=== PATIENT | female | born 1990 | race Caucasian/White ===

== ENCOUNTER → 2017-09-17 20:28 | Outpatient (CLI) | payer OTHER, SELFPAY ==
[2017-09-17 20:38] LABS: Mucous, Urine 0 SEEN /hpf (<or=2+); Red Blood Cells-Urine 0 SEEN /hpf (0-5)
[2017-09-17 21:29] LABS: Color, Urine Yellow (Yellow); Glucose, Dipstick Normal (Normal); Ketone-Dipstick Negative (Negative); Leukocyte Esterase-Dipstick 25 /ul (Negative); Nitrite-Dipstick Negative (Negative); Occult Blood-Urine Negative /ul (Negative); Protein-Dipstick 15 mg/dl (Negative); Urine Bilirubin Dipstick Negative (Negative); Urine Clarity Sl. Cloudy (Clear); Urine Urobilinogen Normal (Normal)
[2017-09-17 22:03] LABS: Bacteria 1+ /hpf (None Seen); Squamous Epithelial Cells - UA 10-25 SEEN /hpf (5-10); White Blood Cells 0-5 SEEN /hpf (0-5)
== END ==
PROVIDERS: Visit Provider Physician Assistant Medical
DX: J02.9 Acute pharyngitis, unspecified (principal); R35.0 Frequency of micturition
CPT/HCPCS: 81001; 87081; 87086; 87088

== ENCOUNTER 2017-09-18 08:25 | Emergency (ER) | payer OTHER, SELFPAY ==
[2017-09-18 08:26] VITALS: BP 123/66; PULSE 128; RESP 18; TEMP 38.3; O2SAT 97; BMI 27.4
--- NOTE | 2017-09-18 08:45 | ED.VISSUMM ---
- ER Visit Summary Date of Service: 09/18/17 Chief Complaint: Fever, cough, congestion and left upper quadrant abdominal discomfort. History of Present Illness: The patient is a 27-year-old female with no significant past medical history. Prior tonsillectomy. States since Friday she has had mild cough, nasal congestion, some nausea but no vomiting or diarrhea fevers as high as 102. And left upper quadrant abdominal discomfort. No dysuria. No abdominal trauma. Vital signs: No right upper right lower quadrant pain. No vaginal bleeding or discharge. She was seen in the [facility] earlier this week he had a negative strep test. And negative UA. A negative influenza test. They started on amoxicillin for reportedly sinusitis. Her symptoms have only been for the last 2-3 days. Physical Examination: Signs are stable she is tachycardic at 128 and febrile at 101. Pulse ox is 97% on room air no signs of hypoxia. No distress. HEENT exam normal. TMs normal. No frontal or maxillary sinus tenderness. Posterior pharynx moist and pink. No erythema. No exudate. No peritonsillar abscess. No trouble swallowing or breathing. No stridor or drooling. Neck is completely nontender. No lymphadenopathy. No meningismus. Trachea is nontender. Lungs clear to auscultation bilaterally. No rales, rhonchi or wheezing. No significant cough. Heart tachycardic but no murmur. Abdomen is soft and nontender. She points the left upper quadrant but there is no reproducible tenderness. There is no organomegaly or masses. There is no enlargement of the spleen. Using the right upper quadrant and right lower quadrants are both completely nontender. There is no McBurney's point tenderness. She is moving all 4 extremities. They are neurovascularly intact. No rashes no edema. Full range of motion. Back exam is nontender. Lungs are clear posteriorly. Neurologic exam is normal. Test Results: None Emergency Department Course and Treatment: Discussed with the patient most likely she has a viral syndrome. She may have influenza which is a negative influenza test. Or she just may have another viral syndrome. Clinically she has no signs of pneumonia. Ears and throat are both normal on exam. Her abdomen is benign and nontender. Treatment Plan: Patient be treated as a viral syndrome. I explained her she can stop the amoxicillin. Fluids and rest. Tylenol Motrin for fever. Disposition: Discharge Impression: Acute fever secondary to viral syndrome. This note was generated with [employer] dictation software. It may contain incorrect words, spelling, and punctuation that were not noted in review of the chart prior to signing ED Disposition - Plan for ED Patient: Chief Complaint: Abd Pain Referrals: NOT,DEFINED [Primary Care Provider] -
--- NOTE | 2017-09-18 08:50 | ED.DEP ---
ED Disposition - Plan for ED Patient: Disposition: Home or Assisted Living Chief Complaint: Abd Pain Instructions: ED Viral Syndrome Referrals: Osiel Bowden MD [STAFF PHYSICIAN] - 3-5 Days if not improving Additional Instructions: Fluids and rest. Alternate Tylenol for body aches. Follow-up with the primary care physician referred you to if not improving or return if feeling worse.
[2017-09-18] MEDS: Acetaminophen 500 MG Tablet 1000 MG PO (09:14)
== END 2017-09-18 09:17 | disposition home or self-care (01) ==
PROVIDERS: Emergency Provider Emergency Medicine
DX: J06.9 Acute upper respiratory infection, unspecified (principal)
CPT/HCPCS: 99283

== ENCOUNTER → 2020-09-05 09:45 | Outpatient (CLI) | payer OTHER, SELFPAY ==
[2020-09-05 08:28] VITALS: BMI 29.4
[2020-09-05 11:25] LABS: Absolute Lymphocyte Count 1.77 X10^3/uL (0.83-4.51); Absolute Neutrophil Count 4.3 X10^3/uL (2.0-7.7); Basophil# 0.05 X10^3/uL; Basophil% 0.7 % (0-1); Eosinophil# 0.06 X10^3/uL; Eosinophils% 0.9 % (0-5); Hematocrit 40.5 % (37-47); Hemoglobin 13.3 g/dL (12.0-15.0); Lymphocyte # 1.77 X10^3/ul (4.0); Lymphocyte % 26.1 % (19-41); Mean Corp Hgb Conc 32.8 g/dL (32-36); Mean Corpuscular Hgb 29.1 pg (27.0-32.0); Mean Corpuscular Volume 88.6 fL (81-99); Mean Platelet Vol. 9.2 fl (6.2-12.0); Monocyte# 0.57 X10^3/uL; Monocyte% 8.4 % (0-10); NRBC Flagged by Analyzer 0 % (0-5); Neutrophil % 63.6 % (47-70); Platelet Count 378 K/mm3 (150-450); RBC Distribution Width CV 12.3 % (11.6-14.6); RBC Distribution Width SD 39.8 fl (35.1-43.9); Red Blood Count 4.57 M/mm3 (4.2-5.4); White Blood Count 6.8 K/mm3 (4.4-11.0)
[2020-09-05 11:39] LABS: Hemoglobin A1c 5.1 % (3.8-5.6)
[2020-09-05 11:46] LABS: ALB/GLOB Ratio 1.2 RATIO (0.9-2.4); AST(SGOT) 19 U/L (15-37); Alanine Aminotransfer ALT/SGPT 27 U/L (13-56); Albumin, Serum 4.2 g/dL (3.2-5.0); Alkaline Phosphatase 59 U/L (45-117); Anion Gap 5 (5-15); BUN 9 mg/dL (7-18); BUN/Creat Ratio 11.8 RATIO (10-20); Calcium,Total 9.2 mg/dL (8.5-10.1); Chloride 107 mmol/L (98-107); Cholesterol 248 mg/dL (200); Creatinine, Serum 0.76 mg/dL (0.55-1.02); EST Glomerular Filtration Rate 95 mL/min (>60); Est Glom Filt Rate - Afr Amer 116 mL/min (>60); Globulin 3.6 g/dL (2.2-4.2); Glucose 85 mg/dL (74-106); High Density Lipoprotein 57 mg/dL; Potassium 4.2 mmol/L (3.5-5.1); Protein, Total 7.8 g/dL (6.4-8.2); Sodium Level 138 mmol/L (136-145); Triglycerides 144 mg/dL; Very Low Density Lipoprotein 29 mg/dL (5-40)
== END ==
PROVIDERS: PCP Internal Medicine; Referring Provider Internal Medicine; Visit Provider Internal Medicine
DX: R10.13 Epigastric pain (principal); Z13.1 Encounter for screening for diabetes mellitus; Z13.220 Encounter for screening for lipoid disorders
CPT/HCPCS: 36415; 80053; 80061; 83036; 85025

== ENCOUNTER → 2020-10-16 | Outpatient (CLI) | payer OTHER, SELFPAY ==
[2020-10-16 10:06] VITALS: BMI 28.8
[2020-10-18 15:33] LABS: HPV Reflexed? NOT INDICATED
== END | disposition home or self-care (01) ==
LOC: LABSPEC 13:01
PROVIDERS: PCP Internal Medicine; Visit Provider Nurse Practitioner Women's Health
DX: Z12.4 Encounter for screening for malignant neoplasm of cervix (principal)
CPT/HCPCS: 88175; G0145

== ENCOUNTER 2020-10-27 06:22 | Day surgery (SDC) | payer OTHER, SELFPAY ==
[2020-10-05 13:34] VITALS: BMI 28.3
[2020-10-16 10:06] VITALS: BMI 28.8
--- NOTE | 2020-10-27 | COLBX_PTH ---
PATIENT: JIHAN GUERRERO LOC: EN U#:[id number] AGE/SX: 30/F ROOM: RE10/27/[address]: Dr. Augie Denney MD : 1990 BED: DIS: 10/27/2020 SPEC #: [id number] RECD: 10/27/20 11:57 STATUS: EMMANUEL ZAPATANadja #: [id number] TANGELA: 10/27/20 00:[address]: Augie Denney DEPT: SURGICAL PATHOLOGY RECD BY: Estiven Franco ENTERED: 10/27/20 11:58 SP TYPE: COLON BX OTHR DR: Dr. Maryann Ruiz MD Tissues: A - Duodenum, NOS B - Gastric mucous membrane C - Gastric mucous membrane D - Esophageal mucous membrane Procedures: Special Stain Group II Surgery Specimen Level IV Alcian Blue/PAS (control) HEADER OPERATION: EGD ([facility] [place]) PRE-OP DIAGNOSIS: Epigastric pain, retrosternal pain TISSUE SUBMITTED: A - Duodenum biopsy, B - Antrum biopsy for H. pylori and path, C - GE junction biopsy, D - Mid esophagus biopsy MICROSCOPIC DIAGNOSIS A. Duodenum, biopsy: A fragment of duodenal mucosa with mild Ousmane gland hyperplasia. B. Antrum, biopsy: Mild gastritis. See microscopic description and comment. C. GE junction, biopsy: Fragments of gastroesophageal mucosa with mild chronic inflammation. Intestinal metaplasia (goblet cell metaplasia) not identified. See comment. D. Mid esophagus, biopsy: A fragment of squamous epithelium, no pathologic diagnosis. SJ:james 10/30/2020 COMMENT B. The results of immunohistochemistry for Helicobacter pylori will be reported separately ([id number]). C. Alcian blue/PAS stain with matched control is used in the evaluation of the specimen. MICROSCOPIC DESCRIPTION Slides are reviewed. B. The specimen shows fragments of gastric mucosa with chronic inflammatory cell infiltrates in the lamina propria consisting of lymphocytes and plasma cells, consistent with mild chronic gastritis. GROSS DESCRIPTION A - Received in fixative is one container labeled with the patient's name and designated duodenum biopsy. The specimen consists of one irregular fragment of light evans soft tissue that measures 0.3 x 0.2 x 0.1 cm. The specimen is totally submitted in one cassette. B - Received in fixative is one container labeled with the patient's name and designated antrum biopsy. The specimen consists of one irregular fragment of light evans soft tissue that measures 0.3 x 0.3 x 0.1 cm. The specimen is totally submitted in one cassette. C - Received in fixative is one container labeled with the patient's name and designated GE junction biopsy. The specimen consists of multiple irregular fragments of light evans soft tissue that in aggregate measure 0.7 x 0.4 x 0.1 cm. The specimen is totally submitted in one cassette. D - Received in fixative is one container labeled with the patient's name and designated mid esophagus biopsy. The specimen consists of one irregular fragment of light evans soft tissue that measures 0.3 x 0.3 x 0.1 cm. The specimen is totally submitted in one cassette. / SJ:rg 10/27/20 TC:3 CPT: 10290 x4, 72166
[2020-10-27 06:50] LABS: Internal QC Validated? YES +Cl - CLEAR BKGD; Pregnancy, Urine Negative Negative
[2020-10-27 07:01] VITALS: BP 124/76; PULSE 79; RESP 16; TEMP 36.7; O2SAT 95; BMI 28.5
--- NOTE | 2020-10-27 07:03 | HP.PCM_ITS ---
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 Augie Denney MD) Smoking Status: Never smoker second hand exposure: No alcohol intake: current alcohol intake frequency: a few times a week Alcohol type: wine substance use type: does not use caffeine: Yes what type of physical activity do you participate in: yoga, aerobics frequency: 3-4 times per week seatbelt use: always HPI HPI HPI: JIHAN ZURITA, is a 30 F who presents to the office today for surgical consultation for epigastric and retrosternal pain. This been ongoing for at least a month. The patient is referred by Dr. Maryann Ruiz written copy my surgical consult and recommendations will be returned to him Patient's not had any children. She has no personal or family history of gallbladder disease. For this epigastric discomfort there is no particular eliciting feature. Food does not aggravate or relieve the problem. She has been tried on a proton pump inhibitor. She is currently being treated with Carafate. The Carafate seems to improve it to a small degree. She denies bright red blood per rectum or melena. No lower abdominal pain. No bright red blood per rectum or melena. The only previous surgery she has had a tonsillectomy and adenoidectomy. No fever or chills. No unexpected weight loss. She was previously exposed to COVID-19 but tested negative. Since that time she has received her COVID-19 vaccination HPI HPI HPI: JIHAN ZURITA, is a 30 F who presents to the office today for ROS General General: No weight change, appetite, fatigue, colon cancer, breast cancer or weakness HEENT HEENT: No difficulty swallowing, eye injury, eye surgery, swollen glands or hoarseness Endo Endocrine: No thyroid disease, diabetes mellitus, thyroid cancer, Hair loss, heat intolerance or cold intolerance Skin Skin: No rash or changing moles Musc Musculoskeletal: No back problems, arthritis, rheumatoid arthritis, gout or joint pain Cardio Cardiovascular: No murmur, pacemaker, heart disease, atrial fibrillation, high blood pressure, heart attack, heart stent, palpitations, shortness of breat with exertion or chest pain Psych Psychiatric: No depression, anxiety or hearing voices Resp Respiratory: No shortness of breath, No sleep apnea, No cough, No COPD, No asthma, No emphysema, No wheezing Gastro Gastrointestinal: No abdominal pain, No nausea or vomiting, No diarrhea, No constipation, No blood in stool, No acid reflux, No hemorrhoids, No ulcers, No gallbladder problem, No black,tarry stools [place] Hematologic: No blood thinners, No blood disorders, No bleeding, No anemia, No blood clots Neuro Neurologic: No system reviewed and no additional complaints, except as docu, No as per HPI, No abnormal walking, No abnormal hearing, No abnormal movements, No abnormal speech, No behavioral changes, No burning sensations, No confusion, No seizure-like activity, No unsteadiness, No dizziness, No localized weakness, No frequent falls, No headache(s), No lack of coordination, No loss of vision, No memory loss, No numbness, No other visual disturbances, No radiating pain, No restless legs, No sensory deficit, No fainting, No tingling, No tremor(s), No weakness, No other Exam Const General: cooperative, healthy appearing Nutritional Appearance: overweight Orientation: alert, awake [facility] Head: normal to inspection Eyes General: appearance normal, both eyes and all related structures Resp Effort & Inspection: normal respiratory effort Auscultation: clear to auscultation bilaterally Cardio Rate: regular rate Heart Sounds: no murmurs GI Inspection: normal to inspection Palpation: soft, no hepatosplenomegaly Auscultation: normal bowel sounds Musc Cervical Spine: normal cervical lordosis Skin General: no rashes or lesions noted Neuro Cognition: normal cognition Extrem General: no calf tenderness Psych Affect: normal affect Assessment & Plan Problems 1. Epigastric pain R10.13 2. Retrosternal pain R07.2 Plan 30-year-old female with symptoms that seem to correlate with peptic ulcer disease or gastroesophageal reflux disease or esophagitis. I do believe that a esophagogastroduodenoscopy with possible biopsy or polypectomy is indicated. Careful inspection for possible H. pylori or even eosinophilic esophagitis will be pursued. I have discussed the technique, benefit, risk, alternatives. She has had an opportunity to ask and have questions answered. We will schedule and proceed at her discretion. If the upper endoscopy is completely nonrevealing then I would consider a right upper quadrant ultrasound. We will schedule and proceed at her discretion. I appreciate the opportunity of assisting with her surgical care. 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 Maryann Denney M.D., F.A.C.S. Coding Level of Care Code 90798 Diagnoses Epigastric pain R10.13 Retrosternal pain R07.2 I have re-examined the patient. There are no clinical changes since date of exam. Procedure Criteria Procedure Type: Elective COVID Risk Discussion: The surgeon/proceduralist and patient have discussed in detail the risk of exposure to and/or potential harm posed by the COVID-19 virus with having a surgery/procedure at this time versus the risk of delaying the surgery/procedure. It is not possible to know either the risk of delaying the surgery or procedure or chance of getting an infection with perfect accuracy, but a joint decision was made between the patient and the surgeon/proceduralist to proceed at this time with the scheduled surgery/procedure as indicated on the consent form.
[2020-10-27] MEDS: Lactated Ringers 1,000 ML 100 ML IV (07:06)
--- NOTE | 2020-10-27 07:30 | IMM_PTH ---
PATIENT: JIHAN GUERRERO LOC: EN U#:[id number] AGE/SX: 30/F ROOM: RE10/27/[address]: Dr. Augie Denney MD : 1990 BED: DIS: 10/27/2020 SPEC #: [id number] RECD: 10/27/20 12:08 STATUS: EMMANUEL RENadja #: [id number] TANGELA: 10/27/20 07:[address]: Augie Denney DEPT: IMMUNOHISTOCHEMISTRY RECD BY: Fadumo Burgess ENTERED: 10/27/20 12:08 SP TYPE: IMMUNO OTHR DR: Dr. Maryann Ruiz MD Tissues: B - Stomach, NOS Procedures: H Pylori (initial) PHYSICIAN & INSTITUTION [place] [id number] SPECIMEN INFORMATION: Tissue Source: B - Antrum biopsy Clinical Info: Epigastric pain, retrosternal pain Specimen Number: [id number] CPT code: 28555 METHODOLOGY: Deparaffinized sections of prefer/formalin-fixed tissue or PAP/DQ stained slides are incubated with monoclonal/polyclonal antibodies/oligonucleotide probes. Localization is made via biotin free immunoperoxidase method. Appropriate controls are performed and reacted as expected. Results on target cell population are indicated in the following table: RESULTS: ANTIBODY / CLONE RESULT Block B H Pylori (polyclonal) negative These tests were developed and their performance characteristics determined by [facility]. They may not have been cleared or approved by the U.S. Food and Drug Administration. The FDA has determined that such clearance or approval is not necessary. INTERPRETATION: B. Antrum biopsy: Negative for Helicobacter pylori organisms. SJ:james 10/30/2020
[2020-10-27 07:55] VITALS: BP 109/97; BP 124/76; PULSE 98; RESP 14; TEMP 36.5; O2SAT 97
[2020-10-27 07:56] VITALS: BP 117/73; BP 124/76; PULSE 85; RESP 16; O2SAT 98
--- NOTE | 2020-10-27 07:57 | OP.EGD_ITS ---
Patient Name: Courtney Bryan Procedure Date: 10/27/2020 7:36 AM Date of : 1990 Age: 30 Procedure: Upper GI endoscopy Indications: Epigastric abdominal pain Providers: Augie Denney MD Referring MD: Maryann Ruiz Medicines: See the Anesthesia note for documentation of the administered medications Complications: No immediate complications. Procedure: Pre-Anesthesia Assessment: - Prior to the procedure, a History and Physical was performed, and patient medications and allergies were reviewed. The patient's tolerance of previous anesthesia was also reviewed. The risks and benefits of the procedure and the sedation options and risks were discussed with the patient. All questions were answered, and informed consent was obtained. Prior Anticoagulants: The patient has taken no previous anticoagulant or antiplatelet agents. ASA Grade Assessment: II - A patient with mild systemic disease. After reviewing the risks and benefits, the patient was deemed in satisfactory condition to undergo the procedure. After obtaining informed consent, the endoscope was passed under direct vision. Throughout the procedure, the patient's blood pressure, pulse, and oxygen saturations were monitored continuously. The gastroscope was introduced through the mouth, and advanced to the second part of duodenum. The upper GI endoscopy was accomplished without difficulty. The patient tolerated the procedure well. Scope In: 7:43:35 AM Scope Out: 7:50:19 AM Total Procedure Duration Time 0 hours 6 minutes 44 seconds Findings: Esophagitis with no bleeding was found 38 cm from the incisors. Biopsies were taken with a cold forceps for histology. The middle third of the esophagus was normal. Biopsies were taken with a cold forceps for histology. Diffuse mildly erythematous mucosa without bleeding was found in the gastric antrum. Biopsies were taken with a cold forceps for histology. The examined duodenum was normal. Biopsies were taken with a cold forceps for histology. A 1 cm hiatal hernia was present. Impression: - Reflux esophagitis. Biopsied Small hiatal hernia. - Normal middle third of esophagus. Biopsied. - Erythematous mucosa in the antrum. Biopsied. - Normal examined duodenum. Biopsied. Recommendation: - Await pathology results. - Discharge patient to home. - Resume previous diet. - Continue present medications. - Use Prilosec (omeprazole) 40 mg PO daily. - Telephone my office for pathology results in 1 week. If not improved, then will consider a GB ultrasound Procedure Code(s): --- Professional --- 27841, Esophagogastroduodenoscopy, flexible, transoral; with biopsy, single or multiple Diagnosis Code(s): --- Professional --- K21.0, Gastro-esophageal reflux disease with esophagitis K31.89, Other diseases of stomach and duodenum R10.13, Epigastric pain CPT copyright 2017 [employer]. All rights reserved. The codes documented in this report are preliminary and upon social worker palliative care review may be revised to meet current compliance requirements. Augie Denney MD 10/27/2020 7:56:39 AM This report has been signed electronically. Number of Addenda: 0 Note Initiated On: 10/27/2020 7:36 AM
--- NOTE | 2020-10-27 07:57 | OP.CCLET_ITS ---
10/27/2020 Maryann Ruiz [facility] [address] [place] [address] Re : Upper GI endoscopy procedure for Courtney Bryan Dear Dr. Ruiz This procedure was performed on Tuesday, October 27, 2020. My impressions and recommendations are as follows: Impressions : - Reflux esophagitis. Biopsied Small hiatal hernia. - Normal middle third of esophagus. Biopsied. - Erythematous mucosa in the antrum. Biopsied. - Normal examined duodenum. Biopsied. Recommendations : - Await pathology results. - Discharge patient to home. - Resume previous diet. - Continue present medications. - Use Prilosec (omeprazole) 40 mg PO daily. - Telephone my office for pathology results in 1 week. If not improved, then will consider a GB ultrasound My findings are described in the full procedure note, which is enclosed. If I can be of further assistance, please feel free to contact me at Doctor phone number(s): Work: . Sincerely, Augie Denney MD 10/27/2020 7:56:39 AM This report has been signed electronically.
[2020-10-27 08:05] VITALS: BP 124/76; BP 91/58; PULSE 84; RESP 16; O2SAT 98
[2020-10-27 08:10] VITALS: BP 116/87; BP 124/76; PULSE 81; RESP 16; TEMP 36.7; O2SAT 98
[2020-10-27 08:45] VITALS: BP 124/76
== END 2020-10-27 08:49 | disposition home or self-care (01) ==
LOC: EN 06:23 → AC 06:23
PROVIDERS: Anesthesiology; PCP Internal Medicine; Referring Provider Internal Medicine; Visit Provider Surgery
PROC: 0DJ08ZZ Inspection of Upper Intestinal Tract, Via Natural or Artificial Opening Endoscopic (ICD-10-PCS; CPT 43235; principal; 2020-10-27 07:25)
DX: K29.70 Gastritis, unspecified, without bleeding (principal); K44.9 Diaphragmatic hernia without obstruction or gangrene; K31.89 Other diseases of stomach and duodenum; K21.00 Gastro-esophageal reflux disease with esophagitis, without bleeding; Z20.822 Contact with and (suspected) exposure to COVID-19
CPT/HCPCS: 43239; 81025; 87426; 88305; 88313; 88342; C9803; J7120

== ENCOUNTER → 2020-11-20 08:00 | Outpatient (CLI) | payer OTHER, SELFPAY ==
[2020-10-27 07:01] VITALS: BMI 28.5
--- NOTE | 2020-11-20 08:08 | US_ITS ---
STUDY: ABDOMINAL ULTRASOUND - RIGHT UPPER QUADRANT REASON FOR VISIT: Female, 30 years old. Right upper quadrant/epigastric pain. TECHNIQUE: Ultrasound evaluation of the right upper quadrant was performed with real-time and static koch-scale imaging. TECHNICAL QUALITY: Adequate. COMPARISON: None. FINDINGS: Liver: The liver measures 14 cm. There is normal echogenicity of the liver. The bile ducts are within normal limits. There is hepatic color flow. The direction of portal flow is hepatopetal. There is no demonstrated mass lesion. Gallbladder: Normal distended gallbladder. The gallbladder wall measures 2 mm. There is a negative sonographic Nicholas''s sign. There is no pericholecystic fluid. There are no gallstones. Common Bile Duct (C.B.D.): The common bile duct measures 3 mm. Pancreas: Normal size of the head, body and tail of the pancreas. There is normal echogenicity of the pancreas. There is no demonstrated pancreatic mass or cyst. Right Kidney: Normal size of the right kidney. The right kidney measures 10.7 cm x 4.57 x 4.6 cm. Normal renal cortex. The right cortex measures 1.8 cm. There is no demonstrated renal mass or cyst. There is no right hydronephrosis. US/Gallbladder IMPRESSION: Normal right upper quadrant ultrasound examination. Electronically Signed: James Roberts MD at 12:05 EDT , Service support ,
== END ==
PROVIDERS: PCP Internal Medicine; Referring Provider Surgery; Visit Provider Surgery
DX: R07.2 Precordial pain (principal); R10.9 Unspecified abdominal pain
CPT/HCPCS: 76705

== ENCOUNTER → 2020-11-24 10:26 | Outpatient (CLI) | payer OTHER, SELFPAY ==
[2020-10-27 07:01] VITALS: BMI 28.5
--- NOTE | 2020-11-24 10:28 | NM_ITS ---
CLINICAL: 30-year-old female with history of right upper quadrant abdominal pain. RADIONUCLIDE HEPATOBILIARY SCINTIGRAPHY COMPARISON: Abdominal ultrasound report 11/20/2020 FINDINGS: Following the intravenous administration of 5.2 mCi of 99m Tc Mebrofenin, hepatobiliary images reveal: 1. Relatively prompt and homogeneous radiopharmaceutical concentration is noted by a normal sized liver. No parenchymal defects are identified. 2. Gallbladder activity is identified at 10 minutes post radiopharmaceutical administration. 3. Small intestinal tract is observed at 30 minutes following tracer injection. 4. Washout of the radiopharmaceutical by the hepatic parenchyma appears qualitatively normal. The patient was administered a fatty meal (8 ounces Half and Half). The post fatty meal consumption gallbladder ejection fraction calculated at 31 minutes was noted to be 75 % (normal greater than 30%). TN/Hepatobilliary Img w/Pharm Int IMPRESSION: 1. NORMAL 99m Tc Mebrofenin hepatobiliary imaging examination with fatty meal ingestion. A. A gallbladder ejection fraction calculated to be greater than 30% following the administration of a consumed fatty meal makes the probability of functional hepatobiliary disease (gallbladder and/or sphincter of Oddi dyskinesia) and/or organic hepatobiliary disease (chronic acalculous cholecystitis and/or cystic duct syndrome) to be low. (Meghan and Robert, J Nucl Med 43: 1603, 2002). Electronically Signed: Quan Gomez DO at 20:42 EDT Tel , Service support ,
== END ==
PROVIDERS: PCP Internal Medicine; Referring Provider Surgery; Visit Provider Surgery
DX: R10.13 Epigastric pain (principal); R07.2 Precordial pain
CPT/HCPCS: 78227; A9537

== ENCOUNTER → 2022-01-21 | Outpatient (CLI) | payer BC, SELFPAY ==
[2022-01-21 10:20] LABS: Absolute Lymphocyte Count 2.04 X10^3/uL (0.83-4.51); Absolute Neutrophil Count 5.5 X10^3/uL (2.0-7.7); Basophil# 0.03 X10^3/uL; Basophil% 0.4 % (0-1); Eosinophil# 0.05 X10^3/uL; Eosinophils% 0.6 % (0-5); Hemoglobin 12.6 g/dL (12.0-15.0); Lymphocyte # 2.04 X10^3/ul (0.83-4.51); Lymphocyte % 24.5 % (19-41); Mean Corpuscular Hgb 30.2 pg (27.0-32.0); Mean Corpuscular Volume 86.3 fL (81-99); Mean Platelet Vol. 8.4 fl (6.2-12.0); Monocyte# 0.72 X10^3/uL; Monocyte% 8.6 % (0-10); NRBC Flagged by Analyzer 0 % (0-5); Neutrophil # 5.45 X10^3/uL (2.7-7.7); Neutrophil % 65.4 % (47-70); Platelet Count 380 K/mm3 (150-450); RBC Distribution Width CV 11.8 % (11.6-14.6); RBC Distribution Width SD 37.2 fl (35.1-43.9); Red Blood Count 4.17 M/mm3 (4.2-5.4); White Blood Count 8.3 K/mm3 (4.4-11.0)
[2022-01-21 11:34] LABS: HIV - WCH Non-Reactive (Nonreactive); Hepatitis B Surface Antigen Non-Reactive (Nonreactive); Hepatitis C Antibody Non-Reactive (Nonreactive); Rubella IgG Reactive (Nonreactive); Syphilis Antibodies Non-reactive
[2022-01-21 11:37] LABS: Amphetamine Urine VISTA NEGATIVE (<1000 ng/mL); Barbiturate Urine VISTA NEGATIVE (< 200 ng/mL); Benzodiazepine Urine VISTA NEGATIVE (< 200 ng/mL); Cocaine Urine VISTA NEGATIVE (< 300 ng/mL); Ecstacy Urine VISTA NEGATIVE (< 500 ng/mL); Methadone Urine VISTA NEGATIVE (< 300 ng/mL); PCP Urine VISTA NEGATIVE (< 25 ng/mL); THC Urine VISTA NEGATIVE (< 50 ng/mL); Vista UDS pH Range 6
[2022-01-22 22:06] LABS: Chlamydia By Nucleic Acid AMP Negative (Negative)
[2022-01-23 12:13] LABS: Gonococcus By Nucleic Acid AMP Negative (Negative)
== END | disposition home or self-care (01) ==
LOC: PAVLAB 09:46
PROVIDERS: PCP Internal Medicine; Referring Provider Obstetrics & Gynecology; Visit Provider Obstetrics & Gynecology
DX: Z34.90 Encounter for supervision of normal pregnancy, unspecified, unspecified trimester (principal)
CPT/HCPCS: 36415; 80307; 85025; 86703; 86762; 86780; 86803; 86850; 86900; 86901; 87077; 87086; 87088; 87186; 87340; 87491; 87591

== ENCOUNTER → 2022-06-04 | Outpatient (CLI) | payer BC, SELFPAY ==
[2022-06-04 09:18] LABS: Absolute Lymphocyte Count 2.08 X10^3/uL (0.83-4.51); Absolute Neutrophil Count 8.4 X10^3/uL (2.0-7.7); Basophil# 0.04 X10^3/uL; Basophil% 0.3 % (0-1); Eosinophil# 0.07 X10^3/uL; Eosinophils% 0.6 % (0-5); Hematocrit 34.2 % (37-47); Hemoglobin 12.1 g/dL (12.0-15.0); Lymphocyte # 2.08 X10^3/ul (0.83-4.51); Mean Corp Hgb Conc 35.4 g/dL (32-36); Mean Corpuscular Hgb 30.5 pg (27.0-32.0); Mean Corpuscular Volume 86.1 fL (81-99); Mean Platelet Vol. 8.2 fl (6.2-12.0); Monocyte# 0.92 X10^3/uL; NRBC Flagged by Analyzer 0 % (0-5); Neutrophil # 8.35 X10^3/uL (2.7-7.7); Neutrophil % 72.4 % (47-70); Platelet Count 347 K/mm3 (150-450); RBC Distribution Width CV 12.4 % (11.6-14.6); RBC Distribution Width SD 38.8 fl (35.1-43.9); Red Blood Count 3.97 M/mm3 (4.2-5.4); White Blood Count 11.5 K/mm3 (4.4-11.0)
[2022-06-04 09:51] LABS: Glucose Challenge Gest 1H 50g 93 mg/dL (70-140)
== END | disposition home or self-care (01) ==
LOC: PAVLAB 08:43
PROVIDERS: PCP Internal Medicine; Referring Provider Obstetrics & Gynecology; Visit Provider Obstetrics & Gynecology
DX: Z34.90 Encounter for supervision of normal pregnancy, unspecified, unspecified trimester (principal)
CPT/HCPCS: 36415; 82950; 85025

== ENCOUNTER 2022-07-23 17:00 | Outpatient (CLI) | payer BC, SELFPAY ==
[2022-07-23 17:37] VITALS: BP 119/68; PULSE 85
[2022-07-23 17:44] VITALS: BMI 31.8
[2022-07-23 17:51] VITALS: BP 119/68; PULSE 85; TEMP 36.5; O2SAT 97
--- NOTE | 2022-07-23 20:45 | OB.TRI.HP_ITS ---
HPI - General General Date of Admission: 07/23/22 HPI Narrative JIHAN CHAUHAN, is a 32 y/o @ 34 weeks 5 days who presents to L&D with decreased movement and right upper quadrant pain. She denies headaches, visual changes, or swelling in extremities. Maternal Data Information ALFRED Calculator Estimated Delivery Date Method Current WG Current Estimate 08/29/22 LMP (Certain) 34w 5d PFSH PFSH Medical History Epigastric pain Family history of breast cancer Retrosternal pain 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 affecting Home Medications vitamin#30 30 mg iron-10 mg iron-folic acid 1 mg-omg3 capsule cap PO 01/21/22 [History Last Taken 07/22/22 07:00 1] Allergy/AdvReac Type Severity Reaction Status Date / Time No Known Allergies Allergy Verified 07/02/22 08:53 Family History Father Alcoholism Grandmother Breast cancer Hypertension Aunt Breast cancer Mother Hyperlipemia Surgical History History of tonsillectomy Hx of wisdom tooth extraction Social History household members: spouse number of children: 0 current occupational status: employed current occupation: [employer] history of recent travel: No sexually active: Yes Smoking Status: Never smoker second hand exposure: No alcohol intake: former details: pre substance use type: does not use caffeine: Yes what type of physical activity do you participate in: yoga and aerobics frequency: 3-4 times per week seatbelt use: always do you feel safe at home: Yes additional social history: - 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) Patient works at [employer] ([employer] office) History 1 Elective abortions Hx Para Spontaneous abortions Hx # Term Pregnancies Ectopic pregnancies Hx # Pregnancies Multiple births # of living children Visit Details Expected Delivery Route/Plan Labor Preferences- CB/BF classes: yes labor support person:Tashi labor intervention preferences:none pain management options preferred: epidural cut cord/dad catch: maybe : yes PP control planned: discussed discussed possible routes of delivery and associated risks: [] special requests: [] Plans Covid status: discussed Flu vaccine: given Tdap vaccine:given Rhogam: NA LARC form signed: yes movement and labor precautions reviewed. Problem list reviewed and updated with the most current plan of care details and appropriate orders placed. Relevant counseling for the gestational age provided. Continue routine care and follow up unless otherwise noted in visit notes/problem list details OB Flowsheet Initial Weight: 172 lb Date -?-?-?-?-?-?-?-?-?--?-?-?- EGA Weight BP Urine Prot -?-?-?-?-?-?-?-?-?-?-?-?- Glucose FHR FuHt Pres Dilation -?-?-?-?-?-?-?-?-?-?-?-?- Effaced St Visit Note 01/21/22 -?-?-?-?-?-?-?-?-?-?-?-?- 8w 4d 172 lb (+0 oz) 116/70 -?-?-?-?-?-?-?-?-?-?-?-?- 170 -?-?-?-?-?-?-?-?-?-?-?-?- SM- CRL cons wit h LMP 1.86cm 02/20/22 -?-?-?-?-?-?-?-?-?-?-?-?- 12w 6d 173 lb (+16 oz) 106/62 Negative -?-?-?-?-?-?-?-?-?-?-?-?- Negative 167 -?-?-?-?-?-?-?-?-?-?-?-?- JV- us machine n ot working to measure CRL, movement observed and heart tones picked up. Formal scan ordered with M. 03/19/22 -?-?-?-?-?-?-?-?-?-?-?-?- 16w 5d 173 lb 4 oz (+1 lb 4 oz) 148/88 106/60 Negative -?-?-?-?-?-?-?-?-?-?-?-?- Negative 146 -?-?-?-?-?-?-?-?-?-?-?-?- -No VB or cram ping. Nausea improved. 04/16/22 -?-?-?-?-?-?-?-?-?-?-?-?- 20w 5d 175 lb 8 oz (+3 lb 8 oz) 118/66 Negative -?-?-?-?-?-?-?-?-?-?-?-?- Negative 140 -?-?-?--?-?-?-?-?-?-?-?-?- - no vb crampi ng co back pain 05/16/22 -?-?-?-?-?-?-?-?-?-?-?-?- 25w 0d 177 lb 6 oz (+5 lb 6 oz) 121/77 Negative -?-?-?-?-?-?-?-?-?-?-?-?- Negative 145 26 Cephalic -?-?-?-?-?-?-?-?-?-?-?-?- JV- no lof, vagi nal bleeding, or dec fm. flu shot today. 06/04/22 -?-?-?-?-?-?-?-?-?-?-?-?- 27w 5d 183 lb (+11 lb) 130/74 Negative -?-?-?-?-?-?-?-?-?-?-?-?- Negative 146 27 -?-?-?-?-?-?-?-?-?-?-?--?- -No VB, LOF. G ood FM. 28 wk labs, [facility]. 06/20/22 -?-?-?-?-?-?-?-?-?-?-?-?- 30w 0d 186 lb 2 oz (+14 lb 2 oz) 119/74 Negative -?-?-?-?-?-?-?-?-?-?-?-?- Negative 144 30 -?-?-?-?-?-?-?-?-?-?-?-?- JV- no lof, vagi nal bleeding, or dec fm. no complaints. 07/15/22 -?-?-?-?-?-?-?-?-?-?-?-?- 33w 4d 189 lb (+17 lb) 111/73 Negative -?-?-?-?-?-?-?-?-?-?-?-?- Negative 140 33 -?-?-?-?-?-?-?-?-?-?-?-?- SM- no vb lof go od fm no regular ctx ROS Constitutional Constitutional: Reports systems reviewed and no addt'l complaints, except as documented Gastrointestinal Gastrointestinal: Denies bloating, constipation, cramping, diarrhea, nausea or vomiting Genitourinary Genitourinary: Reports other Details: Denies vaginal odor, vaginal bleeding, or vaginal discharge ; Denies difficulty urinating or flank pain Physical Exam HEENT normocephalic Resp normal respiratory effort and normal air movement no CVA tenderness Extremity normal to inspection General Extremity: edema bilateral (trace ) NST FHR Rate Baby A Baseline: 130 Variability:: Moderate Accelerations:: 15 x 15 Decelerations:: None NST Reactive:: Yes FHR Category:: Category I Assessment & Plan (1) 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 affecting : COMMENT: treat now and in labor (2) : QUALIFIERS: Weeks of gestation: 33 weeks Qualified Code(s): Z3A.33 - 33 weeks gestation of COMMENT: anatomy nl, repeat US @ 28 wks of kidney(06/06/22) resolved, genetic and carrier declined, afp declined. (3) Supervision of normal : COMMENT: PRR ALFRED 08/29/22 boy Joe Tashi PLAN: Plan patient reassured of reactive NST she will let us know if the RUQ pain worsens and will avoid fatty foods. Charges/Coding Multi Select Codes Visit Charges Office Visit/Consults: 84213 OV L3 Est Urinary/Genital Urinary/Genital CPT Codes: 54087-98 non-stress test Interp
== END 2022-07-23 18:25 | disposition home or self-care (01) ==
LOC: WPOUT 17:08 → WP 17:08
PROVIDERS: PCP Internal Medicine; Visit Provider Obstetrics & Gynecology
DX: O09.13 Supervision of pregnancy with history of ectopic pregnancy, third trimester (principal); Z3A.34 34 weeks gestation of pregnancy
CPT/HCPCS: 59025; 59050; 99218; G0378

== ENCOUNTER 2022-08-24 19:20 | Inpatient (IN) | payer BC, SELFPAY ==
[2022-08-24] VITALS (10 sets, daily range): BP systolic 139–150; BP diastolic 70–101; PULSE 67–93; TEMP 36.1–36.7; O2SAT 97–100; BMI 33.0
[2022-08-24 19:19] LABS: ROM Internal Control Test YES-OK TO RESULT pt. (Internal QC); ROM Patient Test POSITIVE (Negative)
[2022-08-24] MEDS: Lactated Ringers 1,000 ML 50 ML IV (19:50)
[2022-08-24 20:06] LABS: Absolute Neutrophil Count 10.3 X10^3/uL (2.0-7.7); Basophil# 0.05 X10^3/uL; Basophil% 0.4 % (0-1); Eosinophil# 0.08 X10^3/uL; Eosinophils% 0.6 % (0-5); Hematocrit 37.5 % (37-47); Hemoglobin 12.6 g/dL (12.0-15.0); Mean Corp Hgb Conc 33.6 g/dL (32-36); Mean Corpuscular Hgb 28.2 pg (27.0-32.0); Mean Corpuscular Volume 83.9 fL (81-99); Mean Platelet Vol. 9.1 fl (6.2-12.0); Monocyte# 1.21 X10^3/uL; Monocyte% 8.6 % (0-10); NRBC Flagged by Analyzer 0 % (0-5); Neutrophil # 10.25 X10^3/uL (2.7-7.7); Neutrophil % 72.8 % (47-70); Platelet Count 378 K/mm3 (150-450); RBC Distribution Width CV 12.5 % (11.6-14.6); RBC Distribution Width SD 37.8 fl (35.1-43.9); Red Blood Count 4.47 M/mm3 (4.2-5.4); White Blood Count 14.1 K/mm3 (4.4-11.0)
--- NOTE | 2022-08-24 22:05 | HP.PCM.OB_ITS ---
HPI - General General Date of Admission: 08/24/22 HPI Narrative JIHAN CHAUHAN, is a 32 F who presents at 39+2 with LOF. occ ctx. no vb. good fm. routine course only complicated by GBS colonization. 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 affecting Home Medications vitamin#30 30 mg iron-10 mg iron-folic acid 1 mg-omg3 capsule 1 cap PO DAILY 01/21/22 [History Last Taken 07/22/22 07:00 1] Allergy/AdvReac Type Severity Reaction Status Date / Time No Known Allergies Allergy Verified 08/24/22 19:04 Family History Father Alcoholism Grandmother Breast cancer Hypertension Aunt Breast cancer Mother Hyperlipemia Surgical History History of tonsillectomy Hx of wisdom tooth extraction Social History household members: spouse number of children: 0 current occupational status: employed current occupation: [employer] history of recent travel: No sexually active: Yes Smoking Status: Former smoker second hand exposure: No alcohol intake: former details: pre substance use type: does not use caffeine: Yes what type of physical activity do you participate in: yoga and aerobics frequency: 3-4 times per week seatbelt use: always do you feel safe at home: Yes additional social history: - 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) Patient 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 [employer] ([employer] office) History 1 Elective abortions Hx Para 0 Spontaneous abortions Hx # Term Pregnancies Ectopic pregnancies Hx # Pregnancies Multiple births # of living children Visit Details Expected Delivery Route/Plan Labor Preferences- CB/BF classes: yes labor support person:Tashi labor intervention preferences:none pain management options preferred: epidural cut cord/dad catch: maybe : yes PP control planned: discussed discussed possible routes of delivery and associated risks: [] special requests: [] Plans Covid status: discussed Flu vaccine: given Tdap vaccine:given Rhogam: NA LARC form signed: yes movement and labor precautions reviewed. Problem list reviewed and updated with the most current plan of care details and appropriate orders placed. Relevant counseling for the gestational age provided. Continue routine care and follow up unless otherwise noted in visit notes/problem list details OB Flowsheet Initial Weight: 172 lb Date -?-?-?-?-?-?-?-?-?-?-?-?- EGA Weight BP Urine Prot -?-?-?-?-?-?-?-?-?-?-?-?- Glucose FHR FuHt Pres Dilation -?-?-?-?-?-?-?-?-?-?-?-?- Effaced St Visit Note 01/21/22 -?-?-?-?-?-?-?-?-?-?-?-?- 8w 4d 172 lb (+0 oz) 116/70 -?-?-?-?-?-?-?-?-?-?-?-?- 170 -?-?-?-?-?-?-?-?-?-?-?-?- SM- CRL cons wit h LMP 1.86cm 02/20/22 -?-?-?-?-?-?-?-?-?-?-?-?- 12w 6d 173 lb (+16 oz) 106/62 Negative -?-?-?-?-?-?-?-?-?-?-?-?- Negative 167 -?-?-?-?-?-?-?-?-?-?-?-?- JV- us machine n ot working to measure CRL, movement observed and heart tones picked up. Formal scan ordered with M. 03/19/22 -?-?-?-?-?-?-?-?-?-?-?-?- 16w 5d 173 lb 4 oz (+1 lb 4 oz) 148/88 106/60 Negative -?-?-?-?-?-?-?-?-?-?-?-?- Negative 146 -?-?-?-?-?-?-?-?-?-?-?-?- -No VB or cram ping. Nausea improved. 04/16/22 -?-?-?-?-?-?-?-?-?-?-?-?- 20w 5d 175 lb 8 oz (+3 lb 8 oz) 118/66 Negative -?-?-?-?-?-?-?-?-?-?-?-?- Negative 140 -?-?-?-?-?-?-?-?-?-?-?-?- - no vb crampi ng co back pain 05/16/22 -?-?-?-?-?-?-?-?-?-?-?-?- 25w 0d 177 lb 6 oz (+5 lb 6 oz) 121/77 Negative -?-?-?-?-?-?-?-?-?-?-?-?- Negative 145 26 Cephalic -?-?-?-?-?-?-?-?-?-?-?-?- JV- no lof, vagi nal bleeding, or dec fm. flu shot today. 06/04/22 -?-?-?-?-?-?-?-?-?-?-?-?- 27w 5d 183 lb (+11 lb) 130/74 Negative -?-?-?-?-?-?-?-?-?-?-?-?- Negative 146 27 -?-?-?-?-?-?-?-?-?-?-?-?- -No VB, LOF. G ood FM. 28 wk labs, [facility]. 06/20/22 -?-?-?-?-?-?-?-?-?-?-?-?- 30w 0d 186 lb 2 oz (+14 lb 2 oz) 119/74 Negative -?-?-?-?-?-?-?-?-?-?-?-?- Negative 144 30 -?-?-?-?-?-?-?-?-?-?-?-?- JV- no lof, vagi nal bleeding, or dec fm. no complaints. 07/15/22 -?-?-?-?-?-?-?-?-?-?-?-?- 33w 4d 189 lb (+17 lb) 111/73 Negative -?-?-?-?-?-?-?-?-?-?-?-?- Negative 140 33 -?-?-?-?-?-?-?-?-?-?-?-?- SM- no vb lof go od fm no regular ctx 08/01/22 -?-?-?-?-?-?-?-?-?-?-?-?- 36w 0d 193 lb 2 oz (+21 lb 2 oz) 126/84 Negative -?-?-?-?-?-?-?-?-?-?-?-?- Negative 140 36 Cephalic 1 -?-?-?-?-?-?-?-?-?-?-?-?- 20 -3 SM- no vb lof good fm no regular ctx.occsl RUQ inconsistent, reviewed PEC precautions. 08/09/22 -?-?-?-?-?-?-?-?-?-?-?-?- 37w 1d 196 lb 4 oz (+24 lb 4 oz) 120/78 Negative -?-?-?-?-?-?-?-?-?-?-?-?- Negative 140 37 Cephalic 1 -?-?-?-?-?-?-?-?-?-?-?-?- SM- no vb lof go od fm n oreuglar ctx 08/15/22 -?-?-?-?-?-?-?-?-?-?-?-?- 38w 0d 198 lb 2 oz (+26 lb 2 oz) 130/84 Negative -?-?-?-?-?-?-?-?-?-?-?-?- Negative 150 37 Cephalic 1 -?-?-?-?-?-?-?-?-?-?-?-?- 50 -2 JV- no lof , vaginal bleeding, or dec fm. 08/23/22 -?-?-?-?-?-?-?-?-?-?-?-?- 39w 1d 199 lb 8 oz (+27 lb 8 oz) 128/81 Negative -?-?-?-?-?-?-?-?-?-?-?-?- Negative 130 39 Cephalic 1 -?-?-?-?-?-?-?-?-?-?-?-?- 50 -2 SM- no vb lof good fm no regular ctx NST FHR Rate Baby A Baseline: 130 Variability:: Moderate Accelerations:: 15 x 15 Decelerations:: None NST Reactive:: Yes FHR Category:: Category I Uterine Activity:: q5-7 minutes ROS Cardiovascular Cardiovascular: Denies abdominal pain, chest pain, diaphoresis, dyspnea, edema or fatigue Respiratory/Chest Respiratory/Chest: Denies change in mental status, chest congestion, chest tightness or cough Gastrointestinal Gastrointestinal: Denies diarrhea, hemorrhoids, nausea, vomiting or weight changes Genitourinary Genitourinary: Denies abdominal discomfort, burning urination, change in libido, change in urinary stream, contractions, difficulty urinating, dysuria, movement, low back pain, urinary frequency, urinary hesitancy, urinary incontinence or urinary urgency Musculoskeletal Musculoskeletal: Reports none Integumentary Integumentary: Reports none Neurologic Neurologic: Reports none Psychiatric Psychiatric: Reports none Endocrine Endocrinology: Reports none Hematologic/Lymphatic Hematologic/Lymphatic: Reports none Allergic/Immunologic Allergic/Immunologic: Reports none Vital Signs Vital Signs Vital Signs: 08/24/22 18:41 08/24/22 18:41 08/24/22 18:42 Temperature Temperature Source Pulse Rate 93 Blood Pressure 150/101 H 148/87 H BP Systolic 150 148 BP Diastolic 101 87 Pulse Ox 08/24/22 18:42 08/24/22 18:40 08/24/22 18:40 Temperature Temperature Source Temporal Pulse Rate 67 Blood Pressure BP Systolic BP Diastolic Pulse Ox 98 08/24/22 18:40 08/24/22 20:21 08/24/22 20:21 Temperature 97.5 F L Temperature Source Pulse Rate 82 Blood Pressure 139/84 H BP Systolic 139 BP Diastolic 84 Pulse Ox 08/24/22 20:21 08/24/22 20:21 08/24/22 20:21 Temperature 98.1 F Temperature Source Temporal Pulse Rate Blood Pressure BP Systolic BP Diastolic Pulse Ox 99 Weight Weight: 198 lb 3.129 oz Body Mass Index (BMI) 33.0 Physical Exam Const alert, oriented x3 and no apparent distress General Appearance: cooperative, comfortable and well kempt; Negative for in distress Orientation / Consciousness: awake and oriented to person Exam Limitations: no limitations HEENT normocephalic Mouth: oral and palatal mucosa normal Neck full ROM and thyroid normal Chest inspection of chest normal Resp normal respiratory effort Effort and Inspection: able to speak in complete sentences and symmetric chest movement Cardio regular rate Peripheral Pulses: pulses 2+ throughout GI normal to inspection, nondistended, normoactive bowel sounds Inspection: gravid no CVA tenderness and appearance of the vagina normal External Female Exam: normal appearance of the urethra; Negative for external lesion OB / External & Speculum: external exam normal Manual OB Exam: estimated gestational size appropriate and presentation cephalic Uterus Palpation: Negative for uterus tender Extremity normal to inspection Skin no rashes or lesions noted Psych Activity / Motor Behavior: appropriate eye contact Speech: normal speech Labs Labs Labs: Blood Type A POSITIVE Antibody Screen NEGATIVE Hct 37.5 % (37-47) Hgb 12.6 g/dL (12.0-15.0) Syphilis Total Ab Non-reactive Rubella IgG Antibody Reactive (Nonreactive) Hep Bs Antigen Non-Reactive (Nonreactive) Chlamydia DNA (VENU) Negative (Negative) Neisseria gonorrhoeae DNA (VENU) Negative (Negative) HIV 1&2 Antibody Non-Reactive (Nonreactive) Glucose 1 Hr 50 gm 93 mg/dL (70-140) Assessment & Plan (1) Spontaneous rupture of amniotic membranes: (2) : QUALIFIERS: Weeks of gestation: 39 weeks Qualified Code(s): Z3A.39 - 39 weeks gestation of COMMENT: anatomy nl, repeat US @ 28 wks of kidney(06/06/22) resolved, genetic and carrier declined, afp declined. (3) Supervision of normal : COMMENT: PRR ALFRED 08/29/22 boy Joe Tashi (4) 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 affecting : COMMENT: treat now and in labor PLAN: Plan Patient presents SROM Pain management: plans epidural. GBS positive plan IV PCN. Management of any complications: GBS I have reviewed the [facility] and made any clinically relevant updates. -routine L&D admission orders -PCN for GBS -will add pitocin augmentation if no cervical change x6 hours from admission Dr. Joaquin updated on admission, POC and concurs with primary midwifery management. is avaiable.
[2022-08-25] VITALS (62 sets, daily range): BP systolic 89–167; BP diastolic 48–94; PULSE 54–150; RESP 16–18; TEMP 36.1–37; O2SAT 82–100
[2022-08-25] MEDS: LACTATED RINGERS 500 ML 999 ML IV ×2 (00:14→01:08)
[2022-08-25] MEDS: Penicillin G 3,000,000 Units 50 ML 100 UNITS IV ×3 (00:16→07:39)
[2022-08-25] MEDS: fentaNYL-bupivacaine (epidural) 100 ML BAG EPIDURAL ×2 (01:11→05:19)
[2022-08-25] MEDS: Lactated Ringers 1,000 ML 200 ML IV (05:13)
[2022-08-25] MEDS: Oxytocin 15 Units/NS 250ml 15 UNITS/250 ML IV.SOLN 2 UNITS IV (05:13)
[2022-08-25] MEDS: Acetaminophen 500 MG Tablet PO (07:39)
--- NOTE | 2022-08-25 10:15 | PLAC_PTH ---
PATIENT: JIHAN GUERRERO LOC: [facility] U#:[id number] AGE/SX: 32/F ROOM: WP008 RE08/24/[address]: Azucena Dwyer CNM : 1990 BED: 1 DIS: 08/26/2022 SPEC #: [id number] RECD: 08/25/22 11:53 STATUS: EMMANUEL REQ #: [id number] TANGELA: 08/25/22 10:[address]: Azucena Dwyer DEPT: SURGICAL PATHOLOGY RECD BY: Meg Durbin ENTERED: 08/26/22 11:11 SP TYPE: PLACENTA OTHR DR: Dr. Maryann Ruiz MD Tissues: Placenta, NOS Procedures: Surgery Specimen Level V HEADER OPERATION: Vaginal delivery PRE-OP DIAGNOSIS: Short cord, avulsed, TISSUE SUBMITTED: Placenta MICROSCOPIC DIAGNOSIS Garza placenta (452 gm): Umbilical cord ? trivascular with no inflammation. Placental membranes ? mild chronic decidual inflammation. Placental disc ? Alonso-Timbo change and mild chronic decidual inflammation. AM:james 08/27/2022 MICROSCOPIC DESCRIPTION Slides are reviewed. GROSS DESCRIPTION SPECIMEN: PLACENTA / CLINICAL INFORMATION: A. Weight: 3.075 kg B. Gestational Age: 39 weeks C. Sex: Male PLACENTAL WEIGHT (POST FIXATION): 452 gm PLACENTAL DIMENSIONS: 22 x 17.5 x 2.5 cm PLACENTAL SHAPE: Usual ovoid PLACENTAL WEIGHT FOR GESTATIONAL AGE: Within 10-99th percentile. MEMBRANES - Present A. Insertion: Marginal B. Site of rupture from edge: At edge of placental disc C. Color of membrane: Fisher-koch D. Abnormalities: None UMBILICAL CORD - Present A. Color: Fisher-koch B. Insertion: Near central insertion C. Length: 13 cm D. Diameter: 1.5 cm E. Number of vessels: Three F. Abnormalities: None PLACENTAL DISC - Present A. Color of surface: Fisher-koch B. surface abnormalities: None C. Maternal cotyledons: Intact with minimal tears D. Attached retro placental clot: No clot E. Cut surface: Dark red and spongy F. Lesions: None G. Separate clot: Absent SECTIONS SUBMITTED: 1. Umbilical cord ( end notched) 2. Umbilical cord, placental end 3. Membrane roll 4. Placental disc, and maternal surfaces 5. Placental disc, and maternal surfaces 6. Placental disc, and maternal surfaces AM:james 08/26/2022 TC:3 CPT: 18953
[2022-08-25] MEDS: Methylergonovine 0.2 MG/ML Ampul IM (10:25)
[2022-08-25] MEDS: miSOPROStol 200 MCG Tablet 1000 MCG RC (10:30)
[2022-08-25] MEDS: Oxytocin 15 Units/NS 250ml 15 UNITS/250 ML IV.SOLN 334 UNITS IV (10:43)
[2022-08-25 10:46] LABS: Absolute Lymphocyte Count 2.24 X10^3/uL (0.83-4.51); Absolute Neutrophil Count 12.6 X10^3/uL (2.0-7.7); Basophil# 0.03 X10^3/uL; Basophil% 0.2 % (0-1); Eosinophil# 0.01 X10^3/uL; Eosinophils% 0.1 % (0-5); Hematocrit 32.4 % (37-47); Hemoglobin 11.3 g/dL (12.0-15.0); Lymphocyte # 2.24 X10^3/ul (0.83-4.51); Mean Corp Hgb Conc 34.9 g/dL (32-36); Mean Corpuscular Hgb 29.2 pg (27.0-32.0); Mean Corpuscular Volume 83.7 fL (81-99); Mean Platelet Vol. 8.8 fl (6.2-12.0); Monocyte# 1.05 X10^3/uL; Monocyte% 6.6 % (0-10); NRBC Flagged by Analyzer 0 % (0-5); Neutrophil # 12.59 X10^3/uL (2.7-7.7); Neutrophil % 78.5 % (47-70); Platelet Count 313 K/mm3 (150-450); RBC Distribution Width CV 12.7 % (11.6-14.6); RBC Distribution Width SD 38.1 fl (35.1-43.9); Red Blood Count 3.87 M/mm3 (4.2-5.4)
--- NOTE | 2022-08-25 10:52 | EX.PCM.OBRPT ---
Assessment & Plan (1) (spontaneous vaginal delivery): COMMENT: SROM at 39weeks. pit augment. PPH, avulsed cord/short cord. . boy: Joe. LC (2) hemorrhage: COMMENT: cbc/coag. T&C, 2U PRBC on hold. QBL 1321. pitocin, methergine, cytotec. Maternal Data Information ALFRED Calculator Estimated Delivery Date Method Current WG Current Estimate 08/29/22 LMP (Certain) 39w 3d Vaginal Delivery Maternal Presentation Maternal Presentation: Spontaneous Rupture of Membranes Type of Induction: Pitocin Medical Reason for Induction: Premature Rupture of Membranes Operative Information Date of Procedure: 08/25/22 Pre-Operative Diagnosis: Post-Operative Diagnosis: Surgery / Procedure Performed: Spontaneous Vaginal Delivery Type of Anesthesia: Epidural Drain: Craft to straight drain Estimated Blood Loss: 1321 Time of Delivery: 10:15 Findings Description of Procedure: Patient began pushing and delivered the head in the ONEAL presentation. The head was delivered atraumatically . The anterior and posterior shoulders delivered without complication followed by the rest of the infant and the was placed on the maternal abdomen.umbilical cord avulsed, immediate clamping of . infant placed on maternal abdomen. 8/9. 2 minutes of life pale, pedi consulted to bedside for exam. gentle traction was applied to the cord and the placenta delivered spontaneously immediately following it was noted to be intact with three-vessel cord. brisk vaginal bleeding was noted Pitocin was administered. Boggy uterus was noted with brisk vaginal bleeding continued. hemorrhage activated. Patient received Methergine IM and 1000 mg Cytotec rectally. Second line was placed CBC, coags, type and cross was obtained. Fundus now firm 3 below U hemostasis achieved. The perineum and vagina were inspected and noted to have no laceration. QBL was 1321 cc. Patient and tolerated delivery well. Presentation: Vertex Amniotic Membrane Rupture Type: Spontaneous Amniotic Fluid Description: Clear Placental Delivery Description: Spontaneous Placenta Disposition: Sent to Pathology Cord Vessel Description: 3 Vessels Cord Entanglement: None Infant A Gender: Male (1 minute): 8 (5 minute): 9 Delayed Cord Clamping: No Post Vaginal Delivery Medications Given After Delivery: IV Pitocin, IM Methergin and - (Cytotec 1000 mg) Episiotomy Description: None Laceration: None Complication Complications: - (Cord avulsion, hemorrhage.) Procedures Urinary/Genital [id number]: [id number] Vaginal Delivery global pkg (CNM delivery)
[2022-08-25 10:55] LABS: Partial Thromboplast Time 26.2 Seconds (24.1-36.2); Prothrombin Time (Protime)PT. 12.6 SECONDS (11.7-14.9)
--- NOTE | 2022-08-25 11:04 | DCINST_ITS ---
Discharge Instructions Diet Discharge Diet: No restrictions Activity Discharge Activity: May Not Drive and May Shower May resume sexual activity in: 6 weeks Weight Bearing Status: Full weight bearing Dressing / Incision Call your doctor if your incision/area has: Sudden Increased Bleeding, Increased Pain/ Swelling and Foul Smelling Discharge Call your doctor if you observe: Fever of 101 or Higher, Numbness or Tingling, Change in Color, Inability to urinate, Inability to have a bowel movement, Using more than 1 pad per hour, Shortness of breath, Dizziness, Fainting spells, Chest pain, Calf discomfort and Uncontrolled pain Follow Up Care Please Follow Up With: Azucena Dwyer CNM When: 6 weeks , please call office to make an appointment. Congratulations on the of your baby! Test Results: Test results from this visit will be discussed in further detail at your follow- up appointment, if applicable. Discharge Plan Admission Admit Date/Time: 08/24/22 19:20 Attending Provider: Azucena Dwyer Primary Care Provider: Maryann Ruiz Discharge Orders/Prescriptions Prescriptions: No Action PNV #[id number] 30 mg iron-10 mg iron-1 mg capsule 1 cap PO DAILY Referrals / Follow Up: Maryann Ruiz MD [Primary Care Provider] -
[2022-08-25] MEDS: Cefazolin 2 GM in 0.9% Normal Saline 100 ML IV (14:56)
[2022-08-25] MEDS: 0.9% Saline Lock 10 ML Syringe IV ×2 (15:03→15:49)
[2022-08-25] MEDS: Acetaminophen 500 MG Tablet 1000 MG PO (17:30)
[2022-08-26 04:10] VITALS: BP 127/83; PULSE 99; RESP 20; TEMP 36.6; O2SAT 97
[2022-08-26] MEDS: Ketorolac 10 MG Tablet PO ×2 (04:25→12:22)
[2022-08-26] MEDS: 0.9% Saline Lock 10 ML Syringe IV (04:25)
[2022-08-26 05:52] LABS: Hematocrit 27.2 % (37-47); Hemoglobin 9.3 g/dL (12.0-15.0); Mean Corp Hgb Conc 34.2 g/dL (32-36); Mean Corpuscular Hgb 28.7 pg (27.0-32.0); Mean Platelet Vol. 8.7 fl (6.2-12.0); Platelet Count 298 K/mm3 (150-450); RBC Distribution Width CV 12.8 % (11.6-14.6); RBC Distribution Width SD 39.1 fl (35.1-43.9); Red Blood Count 3.24 M/mm3 (4.2-5.4); White Blood Count 20.3 K/mm3 (4.4-11.0)
[2022-08-26 09:00] VITALS: BP 116/75; PULSE 83; RESP 16; TEMP 36.6
--- NOTE | 2022-08-26 10:48 | PCM.PN.OB ---
Subjective Subjective Patient doing well without complaints. Tolerating PO. Ambulating and voiding without difficulty. Feeding well. Denies chest pain, shortness of breath, calf pain/swelling, fevers, chills, lightheadedness. Objective Data Objective Data Vital Signs: Vital Signs Temp Pulse Resp BP Pulse Ox O2 Del Method 98 F 83 16 116/75 97 Room Air 08/26/22 09:00 08/26/22 09:00 08/26/22 09:00 08/26/22 09:00 08/26/22 04:10 08/26/22 04:10 Oxygen Delivery Method Room Air Weight: 198 lb 3.129 oz Body Mass Index (BMI) 33.0 Intake & Output: Intake and Output for Last 24 Hours 08/24/22 08/25/22 08/26/22 23:59 23:59 23:59 Intake Total 150.83 / 150.83 4250.00 / 4250.00 Output Total 300 / 300 4421 / 4421 Balance -149.17 / -149.17 -171.00 / -171.00 Lab / Micro Data Attestation: I reviewed the patient's lab results. Result Diagrams: 08/26/22 05:45 Labs: Laboratory Results - last 24 hr 08/24/22 19:50: Antibody Screen POSITIVE H, Antibody Identification ANTI-M 08/24/22 19:50: Antibody Screen Cancelled 08/24/22 19:50: Crossmatch See Detail 08/25/22 10:30: PT 12.6, INR 1.0, APTT 26.2 08/26/22 05:45: WBC 20.3 H, RBC 3.24 L, Hgb 9.3 L, Hct 27.2 L, MCV 84.0, MCH 28.7, MCHC 34.2, RDW Std Deviation 39.1, RDW Coeff of Warner 12.8, Plt Count 298, MPV 8.7 Assessment & Plan (1) hemorrhage: COMMENT: QBL 1321. s/p pitocin, methergine, cytotec. VSS, stable H&H (2) (spontaneous vaginal delivery): COMMENT: SROM at 39weeks. pit augment. PPH, avulsed cord/short cord. . boy: Joe. PLAN: Plan s/p PPD # 1 1. routine post delivery care 2. breast feeding- support given 3. rh positive 4. rubella immune 5. plan d/c home tomorrow
[2022-08-28 10:41] LABS: Pathology Specimen OB SEE PATHOLOGY REPORT
== END 2022-08-26 13:50 | disposition home or self-care (01) | DRG 806 ==
LOC: WP 08-25 10:20 → WPOUT 08-26 12:34
PROVIDERS: Admitting Provider Registered Nurse; PCP Internal Medicine; Visit Provider Registered Nurse
DX: O42.92 Full-term premature rupture of membranes, unspecified as to length of time between rupture and onset of labor (principal); Z37.0 Single live birth; O72.1 Other immediate postpartum hemorrhage; O99.824 Streptococcus B carrier state complicating childbirth; O69.89X0 Labor and delivery complicated by other cord complications, not applicable or unspecified; O99.892 Other specified diseases and conditions complicating childbirth; N85.8 Other specified noninflammatory disorders of uterus; Z3A.39 39 weeks gestation of pregnancy; Z87.891 Personal history of nicotine dependence
CPT/HCPCS: 59025; 59050; 84112; 85025; 85027; 85610; 85730; 86850; 86870; 86900; 86901; 86902; 86905; 86920; 86922; 88307; 99221; J7120; A4216; G0378

== ENCOUNTER 2022-12-27 04:16 | Emergency (ER) | payer BC, SELFPAY ==
[2022-12-27 04:16] VITALS: BP 142/75; PULSE 75; RESP 16; TEMP 36.2; O2SAT 98; BMI 29.9
--- NOTE | 2022-12-27 04:24 | CT_ITS ---
INDICATION: right flank pain EXAMINATION: CT ABDOMEN AND PELVIS WITHOUT CONTRAST - CT Abdomen And Pelvis W/O Contrast Injection TECHNIQUE: Helically acquired images were obtained of the abdomen and pelvis without oral or IV contrast. A radiation dose optimization technique was used for this scan. IV Contrast dosage and agent: None. Oral contrast: None. RADIATION DOSAGE (If Supplied By Facility): CTDIvol = ( 8.50 ) mGy, DLP = ( 448.22 ) mGycm COMPARISON: FINDINGS: LOWER CHEST: Lung bases are clear. No cardiomegaly or pericardial effusion. LIVER: Homogeneous. No focal mass. GALLBLADDER AND BILIARY TREE: No calcified gallstones. No gallbladder distension or wall edema. No intra- or extrahepatic biliary ductal dilation. PANCREAS: No focal cystic or solid mass. SPLEEN: Normal size without focal cystic or solid mass. ADRENAL GLANDS: No nodules. KIDNEYS AND URETERS: There is mild right hydronephrosis likely due to recently passed stone. PERITONEUM: No ascites or free air. No other fluid collection. BOWEL: No evidence of acute appendicitis. No stomach or bowel distension. No focal inflammatory change. LYMPH NODES: No enlarged mesenteric or retroperitoneal lymph nodes. VESSELS: Aorta is non-dilated. URINARY BLADDER: Unremarkable. REPRODUCTIVE ORGANS: No pelvic masses. ABDOMINAL WALL: No discrete abdominal or pelvic wall hernia. BONES: No lytic or blastic abnormality. CT/Abdomen/Pelvis without Cont IMPRESSION: There is mild right hydronephrosis likely due to recently passed stone. Electronically Signed: Myriam Moore MD at 6:26 EDT ,
[2022-12-27] MEDS: Ketorolac 30 MG/ML Syringe IV (04:37)
[2022-12-27] MEDS: Ondansetron 4 MG/2 ML Vial IV (04:37)
[2022-12-27] MEDS: 0.9% Normal Saline 1,000 ML 150 ML IV (04:37)
[2022-12-27 04:38] LABS: Absolute Lymphocyte Count 3.97 X10^3/uL (0.83-4.51); Absolute Neutrophil Count 4.8 X10^3/uL (2.0-7.7); Basophil# 0.06 X10^3/uL; Basophil% 0.6 % (0-1); Eosinophil# 0.12 X10^3/uL; Eosinophils% 1.2 % (0-5); Hematocrit 40.8 % (37-47); Hemoglobin 13.4 g/dL (12.0-15.0); Lymphocyte # 3.97 X10^3/ul (0.83-4.51); Lymphocyte % 40.2 % (19-41); Mean Corp Hgb Conc 32.8 g/dL (32-36); Mean Corpuscular Hgb 27.2 pg (27.0-32.0); Mean Corpuscular Volume 82.8 fL (81-99); Mean Platelet Vol. 8.8 fl (6.2-12.0); Monocyte% 9.1 % (0-10); NRBC Flagged by Analyzer 0 % (0-5); Neutrophil # 4.81 X10^3/uL (2.7-7.7); Neutrophil % 48.7 % (47-70); Platelet Count 395 K/mm3 (150-450); RBC Distribution Width CV 14.7 % (11.6-14.6); RBC Distribution Width SD 44.8 fl (35.1-43.9); Red Blood Count 4.93 M/mm3 (4.2-5.4); White Blood Count 9.9 K/mm3 (4.4-11.0)
--- NOTE | 2022-12-27 04:40 | EDS_ITS ---
HPI History of Present Illness Chief Complaint: Flank Pain Informant: patient Onset/Context/Timing Onset: Today Current Severity: Moderate Maximum Severity: Moderate Narrative Narrative: Couple hours ago with pain in the right mid to lower abdomen. She denies history of urinary symptoms. No history of kidney stones. No recent fever or chills. 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 affecting Home Medications vitamin#30 30 mg iron-10 mg iron-folic acid 1 mg-omg3 capsule 1 cap PO DAILY 01/21/22 [History Last Taken 07/22/22 07:00 1] Allergy/AdvReac Type Severity Reaction Status Date / Time No Known Allergies Allergy Verified 12/27/22 04:20 Family History Father Alcoholism Grandmother Breast cancer Hypertension Aunt Breast cancer Mother Hyperlipemia Surgical History History of tonsillectomy Hx of wisdom tooth extraction Social History household members: spouse number of children: 0 current occupational status: employed current occupation: [employer] history of recent travel: No sexually active: Yes Smoking Status: Former smoker second hand exposure: No alcohol intake: former details: pre substance use type: does not use caffeine: Yes what type of physical activity do you participate in: yoga and aerobics frequency: 3-4 times per week seatbelt use: always do you feel safe at home: Yes additional social history: - 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) ROS ROS ED Constitutional Constitutional ED: Denies chills or fever(s) Eyes Eyes: Denies change in vision or discharge from eye(s) ENT ENT ED: Denies discharge from eye(s), rhinorrhea or sore throat Cardiovascular Cardiovascular: Denies chest pain or palpitations Respiratory/Chest Respiratory/Chest: Denies cough or dyspnea Gastrointestinal Gastrointestinal: Reports abdominal pain; Denies diarrhea, nausea or vomiting Genitourinary Genitourinary ED: Denies difficulty urinating, dysuria or hematuria Musculoskeletal Musculoskeletal: Denies back pain or extremity pain Integumentary Denies Abrasions or rash Neurologic Neurologic: Denies headache(s) or weakness Psychiatric Psychiatric: Denies anxiety or depression Allergic/Immunologic Allergic/Immunologic ED: Denies lip swelling or urticaria EXAM Physical Exam Const Vital Signs: 12/27/22 04:16 Temperature 97.1 F L Temperature Source Temporal Pulse Rate 75 Respiratory Rate 16 Blood Pressure 142/75 H Blood Pressure Mean 97 Pulse Ox 98 Oxygen Delivery Method Room Air Positive well nourished and well developed General Appearance ED: well developed HEENT Reports normocephalic and head/scalp atraumatic Eyes PERRL and EOMs intact bilaterally Neck supple Chest Wall inspection of chest normal and palpation of chest normal Resp normal respiratory effort and clear to auscultation bilaterally Cardio regular rate and regular rhythm GI GI Narrative: Mild right lower quadrant tenderness palpation. No guarding or rebound. No palpable masses. Hypoactive but present bowel sounds. Palpation: soft Extremity normal to inspection Neuro oriented x3 and no sensory deficits noted Sensorium / Orientation: alert Motor Exam: strength 5/5 throughout Psych mental status grossly normal Skin no rashes or lesions noted MDM MDM MDM Narrative Medical decision making narrative: Patient was given Toradol and Zofran along with IV fluids. Labwork obtained to evaluate for leukocytosis, anemia, and electrolyte derangement. Urinalysis obtained to evaluate for infection/hematuria. CT flank obtained to evaluate for kidney stone as appendicitis versus ovarian cyst. Lab Data Attestation: I reviewed the patient's lab results. Labs: Laboratory Results - last 24 hr 12/27/22 12/27/22 12/27/22 04:24 04:30 04:30 WBC 9.9 RBC 4.93 Hgb 13.4 Hct 40.8 MCV 82.8 MCH 27.2 MCHC 32.8 RDW Std Deviation 44.8 H RDW Coeff of Warner 14.7 H Plt Count 395 MPV 8.8 Immature Gran % (Auto) 0.200 Neut % (Auto) 48.7 Lymph % (Auto) 40.2 [place] % (Auto) 9.1 Eos % (Auto) 1.2 Baso % (Auto) 0.6 Absolute Neuts (auto) 4.8 Absolute Lymphs (auto) 3.97 Nucleated RBC % 0 Sodium 140 Potassium 4.0 Chloride 106 Carbon Dioxide 27.0 Anion Gap 7 BUN 12 Creatinine 0.66 Estim Creat Clear Calc 112.15 Est GFR (MDRD) Af Amer 135 Est GFR (MDRD) Non-Af 112 BUN/Creatinine Ratio 18.3 Glucose 97 Calcium 9.4 Total Bilirubin 0.30 Direct Bilirubin 0.09 AST 12 L ALT 25 Alkaline Phosphatase 76 Total Protein 7.3 Albumin 3.9 Globulin 3.4 Serum , Qual NEGATIVE Urine Color Urine Clarity Urine pH Ur Specific [place] Urine Protein Urine Glucose (UA) Urine Ketones Urine Occult Blood Urine Nitrite Urine Bilirubin Urine Urobilinogen Ur Leukocyte Esterase Urine RBC Urine WBC Ur Squamous Epith Cells Ur Transition Epith Cell Urine Bacteria Urine Mucus 12/27/22 04:30 WBC RBC Hgb Hct MCV MCH MCHC RDW Std Deviation RDW Coeff of Warner Plt Count MPV Immature Gran % (Auto) Neut % (Auto) Lymph % (Auto) [place] % (Auto) Eos % (Auto) Baso % (Auto) Absolute Neuts (auto) Absolute Lymphs (auto) Nucleated RBC % Sodium Potassium Chloride Carbon Dioxide Anion Gap BUN Creatinine Estim Creat Clear Calc Est GFR (MDRD) Af Amer Est GFR (MDRD) Non-Af BUN/Creatinine Ratio Glucose Calcium Total Bilirubin Direct Bilirubin AST ALT Alkaline Phosphatase Total Protein Albumin Globulin Serum , Qual Urine Color Yellow Urine Clarity Clear Urine pH 6.0 Ur Specific [place] 1.025 Urine Protein Negative Urine Glucose (UA) Normal Urine Ketones Negative Urine Occult Blood 10 H Urine Nitrite Negative Urine Bilirubin Negative Urine Urobilinogen Normal Ur Leukocyte Esterase 25 H Urine RBC 0-5 SEEN Urine WBC 5-10 SEEN Ur Squamous Epith Cells 10-25 SEEN Ur Transition Epith Cell 0-5 SEEN Urine Bacteria 3+ Urine Mucus 0 SEEN Radiography Diagnostic Testing: Clinical Impression(s) from Imaging Studies Abdomen/Pelvis CT 12/27/22 04:24 IMPRESSION: There is mild right hydronephrosis likely due to recently passed stone. Electronically Signed: Myriam Moore MD at 6:26 EDT , Treatment and Re-Evaluation :: CBC reveals normal white count and differential. Chemistry studies reveal normal renal function. LFTs are unremarkable. test negative. Urinalysis does show 3+ bacteria, however 10-25 epithelial cells are noted with 5-10 white cells and no nitrites. Patient has no urinary symptoms. 0-5 red cells are noted. CT flank reveals mild right hydronephrosis consistent with a recently passed stone. No other acute abnormalities noted. On repeat evaluation patient is resting more comfortably. Test results are discussed with her. She will continue supportive care at home and return instructions have been provided. Patient is comfortable with the plan. Discharge Plan Triage Chief Complaint: Flank Pain ED Provider: Bhavani Escobedo Dx/Rx/DC Orders Clinical Impression: Kidney stone Instructions: ED Kidney Stone, Passed Prescriptions: No Action PNV #[id number] 30 mg iron-10 mg iron-1 mg capsule 1 cap PO DAILY Primary Care Provider: Maryann Ruiz Referrals: Maryann Ruiz MD [Primary Care Provider] - As Needed Disposition Disposition: Home, Self Care
[2022-12-27 04:42] LABS: Mucous, Urine 0 SEEN /hpf (<or=2+)
[2022-12-27 04:52] LABS: Color, Urine Yellow (Yellow); Glucose, Dipstick Normal (Normal); Ketone-Dipstick Negative (Negative); Leukocyte Esterase-Dipstick 25 /ul (Negative); Nitrite-Dipstick Negative (Negative); Occult Blood-Urine 10 /ul (Negative); Protein-Dipstick Negative (Negative); Specific Gravity, Urine 1.025 (1.002-1.030); Urine Bilirubin Dipstick Negative (Negative); Urine Clarity Clear (Clear); Urine Urobilinogen Normal (Normal)
[2022-12-27 04:55] LABS: Internal QC Validated? YES +Cl - CLEAR BKGD; Pregnancy, Serum, hCG Quali. NEGATIVE Negative
[2022-12-27 05:08] LABS: Red Blood Cells-Urine 0-5 SEEN /hpf (0-5); White Blood Cells 5-10 SEEN /hpf (0-5)
[2022-12-27 05:09] LABS: Bacteria 3+ /hpf (None Seen); Squamous Epithelial Cells - UA 10-25 SEEN /hpf (5-10); Transitional Epithelial - Ur 0-5 SEEN /hpf (0-5)
[2022-12-27 05:14] LABS: AST(SGOT) 12 U/L (15-37); Alanine Aminotransfer ALT/SGPT 25 U/L (13-56); Albumin, Serum 3.9 g/dL (3.2-5.0); Alkaline Phosphatase 76 U/L (45-117); Anion Gap 7 (5-15); BUN 12 mg/dL (7-18); BUN/Creat Ratio 18.3 RATIO (10-20); Bilirubin, Direct 0.09 mg/dL (0.00-0.30); Calcium,Total 9.4 mg/dL (8.5-10.1); Chloride 106 mmol/L (98-107); Creatinine, Serum 0.66 mg/dL (0.55-1.02); EST Glomerular Filtration Rate 112 mL/min (>60); Est Glom Filt Rate - Afr Amer 135 mL/min (>60); Estimated Creatinine Clearance 112.15 ml/min; Globulin 3.4 g/dL (2.2-4.2); Glucose 97 mg/dL (74-106); Protein, Total 7.3 g/dL (6.4-8.2); Sodium Level 140 mmol/L (136-145)
[2022-12-27 06:48] VITALS: RESP 16
== END 2022-12-27 06:48 | disposition home or self-care (01) ==
PROVIDERS: Emergency Provider Emergency Medicine; PCP Internal Medicine; Visit Provider Emergency Medicine
DX: N20.0 Calculus of kidney (principal); Z87.891 Personal history of nicotine dependence
CPT/HCPCS: 74176; 80048; 80076; 81001; 84703; 85025; 96374; 96375; 99282; J7030; A4216; J2405

== ENCOUNTER → 2024-07-05 | Outpatient (CLI) | payer BC, SELFPAY ==
[2024-07-05 14:06] LABS: Absolute Lymphocyte Count 2.82 X10^3/uL (0.83-4.51); Absolute Neutrophil Count 5.7 X10^3/uL (2.0-7.7); Basophil# 0.04 X10^3/uL; Basophil% 0.4 % (0-1); Eosinophil# 0.05 X10^3/uL; Eosinophils% 0.5 % (0-5); Hematocrit 38.8 % (37-47); Hemoglobin 13.3 g/dL (12.0-15.0); Lymphocyte # 2.82 X10^3/ul (0.83-4.51); Lymphocyte % 29.9 % (19-41); Mean Corp Hgb Conc 34.3 g/dL (32-36); Mean Corpuscular Hgb 29.4 pg (27.0-32.0); Mean Corpuscular Volume 85.8 fL (81-99); Mean Platelet Vol. 8.6 fl (6.2-12.0); Monocyte# 0.82 X10^3/uL; Monocyte% 8.7 % (0-10); NRBC Flagged by Analyzer 0 % (0-5); Neutrophil # 5.66 X10^3/uL (2.7-7.7); Neutrophil % 60.2 % (47-70); Platelet Count 410 K/mm3 (150-450); RBC Distribution Width CV 12.4 % (11.6-14.6); RBC Distribution Width SD 38.6 fl (35.1-43.9); Red Blood Count 4.52 M/mm3 (4.2-5.4); White Blood Count 9.4 K/mm3 (4.4-11.0)
[2024-07-05 15:03] LABS: HIV - WCH Non-Reactive (Nonreactive); Hepatitis B Surface Antigen Non-Reactive (Nonreactive); Hepatitis C Antibody Non-Reactive (Nonreactive); Rubella IgG Reactive (Nonreactive); Syphilis Antibodies Non-reactive
[2024-07-07 21:07] LABS: Chlamydia By Nucleic Acid AMP Negative (Negative); Gonococcus By Nucleic Acid AMP Negative (Negative)
== END | disposition home or self-care (01) ==
PROVIDERS: PCP Internal Medicine; Referring Provider Advanced Practice Midwife; Visit Provider Advanced Practice Midwife
DX: O09.90 Supervision of high risk pregnancy, unspecified, unspecified trimester (principal); Z3A.00 Weeks of gestation of pregnancy not specified
CPT/HCPCS: 36415; 85025; 86703; 86762; 86780; 86803; 86850; 86870; 86900; 86901; 87086; 87340; 87491; 87591

== ENCOUNTER → 2024-08-10 | Outpatient (CLI) | payer BC, SELFPAY | END | disposition home or self-care (01) | LOC: BWCLAB 15:10 | PROVIDERS: PCP Internal Medicine; Referring Provider Advanced Practice Midwife; Visit Provider Advanced Practice Midwife | DX: R69 Illness, unspecified (principal) ==

== ENCOUNTER → 2024-09-07 | Outpatient (CLI) | payer BC, SELFPAY | END | disposition home or self-care (01) | LOC: BWCLAB 08:51 | PROVIDERS: PCP Internal Medicine; Referring Provider Nurse Practitioner Women's Health; Visit Provider Nurse Practitioner Women's Health | DX: O09.90 Supervision of high risk pregnancy, unspecified, unspecified trimester (principal); Z3A.00 Weeks of gestation of pregnancy not specified | CPT/HCPCS: 36415 ==

== ENCOUNTER → 2024-10-05 | Outpatient (CLI) | payer BC, SELFPAY | END | disposition home or self-care (01) | LOC: BWCLAB 09:29 | PROVIDERS: PCP Internal Medicine; Referring Provider Obstetrics & Gynecology; Visit Provider Obstetrics & Gynecology | DX: R76.0 Raised antibody titer (principal) | CPT/HCPCS: 36415 ==

== ENCOUNTER → 2024-10-12 | Outpatient (CLI) | payer BC, SELFPAY | END | disposition home or self-care (01) | LOC: BWCLAB 09:29 | PROVIDERS: PCP Internal Medicine; Referring Provider Obstetrics & Gynecology; Visit Provider Obstetrics & Gynecology | DX: Z00.00 Encounter for general adult medical examination without abnormal findings (principal) ==

== ENCOUNTER → 2024-11-02 | Outpatient (CLI) | payer BC, SELFPAY ==
[2024-11-02 10:34] LABS: Absolute Lymphocyte Count 1.84 X10^3/uL (0.83-4.51); Absolute Neutrophil Count 8.1 X10^3/uL (2.0-7.7); Basophil# 0.03 X10^3/uL; Basophil% 0.3 % (0-1); Eosinophil# 0.05 X10^3/uL; Eosinophils% 0.5 % (0-5); Hematocrit 32.7 % (37-47); Hemoglobin 11.2 g/dL (12.0-15.0); Lymphocyte # 1.84 X10^3/ul (0.83-4.51); Mean Corp Hgb Conc 34.3 g/dL (32-36); Mean Corpuscular Hgb 29.6 pg (27.0-32.0); Mean Corpuscular Volume 86.5 fL (81-99); Mean Platelet Vol. 8.7 fl (6.2-12.0); Monocyte% 6.5 % (0-10); NRBC Flagged by Analyzer 0 % (0-5); Neutrophil # 8.09 X10^3/uL (2.7-7.7); Neutrophil % 74.8 % (47-70); Platelet Count 348 K/mm3 (150-450); RBC Distribution Width CV 12.8 % (11.6-14.6); RBC Distribution Width SD 40.1 fl (35.1-43.9); Red Blood Count 3.78 M/mm3 (4.2-5.4); White Blood Count 10.8 K/mm3 (4.4-11.0)
[2024-11-02 13:14] LABS: Glucose Challenge Gest 1H 50g 95 mg/dL (70-140); HIV Nonreactive (Nonreactive); Syphilis Antibodies Nonreactive (Nonreactive)
== END | disposition home or self-care (01) ==
LOC: BWCLAB 08:48
PROVIDERS: PCP Internal Medicine; Referring Provider Obstetrics & Gynecology; Visit Provider Obstetrics & Gynecology
DX: Z13.1 Encounter for screening for diabetes mellitus (principal); O09.92 Supervision of high risk pregnancy, unspecified, second trimester; Z3A.00 Weeks of gestation of pregnancy not specified
CPT/HCPCS: 36415; 82950; 85025; 86703; 86780

== ENCOUNTER → 2024-11-30 | Outpatient (CLI) | payer BC, SELFPAY ==
[2024-11-30 12:11] LABS: HIV Nonreactive (Nonreactive)
== END | disposition home or self-care (01) ==
LOC: LAB 09:14
PROVIDERS: PCP Internal Medicine; Referring Provider Advanced Practice Midwife; Visit Provider Advanced Practice Midwife
DX: O09.92 Supervision of high risk pregnancy, unspecified, second trimester (principal); R76.0 Raised antibody titer; Z3A.00 Weeks of gestation of pregnancy not specified
CPT/HCPCS: 36415; 86703

== ENCOUNTER → 2024-12-28 | Outpatient (CLI) | payer BC, SELFPAY | END | disposition home or self-care (01) | LOC: BWCLAB 09:34 | PROVIDERS: PCP Internal Medicine; Visit Provider Advanced Practice Midwife | DX: R76.0 Raised antibody titer (principal) | CPT/HCPCS: 36415 ==

== ENCOUNTER → 2025-01-11 | Outpatient (CLI) | payer BC, SELFPAY | END | disposition home or self-care (01) | LOC: LABSPEC 16:23 | PROVIDERS: PCP Internal Medicine; Referring Provider Nurse Practitioner Women's Health; Visit Provider Nurse Practitioner Women's Health | DX: O09.92 Supervision of high risk pregnancy, unspecified, second trimester (principal); Z3A.00 Weeks of gestation of pregnancy not specified | CPT/HCPCS: 87077; 87081; 87186 ==

== ENCOUNTER → 2025-01-20 | Outpatient (CLI) | payer BC, SELFPAY ==
--- NOTE | 2025-01-20 15:38 | US_ITS ---
PROCEDURE: OB LIMITED (NO BIOMETRICS) 01/20/2025 REASON FOR EXAM: LOW FUNDAL HEIGHT TECHNIQUE: OB LIMITED (NO BIOMETRICS) COMPARISON: Early OB ultrasound from July 05, 2024 FINDINGS Number: 1 Position: Cephalic Placental Position: Posterior. Not low-lying. Placental Abnormalities: No placental abnormalities. Placenta grade 2. ESTIMATED GESTATIONAL AGE: Baseline: 37 weeks, 4 days with estimated due date of February 06, 2025 BIOPHYSICAL ASSESSMENT: Amniotic Fluid Volume: Normal. Maximum vertical pocket 7.6 cm. Amniotic Fluid Index: 22.2. (8-24 cm normal range) Cardiac Motion: 143 (average) US/OB Limited (No Biometrics) IMPRESSION: Single live intrauterine fetus with cephalic presentation. No placental abnormality. Placenta location is posterior and is not low-lying. [facility]
== END | disposition home or self-care (01) ==
LOC: US 15:35
PROVIDERS: PCP Internal Medicine; Referring Provider Obstetrics & Gynecology; Visit Provider Obstetrics & Gynecology
DX: Q27.0 Congenital absence and hypoplasia of umbilical artery (principal); R76.0 Raised antibody titer
CPT/HCPCS: 76815

== ENCOUNTER 2025-01-30 19:09 | Inpatient (IN) | payer BC, SELFPAY ==
--- OUTSIDE RECORDS SUMMARY | 2025-01-30 19:06 | XMS RPT_ITS | CCD ---
Author Organization [facility] CliniSyky Care Team Providers Care Producer Arborist Manager Name Role Phone Dr. Alireza London Primary Care Provider Dr. Alireza London Referring Provider 1(330) Yousuf AFFILIATE MARKETING COORDINATOR, AFFILIATE MARKETING COORDINATOR-C Alesha Attending Provider 1(330 ) Dr. Elidia Joaquin Attending Provider 1(330 ) Dr. Alireza London Primary Care Provider Dr. Alireza London Referring Provider 1(330) Dr. Bhavani Wells Attending Provider 1(3 [phone]) Yousuf AFFILIATE MARKETING COORDINATOR, RAMIRO-C Alesha Attending Provider 1(330 ) Dr. Elidia Joaquin Attending Provider 1(330 ) Dr. Alireza London Primary Care Provider Dr. Alireza London Referring Provider 1(330) Dr. Bhavani Wells Attending Provider 1(3 [phone]) Yousuf AFFILIATE MARKETING COORDINATOR, RAMIRO-C Alesha Attending Provider 1(330 ) Dr. Alireza London Primary Care Provider Dr. Alireza London Referring Provider 1(330) Dr. Elidia Joaquin Attending Provider 1(330 ) Dr. Bhavani Wells Other Provider DENG Dwyer Admit Provider [phone] DENG Dwyer Attending Provider DENG Dwyer Other Provider [phone] Unavailable Primary Care Provider Maciej London MD, Dr. Wolf Primary Care Provider Sara RAMOS, Dr. Wolf Referring Provider Bruce VILCHIS, Carol Attending Provider 1(330) Bruce COSTELLOM, Carol Referring Provider 1(330) Kt Corey DO, Dr. Beckham Attending Provider Yousuf AFFILIATE MARKETING COORDINATOR-C, Alesha Attending Provider [phone] [place] AFFILIATE MARKETING COORDINATOR-C, Alesha Referring Provider [phone] Kt Corey DO, Dr. Beckham Referring Provider Sara RAMOS, Dr. Wolf Primary Care Provider Sara RAMOS, Dr. Wolf Referring Provider Carol Barrera CNM Attending Provider 1(330) Bruce VILCHIS, Carol Referring Provider 1(330) Sara RAMOS, Dr. Wolf Primary Care Provider Sara RAMOS, Dr. Wolf Referring Provider Dr. Bhavani Wells DO Attending Provider Bruce VILCHIS, Carol Attending Provider 1(330) Bruce VILCHIS, Carol Referring Provider 1(330) Emani RAMOS, Dr. Brenner Attending Provider BHAVANI SANCHEZ Referring Unavailab ALIREZA Aguayo Primary Care Unavailable BHAVANI SANCHEZ Attending Unavailab le BHAVANI SANCHEZ Attending Unavailab ALIREZA Aguayo Primary Care Unavailable BHAVANI SANCHEZ Referring Unavailab ALIREZA Aguayo Primary Care Unavailable ANEL GURROLA Attending Unavailable BHAVANI SANCHEZ Referring Unavailab ALIREZA Aguayo Primary Care Unavailable ANEL GURROLA Attending Unavailable BHAVANI SANCHEZ Referring Unavailab ALIREZA Aguayo Primary Care Unavailable JESUS DENNY Attending Unavailable BHAVANI SANCHEZ Referring Unavailab le SARA, ALIREZA M Primary Care Unavailable ANEL GURROLA Attending Unavailable BHAVANI SANCHEZ Referring Unavailab foreign London MD, Dr. Wolf Primary Care Provider Sara RAMOS, Dr. Wolf Referring Provider [place] AFFILIATE MARKETING COORDINATOR-C, Alesha Attending Provider [place] AFFILIATE MARKETING COORDINATOR-C, Alesha Referring Provider Sara, Alireza Primary Care Unavailable Sara, Alireza Referring Unavailable Vande Velde, Bhavani Attending Unavailabl e Sara, Alireza Primary Care Unavailable Sara, Alireza Referring Unavailable Vande Velde, Bhavani Attending Unavailabl e Sara, Alireza Primary Care Unavailable Sara, Alireza Referring Unavailable Carol Barrera Attending Unavailable Sara, Alireza Primary Care Unavailable Sara, Alireza Referring Unavailable Elidia Joaquin Attending Unavailable Sara, Alireza Primary Care Unavailable Vande Velde, Bhavani Referring Unavailabl e Vande Velde, Bhavani Attending Unavailabl e Yousuf AFFILIATE MARKETING COORDINATOR, Alesha Attending Unavailable Sara, Alireza Primary Care Unavailable [place] AFFILIATE MARKETING COORDINATOR, Alesha Referring Unavailable Vande Velde, Bhavani Attending Unavailabl e Vande Velde, Bhavani Referring Unavailabl e Sara, Alireza Primary Care Unavailable Vande Velde, Bhavani Attending Unavailabl e Vande Velde, Bhavani Referring Unavailabl e Sara, Alireza Primary Care Unavailable Sara, Alireza Primary Care Unavailable Carol Barrera Attending Unavailable Sara, Alireza Primary Care Unavailable Sara, Alireza Referring Unavailable Elidia Joaquin Attending Unavailable Sara, Alireza Primary Care Unavailable Sara, Alireza Referring Unavailable Vande Velde, Bhavani Attending Unavailabl e [place] AFFILIATE MARKETING COORDINATOR, Alesha Attending Unavailable Sara, Alireza Referring Unavailable Sara, Alireza Primary Care Unavailable Sara, Alireza Referring Unavailable Yousuf AFFILIATE MARKETING COORDINATOR, Alesha Attending Unavailable Sara, Alireza Primary Care Unavailable Vande Velde, Bhavani Attending Unavailabl e Sara, Alireza Primary Care Unavailable Sara, Alireza Referring Unavailable Vande Velde, Bhavani Attending Unavailabl e Sara, Alireza Primary Care Unavailable Sara, Alireza Referring Unavailable Sara, Alireza Primary Care Unavailable Sara, Alireza Referring Unavailable Yousuf AFFILIATE MARKETING COORDINATOR, Alesha Attending Unavailable Sara, Alireza Primary Care Unavailable Carol Barrera Attending Unavailable Sara, Alireza Referring Unavailable Sara, Alireza Primary Care Unavailable Carol Barrera Attending Unavailable Carol Barrera Referring Unavailable Sara, Alireza Primary Care Unavailable Carol Barrera Attending Unavailable Carol Barrera Referring Unavailable Sara, Alireza Primary Care Unavailable Carol Barrera Referring Unavailable Carol Barrera Attending Unavailable Bhavani Wells Attending Unavailabl e Bhavani Wells Referring Unavailabl e Sara, Alireza Primary Care Unavailable Sara, Alireza Primary Care Unavailable Yosuuf AFFILIATE MARKETING COORDINATOR, Alesha Attending Unavailable Yousuf AFFILIATE MARKETING COORDINATOR, Alesha Referring Unavailable Sara, Alireza Primary Care Unavailable Elidia Joaquin Referring Unavailable Elidia Joaquin Attending Unavailable Elidia Joaquin Admitting Unavailable Sara, Alireza Primary Care Unavailable Sara, Alireza Referring Unavailable Carol Barrera Attending Unavailable Medications Current Medications Medication Drug Class(es) Dates Sig (Normalized) Sig (Original) Acetaminophen (Tylenol Extra Strength) 500 mg powder in packet (11 sources) Start: 06-24-2024 take 1000 mg by mouth every eight hours as needed Acetaminophen (Tylenol Extra Strength) 500 mg powder in packet Active 1000 mg PO .Q8hr as needed June 24, 2024 1:00am amoxicillin 500 mg oral capsule (16 sources) Penicillin-class Antibacterial Start: 02-03-2024 End: 02-13-2024 take 1 capsule by mouth twice daily amoxicillin (AMOXIL) 500 mg capsule Take 1 capsule by mouth two times a day for 10 days. 20 capsule 0 02/03/2024 02/13/2024 Active Start: 09-17-2017 End: 09-27-2017 take 1 tablet by mouth twice daily Amoxicillin 875 mg tablet Discontinued 875 mg PO TWICE A DAY 20 September 17, 2017 1:00am September 26, 2017 1:00am September 27, 2017 1:07am doxylamine succinate 25 mg oral tablet (11 sources) Start: 06-24-2024 take 1 tablet by mouth at bedtime as needed Doxylamine Succinate (Unisom (Doxylamine)) 25 mg tablet Active 25 mg PO AT BEDTIME as needed June 24, 2024 1:00am ondansetron 4 mg disintegrating oral tablet (11 sources) Serotonin-3 Receptor Antagonist Start: 07-05-2024 take 1 tablet by mouth every six hours as needed for nausea and vomiting Ondansetron 4 mg tablet,disintegrati ng Active 4 mg PO EVERY 6 HOURS as needed for nausea and vomiting July 05, 2024 1:00am Pnv #06-Aggd-Olttt Acid-Omega3 (4 sources) Start: 01-21-2022 take 1 capsule by mouth once daily Pnv #40-Bemq-Wwlgi Acid-Omega3 Active 1 CAP PO DAILY January 20, 2022 11:00pm Start: 01-21-2022 Pnv #30-Iron-F olic Acid-Omega3 Active CAP PO January 20, 2022 11:00pm Start: 01-21-2022 Pnv #30-Iron-F olic Acid-Omega3 Active CAP PO January 21, 2022 12:00am Pnv #91-Awdf-Hjjjk Acid-Omega3 30 mg iron-10 mg iron-1 mg capsule (11 sources) Start: 01-21-2022 Pnv #30-Iron-F olic Acid-Omega3 30 mg iron-10 mg iron-1 mg capsule Active 1 NMA PO DAILY January 21, 2022 12:00am vitamin b6 10 mg oral tablet (11 sources) Start: 06-24-2024 take 1 tablet by mouth once daily as needed Pyridoxine (Vitamin B6) 10 mg tablet Active 10 mg PO daily as needed June 24, 2024 1:00am Completed/Discontinued Medications Medication Drug Class(es) Dates Sig (Normalized) Sig (Original) ampicillin 500 mg oral capsule (14 sources) Penicillin-class Antibacterial Start: 01-24-2022 End: 01-29-2022 take 1 capsule by mouth every eight hours Ampicillin 500 mg capsule Discontinued 500 mg PO Q8H 15 5 January 24, 2022 12:00am January 28, 2022 12:00am January 29, 2022 12:03am esomeprazole 40 mg delayed release oral capsule (15 sources) Proton Pump Inhibitor Start: 09-05-2020 End: 10-05-2020 take 1 capsule by mouth once daily Esomeprazole Magnesium 40 mg capsule,delayed release(DR/EC) Discontinued 40 mg PO DAILY September 05, 2020 1:00am October 05, 2020 2:36pm Levonorgestrel-Ethi nyl Estrad (20 sources) Progestin, Estrogen, Progestin-containin g Intrauterine Device Start: 10-16-2020 End: 11-27-2021 take 1 tablet by mouth once daily Levonorgestrel-Eth inyl Estrad (Aviane) 0.1-20 mg-mcg tablet Discontinued 1 {tbl} PO daily October 16, 2020 10:25am November 27, 2021 8:32am Start: 10-16-2020 End: 11-27-2021 take 1 tablet by mouth once daily Levonorgestrel-Ethinyl Estrad (Aviane) 0.1-20 mg-mcg tablet Discontinued 1 TABLET PO daily October 16, 2020 9:25am November 27, 2021 7:32am Start: 10-16-2020 End: 11-27-2021 take 1 tablet by mouth once daily Levonorgestrel-Ethinyl Estrad (Aviane) 0.1-20 mg-mcg tablet Discontinued 1 TABLET PO daily October 16, 2020 10:25am November 27, 2021 8:32am Start: 10-16-2020 End: 10-16-2020 take 1 tablet by mouth once daily Levonorgestrel-Ethinyl Estrad (Aviane) 0.1-20 mg-mcg tablet Discontinued 1 {tbl} PO daily October 16, 2020 12:00am October 16, 2020 10:25am Start: 10-16-2020 End: 10-16-2020 take 1 tablet by mouth once daily Levonorgestrel-Ethinyl Estrad (Aviane) 0.1-20 mg-mcg tablet Discontinued 1 TABLET PO daily October 15, 2020 11:00pm October 16, 2020 9:25am Start: 10-16-2020 End: 10-16-2020 take 1 tablet by mouth once daily Levonorgestrel-Ethinyl Estrad (Aviane) 0.1-20 mg-mcg tablet Discontinued 1 TABLET PO daily October 16, 2020 12:00am October 16, 2020 10:25am fexofenadine hydrochloride 180 mg oral tablet (15 sources) Histamine-1 Receptor Antagonist Start: 11-27-2021 End: 01-21-2022 take 1 tablet by mouth once daily Fexofenadine (Naima Allergy) 180 mg tablet Discontinued 180 mg PO DAILY November 27, 2021 12:00am January 21, 2022 9:19am omeprazole 40 mg delayed release oral capsule (15 sources) Proton Pump Inhibitor Start: 10-27-2020 End: 11-27-2021 take 1 capsule by mouth once daily Omeprazole 40 MG capsule,delayed release(DR/EC) Discontinued 40 mg PO DAILY October 27, 2020 12:00am November 27, 2021 8:32am sucralfate 1000 mg oral tablet (15 sources) Aluminum Complex Start: 09-25-2020 End: 10-16-2020 take 1 tablet by mouth at bedtime Sucralfate 1 gram tablet Discontinued 1 g PO before meals and at bedtime September 25, 2020 1:00am October 16, 2020 10:04am Problems Active Problems Problem Classification Problem Date Documented Date Episodic/Chronic Abdominal pain (15 sources) Epigastric pain; Translations: [Epigastric pain] 01-21-2022 Episodic Bacterial infection; unspecified site (9 sources) Bacteria present; Translations: [Streptococcus, group B, as the cause of diseases classified elsewhere] 01-14-2025 Episodic Calculus of urinary tract (11 sources) Kidney stone; Translations: [Calculus of kidney] 01-04-2023 Episodic Cardiac and circulatory congenital anomalies (20 sources) Single umbilical artery; Translations: [Congenital absence and hypoplasia of umbilical artery] Onset: 01-26-2025 10-05-2024 Chronic Comment on above: Growth US Q4 wk and wkly NST at 36 wkdeliver 39 weeks Disorders of teeth and jaw (15 sources) Loss of teeth due to extraction; Translations: [Partial loss of teeth, unspecified cause, unspecified class] 01-21-2022 Episodic Immunizations and screening for infectious disease (20 sources) Antibody titer - finding; Translations: [Raised antibody titer] Onset: 11-30-2024 08-12-2024 Episodic Comment on above: Anti M. too weak to titer in first trimester, second draw increased to 2-redraw q 4 weeks Anti M. too weak to titer in first trimester, second draw increased to 2, stable on 11/30-redraw q 4 weeks Anti M. too weak to titer in first trimester, second draw increased to 2, stable on 11/30-redraw q 4 weeks 12/28 too weak to titer. Rpt 4 wk Nonspecific chest pain (15 sources) Retrosternal pain ; Translations: [Precordial pain] 01-21-2022 Episodic Other complications of ; puerperium affecting management of mother (12 sources) hemorrhage; Translations: [Other immediate hemorrhage] 08-26-2022 Episodic Comment on above: QBL 1321.s/p pitocin , methergine, cytotec. VSS, stable H&H Other complications of ; puerperium affecting management of mother (1 source) Other immediate hemorrhage; Translations: [Other immediate hemorrhage, unspecified as to episode of care or not applicable] 08-26-2022 Episodic Other complications of (14 sources) Bacteriuria; Translations: [Streptococcus B carrier state complicating ] 01-24-2022 Episodic Comment on above: treat now and in lab or Other complications of (20 sources) Streptococcus B carrier state complicating ; Translations: [Other current conditions classifiable elsewhere of mother, unspecified as to episode of care or not applicable] Episodic Other complications of (20 sources) High risk ; Translations: [Supervision of high risk , unspecified, unspecified trimester] 09-07-2024 Episodic Comment on above: PRR,, ALFRED 02/06/25 , PC Joe, Tashi Other complications of (20 sources) History of hemorrhage; Translations: [Supervision of with other poor reproductive or obstetric history, unspecified trimester] 06-24-2024 Episodic Other complications of (1 source) Supervision of high risk , unspecified, second trimester; Translations: [Supervision of high risk , unspecified, second trimester] Onset: 01-18-2025 Episodic Other complications of (1 source) Supervision of with other poor reproductive or obstetric history, unspecified trimester; Translations: [Supervision of with other poor reproductive or obstetric history, unspecified trimester] Onset: 12-28-2024 Episodic Other conditions (20 sources) Abnormal umbilical cord; Translations: [ affected by unspecified conditions of umbilical cord] 09-28-2024 Episodic Comment on above: borderline per MFM. Recheck and growth US Q4 wk Other conditions (1 source) affected by unspecified conditions of umbilical cord; Translations: [ affected by unspecified conditions of umbilical cord] Onset: 12-28-2024 Episodic Other and delivery including normal (20 sources) Normal ; Translations: [Encounter for supervision of normal , unspecified, unspecified trimester] Episodic Comment on above: PRR ALFRED 08/29/22 boy Joe Tashi SROM at 39weeks. pit augment. PPH, avulsed cord/short cord. . boy: Joe. LC declined NIPT & Melendez ier testing anatomy nl, repeat U S @ 28 wks of kidney(06/06/22) resolved, genetic and carrier declined, afp declined. declined NIPT & Melendez ier testing, nl anatomy Other screening for suspected conditions (not mental disorders or infectious disease) (1 source) Encounter for screening for diabetes mellitus; Translations: [Encounter for screening for diabetes mellitus] Onset: 11-08-2024 Episodic Other upper respiratory infections (2 sources) Sore throat symptom; Translations: [Acute pharyngitis, unspecified] 02-03-2024 Episodic Polyhydramnios and other problems of amniotic cavity (11 sources) Spontaneous rupture of membranes 08-31-2022 Episodic Residual codes; unclassified (15 sources) Family history of breast cancer; Translations: [Family history of malignant neoplasm of breast] 01-21-2022 Episodic Comment on above: Maternal aunt, pater nal grandmother. No other family cancer history. Both postmenopausal. Offered declines Empower. Residual codes; unclassified (1 source) 34 weeks gestation of ; Translations: [34 weeks gestation of ] Onset: 12-28-2024 Episodic Residual codes; unclassified (1 source) 30 weeks gestation of ; Translations: [30 weeks gestation of ] Onset: 11-30-2024 Episodic Short gestation; low weight; and growth retardation (4 sources) Small for gestational age fetus 01-18-2025 Episodic Unclassified (2 sources) Spontaneous rupture of membranes; Translations: [Spontaneous rupture of amniotic membranes] 08-24-2022 Past or Other Problems Problem Classification Problem Date Documented Da te Episodic/Chronic Other complications of (1 source) Supervision of high risk , unspecified, unspecified trimester; Translations: [Supervision of high risk , unspecified, unspecified trimester] Onset: 09-21-2024 Episodic Other complications of (1 source) Vomiting of , unspecified; Translations: [Vomiting of , unspecified] Onset: 07-05-2024 Episodic Residual codes; unclassified (1 source) 22 weeks gestation of ; Translations: [22 weeks gestation of ] Onset: 10-05-2024 Episodic Residual codes; unclassified (1 source) Illness, unspecified; Translations: [Illness, unspecified] Onset: 08-30-2024 Episodic Residual codes; unclassified (1 source) 14 weeks gestation of ; Translations: [14 weeks gestation of ] Onset: 08-10-2024 Episodic Residual codes; unclassified (1 source) 9 weeks gestation of ; Translations: [9 weeks gestation of ] Onset: 07-05-2024 Episodic Results Test Name Value Interpretation Reference Range Facility Industrial Editor Office Visit Reporton 01-24-2025 Industrial Editor Office Visit Report [facility] [address], [address] [place] [address] OFFICE VISIT Date of Service: 01/24/25 MR#: [id number] Acct: [id number] Name: JIHAN GUERRERO Rep #: [id number] : 1990 Provider: Dr. Elidia díaz MD Age/Sex: 34/F Location: [facility] Status: Signed Intake Vital Signs 12/14/24 08:59 01/18/25 12:23 01/24/25 08:14 Height 5 ft 5 in 5 ft 5 in 5 ft 5 in Weight: 201 lb BMI 33.4 BP 125/80 H Intake Visit Reasons: 38 wk ob/nst Bark Scaler Required: No Is patient in pain?: No Allergies No Known Allergies Allergy (Verified 01/24/25 08:13) Medications ???Medication ???Instructions ???Recorded ???Confirmed ???Type vitamin#30 30 mg iron-10 1 cap PO DAILY 01/21/22 01/24/25 History mg iron-folic acid 1 mg-omg3 capsule acetaminophen 500 mg oral powder 1,000 mg PO .Q8hr PRN 06/24/24 History packet (Tylenol Extra Strength) doxylamine succinate 25 mg tablet 25 mg PO QHS PRN 06/24/24 5 History (Unisom (doxylamine)) pyridoxine (vitamin B6) 10 mg 10 mg PO QDAY PRN 06/24/24 5 History tablet ondansetron 4 mg disintegrating 4 mg PO Q6H PRN nausea and 4 01/24/25 Rx tablet vomiting #90 tabs Last Menstrual Period: 05/02/24 Zika: Zika virus screening: Negative : No PFSH PFSH Medical History hemorrhage Seasonal allergies Former cigarette smoker 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 affecting Family history of breast cancer Retrosternal pain Epigastric pain Surgical History Hx of wisdom tooth extraction History of tonsillectomy Family History Father Alcoholism Grandmother Breast cancer Hypertension Dementia, Onset Age: 90 Maternal Aunt Breast cancer Mother Hyperlipemia Social History adopted: No household members: spouse and children number of children: 1 current occupational status: employed current occupation: [employer] pets and animals: Yes pets and animals: dog(s) history of recent travel: Yes ([place]) out of state: Yes out of country: No sexually active: Yes Smoking Status: Former smoker quit date: 01/16/09 second hand exposure: No alcohol intake: current alcohol intake frequency: a few times a month details: Not while substance use type: does not use well-balanced diet: daily or most days caffeine: Yes Type: coffee Number of servings: 2 eating out: rarely or never during the past year weight has: remained stable what type of physical activity do you participate in: none frequency: 3-4 times per week galo/nondenominational: None seatbelt use: always do you feel safe at home: Yes 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 Date Name GA/Weeks Outcome Route Bth Weight Infant Gen Labor Lgth Anesthesia Del Locatn Provider FOB 08/25/22 Joe 39 live - full term 7#[id number] Male [facility] Colli ns Tashi Delivery Date: 08/25/22 Last Updated by: Brigitte Washington SROM HPI 38 wk ob/nst Details: JIHAN GUERRERO is a 34 year old who presents for routine OB visit. OB Visit ALFRED Calculator Estimated Delivery Date Method Current WG Current Estimate 02/06/25 LMP (Certain) 38w 1d Other Estimates 02/08/25 Ultrasound #1 37w 6d Expected Delivery Route/Plan Labor Preferences- CB/BF classes: no labor support person: Tashi labor intervention preferences: [] pain management options preferred: [] cut cord/dad catch: cord : yes PP control planned: [] discussed possible routes of delivery and associated risks: [] special requests: [] Specific Issue/Plans Covid status: [] Flu vaccine: [] Tdap vaccine: [] Rhogam: NA LARC form signed: yes movement and labor precautions reviewed. Problem list reviewed and updated with the most current plan of care details and appropriate orders placed. Relevant counseling for the gestational age provided. Continue routine care and follow up unless otherwise noted in visit notes/problem list details Initial Weight: Not Recorded Date -???-???-???-???-???-??? -???-???-???-???-???-??? - EGA Weight BP Urine Prot -???-???-???-???-???-??? -???-???-???-???-???-??? - Glucose FHR FuHt Pres Dilation -???-???-???-??? (more content not included)... Normal [facility] OB Limited (No Biometrics)on 01-20-2025 OB Limited (No Biometrics) [facility] [address] [place] [address] OB Limited (No Biometrics) MR#: [id number] Acct: [id number] Name: JIHAN GUERRERO Rep #: [id number] : 1990 F 34 From: Sean Conde DO PCP: Dr. Alireza London MD Status: REG CLI Study: OB Limited (No Biometrics) Date of Exam: 01/20 Exam# [id number] Ordering Dr: Bhavani Wells DO PROCEDURE: OB LIMITED (NO BIOMETRICS) 01/20/2025 REASON FOR EXAM: LOW FUNDAL HEIGHT TECHNIQUE: OB LIMITED (NO BIOMETRICS) COMPARISON: Early OB ultrasound from July 05, 2024 FINDINGS Number: 1 Position: Cephalic Placental Position: Posterior. Not low-lying. Placental Abnormalities: No placental abnormalities. Placenta grade 2. ESTIMATED GESTATIONAL AGE: Baseline: 37 weeks, 4 days with estimated due date of February 06, 2025 BIOPHYSICAL ASSESSMENT: Amniotic Fluid Volume: Normal. Maximum vertical pocket 7.6 cm. Amniotic Fluid Index: 22.2. (8-24 cm normal range) Cardiac Motion: 143 (average) US/OB Limited (No Biometrics) IMPRESSION: Single live intrauterine fetus with cephalic presentation. No placental abnormality. Placenta location is posterior and is not low-lying. Reading Location: [facility] CC: Dr. Bhavani Wells DO; Dr. Alireza London MD Subscription Clerk: Signed Normal [facility] Laboratory - Chemistry and C hemistry - challengeOrdered By: Bhavani Corey on 01-18-2025 Glucose Ql (U) Negative [facility] - UrinalysisOrder ed By: Bhavani Corey on 01-18-2025 Protein Ql (U) Negative [facility] Industrial Editor Office Visit Reporton 01-18-2025 Industrial Editor Office Visit Report [facility], [address] [place] [address] OFFICE VISIT Date of Service: 01/18/25 MR#: [id number] Acct: [id number] Name: JIHAN GUERRERO Rep #: [id number] : 1990 Provider: Dr. Bhavani Tan DO Age/Sex: 34/F Location: [facility] Status: Signed Intake Vital Signs 12/14/24 08:59 01/11/25 15:16 01/18/25 12:22 01/18/25 12:23 Height 5 ft 5 in 5 ft 5 in 5 ft 5 in 5 ft 5 in Weight: 200 lb 4 oz BMI 33.3 BP 120/78 Intake Visit Reasons: 37 wk ob Bark Scaler Required: No Is patient in pain?: No Allergies No Known Allergies Allergy (Verified 01/18/25 12:22) Medications ???Medication ???Instructions ???Recorded ???Confirmed ???Type vitamin#30 30 mg iron-10 1 cap PO DAILY 01/21/22 01/18/25 History mg iron-folic acid 1 mg-omg3 capsule acetaminophen 500 mg oral powder 1,000 mg PO .Q8hr PRN 06/24/24 History packet (Tylenol Extra Strength) doxylamine succinate 25 mg tablet 25 mg PO QHS PRN 06/24/24 5 History (Unisom (doxylamine)) pyridoxine (vitamin B6) 10 mg 10 mg PO QDAY PRN 06/24/24 5 History tablet ondansetron 4 mg disintegrating 4 mg PO Q6H PRN nausea and 4 01/18/25 Rx tablet vomiting #90 tabs Last Menstrual Period: 05/02/24 Zika: Zika virus screening: Negative : No PFSH PFSH Medical History hemorrhage Seasonal allergies Former cigarette smoker 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 affecting Family history of breast cancer Retrosternal pain Epigastric pain Surgical History Hx of wisdom tooth extraction History of tonsillectomy Family History Father Alcoholism Grandmother Breast cancer Hypertension Dementia, Onset Age: 90 Maternal Aunt Breast cancer Mother Hyperlipemia Social History adopted: No household members: spouse and children number of children: 1 current occupational status: employed current occupation: [employer] pets and animals: Yes pets and animals: dog(s) history of recent travel: Yes ([place]) out of state: Yes out of country: No sexually active: Yes Smoking Status: Former smoker quit date: 01/16/09 second hand exposure: No alcohol intake: current alcohol intake frequency: a few times a month details: Not while substance use type: does not use well-balanced diet: daily or most days caffeine: Yes Type: coffee Number of servings: 2 eating out: rarely or never during the past year weight has: remained stable what type of physical activity do you participate in: none frequency: 3-4 times per week galo/nondenominational: None seatbelt use: always do you feel safe at home: Yes additional social history: - 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 Date Name GA/Weeks Outcome Route Bth Weight Infant Gen Labor Lgth Anesthesia Del Locatn Provider FOB 08/25/22 Joe 39 live - full term 7#2OZ Male [facility] Colli ns Tashi Delivery Date: 08/25/22 Last Updated by: Brigitte Washington SROM HPI 37 wk ob Details: JIHAN GUERRERO is a 34 year old who presents for routine OB visit. OB Visit ALFRED Calculator Estimated Delivery Date Method Current WG Current Estimate 02/06/25 LMP (Certain) 37w 2d Other Estimates 02/08/25 Ultrasound #1 37w 0d Expected Delivery Route/Plan Labor Preferences- CB/BF classes: no labor support person: Tashi labor intervention preferences: [] pain management options preferred: [] cut cord/dad catch: cord : yes PP control planned: [] discussed possible routes of delivery and associated risks: [] special requests: [] Specific Issue/Plans Covid status: [] Flu vaccine: [] Tdap vaccine: [] Rhogam: NA LARC form signed: yes movement and labor precautions reviewed. Problem list reviewed and updated with the most current plan of care details and appropriate orders placed. Relevant counseling for the gestational age provided. Continue routine care and follow up unless otherwise noted in visit notes/problem list details Initial Weight: Not Recorded Date -???-???-???-???-???-??? -???-???-???-???-???-??? - EGA Weight BP Urine Prot -???-???-???-???-???-??? -???-???-???-???-???-??? - Glucose FHR FuHt (more content not included)... Normal [facility] Rule out Beta Strep (Grp. B) on 01-15-2025 NICK Streptococcus agalac tiae (B) Amount Growth 3+ Streptococcus agalactiae (B): REACTION Ampicillin Islt ABRAHAN <=0.25 cefTRIAXone Islt ABRAHAN <=0.12 S Clindamycin Islt ABRAHAN <=0.25 S Clindamycin.induced Susc Islt NEG Linezolid Islt ABRAHAN <=2 S Vancomycin Islt ABRAHAN 0.5 S Normal [facility] Comment on above: Performed By: #### M 100.7977 #### [facility] Laboratory [facility] [place], [address] Laboratory - Chemistry and C hemistry - challengeOrdered By: Alesha To on 01-11-2025 Glucose Ql (U) Negative [facility] Laboratory - UrinalysisOrder ed By: Alesha To on 01-11-2025 Protein Ql (U) Negative [facility] Industrial Editor Office Visit Reporton 01-11-2025 Industrial Editor Office Visit Report [facility] [address], [address] [place] [address] OFFICE VISIT Date of Service: 01/11/25 MR#: [id number] Acct: [id number] Name: JIHAN GUERRERO Rep #: [id number] : 1990 Provider: ROMEO zamudio Age/Sex: 34/F Location: [facility] Status: Signed Intake Vital Signs 12/28/24 09:00 01/11/25 15:16 Height 5 ft 5 in 5 ft 5 in Weight: 199 lb 2 oz 202 lb 8 oz BMI 33.1 33.7 BP 135/80 H 104/70 Intake Visit Reasons: 36wk ob Chief Complaint: 36 Week OB Bark Scaler Required: No Is patient in pain?: No Allergies No Known Allergies Allergy (Verified 01/11/25 15:16) Medications ???Medication ???Instructions ???Recorded ???Confirmed ???Type vitamin#30 30 mg iron-10 1 cap PO DAILY 01/21/22 01/11/25 History mg iron-folic acid 1 mg-omg3 capsule acetaminophen 500 mg oral powder 1,000 mg PO .Q8hr PRN 06/24/2405/28 History packet (Tylenol Extra Strength) doxylamine succinate 25 mg tablet 25 mg PO QHS PRN 06/24/24 5 History (Unisom (doxylamine)) pyridoxine (vitamin B6) 10 mg 10 mg PO QDAY PRN 06/24/24 5 History tablet ondansetron 4 mg disintegrating 4 mg PO Q6H PRN nausea and 4 01/11/25 Rx tablet vomiting #90 tabs Last Menstrual Period: 05/02/24 Zika: Zika virus screening: Negative : No PFSH PFSH Medical History hemorrhage Seasonal allergies Former cigarette smoker 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 affecting Family history of breast cancer Retrosternal pain Epigastric pain Surgical History Hx of wisdom tooth extraction History of tonsillectomy Family History Father Alcoholism Grandmother Breast cancer Hypertension Dementia, Onset Age: 90 Maternal Aunt Breast cancer Mother Hyperlipemia Social History adopted: No household members: spouse and children number of children: 1 current occupational status: employed current occupation: [employer] pets and animals: Yes pets and animals: dog(s) history of recent travel: Yes ([place]) out of state: Yes out of country: No sexually active: Yes Smoking Status: Former smoker quit date: 01/16/09 second hand exposure: No alcohol intake: current alcohol intake frequency: a few times a month details: Not while substance use type: does not use well-balanced diet: daily or most days caffeine: Yes Type: coffee Number of servings: 2 eating out: rarely or never during the past year weight has: remained stable what type of physical activity do you participate in: none frequency: 3-4 times per week galo/nondenominational: None seatbelt use: always do you feel safe at home: Yes 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 Date Name GA/Weeks Outcome Route Bth Weight Gen Labor Lgth Anesthesia Del Locatn Provider FOB 08/25/22 Joe 39 live - full term 7#2OZ Male [facility] Colli ns Tashi Delivery Date: 08/25/22 Last Updated by: Brigitte Washington SROM HPI 36wk ob Details: JIHAN GUERRERO is a 34 year old who presents for routine OB visit. OB Visit ALFRED Calculator Estimated Delivery Date Method Current WG Current Estimate 02/06/25 LMP (Certain) 36w 2d Other Estimates 02/08/25 Ultrasound #1 36w 0d Expected Delivery Route/Plan Labor Preferences- CB/BF classes: no labor support person: Tashi labor intervention preferences: [] pain management options preferred: [] cut cord/dad catch: cord : yes PP control planned: [] discussed possible routes of delivery and associated risks: [] special requests: [] Specific Issue/Plans Covid status: [] Flu vaccine: [] Tdap vaccine: [] Rhogam: NA LARC form signed: yes movement and labor precautions reviewed. Problem list reviewed and updated with the most current plan of care details and appropriate orders placed. Relevant counseling for the gestational age provided. Continue routine care and follow up unless otherwise noted in visit notes/problem list details Initial Weight: Not Recorded Date -???-???-???-???-???-??? -???-???-???-???-???-??? - EGA Weight BP Urine Prot -???-???-???-???-???-??? -???-???-???-???-???-??? - Glucose FHR FuHt Pres (more content not included)... Normal [facility] Screening beta-hemolytic Str eptococcus cultureOrdered By: Alesha To on 01-11-2025 Beta-hemolytic Streptococcus culture Streptococcus agalactiae (B) Abnormal [facility] [id number] 12-29-2024 [facility] Mis. COMMENT Normal . [facility] Comment on above: Order Comment: LAV/W B/[id number] M TITER Result Comment: Test Ordered: [id number] Antibody Identification Antibody Id. #1 Anti-M CB Reference Range: . Dat Titer #1 Comment CB Reference Range: . The antibody is too weak to titer at this time. If a numerical titer result has been reported, please note that this result is the reciprocal value of titer results formerly reported as 1:2,1:4, 1:8, etc. These results are now reported as 2, 4, 8, etc. The [place] [employer] has recommended this change in titer reporting formats to simply reflect the reciprocal value of the titer. Antibody Id. #2 AFFILIATE MARKETING COORDINATOR NOLAB Reference Range: . Dat Titer #2 AFFILIATE MARKETING COORDINATOR NOLAB Reference Range: . Performed at: - [facility] [address] [id number] Utility Operator: Joey Mortensen PhD, Phone: [phone] Performed By: #### M 135.7009 #### [facility] Laboratory [facility] [place], [address] Laboratory - Chemistry and C hemistry - challengeOrdered By: Carol Barrera on 12-28-2024 Glucose Ql (U) Negative [facility] Laboratory - UrinalysisOrder ed By: Carol Barrera on 12-28-2024 Protein Ql (U) Negative [facility] Industrial Editor Office Visit Reporton 12-28-2024 Industrial Editor Office Visit Report [facility] [address], [address] [place] [address] OFFICE VISIT Date of Service: 12/28/24 MR#: [id number] Acct: [id number] Name: JIHAN GUERRERO Rep #: [id number] : 1990 Provider: DENG White ams Age/Sex: 34/F Location: [facility] Status: Signed Intake Vital Signs 07/05/24 13:02 11/30/24 08:46 12/14/24 08:59 12/28/24 09:00 Height 5 ft 5 in 5 ft 5 in 5 ft 5 in 5 ft 5 in Weight: 195 lb 199 lb 2 oz BMI 32.4 33.1 BP 124/75 H 135/80 H Intake Visit Reasons: 34 wk ob Chief Complaint: 34wk OB Bark Scaler Required: No Is patient in pain?: No Allergies No Known Allergies Allergy (Verified 12/28/24 08:56) Medications ???Medication ???Instructions ???Recorded ???Confirmed ???Type vitamin#30 30 mg iron-10 1 cap PO DAILY 01/21/22 12/28/24 History mg iron-folic acid 1 mg-omg3 capsule acetaminophen 500 mg oral powder 1,000 mg PO .Q8hr PRN 06/24/24 History packet (Tylenol Extra Strength) doxylamine succinate 25 mg tablet 25 mg PO QHS PRN 06/24/24 5 History (Unisom (doxylamine)) pyridoxine (vitamin B6) 10 mg 10 mg PO QDAY PRN 06/24/24 5 History tablet ondansetron 4 mg disintegrating 4 mg PO Q6H PRN nausea and 4 12/28/24 Rx tablet vomiting #90 tabs Last Menstrual Period: 05/02/24 : No PFSH PFSH Medical History hemorrhage Seasonal allergies Former cigarette smoker 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 affecting Family history of breast cancer Retrosternal pain Epigastric pain Surgical History Hx of wisdom tooth extraction History of tonsillectomy Family History Father Alcoholism Grandmother Breast cancer Hypertension Dementia, Onset Age: 90 Maternal Aunt Breast cancer Mother Hyperlipemia Social History adopted: No household members: spouse and children number of children: 1 current occupational status: employed current occupation: [employer] pets and animals: Yes pets and animals: dog(s) history of recent travel: Yes ([place]) out of state: Yes out of country: No sexually active: Yes Smoking Status: Former smoker quit date: 01/16/09 second hand exposure: No alcohol intake: current alcohol intake frequency: a few times a month details: Not while substance use type: does not use well-balanced diet: daily or most days caffeine: Yes Type: coffee Number of servings: 2 eating out: rarely or never during the past year weight has: remained stable what type of physical activity do you participate in: none frequency: 3-4 times per week galo/nondenominational: None seatbelt use: always do you feel safe at home: Yes additional social history: - 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 Date Name GA/Weeks Outcome Route Bth Weight Infant Gen Labor Lgth Anesthesia Del Locatn Provider FOB 08/25/22 Joe 39 live - full term 7#2OZ Male [facility] Colli ns Tashi Delivery Date: 08/25/22 Last Updated by: Brigitte Washington SROM HPI 34 wk ob Details: JIHAN GUERRERO is a 34 year old who presents for routine OB visit. OB Visit ALFRED Calculator Estimated Delivery Date Method Current WG Current Estimate 02/06/25 LMP (Certain) 34w 2d Other Estimates 02/08/25 Ultrasound #1 34w 0d Expected Delivery Route/Plan Labor Preferences- CB/BF classes: [] labor support person: [] labor intervention preferences: [] pain management options preferred: [] cut cord/dad catch: [] : [] PP control planned: [] discussed possible routes of delivery and associated risks: [] special requests: [] Specific Issue/Plans Covid status: [] Flu vaccine: [] Tdap vaccine: [] Rhogam: NA LARC form signed: [] movement and labor precautions reviewed. Problem list reviewed and updated with the most current plan of care details and appropriate orders placed. Relevant counseling for the gestational age provided. Continue routine care and follow up unless otherwise noted in visit notes/problem list details Initial Weight: Not Recorded Date -???-???-???-???-???-??? -???-???-???-???-???-??? - EGA Weight BP Urine Prot -???-???-???-???-???-??? -???-???-???-???-???-??? - Glucose FHR FuHt Pres Dilation -???-???-? (more content not included)... Normal [facility] Laboratory - Chemistry and C hemistry - challengeOrdered By: Elidia Joaquin on 12-14-2024 Glucose Ql (U) Negative [facility] Laboratory - UrinalysisOrder ed By: Elidia Joaquin on 12-14-2024 Protein Ql (U) Negative [facility] Industrial Editor Office Visit Reporton 12-14-2024 Industrial Editor Office Visit Report [facility] [address], [address] [place] [address] OFFICE VISIT Date of Service: 12/14/24 MR#: [id number] Acct: [id number] Name: JIHAN GUERRERO Rep #: [id number] : 1990 Provider: Dr. Elidia díaz MD Age/Sex: 34/F Location: [facility] Status: Signed Intake Vital Signs 07/05/24 13:02 11/30/24 08:46 12/14/24 08:59 Height 5 ft 5 in 5 ft 5 in 5 ft 5 in Weight: 195 lb BMI 32.4 BP 124/75 H Intake Visit Reasons: 32 wk ob Bark Scaler Required: No Is patient in pain?: No Feel stressed/tense/nervous/a nxious/difficulty sleeping: not at all Allergies No Known Allergies Allergy (Verified 12/14/24 08:59) Medications ???Medication ???Instructions ???Recorded ???Confirmed ???Type vitamin#30 30 mg iron-10 1 cap PO DAILY 01/21/22 12/14/24 History mg iron-folic acid 1 mg-omg3 capsule acetaminophen 500 mg oral powder 1,000 mg PO .Q8hr PRN 06/24/24 History packet (Tylenol Extra Strength) doxylamine succinate 25 mg tablet 25 mg PO QHS PRN 06/24/24 5 History (Unisom (doxylamine)) pyridoxine (vitamin B6) 10 mg 10 mg PO QDAY PRN 06/24/24 5 History tablet ondansetron 4 mg disintegrating 4 mg PO Q6H PRN nausea and 4 12/14/24 Rx tablet vomiting #90 tabs Last Menstrual Period: 05/02/24 Zika: Zika virus screening: Negative : No PFSH PFSH Medical History hemorrhage Seasonal allergies Former cigarette smoker 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 affecting Family history of breast cancer Retrosternal pain Epigastric pain Surgical History Hx of wisdom tooth extraction History of tonsillectomy Family History Father Alcoholism Grandmother Breast cancer Hypertension Dementia, Onset Age: 90 Maternal Aunt Breast cancer Mother Hyperlipemia Social History adopted: No household members: spouse and children number of children: 1 current occupational status: employed current occupation: [employer] pets and animals: Yes pets and animals: dog(s) history of recent travel: Yes ([place]) out of state: Yes out of country: No sexually active: Yes Smoking Status: Former smoker quit date: 01/16/09 second hand exposure: No alcohol intake: current alcohol intake frequency: a few times a month details: Not while substance use type: does not use well-balanced diet: daily or most days caffeine: Yes Type: coffee Number of servings: 2 eating out: rarely or never during the past year weight has: remained stable what type of physical activity do you participate in: none frequency: 3-4 times per week galo/nondenominational: None seatbelt use: always do you feel safe at home: Yes additional social history: - 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 Date Name GA/Weeks Outcome Route Bth Weight Infant Gen Labor Lgth Anesthesia Del Locatn Provider FOB 08/25/22 Joe 39 live - full term 7#2OZ Male [facility] Colli ns Tashi Delivery Date: 08/25/22 Last Updated by: Brigitte Washington SROM HPI 32 wk ob Details: JIHAN GUERRERO is a 34 year old who presents for routine OB visit. OB Visit ALFRDE Calculator Estimated Delivery Date Method Current WG Current Estimate 02/06/25 LMP (Certain) 32w 2d Other Estimates 02/08/25 Ultrasound #1 32w 0d Expected Delivery Route/Plan Labor Preferences- CB/BF classes: [] labor support person: [] labor intervention preferences: [] pain management options preferred: [] cut cord/dad catch: [] : [] PP control planned: [] discussed possible routes of delivery and associated risks: [] special requests: [] Specific Issue/Plans Covid status: [] Flu vaccine: [] Tdap vaccine: [] Rhogam: NA LARC form signed: [] movement and labor precautions reviewed. Problem list reviewed and updated with the most current plan of care details and appropriate orders placed. Relevant counseling for the gestational age provided. Continue routine care and follow up unless otherwise noted in visit notes/problem list details Initial Weight: Not Recorded Date -???-???-???-???-???-??? -???-???-???-???-???-??? - EGA Weight BP Urine Prot -???-???-???-???-???-??? -???-???-???-???-???-? (more content not included)... Normal [facility] L3410.9992on 12-01-2024 [facility] Misc. COMMENT Normal . [facility] Comment on above: Order Comment: [id number] ANTI M TITER EDTA LAV WB Result Comment: Test Ordered: [id number] Antibody Identification Antibody Id. #1 Anti-M CB Reference Range: . Dat Titer #1 2 CB Reference Range: . If a numerical titer result has been reported, please note that this result is the reciprocal value of titer results formerly reported as 1:2,1:4, 1:8, etc. These results are now reported as 2, 4, 8, etc. The [place] [employer] has recommended this change in titer reporting formats to simply reflect the reciprocal value of the titer. Antibody Id. #2 AFFILIATE MARKETING COORDINATOR NOLAB Reference Range: . Dat Titer #2 AFFILIATE MARKETING COORDINATOR NOLAB Reference Range: . Performed at: [address] [id number] Utility Operator: Joey Mortensen PhD, Phone: [phone] Performed By: #### L 0280.9992 #### [facility] [address] [facility] [place], [address] HIVon 11-30-2024 HIV Non-Reactive Normal Nonreactive [facility] Comment on above: Result Comment: Non- Reactive Reactive Repeatedly reactive samples must be confirmed according to CDC recommended confirmatory algorithms. The subresults for either HIVAG or AHIV can be used as an aid in the selection of the confirmation algorithm for reactive samples. Send out specimens with Reactive results to [facility] for confirmation. Order the HIV antibody detection and differentiation: [id number] Performed By: #### L 3890.6006 ####[facility] [id number] [facility] [place], [address] Laboratory - Chemistry and C hemistry - challengeOrdered By: Carol Barrera on 11-30-2024 Glucose Ql (U) Negative [facility] Laboratory - UrinalysisOrder ed By: Carol Barrera on 11-30-2024 Protein Ql (U) Negative [facility] No Panel InformationOrdered By: Carol Barrera on 11-30-2024 HIV (1&2) Antibody Non-Reactive Nonreactive [facility] Comment on above: Non-ReactiveReactive Repeatedly reactive samples must be confirmed according to CDC recommended confirmatory algorithms. The subresults for either HIVAG or AHIV can be used as an aid in the selection of the confirmation algorithm for reactive samples.Send out specimens with Reactive results to [facility] for confirmation.Order the HIV antibody detection and differentiation: #[id number] Industrial Editor Office Visit Reporton 11-30-2024 Industrial Editor Office Visit Report [facility]'s [address], [address] [place] [address] OFFICE VISIT Date of Service: 11/30/24 MR#: [id number] Acct: [id number] Name: JIHAN GUERRERO Rep #: [id number] : 1990 Provider: DENG White [facility] Age/Sex: 34/F Location: [facility] Status: Signed Intake Vital Signs 07/05/24 13:02 11/02/24 08:46 11/30/24 08:45 11/30/24 08:46 Height 5 ft 5 in 5 ft 5 in 5 ft 5 in 5 ft 5 in Weight: 192 lb 6 oz BMI 32.0 BP 129/74 H Intake Visit Reasons: 30 wk ob Chief Complaint: 30wk OB Bark Scaler Required: No Is patient in pain?: No Allergies No Known Allergies Allergy (Verified 11/30/24 08:43) Medications ???Medication ???Instructions ???Recorded ???Confirmed ???Type vitamin#30 30 mg iron-10 1 cap PO DAILY 01/21/22 11/30/24 History mg iron-folic acid 1 mg-omg3 capsule acetaminophen 500 mg oral powder 1,000 mg PO .Q8hr PRN 06/24/24 History packet (Tylenol Extra Strength) doxylamine succinate 25 mg tablet 25 mg PO QHS PRN 06/24/24 5 History (Unisom (doxylamine)) pyridoxine (vitamin B6) 10 mg 10 mg PO QDAY PRN 06/24/24 5 History tablet ondansetron 4 mg disintegrating 4 mg PO Q6H PRN nausea and 4 11/30/24 Rx tablet vomiting #90 tabs Last Menstrual Period: 05/02/24 : No PFSH PFSH Medical History hemorrhage Seasonal allergies Former cigarette smoker 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 affecting Family history of breast cancer Retrosternal pain Epigastric pain Surgical History Hx of wisdom tooth extraction History of tonsillectomy Family History Father Alcoholism Grandmother Breast cancer Hypertension Dementia, Onset Age: 90 Maternal Aunt Breast cancer Mother Hyperlipemia Social History adopted: No household members: spouse and children number of children: 1 current occupational status: employed current occupation: [employer] pets and animals: Yes pets and animals: dog(s) history of recent travel: Yes ([place]) out of state: Yes out of country: No sexually active: Yes Smoking Status: Former smoker quit date: 01/16/09 second hand exposure: No alcohol intake: current alcohol intake frequency: a few times a month details: Not while substance use type: does not use well-balanced diet: daily or most days caffeine: Yes Type: coffee Number of servings: 2 eating out: rarely or never during the past year weight has: remained stable what type of physical activity do you participate in: none frequency: 3-4 times per week galo/nondenominational: None seatbelt use: always do you feel safe at home: Yes 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 Date Name GA/Weeks Outcome Route Bth Weight Gen Labor Lgth Anesthesia Del Locatn Provider FOB 08/25/22 Joe 39 live - full term 7#2OZ Male [facility] Colli sergio Akins Delivery Date: 08/25/22 Last Updated by: Brigitte Washington SROM HPI 30 wk ob Details: JIHAN GUERRERO is a 34 year old who presents for routine OB visit. OB Visit ALFRED Calculator Estimated Delivery Date Method Current WG Current Estimate 02/06/25 LMP (Certain) 30w 2d Other Estimates 02/08/25 Ultrasound #1 30w 0d Expected Delivery Route/Plan Labor Preferences- CB/BF classes: [] labor support person: [] labor intervention preferences: [] pain management options preferred: [] cut cord/dad catch: [] : [] PP control planned: [] discussed possible routes of delivery and associated risks: [] special requests: [] Specific Issue/Plans Covid status: [] Flu vaccine: [] Tdap vaccine: [] Rhogam: NA LARC form signed: [] Problem list reviewed and updated with the most current plan of care details and appropriate orders placed. Relevant counseling for the gestational age provided. Continue routine care and follow up unless otherwise noted in visit notes/problem list details Initial Weight: Not Recorded Date -???-???-???-???-???-??? -???-???-???-???-???-??? - EGA Weight BP Urine Prot -???-???-???-???-???-??? -???-???-???-???-???-??? - Glucose FHR FuHt Pres Dilation -???-???-???-???-???-??? -???-???-???-???-???-??? - Effaced St Visit Note 12 (more content not included)... Normal [facility] Absolute lymphocyte countOrd ered By: Bhavani Corey on 11-02-2024 Lymphocytes Auto (Unsp spec) [#/Vol] 1.84 10*3/uL 0.83-4.51 [facility] Absolute neutrophil countOrd ered By: Bhavani Corey on 11-02-2024 Neutrophils (Bld) [#/Vol] 8.1 10*3/uL High 2.0-7.7 [facility] Automated lymphocyte count a s percentage of total leukocytesOrdered By: Bhavani Corey on 11-02-2024 Lymphocytes/100 WBC Auto (Unsp spec) 17.0 % Low 19-41 [facility] Basophil percentageOrdered B y: Bhavani Corey on 11-02-2024 Basophils/100 WBC (Bld) 0.3 % 0-1 [facility] CBC W/Diff, Automatedon -2024 Absolute Lymph 1.84 X10 3/uL Normal 0.83-4.51 [facility] Comment on above: Performed By: #### L 501.0250, L509.8002, L3890.6006, L100.0100 #### [facility] [address] [place], [address] Absolute Neut 8.1 X10 3/uL High 2.0-7.7 [facility] Comment on above: Performed By: #### L 501.0250, L509.8002, L3890.6006, L100.0100 #### [facility] [address] [place], [address] Basophils/100 WBC (Bld) 0.3 % Normal 0-1 [facility] Comment on above: Performed By: #### L 501.0250, L509.8002, L3890.6006, L100.0100 #### [facility] [address] [place], [address] Eosinophils/100 WBC (Bld) 0.5 % Normal 0-5 [facility] Comment on above: Performed By: #### L 501.0250, L509.8002, L3890.6006, L100.0100 #### [facility] [address] [place], [address] Erythrocyte distribution width (RBC) [Ratio] 12.8 % Normal 11.6-14.6 [facility] Comment on above: Performed By: #### L 501.0250, L509.8002, L3890.6006, L100.0100 #### [facility] [address] [place], [address] Hematocrit (Bld) [Volume fraction] 32.7 % Low 37-47 [facility] Comment on above: Performed By: #### L 501.0250, L509.8002, L3890.6006, L100.0100 #### [facility] [address] [place], [address] Hemoglobin (Bld) [Mass/Vol] 11.2 g/dL Low 12.0-15.0 [facility] Comment on above: Performed By: #### L 501.0250, L509.8002, L3890.6006, L100.0100 #### [facility] [address] [place], [address] IG% 0.900 Normal 0.0-0.9 [facility] Comment on above: Result Comment: IG% - Immature Granulocytes (promyelocytes, myelocytes and metamyelocytes) > 1% indicates that a LEFT SHIFT is Present. Performed By: #### L 501.0250, L509.8002, L3890.6006, L100.0100 #### [facility] [address] [place], [address] Lymphocytes/100 WBC (Bld) 17.0 % Low 19-41 [facility] Comment on above: Performed By: #### L 501.0250, L509.8002, L3890.6006, L100.0100 #### [facility] [address] [place], [address] MCH (RBC) [Entitic mass] 29.6 pg Normal 27.0-32.0 [facility] Comment on above: Performed By: #### L 501.0250, L509.8002, L3890.6006, L100.0100 #### [facility] [address] [place], [address] MCHC (RBC) [Mass/Vol] 34.3 g/dL Normal 32-36 [facility] Comment on above: Performed By: #### L 501.0250, L509.8002, L3890.6006, L100.0100 #### [facility] [address] [place], [address] MCV (RBC) [Entitic vol] 86.5 fL Normal 81-99 [facility] Comment on above: Performed By: #### L 501.0250, L509.8002, L3890.6006, L100.0100 #### [facility] [address] [place], [address] Monocytes/100 WBC (Bld) 6.5 % Normal 0-10 [facility] Comment on above: Performed By: #### L 501.0250, L509.8002, L3890.6006, L100.0100 #### [facility] [address] [place], [address] Neutrophils/100 WBC (Bld) 74.8 % High 47-70 [facility] Comment on above: Performed By: #### L 501.0250, L509.8002, L3890.6006, L100.0100 #### [facility] [address] [place], [address] Nucleated RBC (Bld) [#/Vol] 0 10*3/uL Normal 0-5 [facility] Comment on above: Performed By: #### L 501.0250, L509.8002, L3890.6006, L100.0100 #### [facility] [address] [place], [address] Platelet mean volume (Bld) [Entitic vol] 8.7 fL Normal 6.2-12.0 [facility] Comment on above: Performed By: #### L 501.0250, L509.8002, L3890.6006, L100.0100 #### [facility] [address] [place], [address] Platelets (Bld) [#/Vol] 348 10*3/uL Normal 150-450 [facility] Comment on above: Performed By: #### L 501.0250, L509.8002, L3890.6006, L100.0100 #### [facility] [address] [place], [address] RBC (Bld) [#/Vol] 3.78 10*6/uL Low 4.2-5.4 [facility] Comment on above: Performed By: #### L 501.0250, L509.8002, L3890.6006, L100.0100 #### [facility] [address] [place], [address] RDW SD 40.1 fl Normal 35.1-43.9 [facility] Comment on above: Performed By: #### L 501.0250, L509.8002, L3890.6006, L100.0100 #### [facility] [address] [place], [address] WBC (Bld) [#/Vol] 10.8 10*3/uL Normal 4.4-11.0 [facility] Comment on above: Performed By: #### L 501.0250, L509.8002, L3890.6006, L100.0100 #### [facility] [address] [place], [address] Eosinophil percentageOrdered By: Bhavani Corey on 11-02-2024 Eosinophils/100 WBC (Bld) 0.5 % 0-5 [facility] Erythrocyte distribution wid th (RBC) [Ratio]Ordered By: Bhavani Corey on 11-02-2024 Erythrocyte distribution width (RBC) [Entitic vol] 40.1 fL 35.1-43.9 [facility] Erythrocyte distribution wid th ratioOrdered By: Bhavani Corey on 11-02-2024 Erythrocyte distribution width (RBC) [Ratio] 12.8 % 11.6-14.6 [facility] Erythrocyte distribution wid th standard deviationOrdered By: Bhavani Corey on 11-02-2024 Erythrocyte distribution width (RBC) [Ratio] 40.1 fl 35.1-43.9 [facility] Glucose Challenge Gest 1H 50 patricia 11-02-2024 GLU GEST 50g 1H 95 mg/dL Normal 70-140 [facility] Comment on above: Performed By: #### L 501.0250, L509.8002, L3890.6006, L100.0100 #### [facility] [place], [address] Glucose measurement at 2 denilson rs post-dose gestational glucose tolerance testOrdered By: Bhavani Corey on 11-02-2024 Glucose [Mass/Vol] 95 mg/dL 70-140 [facility] Hematocrit Auto (Bld) [Volum e fraction]Ordered By: Bhavani Corey on 11-02-2024 Hematocrit (Bld) [Volume fraction] 32.7 % Low 37-47 [facility] Hemoglobin measurementOrdere d By: Bhavani Corey on 11-02-2024 Hemoglobin (Bld) [Mass/Vol] 11.2 g/dL Low 12.0-15.0 [facility] Immature granulocytes/100 WB C Auto (Bld)Ordered By: Bhavani Corey on 11-02-2024 Immature granulocytes/100 WBC (Bld) 0.900 % 0.0-0.9 [facility] Comment on above: IG% - Immature Granu locytes (promyelocytes, myelocytes and metamyelocytes) > 1% indicates that a LEFT SHIFT is Present. L3890.6006on 11-02-2024 HIV Non-Reactive Normal Nonreactive [facility] Comment on above: Result Comment: Non- Reactive Reactive Repeatedly reactive samples must be confirmed according to CDC recommended confirmatory algorithms. The subresults for either HIVAG or AHIV can be used as an aid in the selection of the confirmation algorithm for reactive samples. Send out specimens with Reactive results to [facility] for confirmation. Order the HIV antibody detection and differentiation: lc#[id number] Performed By: #### L 501.0250, L509.8002, L3890.6006, L100.0100 #### [facility] [address] [place], [address] L509.8002on 11-02-2024 Syphilis Abs Non-Reactive Normal Nonreactive [facility] Comment on above: Performed By: #### L 501.0250, L509.8002, L3890.6006, L100.0100 #### [facility] [address] [place], [address] Laboratory - Chemistry and C hemistry - challengeOrdered By: Bhavani Corey on 11-02-2024 Glucose Ql (U) Negative [facility] - UrinalysisOrder ed By: Bhavani Corey on 11-02-2024 Protein Ql (U) Negative [facility] Lymphocytes Auto (Unsp spec) [#/Vol]Ordered By: Bhavani Corey on 11-02-2024 Lymphocytes (Bld) [#/Vol] 1.84 10*3/uL 0.83-4.51 [facility] Lymphocytes/100 WBC Auto (Un sp spec)Ordered By: Bhavani Corey on 11-02-2024 Lymphocytes/100 WBC (Bld) 17.0 % Low 19-41 [facility] MCV (mean corpuscular volume ) determinationOrdered By: Bhavani Corey on 11-02-2024 MCV (RBC) [Entitic vol] 86.5 fL 81-99 [facility] Mean corpuscular hemoglobin (MCH) determinationOrdered By: Bhavani Corey on 11-02-2024 MCH (RBC) [Entitic mass] 29.6 pg 27.0-32.0 [facility] Mean corpuscular hemoglobin concentration (MCHC) determinationOrdered By: Bhavani Corey on 11-02-2024 MCHC (RBC) [Mass/Vol] 34.3 g/dL 32-36 [facility] Mean platelet volume determi nationOrdered By: Bhavani Corey on 11-02-2024 Platelet mean volume (Bld) [Entitic vol] 8.7 fL 6.2-12.0 [facility] Monocyte percentageOrdered B y: Bhavani Corey on 11-02-2024 Monocytes/100 WBC (Bld) 6.5 % 0-10 [facility] Neutrophil percentageOrdered By: Bhavani Corey on 11-02-2024 Neutrophils/100 WBC (Bld) 74.8 % High 47-70 [facility] No Panel InformationOrdered By: Bhavnai Corey on 11-02-2024 HIV (1&2) Antibody Non-Reactive Nonreactive [facility] Comment on above: Non-ReactiveReactive Repeatedly reactive samples must be confirmed according to CDC recommended confirmatory algorithms. The subresults for either HIVAG or AHIV can be used as an aid in the selection of the confirmation algorithm for reactive samples.Send out specimens with Reactive results to [facility] for confirmation.Order the HIV antibody detection and differentiation: #[id number] Nucleated red blood cell per centageOrdered By: Bhavani Corey on 11-02-2024 Nucleated RBC/100 WBC (Bld) [Ratio] 0 % 0-5 [facility] Industrial Editor Office Visit Reporton 11-02-2024 Industrial Editor Office Visit Report [facility] [address], [address] [place] [address] OFFICE VISIT Date of Service: 11/02/24 MR#: [id number] Acct: [id number] Name: LUDMILALUIS ENRIQUEJIHAN CALDERON Rep #: [id number] : 1990 Provider: Dr. Bhavani Tan DO Age/Sex: 34/F Location: [facility] Status: Signed Intake Vital Signs 07/05/24 13:02 10/05/24 08:53 11/02/24 08:45 11/02/24 08:46 Height 5 ft 5 in 5 ft 5 in 5 ft 5 in 5 ft 5 in Weight: 189 lb BMI 31.4 BP 113/73 Intake Visit Reasons: 26 wk ob/glucose Bark Scaler Required: No Is patient in pain?: No Allergies No Known Allergies Allergy (Verified 11/02/24 08:44) Medications ???Medication ???Instructions ???Recorded ???Confirmed ???Type vitamin#30 30 mg iron-10 1 cap PO DAILY 01/21/22 11/02/24 History mg iron-folic acid 1 mg-omg3 capsule acetaminophen 500 mg oral powder 1,000 mg PO .Q8hr PRN 06/24/2408/28 History packet (Tylenol Extra Strength) doxylamine succinate 25 mg tablet 25 mg PO QHS PRN 06/24/24 5 History (Unisom (doxylamine)) pyridoxine (vitamin B6) 10 mg 10 mg PO QDAY PRN 06/24/24 5 History tablet ondansetron 4 mg disintegrating 4 mg PO Q6H PRN nausea and 4 11/02/24 Rx tablet vomiting #90 tabs Last Menstrual Period: 05/02/24 Zika: Zika virus screening: Negative : No PFSH PFSH Medical History hemorrhage Seasonal allergies Former cigarette smoker 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 affecting Family history of breast cancer Retrosternal pain Epigastric pain Surgical History Hx of wisdom tooth extraction History of tonsillectomy Family History Father Alcoholism Grandmother Breast cancer Hypertension Dementia, Onset Age: 90 Maternal Aunt Breast cancer Mother Hyperlipemia Social History adopted: No household members: spouse and children number of children: 1 current occupational status: employed current occupation: [employer] pets and animals: Yes pets and animals: dog(s) history of recent travel: Yes ([place]) out of state: Yes out of country: No sexually active: Yes Smoking Status: Former smoker quit date: 01/16/09 second hand exposure: No alcohol intake: current alcohol intake frequency: a few times a month details: Not while substance use type: does not use well-balanced diet: daily or most days caffeine: Yes Type: coffee Number of servings: 2 eating out: rarely or never during the past year weight has: remained stable what type of physical activity do you participate in: none frequency: 3-4 times per week galo/nondenominational: None seatbelt use: always do you feel safe at home: Yes 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 Date Name GA/Weeks Outcome Route Bth Weight Gen Labor Lgth Anesthesia Del Locatn Provider FOB 08/25/22 Joe 39 live - full term 7#2OZ Male [facility] Colli ns Tashi Delivery Date: 08/25/22 Last Updated by: Brigitte Washington SROM HPI 26 wk ob/glucose Details: JIHAN GUERRERO is a 34 year old who presents for routine OB visit. OB Visit ALFRED Calculator Estimated Delivery Date Method Current WG Current Estimate 02/06/25 LMP (Certain) 26w 2d Other Estimates 02/08/25 Ultrasound #1 26w 0d Expected Delivery Route/Plan Labor Preferences- CB/BF classes: [] labor support person: [] labor intervention preferences: [] pain management options preferred: [] cut cord/dad catch: [] : [] PP control planned: [] discussed possible routes of delivery and associated risks: [] special requests: [] Specific Issue/Plans Covid status: [] Flu vaccine: [] Tdap vaccine: [] Rhogam: NA LARC form signed: [] Problem list reviewed and updated with the most current plan of care details and appropriate orders placed. Relevant counseling for the gestational age provided. Continue routine care and follow up unless otherwise noted in visit notes/problem list details Initial Weight: Not Recorded Date -???-???-???-???-???-??? -???-???-???-???-???-??? - EGA Weight BP Urine Prot -???-???-???-???-???-??? -???-???-???-???-???-??? - Glucose FHR FuHt Pres Dilation -???-???-???-???-???-??? -???-???-?? (more content not included)... Normal [facility] Platelet countOrdered By: Charles wilburn Leora on 11-02-2024 Platelets (Bld) [#/Vol] 348 10*3/uL 150-450 [facility] RBC Auto (Bld) [#/Vol]Ordere d By: Bhavani Leora on 11-02-2024 RBC (Bld) [#/Vol] 3.78 10*6/uL Low 4.2-5.4 [facility] T. pallidum abOrdered By: Charles deandraar Leora on 11-02-2024 Syphilis Total Antibody Non-Reactive Nonreactive [facility] White blood cell (WBC) count Ordered By: Bhavani Leora on 11-02-2024 WBC (Bld) [#/Vol] 10.8 10*3/uL 4.4-11.0 [facility] L3410.9998on 10-13-2024 [facility]. COMMENT Normal . [facility] Comment on above: Order Comment: [id number] 3AB ID FRO TITERS WB RF Result Comment: Test Ordered: [id number] Antibody Identification Antibody Id. #1 Anti-M CB Reference Range: . Dat Titer #1 Comment CB Reference Range: . The antibody is too weak to titer at this time. If a numerical titer result has been reported, please note that this result is the reciprocal value of titer results formerly reported as 1:2,1:4, 1:8, etc. These results are now reported as 2, 4, 8, etc. [employer] [place] [employer] has recommended this change in titer reporting formats to simply reflect the reciprocal value of the titer. Antibody Id. #2 AFFILIATE MARKETING COORDINATOR NOLAB Reference Range: . Dat Titer #2 AFFILIATE MARKETING COORDINATOR NOLAB Reference Range: . Performed at: - [facility] [address] [id number] Utility Operator: Joey Mortensen PhD, Phone: [phone] Performed By: #### L 3410.9998 ####[facility] [id number] [place], [address] Laboratory - Chemistry and C hemistry - challengeOrdered By: Bhavani Corey on 10-05-2024 Glucose Ql (U) Negative [facility] - UrinalysisOrder ed By: Bhavani Corey on 10-05-2024 Protein Ql (U) Negative [facility] Industrial Editor Office Visit Reporton 10-05-2024 Industrial Editor Office Visit Report [facility] [address], [address] [place] [address] OFFICE VISIT Date of Service: 10/05/24 MR#: [id number] Acct: [id number] Name: JIHAN GUERRERO Rep #: [id number] : 1990 Provider: Dr. Bhavani Tan DO Age/Sex: 34/F Location: [facility] Status: Signed Intake Vital Signs 07/05/24 13:02 09/07/24 08:30 10/05/24 08:53 10/05/24 08:53 Height 5 ft 5 in 5 ft 5 in 5 ft 5 in 5 ft 5 in Weight: 180 lb 8 oz 181 lb 6 oz BMI 30.0 30.2 BP 118/72 110/77 Intake Visit Reasons: 22 wk ob Bark Scaler Required: No Is patient in pain?: No Allergies No Known Allergies Allergy (Verified 10/05/24 08:52) Medications ???Medication ???Instructions ???Recorded ???Confirmed ???Type vitamin#30 30 mg iron-10 1 cap PO DAILY 01/21/22 10/05/24 History mg iron-folic acid 1 mg-omg3 capsule acetaminophen 500 mg oral powder 1,000 mg PO .Q8hr PRN 06/24/2411/26 History packet (Tylenol Extra Strength) doxylamine succinate 25 mg tablet 25 mg PO QHS PRN 06/24/24 5 History (Unisom (doxylamine)) pyridoxine (vitamin B6) 10 mg 10 mg PO QDAY PRN 06/24/24 5 History tablet ondansetron 4 mg disintegrating 4 mg PO Q6H PRN nausea and 4 10/05/24 Rx tablet vomiting #90 tabs Last Menstrual Period: 05/02/24 Zika: Zika virus screening: Negative : No PFSH PFSH Medical History hemorrhage Seasonal allergies Former cigarette smoker 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 affecting Family history of breast cancer Retrosternal pain Epigastric pain Surgical History Hx of wisdom tooth extraction History of tonsillectomy Family History Father Alcoholism Grandmother Breast cancer Hypertension Dementia, Onset Age: 90 Maternal Aunt Breast cancer Mother Hyperlipemia Social History adopted: No household members: spouse and children number of children: 1 current occupational status: employed current occupation: [employer] pets and animals: Yes pets and animals: dog(s) history of recent travel: Yes ([place]) out of state: Yes out of country: No sexually active: Yes Smoking Status: Former smoker quit date: 01/16/09 second hand exposure: No alcohol intake: current alcohol intake frequency: a few times a month details: Not while substance use type: does not use well-balanced diet: daily or most days caffeine: Yes Type: coffee Number of servings: 2 eating out: rarely or never during the past year weight has: remained stable what type of physical activity do you participate in: none frequency: 3-4 times per week galo/nondenominational: None seatbelt use: always do you feel safe at home: Yes 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 Date Name GA/Weeks Outcome Route Bth Weight Gen Labor Lgth Anesthesia Del Locatn Provider FOB 08/25/22 Joe 39 live - full term 7#2OZ Male [facility] Colli ns Tashi Delivery Date: 08/25/22 Last Updated by: Brigitte Washington SROM HPI 22 wk ob Details: JIHAN GUERRERO is a 34 year old who presents for routine OB visit. OB Visit ALFRED Calculator Estimated Delivery Date Method Current WG Current Estimate 02/06/25 LMP (Certain) 22w 2d Other Estimates 02/08/25 Ultrasound #1 22w 0d Expected Delivery Route/Plan Labor Preferences- CB/BF classes: [] labor support person: [] labor intervention preferences: [] pain management options preferred: [] cut cord/dad catch: [] : [] PP control planned: [] discussed possible routes of delivery and associated risks: [] special requests: [] Specific Issue/Plans Covid status: [] Flu vaccine: [] Tdap vaccine: [] Rhogam: NA LARC form signed: [] Problem list reviewed and updated with the most current plan of care details and appropriate orders placed. Relevant counseling for the gestational age provided. Continue routine care and follow up unless otherwise noted in visit notes/problem list details Initial Weight: Not Recorded Date -???-???-???-???-???-??? -???-???-???-???-???-??? - EGA Weight BP Urine Prot -???-???-???-???-???-??? -???-???-???-???-???-??? - Glucose FHR FuHt Pres Dilation -???-???-???-???-???-? (more content not included)... Normal [facility] L3410.9998on 09-08-2024 [facility] Misc. COMMENT Normal . [facility] Comment on above: Order Comment: [id number] AB ID FOR TITERS LAV WB Result Comment: Test Ordered: [id number] Antibody Identification Antibody Id. #1 Anti-M CB Reference Range: . Dat Titer #1 2 CB Reference Range: . If a numerical titer result has been reported, please note that this result is the reciprocal value of titer results formerly reported as 1:2,1:4, 1:8, etc. These results are now reported as 2, 4, 8, etc. [employer] [place] [employer] [employer] has recommended this change in titer reporting formats to simply reflect the reciprocal value of the titer. Antibody Id. #2 AFFILIATE MARKETING COORDINATOR NOLAB Reference Range: . Dat Titer #2 AFFILIATE MARKETING COORDINATOR NOLAB Reference Range: . Performed at: [facility] [address] [id number] Utility Operator: Joey Mortensen PhD, Phone: [phone] Performed By: #### L 3410.9998 #### [facility] [address] [place], [address] Laboratory - Chemistry and C hemistry - challengeOrdered By: Alesha To on 09-07-2024 Glucose Ql (U) Negative [facility] - UrinalysisOrder ed By: Alesha To on 09-07-2024 Protein Ql (U) Negative [facility] Industrial Editor Office Visit Reporton 09-07-2024 Industrial Editor Office Visit Report [facility]'s [address], [address] [place] [address] OFFICE VISIT Date of Service: 09/07/24 MR#: [id number] Acct: [id number] Name: JIHAN GUERRERO Rep #: [id number] : 1990 Provider: ROMEO zamudio Age/Sex: 34/F Location: [facility] Status: Signed Intake Vital Signs 07/05/24 13:02 08/10/24 15:03 09/07/24 08:30 Height 5 ft 5 in 5 ft 5 in 5 ft 5 in Weight: 180 lb 8 oz BMI 30.0 BP 118/72 Intake Visit Reasons: 18 wk ob Chief Complaint: 18 Week OB Bark Scaler Required: No Is patient in pain?: No Allergies No Known Allergies Allergy (Verified 09/07/24 08:30) Medications ???Medication ???Instructions ???Recorded ???Confirmed ???Type vitamin#30 30 mg iron-10 1 cap PO DAILY 01/21/22 09/07/24 History mg iron-folic acid 1 mg-omg3 capsule acetaminophen 500 mg oral powder 1,000 mg PO .Q8hr PRN 06/24/2411/26 History packet (Tylenol Extra Strength) doxylamine succinate 25 mg tablet 25 mg PO QHS PRN 06/24/24 5 History (Unisom (doxylamine)) pyridoxine (vitamin B6) 10 mg 10 mg PO QDAY PRN 06/24/24 5 History tablet ondansetron 4 mg disintegrating 4 mg PO Q6H PRN nausea and 4 09/07/24 Rx tablet vomiting #90 tabs Last Menstrual Period: 05/02/24 Zika: Zika virus screening: Negative : No PFSH PFSH Medical History hemorrhage Seasonal allergies Former cigarette smoker 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 affecting Family history of breast cancer Retrosternal pain Epigastric pain Surgical History Hx of wisdom tooth extraction History of tonsillectomy Family History Father Alcoholism Grandmother Breast cancer Hypertension Dementia, Onset Age: 90 Maternal Aunt Breast cancer Mother Hyperlipemia Social History adopted: No household members: spouse and children number of children: 1 current occupational status: employed current occupation: [employer] pets and animals: Yes pets and animals: dog(s) history of recent travel: Yes ([place]) out of state: Yes out of country: No sexually active: Yes Smoking Status: Former smoker quit date: 01/16/09 second hand exposure: No alcohol intake: current alcohol intake frequency: a few times a month details: Not while substance use type: does not use well-balanced diet: daily or most days caffeine: Yes Type: coffee Number of servings: 2 eating out: rarely or never during the past year weight has: remained stable what type of physical activity do you participate in: none frequency: 3-4 times per week galo/nondenominational: None seatbelt use: always do you feel safe at home: Yes 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 Date Name GA/Weeks Outcome Route Bth Weight Gen Labor Lgth Anesthesia Del Locatn Provider FOB 08/25/22 Joe 39 live - full term 7#2OZ Male [facility] Colli sergio Akins Delivery Date: 08/25/22 Last Updated by: Brigitte Washington SROM HPI 18 wk ob Details: JIHAN GUERRERO is a 34 year old who presents for routine OB visit. OB Visit ALFRED Calculator Estimated Delivery Date Method Current WG Current Estimate 02/06/25 LMP (Certain) 18w 2d Other Estimates 02/08/25 Ultrasound #1 18w 0d Expected Delivery Route/Plan Labor Preferences- CB/BF classes: [] labor support person: [] labor intervention preferences: [] pain management options preferred: [] cut cord/dad catch: [] : [] PP control planned: [] discussed possible routes of delivery and associated risks: [] special requests: [] Specific Issue/Plans Covid status: [] Flu vaccine: [] Tdap vaccine: [] Rhogam: NA LARC form signed: [] Problem list reviewed and updated with the most current plan of care details and appropriate orders placed. Relevant counseling for the gestational age provided. Continue routine care and follow up unless otherwise noted in visit notes/problem list details Initial Weight: Not Recorded Date -???-???-???-???-???-??? -???-???-???-???-???-??? - EGA Weight BP Urine Prot -???-???-???-???-???-??? -???-???-???-???-???-??? - Glucose FHR FuHt Pres Dilation -???-???-???-???-???-??? -???-???-???-???-???-??? (more content not included)... Normal [facility] - Chemistry and C hemistry - challengeon 08-10-2024 Glucose Ql (U) Negative [facility] - Urinalysison Protein Ql (U) Negative [facility] No Panel InformationOrdered By: Carol Barrera on 08-10-2024 Miscellaneous Test COMMENT . [facility] Comment on above: Test Ordered: [id number] Antibody IdentificationAntibody Id. #1 Anti-M CB Reference Range: .Dat Titer #1 2 CB Reference Range: .If a numerical titer result has been reported, please notethat this result is the reciprocal value of titer resultsformerly reported as 1:2,1:4, 1:8, etc. These results arenow reported as 2, 4, 8, etc. [employer] [place] [employer] has recommended this change in titer reportingformats to simply reflect the reciprocal value of thetiter.Antibody Id. #2 AFFILIATE MARKETING COORDINATOR NOLAB Reference Range: .Dat Titer #2 AFFILIATE MARKETING COORDINATOR NOLAB Reference Range: .Performed at: - [facility] [id number] Director: Joey Mortensen PhD, Phone: [phone] Industrial Editor Office Visit Reporton 08-10-2024 Industrial Editor Office Visit Report [facility]'s [address], [address] [place] [address] OFFICE VISIT Date of Service: 08/10/24 MR#: [id number] Acct: [id number] Name: JIHAN GUERRERO Rep #: [id number] : 1990 Provider: Dr. Bhavani Tan DO Age/Sex: 34/F Location: [facility] Status: Signed Intake Vital Signs 12/27/22 04:16 07/05/24 13:02 08/10/24 15:03 08/10/24 15:03 Height 5 ft 5 in 5 ft 5 in 5 ft 5 in 5 ft 5 in Weight: 173 lb 6 oz BMI 28.8 BP 124/79 H Intake Visit Reasons: 14wk OB Bark Scaler Required: No Is patient in pain?: No Allergies No Known Allergies Allergy (Verified 08/10/24 15:03) Medications ???Medication ???Instructions ???Recorded ???Confirmed ???Type vitamin#30 30 mg iron-10 1 cap PO DAILY 01/21/22 08/10/24 History mg iron-folic acid 1 mg-omg3 capsule acetaminophen 500 mg oral powder 1,000 mg PO .Q8hr PRN 06/24/24 08/10/24 History packet (Tylenol Extra Strength) doxylamine succinate 25 mg tablet 25 mg PO QHS PRN 06/24/24 08/10/24 History (Unisom (doxylamine)) pyridoxine (vitamin B6) 10 mg 10 mg PO QDAY PRN 06/24/24 08/10/24 History tablet ondansetron 4 mg disintegrating 4 mg PO Q6H PRN nausea and 07/05/24 08/10/24 Rx tablet vomiting #90 tabs Last Menstrual Period: 05/02/24 Zika: Zika virus screening: Negative : No PFSH PFSH Medical History hemorrhage Seasonal allergies Former cigarette smoker 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 affecting Family history of breast cancer Retrosternal pain Epigastric pain Surgical History Hx of wisdom tooth extraction History of tonsillectomy Family History Father Alcoholism Grandmother Breast cancer Hypertension Dementia, Onset Age: 90 Maternal Aunt Breast cancer Mother Hyperlipemia Social History adopted: No household members: spouse and children number of children: 1 current occupational status: employed current occupation: [employer] pets and animals: Yes pets and animals: dog(s) history of recent travel: Yes ([place]) out of state: Yes out of country: No sexually active: Yes Smoking Status: Former smoker quit date: 01/16/09 second hand exposure: No alcohol intake: current alcohol intake frequency: a few times a month details: Not while substance use type: does not use well-balanced diet: daily or most days caffeine: Yes Type: coffee Number of servings: 2 eating out: rarely or never during the past year weight has: remained stable what type of physical activity do you participate in: none frequency: 3-4 times per week galo/nondenominational: None seatbelt use: always do you feel safe at home: Yes 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 Date Name GA/Weeks Outcome Route Bth Weight Gen Labor Lgth Anesthesia Del Locatn Provider FOB 08/25/22 Joe 39 live - full term 7#2OZ Male [facility] Colli ns Tashi Delivery Date: 08/25/22 Last Updated by: Brigitte Washington SROM HPI 14wk OB Details: JIHAN GUERRERO is a 34 year old who presents for routine OB visit. OB Visit ALFRED Calculator Estimated Delivery Date Method Current WG Current Estimate 02/06/25 LMP (Certain) 14w 2d Other Estimates 02/08/25 Ultrasound #1 14w 0d Expected Delivery Route/Plan Labor Preferences- CB/BF classes: [] labor support person: [] labor intervention preferences: [] pain management options preferred: [] cut cord/dad catch: [] : [] PP control planned: [] discussed possible routes of delivery and associated risks: [] special requests: [] Specific Issue/Plans Covid status: [] Flu vaccine: [] Tdap vaccine: [] Rhogam: [] LARC form signed: [] Problem list reviewed and updated with the most current plan of care details and appropriate orders placed. Relevant counseling for the gestational age provided. Continue routine care and follow up unless otherwise noted in visit notes/problem list details Initial Weight: Not Recorded Date -???-???-???-???-???-??? -???-???-???-???-???-??? - EGA Weight BP Urine Prot -???-???-???-???-???-??? -???-???-???-???-???-??? - Glucose FHR FuHt Pres Dilation -???-???-???-???-???-??? -???-???-???-???-???-??? - Effaced (more content not included)... Normal [facility] Miscellaneous Lab Procedureo n 07-09-2024 [facility] TEST Normal [facility] Comment on above: Order Comment: ADD O N [id number] AB Antibody ID [id number] LAV WB RF Result Comment: TEST RESULTS LIMITS Antibody Identification Antibody Id. #1 Anti-M Dat Titer #1 The antibody is too weak to titer at this time. If a numerical titer result has been reported, please note that this result is the reciprocal value of titer results formerly reported as 1:2,1:4, 1:8, etc. These results are now reported as 2, 4, 8, etc. [employer] [place] [employer] has recommended this change in titer reporting formats to simply reflect the reciprocal value of the titer. TESTING PERFORMED AT [facility]. ORIGINAL REPORT ON FILE IN LAB CONTAINS ADDITIONAL TEST SITE INFORMATION. Performed By: #### L 801.1541 #### [facility] [address] [place], [place], [id number] Chlamydia/GC VENU aptimaon CHLAMY,NUC ACID Negative Normal Negative [facility] Comment on above: Performed By: #### M 100.3400 #### [facility] [address] [place], [place], [id number] GC BY NUC ACID Negative Normal Negative [facility] Comment on above: Result Comment: Perf ormed at: =G - [facility] [place] [id number] Utility Operator: Catalina Lord MD, Phone: [phone] Performed By: #### M 100.3400 #### [facility] [address] [place], [place], [address] Urine Cultureon 07-06-2024 URC Culture exhibits no growth. Normal [facility] Comment on above: Performed By: #### M 100.3400 #### [facility] [address] [place], [address] Absolute neutrophil countOrd ered By: Carol Barrera on 07-05-2024 Neutrophils (Bld) [#/Vol] 5.7 10*3/uL 2.0-7.7 [facility] [id number] 07-05-2024 ANTIBODY ID M Normal [facility] Comment on above: Order Comment: PN Performed By: #### L 509.4005, L100.0100, L3890.6005, L509.8000, L3890.6100, [id number], L3890.6300, BTS ####[facility] [address] [facility] [place], [address] Basophil percentageOrdered B y: Carol Barrera on 07-05-2024 Basophils/100 WBC (Bld) 0.4 % 0-1 [facility] C. trachomatis rRNA VENU+prob e Ql (Unsp spec)Ordered By: Carol Barrera on 07-05-2024 Chlamydia DNA (VENU) Negative Negative [facility] CBC W/Diff, Automatedon Absolute Lymph 2.82 X10 3/uL Normal 0.83-4.51 [facility] Comment on above: Performed By: #### L 509.4005, L100.0100, L3890.6005, L509.8000, L3890.6100, [id number], L3890.6300, BTS ####[facility] [address] [place], [address] Absolute Neut 5.7 X10 3/uL Normal 2.0-7.7 [facility] Comment on above: Performed By: #### L 509.4005, L100.0100, L3890.6005, L509.8000, L3890.6100, [id number], L3890.6300, BTS ####[facility] [address] [place], [address] Basophils/100 WBC (Bld) 0.4 % Normal 0-1 [facility] Comment on above: Performed By: #### L 509.4005, L100.0100, L3890.6005, L509.8000, L3890.6100, [id number], L3890.6300, BTS ####[facility] [address] [place], [address] Eosinophils/100 WBC (Bld) 0.5 % Normal 0-5 [facility] Comment on above: Performed By: #### L 509.4005, L100.0100, L3890.6005, L509.8000, L3890.6100, [id number], L3890.6300, BTS ####[facility] [address] [place], [address] Erythrocyte distribution width (RBC) [Ratio] 12.4 % Normal 11.6-14.6 [facility] Comment on above: Performed By: #### L 509.4005, L100.0100, L3890.6005, L509.8000, L3890.6100, [id number], L3890.6300, BTS ####[facility] [address] [place], [address] Hematocrit (Bld) [Volume fraction] 38.8 % Normal 37-47 [facility] Comment on above: Performed By: #### L 509.4005, L100.0100, L3890.6005, L509.8000, L3890.6100, LSQR4073, L3890.6300, BTS ####[facility] [address] [place], [address] Hemoglobin (Bld) [Mass/Vol] 13.3 g/dL Normal 12.0-15.0 [facility] Comment on above: Performed By: #### L 509.4005, L100.0100, L3890.6005, L509.8000, L3890.6100, [id number], L3890.6300, BTS ####[facility] [address] [place], [address] IG% 0.300 Normal 0.0-0.9 [facility] Comment on above: Result Comment: IG% - Immature Granulocytes (promyelocytes, myelocytes and metamyelocytes) > 1% indicates that a LEFT SHIFT is Present. Performed By: #### L 509.4005, L100.0100, L3890.6005, L509.8000, L3890.6100, OSCW0392, L3890.6300, BTS ####[facility] [address] [place], [address] Lymphocytes/100 WBC (Bld) 29.9 % Normal 19-41 [facility] Comment on above: Performed By: #### L 509.4005, L100.0100, L3890.6005, L509.8000, L3890.6100, [id number], L3890.6300, BTS ####[facility] [address] [place], [address] MCH (RBC) [Entitic mass] 29.4 pg Normal 27.0-32.0 [facility] Comment on above: Performed By: #### L 509.4005, L100.0100, L3890.6005, L509.8000, L3890.6100, [id number], L3890.6300, BTS ####[facility] [address] [place], [address] MCHC (RBC) [Mass/Vol] 34.3 g/dL Normal 32-36 [facility] Comment on above: Performed By: #### L 509.4005, L100.0100, L3890.6005, L509.8000, L3890.6100, [id number], L3890.6300, BTS ####[facility] [address] [place], [address] MCV (RBC) [Entitic vol] 85.8 fL Normal 81-99 [facility] Comment on above: Performed By: #### L 509.4005, L100.0100, L3890.6005, L509.8000, L3890.6100, [id number], L3890.6300, BTS ####[facility] [address] [place], [address] Monocytes/100 WBC (Bld) 8.7 % Normal 0-10 [facility] Comment on above: Performed By: #### L 509.4005, L100.0100, L3890.6005, L509.8000, L3890.6100, HKCA7248, L3890.6300, BTS ####[facility] [address] [place], [address] Neutrophils/100 WBC (Bld) 60.2 % Normal 47-70 [facility] Comment on above: Performed By: #### L 509.4005, L100.0100, L3890.6005, L509.8000, L3890.6100, CTSU2421, L3890.6300, BTS ####[facility] [address] [place], [address] Nucleated RBC (Bld) [#/Vol] 0 10*3/uL Normal 0-5 [facility] Comment on above: Performed By: #### L 509.4005, L100.0100, L3890.6005, L509.8000, L3890.6100, [id number], L3890.6300, BTS ####[facility] [address] [place], [address] Platelet mean volume (Bld) [Entitic vol] 8.6 fL Normal 6.2-12.0 [facility] Comment on above: Performed By: #### L 509.4005, L100.0100, L3890.6005, L509.8000, L3890.6100, WSUP3215, L3890.6300, BTS ####[facility] [address] [place], [address] Platelets (Bld) [#/Vol] 410 10*3/uL Normal 150-450 [facility] Comment on above: Performed By: #### L 509.4005, L100.0100, L3890.6005, L509.8000, L3890.6100, DCAS9991, L3890.6300, BTS ####[facility] [address] [place], [address] RBC (Bld) [#/Vol] 4.52 10*6/uL Normal 4.2-5.4 [facility] Comment on above: Performed By: #### L 509.4005, L100.0100, L3890.6005, L509.8000, L3890.6100, FTNI5538, L3890.6300, BTS ####[facility] [address] [place], [address] RDW SD 38.6 fl Normal 35.1-43.9 [facility] Comment on above: Performed By: #### L 509.4005, L100.0100, L3890.6005, L509.8000, L3890.6100, IGNV5022, L3890.6300, BTS ####[facility] [address] [place], [address] WBC (Bld) [#/Vol] 9.4 10*3/uL Normal 4.4-11.0 [facility] Comment on above: Performed By: #### L 509.4005, L100.0100, L3890.6005, L509.8000, L3890.6100, MYAC6973, L3890.6300, BTS ####[facility] [address] [place], [address] Eosinophil percentageOrdered By: Carol Barrera on 07-05-2024 Eosinophils/100 WBC (Bld) 0.5 % 0-5 [facility] Erythrocyte distribution wid th ratioOrdered By: Carol Barrera on 07-05-2024 Erythrocyte distribution width (RBC) [Ratio] 12.4 % 11.6-14.6 [facility] Erythrocyte distribution wid th standard deviationOrdered By: Carol Barrera on 07-05-2024 Erythrocyte distribution width (RBC) [Entitic vol] 38.6 fL 35.1-43.9 [facility] HIV - WCHon 07-05-2024 HIV Non-Reactive Normal Nonreactive [facility] Comment on above: Order Comment: Reaso n for Exam: Performed By: #### L 509.4005, L100.0100, L3890.6005, L509.8000, L3890.6100, [id number], L3890.6300, BTS ####[facility] [address] [place], [place], [id number] HIV 1+2 Ab+HIV1 p24 Ag IA Ql Ordered By: Carol Barrera on 07-05-2024 HIV (1&2) Antibody Non-Reactive Nonreactive [facility] Hematocrit Auto (Bld) [Volum e fraction]Ordered By: Carol Barrera on 07-05-2024 Hematocrit (Bld) [Volume fraction] 38.8 % 37-47 [facility] Hemoglobin measurementOrdere d By: Carol Barrera on 07-05-2024 Hemoglobin (Bld) [Mass/Vol] 13.3 g/dL 12.0-15.0 [facility] Hepatitis B Surface Antigeno n 07-05-2024 HEP B Surf Ag Non-Reactive Normal Nonreactive [facility] Comment on above: Order Comment: Reaso n for Exam: Performed By: #### L 509.4005, L100.0100, L3890.6005, L509.8000, L3890.6100, [id number], L3890.6300, BTS ####[facility] [address] [place], [address] Hepatitis B surface antigen detectionOrdered By: Carol Barrera on 07-05-2024 Hepatitis B Surface Antigen Non-Reactive Nonreactive [facility] Hepatitis C Antibodyon 07-05 Hepatitis C AB Non-Reactive Normal Nonreactive [facility] Comment on above: Order Comment: Reaso n for Exam: Result Comment: Non Reactive: < 0.8 Equivocal: >/= 0.8 to < 1.0 Reactive: >/= 1.0 The [facility] requires that a reactive/equivocal HCV antibody result be sent out for confirmation. HCV Quant by PCR testing. Performed By: #### L 509.4005, L100.0100, L3890.6005, L509.8000, L3890.6100, [id number], L3890.6300, BTS ####[facility] [address] [place], [place], [address] Hepatitis C virus antibody a ssayOrdered By: Carol Barrera on 07-05-2024 Hepatitis C Antibody Non-Reactive Nonreactive [facility] Comment on above: Non Reactive: < 0.8 Equivocal: >/= 0.8 to < 1.0 Reactive: >/= 1.0The CDC requires that a reactive/equivocal HCV antibody result be sent out for confirmation. HCV Quant by PCR testing. Immature granulocytes/100 WB C Auto (Bld)Ordered By: Carol Barrera on 07-05-2024 Immature granulocytes/100 WBC (Bld) 0.300 % 0.0-0.9 [facility] Comment on above: IG% - Immature Granu locytes (promyelocytes, myelocytes and metamyelocytes) > 1% indicates that a LEFT SHIFT is Present. L509.8000on 07-05-2024 Syphilis Abs Non-Reactive Normal [facility] Comment on above: Order Comment: Reaso n for Exam: Performed By: #### L 509.4005, L100.0100, L3890.6005, L509.8000, L3890.6100, [id number], L3890.6300, BTS ####[facility] [address] [place], [address] Lymphocytes Auto (Unsp spec) [#/Vol]Ordered By: Carol Barrera on 07-05-2024 Lymphocytes (Bld) [#/Vol] 2.82 10*3/uL 0.83-4.51 [facility] Lymphocytes/100 WBC Auto (Un sp spec)Ordered By: Carol Barrera on 07-05-2024 Lymphocytes/100 WBC (Bld) 29.9 % 19-41 [facility] MCV (mean corpuscular volume ) determinationOrdered By: Carol Barrera on 07-05-2024 MCV (RBC) [Entitic vol] 85.8 fL 81-99 [facility] Mean corpuscular hemoglobin (MCH) determinationOrdered By: Carol Barrera on 07-05-2024 MCH (RBC) [Entitic mass] 29.4 pg 27.0-32.0 [facility] Mean corpuscular hemoglobin concentration (MCHC) determinationOrdered By: Carol Barrera on 07-05-2024 MCHC (RBC) [Mass/Vol] 34.3 g/dL 32-36 [facility] Mean platelet volume determi nationOrdered By: Carol Barrera on 07-05-2024 Platelet mean volume (Bld) [Entitic vol] 8.6 fL 6.2-12.0 [facility] Monocyte percentageOrdered B y: Carol Barrera on 07-05-2024 Monocytes/100 WBC (Bld) 8.7 % 0-10 [facility] Neisseria gonorrhoeae nuclei c acid detection by amplified probe techniqueOrdered By: Carol Barrera on 07-05-2024 N. gonorrhoeae DNA VENU+probe Ql (Unsp spec) Negative Negative [facility] Comment on above: Performed at: =[facility] [address] [id number] Director: Catalina Lord MD, Phone: [phone] Neutrophil percentageOrdered By: Carol Barrera on 07-05-2024 Neutrophils/100 WBC (Bld) 60.2 % 47-70 [facility] Nucleated red blood cell per centageOrdered By: Carol Barrera on 07-05-2024 Nucleated RBC/100 WBC (Bld) [Ratio] 0 % 0-5 [facility] Industrial Editor Office Visit Reporton 07-05-2024 Industrial Editor Office Visit Report [facility]'s [address], [address] [place] [address] OFFICE VISIT Date of Service: 07/05/24 MR#: [id number] Acct: [id number] Name: JIHAN GUERRERO Rep #: [id number] : 1990 Provider: DENG White ams Age/Sex: 34/F Location: [facility] Status: Signed Intake Vital Signs 12/27/22 04:16 07/05/24 13:02 07/05/24 13:02 Height 5 ft 5 in 5 ft 5 in 5 ft 5 in Weight: 175 lb BMI 29.1 BP 130/67 H Intake Visit Reasons: LMP 05/02 Bark Scaler Required: No Is patient in pain?: No Allergies No Known Allergies Allergy (Verified 07/05/24 13:02) Medications ???Medication ???Instructions ???Recorded ???Confirmed ???Type vitamin#30 30 mg iron-10 1 cap PO DAILY 01/21/22 12/27/22 History mg iron-folic acid 1 mg-omg3 capsule acetaminophen 500 mg oral powder 1,000 mg PO .Q8hr PRN 06/24/24 History packet (Tylenol Extra Strength) doxylamine succinate 25 mg tablet 25 mg PO QHS PRN 06/24/24 History (Unisom (doxylamine)) pyridoxine (vitamin B6) 10 mg 10 mg PO QDAY PRN 06/24/24 History tablet ondansetron 4 mg disintegrating 4 mg PO Q6H PRN nausea and 07/05/24 07/05/24 Rx tablet vomiting #90 tabs Last Menstrual Period: 05/02/24 Zika: Zika virus screening: Negative : Yes Have you fallen in the past year?: No PFSH PFSH Medical History hemorrhage Seasonal allergies Former cigarette smoker 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 affecting Family history of breast cancer Retrosternal pain Epigastric pain Surgical History Hx of wisdom tooth extraction History of tonsillectomy Family History Father Alcoholism Grandmother Breast cancer Hypertension Dementia, Onset Age: 90 Maternal Aunt Breast cancer Mother Hyperlipemia Social History adopted: No household members: spouse and children number of children: 1 current occupational status: employed current occupation: [employer] pets and animals: Yes pets and animals: dog(s) history of recent travel: Yes ([place]) out of state: Yes out of country: No sexually active: Yes Smoking Status: Former smoker quit date: 01/16/09 second hand exposure: No alcohol intake: current alcohol intake frequency: a few times a month details: Not while substance use type: does not use well-balanced diet: daily or most days caffeine: Yes Type: coffee Number of servings: 2 eating out: rarely or never during the past year weight has: remained stable what type of physical activity do you participate in: none frequency: 3-4 times per week galo/nondenominational: None seatbelt use: always do you feel safe at home: Yes additional social history: - 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 Date Name GA/Weeks Outcome Route Bth Weight Gen Labor Lgth Anesthesia Del Locatn Provider FOB 08/25/22 Joe 39 live - full term [id number] Male [facility] Colli ns Tashi Delivery Date: 08/25/22 Last Updated by: Brigitte Washington SROM HPI LMP 05/02 Details: JIHAN GUERRERO is a 34 year old who presents for New OB visit. OB Visit ALFRED Calculator Estimated Delivery Date Method Current WG Current Estimate 02/06/25 LMP (Certain) 9w 1d Other Estimates 02/08/25 Ultrasound #1 8w 6d Comments: HIV: Urine Culture: Sequential Screen: NIPT Screen: Estimated Due Date: 02/06/25 Expected Delivery Route/Plan Labor Preferences- CB/BF classes: [] labor support person: [] labor intervention preferences: [] pain management options preferred: [] cut cord/dad catch: [] : [] PP control planned: [] discussed possible routes of delivery and associated risks: [] special requests: [] Specific Issue/Plans Covid status: [] Flu vaccine: [] Tdap vaccine: [] Rhogam: [] LARC form signed: [] Problem list reviewed and updated with the most current plan of care details and appropriate orders placed. Relevant counseling for the gestational age provided. Continue routine care and follow up unless otherwise noted in visit notes/problem list details Initial Weight: Not Recorded Date -???-???-???-???-???-??? -???-???-???-???-???-??? - EGA Weight BP Urine Prot -???-???-???-???-???-??? -???-???-???-???-???-??? - Glucose FH (more content not included)... Normal [facility] Platelet countOrdered By: Yan Barrera on 07-05-2024 Platelets (Bld) [#/Vol] 410 10*3/uL 150-450 [facility] RBC Auto (Bld) [#/Vol]Ordere d By: Carol Barrera on 07-05-2024 RBC (Bld) [#/Vol] 4.52 10*6/uL 4.2-5.4 [facility] Rubella IgGon 07-05-2024 Rubella IgG Reactive Normal Nonreactive [facility] Comment on above: Order Comment: Reaso n for Exam: Result Comment: Anti body Results Interpretation of Immune Status Non Reactive Presumed Non-Immune Equivocal Equivocal Reactive Presumed Immune Performed By: #### L 509.4005, L100.0100, L3890.6005, L509.8000, L3890.6100, [id number], L3890.6300, BTS ####[facility] [id number] [place], [place], [id number] Rubella immune status IgGOrd ered By: Carol Barrera on 07-05-2024 Rubella IgG Antibody Reactive Nonreactive [facility] Comment on above: Antibody Results Int erpretation of Immune Status Non Reactive Presumed Non-Immune Equivocal Equivocal Reactive Presumed Immune Treponema sp Ab Ql (S)Ordere d By: Carol Barrera on 07-05-2024 Syphilis Total Antibody Non-Reactive [facility] Type AND Screenon 07-05-2024 Ab SCREEN GEL PENDING Normal [facility] Comment on above: Order Comment: PN Performed By: #### L 509.4005, L100.0100, L3890.6005, L509.8000, L3890.6100, [id number], L3890.6300, BTS ####[facility] [id number] [place], [place], [id number] ABO and Rh group Nom (Bld) Blood group A Rh(D) positive Normal [facility] Comment on above: Order Comment: PN Performed By: #### L 509.4005, L100.0100, L3890.6005, L509.8000, L3890.6100, [id number], L3890.6300, BTS ####[facility] [id number] [place], [address] Urine cultureOrdered By: Shawn Barrera on 07-05-2024 Bacteria identified Cx Nom (U) Culture exhibits no growth. [facility] White blood cell (WBC) count Ordered By: Carol Barrera on 07-05-2024 WBC (Bld) [#/Vol] 9.4 10*3/uL 4.4-11.0 [facility] CNOVon 02-03-2024 CNOV Office Visit ([facility] ) -------- JIHAN GUERRERO ([id number]) 1990 F Date Time Provider Department 02/03/24 6:30 PM ARVIN RENDON [facility] During your visit today, we recorded the following information about you: Temperature Pulse Respiration Blood pressure 99.2 degrees 86/minute 16/minute 138/82 Weight 78.4 kg Arvin Rendon POTLINE MONITORDEDE 02/03/2024 6:50 PM Signed Subjective HPI Nontoxic-appearing female presents urgent care chief complaint sore throat fever. Duration of symptoms 2 days. Associate symptoms listed above. States on Friday she did have nausea vomiting abdominal pain. This has subsided. Presents today with persistent sore throat. Concerned about possible strep throat. History of strep throat in past. Did have tonsils and adenoids removed. No difficulty swelling and secretion decreased range of motion of neck. Denies any body aches chills productive cough chest pain shortness of breath pleuritic pain hemoptysis nausea vomiting abdominal pain change in bowel or bladder habits. Past medical history prescription medication use and allergies reviewed. BP 138/82 Pulse 86 Temp 37.3 ?C (99.2 ?F) Resp 16 Wt 78.4 kg (172 lb 13.5 oz) SpO2 97% .Patient presents with: Sore Throat: fever x 2 days, Friday vomiting and diarrhea all day No past medical history on file. No past surgical history on file. ALLERGIES Patient has no known allergies. MEDICATIONS No prescriptions on file. No family history on file. Review of Systems Constitutional: Positive for fever. Negative for chills and malaise/fatigue. HENT: Positive for sore throat. Negative for congestion, ear discharge, ear pain and sinus pain. Eyes: Negative for blurred vision, pain, discharge and redness. Respiratory: Negative for cough, hemoptysis, sputum production, shortness of breath, wheezing and stridor. Cardiovascular: Negative for chest pain. Gastrointestinal: Positive for diarrhea, nausea and vomiting. Negative for abdominal pain. Musculoskeletal: Negative for myalgias. Skin: Negative for itching and rash. Neurological: Negative for dizziness and headaches. Objective Physical Exam Constitutional: General: She is not in acute distress. Appearance: She is not diaphoretic. HENT: Head: Normocephalic. Jaw: No trismus, tenderness, swelling or pain on movement. Mouth/Throat: Mouth: Mucous membranes are moist. Pharynx: Oropharynx is clear. Uvula midline. Posterior oropharyngeal erythema present. No pharyngeal swelling, oropharyngeal exudate or uvula swelling. Eyes: Conjunctiva/sclera: Conjunctivae normal. Pupils: Pupils are equal, round, and reactive to light. Cardiovascular: Rate and Rhythm: Normal rate and regular rhythm. Heart sounds: Normal heart sounds. Pulmonary: Effort: Pulmonary effort is normal. No tachypnea, accessory muscle usage or respiratory distress. Breath sounds: Normal breath sounds. No stridor. No wheezing, rhonchi or rales. Abdominal: General: There is no distension. Palpations: Abdomen is soft. Tenderness: There is no abdominal tenderness. There is no guarding or rebound. Musculoskeletal: Cervical back: Normal range of motion and neck supple. No edema, erythema, rigidity or tenderness. No pain with movement. Normal range of motion. Lymphadenopathy: Cervical: No cervical adenopathy. Skin: General: Skin is warm and dry. Neurological: Mental Status: She is alert and oriented to person, place, and time. ASSESSMENT/PLAN: 1. Sore throat - ICD9: 462, ICD10: J02.9 (primary diagnosis) - STREP A MOLECULAR (POC) 2. Strep throat - ICD9: 034.0, ICD10: J02.0 Strep test positive. Placed on amoxicillin. Patient was educated on supportive therapies. Patient will follow up with primary care provider as needed. Patient was instructed to immediately proceed to emergency room for any new, worsening, or symptoms lasting longer than anticipated. The patient's clinical presentation is otherwise unremarkable at this time. Based on exam and clinical finding, the patient is stable for discharge. Plan of care was discussed with patient. Patient verbalizes understanding and agrees to plan of care. This note was generated using VaporWire software. It may contain errors in wording, punctuation, or spelling. Arvin Rendon APRN.JACK PRIZER Allergies As of Date: 02/03/2024 (No Known Allergies) Date Reviewed: 02/03/2024 Reviewed by: Arvin Rendon APRN.JACK PRIZER - Fully Assessed Reason for Visit: Sore Throat [200] Cmt: fever x 2 days, Friday vomiting and diarrhea all day Primary Visit Diagnosis:Sore throat [J02.9] Other Visit Diagnosis:Strep throat [J02.0] Order(s):STREP A MOLECULAR (POC) [9242151] Order #: [id number]. #:[id number] amoxicillin (AMOXIL) 500 mg capsuleTake 1 capsule by mouth two times a day for 10 days.Disp: 20 capsuleRfl: 0 Prescriptions (more content not included)... Normal [facility] STREP A MOLECULAR (POC)on Interpretation and review of laboratory results Abnormal [facility] Procedural Control Valid [facility] Strep A (POCT) Positive Abnormal Negative [facility] Basophil percentageOrdered B y: Azucena Dwyer on 08-26-2022 WBC (Bld) [#/Vol] 20.3 10*3/uL 4.4-11.0 [facility] Blood erythrocytes count (nu mber/volume)Ordered By: Azucena Dwyer on 08-26-2022 RBC (Bld) [#/Vol] 3.24 10*6/uL 4.2-5.4 [facility] Blood hemoglobin measurement (mass/volume)Ordered By: Azucena Dwyer on 08-26-2022 Hemoglobin (Bld) [Mass/Vol] 9.3 g/dL 12.0-15.0 [facility] Blood platelet mean volumeOr dered By: Azucena Dwyer on 08-26-2022 Platelet mean volume (Bld) [Entitic vol] 8.7 fL 6.2-12.0 [facility] Determination of erythrocyte mean corpuscular volume (MCV)Ordered By: Azucena Dwyer on 08-26-2022 MCV (RBC) [Entitic vol] 84.0 fL 81-99 [facility] Hematocrit Auto (Bld) [Volum e fraction]Ordered By: Azucena Dwyer on 08-26-2022 Hematocrit (Bld) [Volume fraction] 27.2 % 37-47 [facility] Laboratory - Hematology and Cell countsOrdered By: Azucena Dwyer on 08-26-2022 Erythrocyte distribution width (RBC) [Entitic vol] 39.1 fL 35.1-43.9 [facility] Erythrocyte distribution width (RBC) [Ratio] 12.8 % 11.6-14.6 [facility] MCH (RBC) [Entitic mass] 28.7 pg 27.0-32.0 [facility] MCHC Auto (RBC) [Mass/Vol]Or dered By: Azucena Dwyer on 08-26-2022 MCHC (RBC) [Mass/Vol] 34.2 g/dL 32-36 [facility] Platelets bldOrdered By: Sharona Dwyer on 08-26-2022 Platelets (Bld) [#/Vol] 298 10*3/uL 150-450 [facility] Absolute lymphocyte countOrd ered By: Azucena Dwyer on 08-25-2022 Lymphocytes Auto (Unsp spec) [#/Vol] 2.24 10*3/uL 0.83-4.51 [facility] Basophil percentageOrdered B y: Azucena Dwyer on 08-25-2022 Basophils/100 WBC (Bld) 0.2 % 0-1 [facility] Eosinophils/100 WBC (Bld) 0.1 % 0-5 [facility] Neutrophils (Bld) [#/Vol] 12.6 10*3/uL 2.0-7.7 [facility] Neutrophils/100 WBC (Bld) 78.5 % 47-70 [facility] Blood lymphocytes/100 leukoc ytesOrdered By: Azucena Dwyer on 08-25-2022 Lymphocytes/100 WBC (Bld) 14.0 % 19-41 [facility] Blood monocytes/100 leukocyt esOrdered By: Azucena Dwyer on 08-25-2022 Monocytes/100 WBC (Bld) 6.6 % 0-10 [facility] INR in Blood by Coagulation assayOrdered By: Azucena Dwyer on 08-25-2022 INR Coag (Bld) [Relative time] 1.0 {INR} [facility] Laboratory - CoagulationOrde red By: Azucena Dwyer on 08-25-2022 aPTT Coag (Bld) [Time] 26.2 s 24.1-36.2 [facility] PT Coag (PPP) [Time] 12.6 s 11.7-14.9 [facility] Laboratory - Hematology and Cell countsOrdered By: Azucena Dwyer on 08-25-2022 Immature granulocytes/100 WBC (Bld) 0.600 % 0.0-0.9 [facility] Comment on above: IG% - Immature Granu locytes (promyelocytes, myelocytes and metamyelocytes) > 1% indicates that a LEFT SHIFT is Present. Nucleated RBC/100 WBC (Bld) [Ratio] 0 % 0-5 [facility] No Panel InformationOrdered By: Azucena Dwyer on 08-24-2022 Vaginal Amniotic Fluid Detection Positive Negative [facility] Comment on above: Amniotic fluid prese nt indicates rupture of Membranes. RESULTS CALLED TO PREET WANG 08/24/22 [id number] Chrystal Zhang.REPORT READ BACK BY SAME . Laboratory - Chemistry and C hemistry - challengeon 08-23-2022 Glucose Ql (U) Negative [facility] Laboratory - Urinalysison Protein Ql (U) Negative [facility] Laboratory - Chemistry and C hemistry - challengeon 08-15-2022 Glucose Ql (U) Negative [facility] Laboratory - Urinalysison Protein Ql (U) Negative [facility] Laboratory - Chemistry and C hemistry - challengeon 08-09-2022 Glucose Ql (U) Negative [facility] Laboratory - Urinalysison Protein Ql (U) Negative [facility] Laboratory - Chemistry and C hemistry - challengeon 08-01-2022 Glucose Ql (U) Negative [facility] Laboratory - Urinalysison Protein Ql (U) Negative [facility] Laboratory - Chemistry and C hemistry - challengeon 07-15-2022 Glucose Ql (U) Negative [facility] Laboratory - Urinalysison Protein Ql (U) Negative [facility] Laboratory - Chemistry and C hemistry - challengeon 07-02-2022 Glucose Ql (U) Negative [facility] Laboratory - Urinalysison Protein Ql (U) Negative [facility] Laboratory - Chemistry and C hemistry - challengeon 06-20-2022 Glucose Ql (U) Negative [facility] Laboratory - Urinalysison Protein Ql (U) Negative [facility] Absolute lymphocyte countOrd ered By: Dr. Corey on 06-04-2022 Lymphocytes Auto (Unsp spec) [#/Vol] 2.08 10*3/uL 0.83-4.51 [facility] Basophil percentageOrdered B y: Dr. Corey on 06-04-2022 Basophils/100 WBC (Bld) 0.3 % 0-1 [facility] Eosinophils/100 WBC (Bld) 0.6 % 0-5 [facility] Neutrophils (Bld) [#/Vol] 8.4 10*3/uL 2.0-7.7 [facility] Neutrophils/100 WBC (Bld) 72.4 % 47-70 [facility] WBC (Bld) [#/Vol] 11.5 10*3/uL 4.4-11.0 [facility] Blood erythrocytes count (nu mber/volume)Ordered By: Dr. Corey on 06-04-2022 RBC (Bld) [#/Vol] 3.97 10*6/uL 4.2-5.4 [facility] Blood hemoglobin measurement (mass/volume)Ordered By: Dr. Corey on 06-04-2022 Hemoglobin (Bld) [Mass/Vol] 12.1 g/dL 12.0-15.0 [facility] Blood lymphocytes/100 leukoc ytesOrdered By: Dr. Corey on 06-04-2022 Lymphocytes/100 WBC (Bld) 18.0 % 19-41 [facility] Blood monocytes/100 leukocyt esOrdered By: Dr. Corey on 06-04-2022 Monocytes/100 WBC (Bld) 8.0 % 0-10 [facility] Blood platelet mean volumeOr dered By: Dr. Corey on 06-04-2022 Platelet mean volume (Bld) [Entitic vol] 8.2 fL 6.2-12.0 [facility] Determination of erythrocyte mean corpuscular volume (MCV)Ordered By: Dr. Corey on 06-04-2022 MCV (RBC) [Entitic vol] 86.1 fL 81-99 [facility] Gestational diabetes screen 1-hour screen with 50g oral glucose loadOrdered By: Dr. Corey on 06-04-2022 Glucose 1 Hr post 50 g glucose PO [Mass/Vol] 93 mg/dL 70-140 [facility] Hematocrit Auto (Bld) [Volum e fraction]Ordered By: Dr. Corey on 11-01-2022 Hematocrit (Bld) [Volume fraction] 34.2 % 37-47 [facility] Laboratory - Chemistry and C hemistry - challengeon 06-04-2022 Glucose Ql (U) Negative [facility] Laboratory - Hematology and Cell countsOrdered By: Dr. Corey on 06-04-2022 Erythrocyte distribution width (RBC) [Entitic vol] 38.8 fL 35.1-43.9 [facility] Erythrocyte distribution width (RBC) [Ratio] 12.4 % 11.6-14.6 [facility] Immature granulocytes/100 WBC (Bld) 0.700 % 0.0-0.9 [facility] Comment on above: IG% - Immature Granu locytes (promyelocytes, myelocytes and metamyelocytes) > 1% indicates that a LEFT SHIFT is Present. MCH (RBC) [Entitic mass] 30.5 pg 27.0-32.0 [facility] Nucleated RBC/100 WBC (Bld) [Ratio] 0 % 0-5 [facility] Laboratory - Urinalysison Protein Ql (U) Negative [facility] MCHC Auto (RBC) [Mass/Vol]Or dered By: Dr. Corey on 06-04-2022 MCHC (RBC) [Mass/Vol] 35.4 g/dL 32-36 [facility] Platelets bldOrdered By: Dr. Corey on 06-04-2022 Platelets (Bld) [#/Vol] 347 10*3/uL 150-450 [facility] Laboratory - Chemistry and C hemistry - challengeon 05-16-2022 Glucose Ql (U) Negative [facility] Laboratory - Urinalysison Protein Ql (U) Negative [facility] Laboratory - Chemistry and C hemistry - challengeon 04-16-2022 Glucose Ql (U) Negative [facility] Work Phone: Laboratory - Urinalysison Protein Ql (U) Negative [facility] Work Phone: Laboratory - Chemistry and C hemistry - challengeon 03-19-2022 Glucose Ql (U) Negative [facility] Work Phone: Laboratory - Urinalysison Protein Ql (U) Negative [facility] Work Phone: Laboratory - Chemistry and C hemistry - challengeon 02-20-2022 Glucose Ql (U) Negative [facility] Work Phone: Laboratory - Urinalysison Protein Ql (U) Negative [facility] Work Phone: Absolute lymphocyte counton 01-21-2022 Lymphocytes Auto (Unsp spec) [#/Vol] 2.04 10*3/uL 0.83-4.51 [facility] Work Phone: Basophil percentageon 2021 Basophils/100 WBC (Bld) 0.4 % 0-1 [facility] Work Phone: Eosinophils/100 WBC (Bld) 0.6 % 0-5 [facility] Work Phone: Neutrophils (Bld) [#/Vol] 5.5 10*3/uL 2.0-7.7 [facility] Work Phone: Neutrophils/100 WBC (Bld) 65.4 % 47-70 [facility] Work Phone: WBC (Bld) [#/Vol] 8.3 10*3/uL 4.4-11.0 [facility] Work Phone: Blood erythrocytes count (nu mber/volume)on 01-21-2022 RBC (Bld) [#/Vol] 4.17 10*6/uL 4.2-5.4 [facility] Work Phone: Blood hemoglobin measurement (mass/volume)on 01-21-2022 Hemoglobin (Bld) [Mass/Vol] 12.6 g/dL 12.0-15.0 [facility] Work Phone: Blood lymphocytes/100 leukoc yteson 01-21-2022 Lymphocytes/100 WBC (Bld) 24.5 % 19-41 [facility] Work Phone: Blood monocytes/100 leukocyt eson 06-20-2022 Monocytes/100 WBC (Bld) 8.6 % 0-10 [facility] Work Phone: Blood platelet mean volumeon 01-21-2022 Platelet mean volume (Bld) [Entitic vol] 8.4 fL 6.2-12.0 [facility] Work Phone: Chlamydia trachomatis rRNA d etection by probe and target amplification methodon 01-21-2022 C. trachomatis rRNA VENU+probe Ql (Unsp spec) Negative Negative [facility] Work Phone: Determination of erythrocyte mean corpuscular volume (MCV)on 01-21-2022 MCV (RBC) [Entitic vol] 86.3 fL 81-99 [facility] Work Phone: HIV 1 and HIV-2 antibody ass ay with HIV-1 p24 antigen detectionon 01-21-2022 HIV 1+2 Ab+HIV1 p24 Ag IA Ql Non-Reactive Nonreactive [facility] Work Phone: Hematocrit Auto (Bld) [Volum e fraction]on 01-21-2022 Hematocrit (Bld) [Volume fraction] 36.0 % 37-47 [facility] Work Phone: Laboratory - Drug toxicology on 01-21-2022 Amphetamines Ql (U) Negative <1000 ng/mL [facility] Work Phone: Benzodiazepines Ql (U) Negative < 200 ng/mL [facility] Work Phone: Cannabinoids Screen Ql (U) Negative < 50 ng/mL [facility] Work Phone: Cocaine Ql (U) Negative < 300 ng/mL [facility] Work Phone: Opiates Ql (U) Negative < 300 ng/mL [facility] Work Phone: Laboratory - Hematology and Cell countson 01-21-2022 Erythrocyte distribution width (RBC) [Entitic vol] 37.2 fL 35.1-43.9 [facility] Work Phone: Erythrocyte distribution width (RBC) [Ratio] 11.8 % 11.6-14.6 [facility] Work Phone: Immature granulocytes/100 WBC (Bld) 0.500 % 0.0-0.9 [facility] Work Phone: Comment on above: IG% - Immature Granu locytes (promyelocytes, myelocytes and metamyelocytes) > 1% indicates that a LEFT SHIFT is Present. MCH (RBC) [Entitic mass] 30.2 pg 27.0-32.0 [facility] Work Phone: Nucleated RBC/100 WBC (Bld) [Ratio] 0 % 0-5 [facility] Work Phone: Laboratory - Microbiology an d Antimicrobial susceptibilityon 01-21-2022 N. gonorrhoeae DNA VENU+probe Ql (Unsp spec) Negative Negative [facility] Work Phone: Comment on above: Performed at: =[address] [id number] Director: Catalina Lord MD, Phone: [phone] MCHC Auto (RBC) [Mass/Vol]on 01-21-2022 MCHC (RBC) [Mass/Vol] 35.0 g/dL 32-36 [facility] Work Phone: No Panel Informationon 01-21 MDMA (Ecstasy) Screen Negative < 500 ng/mL [facility] Work Phone: Urine Barbiturates Screen Negative < 200 ng/mL [facility] Work Phone: Urine Drug Screen Comment [facility] Work Phone: Comment on above: CONFIRMATORY TESTING FOR ALL POSITIVE URINE DRUG SCREENRESULTS WILL ONLY BE SENT OUT UPON PHYSICIAN ORDER. VISTA Urine Drug Screen methods provide only preliminaryanalytical test results. A more specific alternate chemicalmethod must be used in order to obtain a confirmedanalytical result. Gas chromatography/mass spectrometery(GC/MS) is the preferred confirmatory method. Clinicalconsideration and professional judgement should be appliedto any drug of abuse test result, particularly whenpreliminary positive results are used. URINE TCA TESTING MUST BE ORDERED SEPARATELY. USE TESTMNEMONIC: [facility] Urine Methadone Screen Negative < 300 ng/mL [facility] Work Phone: Hepatitis B Surface Antigen Non-Reactive Nonreactive [facility] Work Phone: Hepatitis C Antibody Non-Reactive Nonreactive [facility] Work Phone: Comment on above: Non Reactive: < 0.8 Equivocal: >/= 0.8 to < 1.0 Reactive: >/= 1.0The [facility] recommends that a reactive/equivocal HCV antibody result be followed up by the HCV Nucleic Acid Amplificationtest ([id number]) Rubella IgG Antibody Reactive Nonreactive [facility] Work Phone: Comment on above: Antibody Results Int erpretation of Immune Status Non Reactive Presumed Non-Immune Equivocal Equivocal Reactive Presumed Immune Platelets bldon 01-21-2022 Platelets (Bld) [#/Vol] 380 10*3/uL 150-450 [facility] Work Phone: Serum Treponema species anti body detectionon 01-21-2022 Treponema sp Ab Ql (S) Non-Reactive [facility] Work Phone: Urine phencyclidine (PCP) de tectionon 01-21-2022 Phencyclidine Ql (U) Negative < 25 ng/mL [facility] Work Phone: Vital Signs Date Time Vital Sign Value Performing Clinician Facility 01-24-2025 08:14-0400 Body height 165.[address] Alireza London MD Work Phone: [facility] 01-24-2025 08:14-0400 Body mass index (BMI) [Ratio] 33.4 kg/m2 Dr. Alireza London MD Work Phone: [facility] 01-24-2025 08:14-0400 Body weight 91.[address] Alireza London MD Work Phone: [facility] 01-24-2025 08:14-0400 Diastolic blood pressure 80 mm[Hg] Dr. Alireza London MD Work Phone: [facility] 01-24-2025 08:14-0400 Systolic blood pressure 125 mm[Hg] Dr. Alireza London MD Work Phone: [facility] 01-18-2025 12:23-0400 Body height 165.[address] Alireza London MD Work Phone: [facility] 01-18-2025 12:22-0400 Body mass index (BMI) [Ratio] 33.3 kg/m2 Dr. Alireza London MD Work Phone: [facility] 01-18-2025 12:22-0400 Body weight 90.[address] Alireza London MD Work Phone: [facility] 01-18-2025 12:22-0400 Diastolic blood pressure 78 mm[Hg] Dr. Alireza London MD Work Phone: [facility] 01-18-2025 12:22-0400 Systolic blood pressure 120 mm[Hg] Dr. Alireza London MD Work Phone: [facility] 01-11-2025 15:16-0400 Body height 165.[address] Alireza London MD Work Phone: [facility] 01-11-2025 15:16-0400 Body mass index (BMI) [Ratio] 33.7 kg/m2 Dr. Alireza London MD Work Phone: [facility] 01-11-2025 15:16-0400 Body weight 91.[address] Alireza London MD Work Phone: [facility] 01-11-2025 15:16-0400 Diastolic blood pressure 70 mm[Hg] Dr. Alireza London MD Work Phone: [facility] 01-11-2025 15:16-0400 Systolic blood pressure 104 mm[Hg] Dr. Alireza London MD Work Phone: [facility] 12-28-2024 09:00-0400 Body height 165.[address] Alireza London MD Work Phone: [facility] 12-28-2024 09:00-0400 Body mass index (BMI) [Ratio] 33.1 kg/m2 Dr. Alireza London MD Work Phone: [facility] 12-28-2024 09:00-0400 Body weight 90.[address] Alireza London MD Work Phone: [facility] 12-28-2024 09:00-0400 Diastolic blood pressure 80 mm[Hg] Dr. Alireza London MD Work Phone: [facility] 12-28-2024 09:00-0400 Systolic blood pressure 135 mm[Hg] Dr. Alireza London MD Work Phone: [facility] 12-14-2024 08:59-0400 Body height 165.[address] Alireza London MD Work Phone: [facility] 12-14-2024 08:59-0400 Body mass index (BMI) [Ratio] 32.4 kg/m2 Dr. Alireza London MD Work Phone: [facility] 12-14-2024 08:59-0400 Body weight 88.[address] Alireza London MD Work Phone: [facility] 12-14-2024 08:59-0400 Diastolic blood pressure 75 mm[Hg] Dr. Alireza London MD Work Phone: [facility] 12-14-2024 08:59-0400 Systolic blood pressure 124 mm[Hg] Dr. Alireza London MD Work Phone: [facility] 11-30-2024 08:45-0400 Body mass index (BMI) [Ratio] 32 kg/m2 Dr. Alireza London MD Work Phone: [facility] 11-30-2024 08:45-0400 Body weight 87.[address] Alireza London MD Work Phone: [facility] 11-30-2024 08:45-0400 Diastolic blood pressure 74 mm[Hg] Dr. Alireza London MD Work Phone: [facility] 11-30-2024 08:45-0400 Systolic blood pressure 129 mm[Hg] Dr. Alireza London MD Work Phone: [facility] 11-02-2024 08:46-0400 Body height 165.[address] Alireza London MD Work Phone: [facility] 11-02-2024 08:45-0400 Body mass index (BMI) [Ratio] 31.4 kg/m2 Dr. Alireza London MD Work Phone: [facility] 11-02-2024 08:45-0400 Body weight 85.[address] Alireza London MD Work Phone: [facility] 11-02-2024 08:45-0400 Diastolic blood pressure 73 mm[Hg] Dr. Alireza London MD Work Phone: [facility] 11-02-2024 08:45-0400 Systolic blood pressure 113 mm[Hg] Dr. Alireza London MD Work Phone: [facility] 10-05-2024 08:53-0500 Body height 165.[address] Alireza London MD Work Phone: [facility] 10-05-2024 08:53-0500 Body mass index (BMI) [Ratio] 30.2 kg/m2 Dr. Alireza London MD Work Phone: [facility] 10-05-2024 08:53-0500 Body weight 82.[address] Alireza London MD Work Phone: [facility] 10-05-2024 08:53-0500 Diastolic blood pressure 77 mm[Hg] Dr. Alireza London MD Work Phone: [facility] 10-05-2024 08:53-0500 Systolic blood pressure 110 mm[Hg] Dr. Alireza London MD Work Phone: [facility] 09-07-2024 08:30-0500 Body mass index (BMI) [Ratio] 30 kg/m2 Dr. Alireza London MD Work Phone: [facility] 09-07-2024 08:30-0500 Body weight 81.[address] Alireza London MD Work Phone: [facility] 09-07-2024 08:30-0500 Diastolic blood pressure 72 mm[Hg] Dr. Alireza London MD Work Phone: [facility] 09-07-2024 08:30-0500 Systolic blood pressure 118 mm[Hg] Dr. Alireza London MD Work Phone: [facility] 08-10-2024 15:03-0500 Body mass index (BMI) [Ratio] 28.8 kg/m2 Dr. Alireza London MD Work Phone: [facility] 08-10-2024 15:03-0500 Body weight 78.[address] Alireza London MD Work Phone: [phone] [place] [address] 08-10-2024 15:03-0500 Diastolic blood pressure 79 mm[Hg] Dr. Alireza London MD Work Phone: [facility] 08-10-2024 15:03-0500 Systolic blood pressure 124 mm[Hg] Dr. Alireza London MD Work Phone: [facility] 07-05-2024 13:02-0500 Body mass index (BMI) [Ratio] 29.1 kg/m2 Dr. Alireza London MD Work Phone: [facility] 07-05-2024 13:02-0500 Body weight 79.[address] Alireza London MD Work Phone: [facility] 07-05-2024 13:02-0500 Diastolic blood pressure 67 mm[Hg] Dr. Alireza London MD Work Phone: [facility] 07-05-2024 13:02-0500 Systolic blood pressure 130 mm[Hg] Dr. Alireza London MD Work Phone: [facility] 02-03-2024 18:35-0400 Body temperature 99.19 [degF] [facility] P[employer]LINE MONITOR.JACK PRIZER Work Phone: [facility] 02-03-2024 18:35-0400 Body weight 78.4 kg [facility] POTLINE MONITOR.JACK PRIZER Work Phone: [facility] 02-03-2024 18:35-0400 Diastolic blood pressure 82 mm[Hg] [facility] POTLINE MONITOR.JACK PRIZER Work Phone: [facility] 02-03-2024 18:35-0400 Heart rate 86 /min [facility] POTLINE MONITOR.JACK PRIZER Work Phone: [facility] 02-03-2024 18:35-0400 Respiratory rate 16 /min [facility] POTLINE MONITOR.JACK PRIZER Work Phone: [facility] 02-03-2024 18:35-0400 SaO2% (BldA) [Mass fraction] 97 % [facility] POTLINE MONITOR.JACK PRIZER Work Phone: [facility] 02-03-2024 18:35-0400 Systolic blood pressure 138 mm[Hg] [facility] POTLINE MONITOR.JACK PRIZER Work Phone: [facility] 08-26-2022 09:00-0500 Body temperature 98 [degF] Dr. Alireza London Work Phone: [facility] 08-26-2022 09:00-0500 Diastolic blood pressure 75 mm[Hg] Dr. Alireza London Work Phone: [facility] 08-26-2022 09:00-0500 Heart rate 83 /min Dr. Alireza London Work Phone: [facility] 08-26-2022 09:00-0500 Respiratory rate 16 /min Dr. Alireza London Work Phone: [facility] 08-26-2022 09:00-0500 Systolic blood pressure 116 mm[Hg] Dr. Alireza London Work Phone: [facility] 08-26-2022 04:10-0500 SaO2% (BldA) [Mass fraction] 97 % Dr. Alireza London Work Phone: [facility] 08-24-2022 19:03-0500 Body height 165.[address] Alireza London Work Phone: [facility] 08-24-2022 19:03-0500 Body mass index (BMI) [Ratio] 33 kg/m2 Dr. Alireza London Work Phone: [facility] 08-24-2022 19:03-0500 Body weight 89.[address] Alireza London Work Phone: [facility] 08-23-2022 09:15-0500 Body mass index (BMI) [Ratio] 33.2 kg/m2 Dr. Alireza London Work Phone: [facility] 08-23-2022 09:15-0500 Body weight 90.[address] Alireza London Work Phone: [facility] 08-23-2022 09:15-0500 Diastolic blood pressure 81 mm[Hg] Dr. Alireza London Work Phone: [facility] 08-23-2022 09:15-0500 Systolic blood pressure 128 mm[Hg] Dr. Alireza London Work Phone: [facility] 08-15-2022 08:59-0500 Body mass index (BMI) [Ratio] 32.9 kg/m2 Dr. Alireza London Work Phone: [facility] 08-15-2022 08:59-0500 Body weight 89.[address] Alireza London Work Phone: [facility] 08-15-2022 08:59-0500 Diastolic blood pressure 84 mm[Hg] Dr. Alireza London Work Phone: [facility] 08-15-2022 08:59-0500 Systolic blood pressure 130 mm[Hg] Dr. Alireza London Work Phone: [facility] 08-09-2022 09:20-0500 Body mass index (BMI) [Ratio] 32.6 kg/m2 Dr. Alireza London Work Phone: [facility] 08-09-2022 09:20-0500 Body weight 89.[address] Alireza London Work Phone: [facility] 08-09-2022 09:20-0500 Diastolic blood pressure 78 mm[Hg] Dr. Alireza London Work Phone: [facility] 08-09-2022 09:20-0500 Systolic blood pressure 120 mm[Hg] Dr. Alireza London Work Phone: [facility] 08-01-2022 08:20-0500 Body mass index (BMI) [Ratio] 32.1 kg/m2 Dr. Alireza London Work Phone: [facility] 08-01-2022 08:20-0500 Body weight 87.[address] Alireza London Work Phone: [facility] 08-01-2022 08:20-0500 Diastolic blood pressure 84 mm[Hg] Dr. Alireza London Work Phone: [facility] 08-01-2022 08:20-0500 Systolic blood pressure 126 mm[Hg] Dr. Alireza London Work Phone: [facility] 07-23-2022 17:51-0500 Body temperature 97.7 [degF] Dr. Alireza London Work Phone: [facility] 07-23-2022 17:51-0500 Diastolic blood pressure 68 mm[Hg] Dr. Alireza London Work Phone: [facility] 07-23-2022 17:51-0500 Heart rate 85 /min Dr. Alireza London Work Phone: [facility] 07-23-2022 17:51-0500 SaO2% (BldA) [Mass fraction] 97 % Dr. Alireza London Work Phone: [facility] 07-23-2022 17:51-0500 Systolic blood pressure 119 mm[Hg] Dr. Alireza London Work Phone: [facility] 07-23-2022 17:44-0500 Body height 165.[address] Alireza London Work Phone: [facility] Work Phone: 07-23-2022 17:44-0500 Body mass index (BMI) [Ratio] 31.8 kg/m2 Dr. Alireza London Work Phone: [facility] 07-23-2022 17:44-0500 Body weight 86.[address] Alireza London Work Phone: [facility] 07-15-2022 08:37-0500 Body mass index (BMI) [Ratio] 31.4 kg/m2 Dr. Alireza London Work Phone: [facility] 07-15-2022 08:37-0500 Body weight 85.[address] Alireza London Work Phone: [facility] 07-15-2022 08:37-0500 Diastolic blood pressure 73 mm[Hg] Dr. Alireza London Work Phone: [facility] 07-15-2022 08:37-0500 Systolic blood pressure 111 mm[Hg] Dr. Alireza London Work Phone: [facility] 07-02-2022 08:54-0500 Body mass index (BMI) [Ratio] 31.1 kg/m2 Dr. Alireza London Work Phone: [facility] 07-02-2022 08:54-0500 Body weight 84.[address] Alireza London Work Phone: [facility] 07-02-2022 08:54-0500 Diastolic blood pressure 75 mm[Hg] Dr. Alireza London Work Phone: [facility] 07-02-2022 08:54-0500 Systolic blood pressure 124 mm[Hg] Dr. Alireza London Work Phone: [facility] 06-20-2022 13:27-0500 Body mass index (BMI) [Ratio] 30.9 kg/m2 Dr. Alireza London Work Phone: [facility] 06-20-2022 13:27-0500 Body weight 84.[address] Alireza London Work Phone: [facility] 06-20-2022 13:27-0500 Diastolic blood pressure 74 mm[Hg] Dr. Alireza London Work Phone: [facility] 06-20-2022 13:27-0500 Systolic blood pressure 119 mm[Hg] Dr. Alireza London Work Phone: [facility] 06-04-2022 09:26-0400 Body height 165.[address] Alireza London Work Phone: [facility] Work Phone: 06-04-2022 09:26-0400 Body mass index (BMI) [Ratio] 30.4 kg/m2 Dr. Alireza London Work Phone: [facility] 06-04-2022 09:26-0400 Body weight [address] Alireza London Work Phone: [facility] 06-04-2022 09:26-0400 Diastolic blood pressure 74 mm[Hg] Dr. Alireza London Work Phone: [facility] 06-04-2022 09:26-0400 Systolic blood pressure 130 mm[Hg] Dr. Alireza London Work Phone: [facility] 05-16-2022 08:53-0400 Body mass index (BMI) [Ratio] 29.5 kg/m2 Dr. Alireza London Work Phone: [facility] 05-16-2022 08:53-0400 Body weight 80.[address] Alireza London Work Phone: [facility] 05-16-2022 08:53-0400 Diastolic blood pressure 77 mm[Hg] Dr. Alireza London Work Phone: [facility] 05-16-2022 08:53-0400 Systolic blood pressure 121 mm[Hg] Dr. Alireza London Work Phone: [facility] 04-16-2022 08:33-0400 Body mass index (BMI) [Ratio] 29.2 kg/m2 Dr. Alireza London Work Phone: [facility] Work Phone: 04-16-2022 08:33-0400 Body weight 79.[address] Alireza London Work Phone: [facility] Work Phone: 04-16-2022 08:33-0400 Diastolic blood pressure 66 mm[Hg] Dr. Alireza London Work Phone: [facility] Work Phone: 04-16-2022 08:33-0400 Systolic blood pressure 118 mm[Hg] Dr. Alireza London Work Phone: [facility] Work Phone: 03-19-2022 08:56-0400 Diastolic blood pressure 60 mm[Hg] Dr. Alireza London Work Phone: [facility] Work Phone: 03-19-2022 08:56-0400 Systolic blood pressure 106 mm[Hg] Dr. Alireza London Work Phone: [facility] Work Phone: 03-19-2022 08:45-0400 Body mass index (BMI) [Ratio] 28.8 kg/m2 Dr. Alireza London Work Phone: [facility] Work Phone: 03-19-2022 08:45-0400 Body weight 78.[address] Alireza London Work Phone: [facility] Work Phone: 02-20-2022 08:30-0400 Body mass index (BMI) [Ratio] 28.8 kg/m2 Dr. Alireza London Work Phone: [facility] Work Phone: 02-20-2022 08:30-0400 Body weight 78.[address] Alireza London Work Phone: [facility] Work Phone: 02-20-2022 08:30-0400 Diastolic blood pressure 62 mm[Hg] Dr. Alireza London Work Phone: [facility] Work Phone: 02-20-2022 08:30-0400 Systolic blood pressure 106 mm[Hg] Dr. Alireza London Work Phone: [facility] Work Phone: 01-21-2022 09:12-0400 Body height 165.[address] Alireza London Work Phone: [facility] Work Phone: 01-21-2022 09:12-0400 Body mass index (BMI) [Ratio] 28.6 kg/m2 Dr. Alireza London Work Phone: [facility] Work Phone: 01-21-2022 09:12-0400 Body weight 78.[address] Alireza London Work Phone: [facility] Work Phone: 01-21-2022 09:12-0400 Diastolic blood pressure 70 mm[Hg] Dr. Alireza London Work Phone: [facility] Work Phone: 01-21-2022 09:12-0400 Systolic blood pressure 116 mm[Hg] Dr. Alireza London Work Phone: [facility] Work Phone: 11-27-2021 08:33-0400 Body mass index (BMI) [Ratio] 29.6 kg/m2 Dr. Alireza London Work Phone: [facility] Work Phone: 11-27-2021 08:33-0400 Body weight 80.[address] Alireza London Work Phone: [facility] Work Phone: 11-27-2021 08:33-0400 Diastolic blood pressure 84 mm[Hg] Dr. Alireza London Work Phone: [facility] Work Phone: 11-27-2021 08:33-0400 Systolic blood pressure 126 mm[Hg] Dr. Alireza London Work Phone: [facility] Work Phone: Encounters Encounter Date Encounter Type Care Provider Facility Start: 01-31-2025 ambulatory [facility] Facility :[facility] Start: 01-30-2025 ambulatory [facility] Facility :[facility] Start: 01-24-2025 End: 01-24-[address] Elidia Joaquin MD -[facility] Work Phone: Start: 01-24-2025 End: 01-24-[address] Alireza London MD Work Phone: [facility] Work Phone: Start: 01-20-2025 End: 01-20-[address] Alireza London MD Work Phone: [facility] Work Phone: Start: 01-20-2025 End: 01-20-[address] Bhavani Wells DO -[facility] Work Phone: Start: 01-20-2025 End: 01-20-2025 ambulatory Alireza London Facility:[facility] Start: 01-18-2025 End: 01-18-[address] Bhavani Wells DO -[facility] Work Phone: Start: 01-18-2025 End: 01-18-[address] Alireza London MD Work Phone: [facility] Work Phone: Start: 01-11-2025 End: 01-11-[address] Alireza London MD Work Phone: [facility] Work Phone: Start: 01-11-2025 End: 01-11-2025 Patient encounter procedure Alesha To AFFILIATE MARKETING COORDINATOR-C -[facility]imen Work Phone: Start: 01-11-2025 End: 01-11-2025 Patient encounter procedure Alesha [place] AFFILIATE MARKETING COORDINATOR-C -[facility] Work Phone: Start: 01-11-2025 End: 01-11-[address] Alireza London MD Work Phone: [facility] Work Phone: Start: 01-11-2025 End: 01-11-2025 ambulatory Alireza London Facility:[facility] Start: 01-04-2025 End: 01-04-2025 ambulatory ALIREZA LONDON [facility] Start: 12-28-2024 End: 12-28-2024 Patient encounter procedure Carol Barrera CNM -[facility] Work Phone: Start: 12-28-2024 End: 12-28-[address] Alireza London MD Work Phone: [facility] Work Phone: Start: 12-28-2024 End: 12-28-2024 ambulatory Alireza London Facility:[facility] Start: 12-14-2024 End: 12-14-[address] Elidia Joaquin MD -[facility] Work Phone: Start: 12-14-2024 End: 12-14-[address] Alireza London MD Work Phone: [facility] Work Phone: Start: 12-07-2024 End: 12-07-2024 ambulatory [facility] Start: 11-30-2024 End: 11-30-2024 Patient encounter procedure Carol COSTELLO -[facility] Work Phone: Start: 11-30-2024 End: 11-30-2024 ambulatory Alireza London Facility:[facility] Start: 11-30-2024 End: 11-30-2024 ambulatory Alireza London Facility:[facility] Start: 11-08-2024 End: 11-08-2024 ambulatory [facility] Start: 11-02-2024 End: 11-02-[address] Bhavani Wells DO [facility] Work Phone: Start: 11-02-2024 End: 11-02-[address] Alireza London MD Work Phone: [facility] Work Phone: Start: 11-02-2024 End: 11-02-2024 ambulatory Bhavani Wells Facility:[facility] Start: 10-21-2024 Encounter for genera l adult medical examination without abnormal findings Bhavani Wells [facility] Start: 10-12-2024 End: 10-12-[address] Bhavani Wells DO -[facility] Start: 10-12-2024 End: 10-12-[address] Alireza London MD Work Phone: [facility] Work Phone: Start: 10-12-2024 End: 10-12-2024 ambulatory Bhavani Wells Facility:[facility] Start: 10-05-2024 End: 10-05-[address] Bhavani Wells DO [facility] Work Phone: Start: 10-05-2024 End: 10-05-[address] Alireza London MD Work Phone: [facility] Work Phone: Start: 10-05-2024 End: 10-05-2024 ambulatory Bhavani Wells Facility:[facility] Start: 09-28-2024 End: 09-28-2024 ambulatory [facility] Start: 09-14-2024 End: 09-14-2024 ambulatory [facility] Gavin [facility] Start: 09-07-2024 End: 09-07-2024 Patient encounter procedure Alesha WALTERS -[facility] Work Phone: Start: 09-07-2024 End: 09-07-2024 ambulatory Alireza London Facility:[facility] Start: 09-07-2024 End: 09-07-2024 ambulatory Alesha To NP Facility:[facility] Start: 08-10-2024 End: 08-10-[address] Bhavani Wells DO [facility] Work Phone: Start: 08-10-2024 End: 08-10-2024 ambulatory Alireza London Facility:[facility] Start: 08-10-2024 End: 08-10-2024 ambulatory Alireza London Facility:[facility] Start: 07-05-2024 End: 07-05-2024 Patient encounter procedure Carol Barrera CNM -[facility] Work Phone: Start: 07-05-2024 End: 07-05-2024 ambulatory Alireza London Facility:[facility] Start: 07-05-2024 End: 07-05-2024 ambulatory [place] London Facility:[facility] Start: 02-03-2024 End: 02-03-2024 ambulatory Facility:[facility] Start: 02-03-2024 End: 02-03-2024 Office outpatient new 30 minutes Arvin Rendon APRN.CNP Work Phone: [facility] Comment on above: Sore throat (Primary Dx); Strep throat Start: 08-26-2022 Non-patient / Non-visit Dr. Cheryl London Work Phone: [facility] Start: 08-25-2022 Non-patient / Non-visit Dr. Cheryl London Work Phone: [facility] Start: 08-24-2022 Non-patient / Non-visit Dr. Cheryl London Work Phone: [facility] Start: 08-24-2022 End: 08-26-2022 Evaluation and management of inpatient Dr. Alireza London Work Phone: [facility] Start: 08-23-2022 End: 08-23-[address] Alireza London Work Phone: [facility] Start: 08-15-2022 End: 08-15-[address] Alireza London Work Phone: [facility] Start: 08-09-2022 End: 08-09-[address] Alireza London Work Phone: [facility] Start: 08-01-2022 End: 08-01-[address] Alireza London Work Phone: [facility] Start: 07-23-2022 Non-patient / Non-visit Dr. Cheryl London Work Phone: [facility] Start: 07-23-2022 End: 07-23-[address] Alireza London Work Phone: [facility] Work Phone: Start: 07-23-2022 End: 07-23-[address] Alireza London Work Phone: [facility] Start: 07-15-2022 End: 07-15-[address] Alireza London Work Phone: [facility] Start: 07-02-2022 End: 07-02-[address] Alireza London Work Phone: [facility] Start: 06-20-2022 End: 06-20-[address] Alireza London Work Phone: [facility] Start: 06-04-2022 End: 06-04-[address] Alireza London Work Phone: [facility] Work Phone: Start: 06-04-2022 End: 06-04-[address] Alireza London Work Phone: [facility] Start: 05-16-2022 End: 05-16-[address] Alireza London Work Phone: [facility] Start: 04-16-2022 End: 04-16-[address] Alireza London Work Phone: [facility] Start: 03-19-2022 End: 03-19-[address] Alireza London Work Phone: [facility] Start: 02-20-2022 End: 02-20-[address] Alireza London Work Phone: [facility] Start: 01-21-2022 End: 01-21-[address] Alireza London Work Phone: [facility] Start: 11-27-2021 End: 11-27-[address] Alireza London Work Phone: [facility] Procedures Date Procedure Procedure Detail Performing Clinician Start: 01-20-2025 Ultrasonography for antepartum monitoring of fetus Dr. Alireza London MD Work Phone: Start: 01-11-2025 Beta-hemolytic Streptococcus culture Dr. Alireza London MD Work Phone: Start: 12-28-[address] Alireza London MD Work Phone: Comment on above: Test Ordered: [id number] Antibody Identifica tionAntibody Id. #1 Anti-M CB Reference Range: .Dat Titer #1 Comment CB Reference Range: .The antibody is too weak to titer at this time.If a numerical titer result has been reported, please notethat this result is the reciprocal value of titer resultsformerly reported as 1:2,1:4, 1:8, etc. These results arenow reported as 2, 4, 8, etc. The [place] [employer] has recommended this change in titer reportingformats to simply reflect the reciprocal value of thetiter.Antibody Id. #2 AFFILIATE MARKETING COORDINATOR NOLAB Reference Range: .Dat Titer #2 AFFILIATE MARKETING COORDINATOR NOLAB Reference Range: .Performed at: [address] [id number] Director: Joey Mortensen PhD, Phone: [phone] Start: 11-30-[address] Alireza London MD Work Phone: Comment on above: Test Ordered: [id number] Antibody Identifica tionAntibody Id. #1 Anti-M CB Reference Range: .Dat Titer #1 2 CB Reference Range: .If a numerical titer result has been reported, please notethat this result is the reciprocal value of titer resultsformerly reported as 1:2,1:4, 1:8, etc. These results arenow reported as 2, 4, 8, etc. The [place] [employer] has recommended this change in titer reportingformats to simply reflect the reciprocal value of thetiter.Antibody Id. #2 AFFILIATE MARKETING COORDINATOR NOLAB Reference Range: .Dat Titer #2 AFFILIATE MARKETING COORDINATOR NOLAB Reference Range: .Performed at: [place] [id number] Director: Joey Mortensen PhD, Phone: [phone] Start: 11-02-2024 Serologic test for syphilis Dr. Alireza taylor MD Work Phone: Start: 07-05-[address] Alireza London MD Work Phone: Start: 02-03-2024 STREP A MOLECULAR (POC) Arvin arreola POTLINE MONITOR.JACK PRIZER Work Phone: History of tonsillectomy History of tonsillectomy Dr. Alireza London Work Phone: Plan of Treatment Date Care Activity Detail Author Start: 06-20-2032 Urine microalbumin profile DTaP,Tdap,Td Vaccine (2 - Td or Tdap) [facility] Start: 12-28-2024 Procedure [facility] Start: 04-04-2024 Influenza vaccination [facility] Start: 08-04-2023 Behavioral Health Screening Behavioral Health Screening [facility] Start: 04-04-2023 Covid-19 Vaccine ( season) Covid-19 Vaccine ( season) [facility] Start: 08-26-2022 Patient discharge [facility] Start: 08-25-2022 Administration of medication [facility] Start: 08-25-2022 Application of ice collar, cap or bag [facility] Start: 08-25-2022 Catheterization of vein [facility] Start: 08-25-2022 Introduction of urinary catheter [facility] Start: 08-25-2022 Measuring intake and output [facility] Start: 08-25-2022 Notification of physician [facility] Start: 08-25-2022 Procedure discontinued [facility] Start: 08-25-2022 Provision of activity privileges [facility] Start: 08-25-2022 Vital signs measurements [facility] Start: 08-25-2022 [facility] Start: 08-25-2022 Leukocyte reduced red blood cells [facility] Start: 08-24-2022 Admission procedure [facility] Start: 07-23-2022 Nonstress test [facility] Start: 07-23-2022 Obstetric monitoring [facility] Start: 07-23-2022 Vital signs measurements [facility] Start: 07-23-2022 [facility] Start: 07-23-2022 Patient discharge [facility] Start: 01-21-2022 [facility] Work Phone: Start: 2013 Screening for malignant neoplasm of cervix Cervical Cancer Screening [facility] Start: 2011 Hepatitis B Vaccine (1 of 3 - 19+ 3-dose series) Hepatitis B Vaccine (1 of 3 - 19+ 3-dose series) [facility] Start: 2010 Hepatitis C screening Hepatitis C Screening [facility] Start: 2010 HIV screening HIV Screening [facility] Bacteria identified in Urine by Culture [facility] Work Phone: CBC W Auto Different ial panel - Blood [facility] Measurement of gluco se 2 hours after glucose challenge for glucose tolerance test [facility] Patient Education Kick Counts ED False Labor OB Triage: Return to Hospital or Notify Physician if you Experience: [facility] Work Phone: Patient referral [facility] Work Phone: Serologic test for syphilis [facility] Streptococcus agalac tiae [Presence] in Unspecified specimen by Organism specific culture [facility] Immunizations Immunization Date Immunization Notes Care Provider Haley seals 11-30-2024 tetanus toxoid, reduced diphtheria toxoid, and acellular pertussis vaccine, adsorbed Dr. Alireza London MD Work Phone: [facility] 06-20-2022 tetanus toxoid, reduced diphtheria toxoid, and acellular pertussis vaccine, adsorbed Dr. Alireza London Work Phone: [facility] 05-16-2022 influenza, injectabl e, quadrivalent, preservative free Dr. Alireza London MD Work Phone: [facility] 05-16-2022 influenza, seasonal, injectable Dr. Alireza London Work Phone: [facility] 05-16-2022 influenza virus vaccine, unspecified formulation Arvin Rendon APRN.CNP Work Phone: [facility] Payers Date Payer Category Payer Self-pay [id number] 2022 Unknown [employer] PPO [id number] 2022-Present [phone] [address] [place] [address] PPO [id number] 2022 Unknown [id number] 1990 Unknown [id number] 2.840.1.110852.3.579.2 1990 Unknown [id number] 2.840.1.657419.3.579.2 1990 Unknown [id number] 2..840.1.565589.3.579.2 1990 Unknown [id number] 2..840.1.831666.3.579.2 1990 Unknown [id number] 2.16.840.1.602841.3.579.2. 479 1990 Unknown [id number] 2.16.840.1.155777.3.579.2. 479 Private Health Insurance [id number] Private Health Insurance [id number] Unknown [id number] 2.16840.1.542876.3.579.2. 462 Unknown [id number] 2.840.1.401806.3.579.2. 462 Unknown [id number] 2.840.1.090530.3.579.2. 462 Unknown [id number] 2.840.1.880440.3.579.2. 462 Unknown [id number] 2.840.1.452824.3.579.2. 462 Unknown [id number] 2.840.1.745297.3.579.2. 462 Unknown [id number] 2.840.1.623949.3.579.2. 462 Unknown [id number] 2.840.1.177098.3.579.2. 462 Unknown [id number] 2.840.1.568812.3.579.2. 462 Unknown [id number] 2.840.1.566323.3.579.2. 462 Unknown [id number] 2.16840.1.221262.3.579.2. 462 Unknown [id number] 2.16840.1.225174.3.579.2. 462 Unknown [id number] 2.840.1.478745.3.579.2. 462 Unknown [id number] 2.840.1.213864.3.579.2. 462 Unknown [id number] 2..840.1.568099.3.579.2. 462 Unknown [id number] 2.16.840.1.971108.3.579.2. 462 Unknown [id number] 2.16.840.1.451621.3.579.2. 462 Unknown [id number] 2.16.840.1.453341.3.579.2. 462 Unknown [id number] 2.16.840.1.253677.3.579.2. 462 Unknown [id number] 2.16.840.1.751602.3.579.2. 462 Unknown [id number] 2.16.840.1.819978.3.579.2. 462 Unknown [id number] 2.16.840.1.869172.3.579.2. 462 Unknown [id number] 2.16.840.1.708875.3.579.2. 462 Unknown [id number] 2.16.840.1.355761.3.579.2. 462 Social History Date Type Detail Facility Start: 01-21-2022 End: 08-24-2022 Tobacco smoking status DCIS Unknown if ever smoked [facility] Start: 10-23-2020 Non-smoker [facility] Start: 1990 Sex Assigned At Female [facility] Start: 02-03-2024 Gender identity Identifies as female gender (finding) [facility] Sexual orientation Not on file [facility] Start: 06-24-2024 Tobacco smoking stat us DCIS Ex-smoker (finding) [facility] Start: 10-15-2024 End: 11-08-2024 Sex Female (finding) [facility] Goals Date Patient Goal Desired Activity /State Clinical Notes 08-25-2022 to 01-20-2025 Note Date & Type Note Facility 01-20-2025 Radiology Diagnostic study note [facility] Imaging Services [address], [place] [address] OB Limited (No Biometrics) MR#: [id number] Acct: [id number] Name: JIHAN GUERRERO Rep #: [id number] : 1990 F 34 From: [facility] PCP: Dr. Alireza London MD Status: REG CLI Study:OB Limited (No Biometrics) Date of Exam : 01/20/25 Exam# [id number] Ordering Dr: Bhavani Gibson DO PROCEDURE: OB LIMITED (NO BIOMETRICS) 01/20/2025 REASON FOR EXAM: LOW FUNDAL HEIGHT TECHNIQUE: OB LIMITED (NO BIOMETRICS) COMPARISON: Early OB ultrasound from July 05, 2024 FINDINGS Number: 1 Position: Cephalic Placental Position: Posterior. Not low-lying. Placental Abnormalities: No placental abnormalities. Placenta grade 2. ESTIMATED GESTATIONAL AGE: Baseline: 37 weeks, 4 days with estimated due date of February 06, 2025 BIOPHYSICAL ASSESSMENT: Amniotic Fluid Volume: Normal. Maximum vertical pocket 7.6 cm. Amniotic Fluid Index: 22.2. (8-24 cm normal range) Cardiac Motion: 143 (average) US/OB Limited (No Biometrics) IMPRESSION: Single live intrauterine fetus with cephalic presentation. No placental abnormality. Placenta location is posterior and is not low-lying. Reading Location: [facility] CC: Dr. Bhavani Wells DO; Dr. Alireza London MD ~ Subscription Clerk: Signed [facility] 12-28-2024 Progress note [facility] 12-14-2024 Progress note [facility] 10-05-2024 Evaluation note Diagnosis Onset Date Resolution Abnormal antibody titer acute M arch 2024 8:48am Hx of hemorrhage, currently acute October 05, 2024 8:48am acute October 05 8:48am Supervision of high-risk acute October 05, 025 8:48am Two vessel cord acute October 8:48am Abnormal umbilical cord deleted M arch 2024 8:48am Abnormal antibody titer acute A pril 2024 8:42am Hx of hemorrhage, currently acute November 02, 2024 8:42am acute November 02 8:42am Supervision of high-risk acute November 02 025 8:42am Two vessel cord acute November 8:42am Abnormal umbilical cord deleted A pri2024 8:42am Abnormal antibody titer acute A pril 2024 8:41am Hx of hemorrhage, currently acute November 30, 2024 8:41am acute November 30 8:41am Supervision of high-risk acute November 30, 2024 8:41am Two vessel cord acute November 8:41am Abnormal umbilical cord deleted A pril 2024 8:41am Abnormal antibody titer acute M ay 2024 8:56am Hx of hemorrhage, currently acute December 14, 2024 8 :56am acute December 14, 2024 8:56am Supervision of high-risk acute December 14 8:56am Two vessel cord acute December 14, 2024 8:56am Abnormal umbilical cord deleted M ay 2024 8:56am Abnormal antibody titer acute M ay 2024 8:54am Hx of hemorrhage, currently acute December 28, 2024 8 :54am acute December 28, 2024 8:54am Supervision of high-risk acute December 28 8:54am Two vessel cord acute December 28, 2024 8:54am Abnormal umbilical cord deleted M ay 2024 8:54am Abnormal antibody titer acute J 2024 3:12pm Hx of hemorrhage, currently acute January 11, 2025 3:12pm acute January 11 3:12pm Supervision of high-risk acute January 11 025 3:12pm Two vessel cord acute January 3:12pm [facility] Work Phone: 1(904) 503-105903-04-2025 Evaluation note* Diagnosis Onset Date Resolution Status Admit Date Abnormal antibody titer acute M arch 2024 8:48am Hx of hemorrhage, currently acute October 05 8:48am acute October 05 8:48am Supervision of high-risk acute October 05, 2024 8:48am Two vessel cord acute October 8:48am Abnormal umbilical cord deleted M arch 2024 8:48am Abnormal antibody titer acute A pril 2024 8:42am Hx of hemorrhage, currently acute November 02 8:42am acute November 02 8:42am Supervision of high-risk acute November 02, 2024 8:42am Two vessel cord acute November 8:42am Abnormal umbilical cord deleted A pri2024 8:42am Abnormal antibody titer acute A pril 2024 8:41am Hx of hemorrhage, currently acute November 30, 025 8:41am acute November 30 8:41am Supervision of high-risk acute November 30, 2024 8:41am Two vessel cord acute November 8:41am Abnormal umbilical cord deleted A pril 2024 8:41am Abnormal antibody titer acute M ay 2024 8:56am Hx of hemorrhage, currently acute December 14 8:56am acute December 14, 2024 8:56am Supervision of high-risk acute December 14, 2024 8 :56am Two vessel cord acute December 14, 2024 8:56am Abnormal umbilical cord deleted M ay 2024 8:56am Abnormal antibody titer acute M ay 2024 8:54am Hx of hemorrhage, currently acute December 28 8:54am acute December 28, 2024 8:54am Supervision of high-risk acute December 28, 2024 8 :54am Two vessel cord acute December 28, 2024 8:54am Abnormal umbilical cord deleted M ay 2024 8:54am Abnormal antibody titer acute J une 2024 3:12pm Hx of hemorrhage, currently acute January 11 3:12pm acute January 11 3:12pm Supervision of high-risk acute January 11, 2025 3:12pm Two vessel cord acute January 3:12pm Abnormal antibody titer acute J une 2024 12:21pm Hx of hemorrhage, currently acute January 18 12:21pm Positive GBS test acute January 182024 12:21pm acute January 18 12:21pm Supervision of high-risk acute January 18, 2025 12:21pm Two vessel cord acute January 12:21pm [facility] Work Phone: 1([phone]) 335-806903-04-2025 Evaluation note* Diagnosis Onset Date Resolution Status Admit Date Abnormal antibody titer acute M arch 2024 8:48am Hx of hemorrhage, currently acute October 05 8:48am acute October 05 8:48am Supervision of high-risk acute October 05, 2024 8:48am Two vessel cord acute October 8:48am Abnormal umbilical cord deleted M arch 2024 8:48am Abnormal antibody titer acute A pri2024 8:42am Hx of hemorrhage, currently acute November 02 8:42am acute November 02 8:42am Supervision of high-risk acute November 02, 2024 8:42am Two vessel cord acute November 8:42am Abnormal umbilical cord deleted A pri2024 8:42am Abnormal antibody titer acute A pril 2024 8:41am Hx of hemorrhage, currently acute November 30, 025 8:41am acute November 30 8:41am Supervision of high-risk acute November 30, 2024 8:41am Two vessel cord acute November 8:41am Abnormal umbilical cord deleted A pril 2024 8:41am Abnormal antibody titer acute M ay 2024 8:56am Hx of hemorrhage, currently acute December 14 8:56am acute December 14, 2024 8:56am Supervision of high-risk acute December 14, 2024 8 :56am Two vessel cord acute December 14, 2024 8:56am Abnormal umbilical cord deleted M ay 2024 8:56am Abnormal antibody titer acute M ay 2024 8:54am Hx of hemorrhage, currently acute December 28 8:54am acute December 28, 2024 8:54am Supervision of high-risk acute December 28, 2024 8 :54am Two vessel cord acute December 28, 2024 8:54am Abnormal umbilical cord deleted M ay 2024 8:54am Abnormal antibody titer acute J une 2024 3:12pm Hx of hemorrhage, currently acute January 11 3:12pm acute January 11 3:12pm Supervision of high-risk acute January 11, 2025 3:12pm Two vessel cord acute January 3:12pm Abnormal antibody titer acute J une 2024 12:21pm Hx of hemorrhage, currently acute January 18 12:21pm Positive GBS test acute January 182024 12:21pm acute January 18 12:21pm Supervision of high-risk acute January 18, 2025 12:21pm Two vessel cord acute January 12:21pm Abnormal antibody titer acute J une 2024 8:06am Hx of hemorrhage, currently acute January 24 8:06am Positive GBS test acute January 242024 8:06am acute January 24 8:06am Small for gestational age fetus acut e January 24, 2025 8:06am Supervision of high-risk acute January 24, 2025 8:06am Two vessel cord acute January 8:06am [facility] Work Phone: 1(487) 453-610802-04-2025 Evaluation note* Diagnosis Onset Date Resolution Status Admit Date Abnormal antibody titer acute F ebruary 2024 8:26am Hx of hemorrhage, currently acute September 07, 2024 8:26am acute September 07, 2024 8:26am Supervision of high-risk acute September 07 8:26am Abnormal antibody titer acute M arch 2024 8:48am Abnormal umbilical cord acute M arch 2024 8:48am Hx of hemorrhage, currently acute October 05 8:48am acute October 05 8:48am Supervision of high-risk acute October 05, 2024 8:48am Two vessel cord acute October 8:48am Abnormal antibody titer acute A pril 2024 8:42am Abnormal umbilical cord acute A pril 2024 8:42am Hx of hemorrhage, currently acute November 02 8:42am acute November 02 8:42am Supervision of high-risk acute November 02, 2024 8:42am Two vessel cord acute November 8:42am Abnormal antibody titer acute A pril 2024 8:41am Abnormal umbilical cord acute A pril 2024 8:41am Hx of hemorrhage, currently acute November 30, 2 025 8:41am acute November 30 8:41am Supervision of high-risk acute November 30, 2024 8:41am Two vessel cord acute November 8:41am Abnormal antibody titer acute M ay 2024 8:56am Abnormal umbilical cord acute M ay 2024 8:56am Hx of hemorrhage, currently acute December 14 8:56am acute December 14, 2024 8:56am Supervision of high-risk acute December 14, 2024 8 :56am Two vessel cord acute December 14, 2024 8:56am [facility] Work Phone: 1(751) 328-742402-04-2025 Evaluation note* Diagnosis Onset Date Resolution Status Admit Date Abnormal antibody titer acute F ebruary 2024 8:26am Hx of hemorrhage, currently acute September 07, 2024 8:26am acute September 07, 2024 8:26am Supervision of high-risk acute September 07 8:26am Abnormal antibody titer acute M arch 2024 8:48am Abnormal umbilical cord acute M arch 2024 8:48am Hx of hemorrhage, currently acute October 05 8:48am acute October 05 8:48am Supervision of high-risk acute October 05, 2024 8:48am Two vessel cord acute October 8:48am Abnormal antibody titer acute A pril 2024 8:42am Abnormal umbilical cord acute A pril 2024 8:42am Hx of hemorrhage, currently acute November 02 8:42am acute November 02 8:42am Supervision of high-risk acute November 02, 2024 8:42am Two vessel cord acute November 8:42am Abnormal antibody titer acute A pril 2024 8:41am Abnormal umbilical cord acute A pril 2024 8:41am Hx of hemorrhage, currently acute November 30, 025 8:41am acute November 30 8:41am Supervision of high-risk acute November 30, 2024 8:41am Two vessel cord acute November 8:41am Abnormal antibody titer acute M ay 2024 8:56am Abnormal umbilical cord acute M ay 2024 8:56am Hx of hemorrhage, currently acute December 14 8:56am acute December 14, 2024 8:56am Supervision of high-risk acute December 14, 2024 8 :56am Two vessel cord acute December 14, 2024 8:56am Abnormal antibody titer acute M ay 2024 8:54am Abnormal umbilical cord acute M ay 2024 8:54am Hx of hemorrhage, currently acute December 28 8:54am acute December 28, 2024 8:54am Supervision of high-risk acute December 28, 2024 8 :54am Two vessel cord acute December 28, 2024 8:54am [facility] Work Phone: 1(494) 138-232401-07-2025 Evaluation note* Diagnosis Onset Date Resolution Status Admit Date Abnormal antibody titer acute J anuary 2024 2:56pm Hx of hemorrhage, currently acute August 10, 2024 2:56pm acute August 10, 025 2:56pm Supervision of high-risk acute August 10 2:56pm Abnormal antibody titer acute F ebruary 2024 8:26am Hx of hemorrhage, currently acute September 07, 2024 8:26am acute September 07, 2024 8:26am Supervision of high-risk acute September 07 8:26am Abnormal antibody titer acute M arch 2024 8:48am Abnormal umbilical cord acute M arch 2024 8:48am Hx of hemorrhage, currently acute October 05 8:48am acute October 05 8:48am Supervision of high-risk acute October 05, 2024 8:48am Two vessel cord acute October 8:48am Abnormal antibody titer acute A pril 2024 8:42am Abnormal umbilical cord acute A pril 2024 8:42am Hx of hemorrhage, currently acute November 02 8:42am acute November 02 8:42am Supervision of high-risk acute November 02, 2024 8:42am Two vessel cord acute November 8:42am [facility] Work Phone: 1(167) 746-126512-02-2024 Evaluation note* Diagnosis Onset Date Resolution Status Admit Date Hx of hemorrhage, currently acute July 05, 2024 12:58pm acute July 05, 2024 12:58pm Supervision of high-risk acute July 05 12:58pm Abnormal antibody titer acute J anuary 2024 2:56pm Hx of hemorrhage, currently acute August 10, 2024 2:56pm acute August 10, 2:56pm Supervision of high-risk acute August 10 2:56pm Abnormal antibody titer acute F ebruary 2024 8:26am Hx of hemorrhage, currently acute September 07, 2024 8:26am acute September 07, 2024 8:26am Supervision of high-risk acute September 07 8:26am Abnormal antibody titer acute M arch 2024 8:48am Abnormal umbilical cord acute M arch 2024 8:48am Hx of hemorrhage, currently acute October 05 8:48am acute October 05 8:48am Supervision of high-risk acute October 05, 2024 8:48am Two vessel cord acute October 8:48am [facility] Work Phone: 1(586) 128-985407-02-2024 NoteHNO ID: [id number] Author: ARVIN RENDON APRN.JACK PRIZER Service: ? Author Type: Nurse Practitioner Type: Progress Notes Filed: 02/03/2024 18:50 Note Text: Subjective HPI Nontoxic-appearing female presents urgent care chief complaint sore throat fever. Duration of symptoms 2 days. Associate symptoms listed above. States on Friday she did have nausea vomiting abdominal pain. This has subsided. Presents today with persistent sore throat. Concerned about possible strep throat. History of strep throat in past. Did have tonsils and adenoids removed. No difficulty swelling and secretion decreased range of motion of neck. Denies any body aches chills productive cough chest pain shortness of breath pleuritic pain hemoptysis nausea vomiting abdominal pain change in bowel or bladder habits. Past medical history prescription medication use and allergies reviewed. BP 138/82 Pulse 86 Temp 37.3 ?C (99.2 ?F) Resp 16 Wt 78.4 kg (172 lb 13.5 oz) SpO2 97% .Patient presents with: Sore Throat: fever x 2 days, Friday vomiting and diarrhea all day No past medical history on file. No past surgical history on file. ALLERGIES Patient has no known allergies. MEDICATIONS No prescriptions on file. No family history on file. Review of Systems Constitutional: Positive for fever. Negative for chills and malaise/fatigue. HENT: Positive for sore throat. Negative for congestion, ear discharge, ear pain and sinus pain. Eyes: Negative for blurred vision, pain, discharge and redness. Respiratory: Negative for cough, hemoptysis, sputum production, shortness of breath, wheezing and stridor. Cardiovascular: Negative for chest pain. Gastrointestinal: Positive for diarrhea, nausea and vomiting. Negative for abdominal pain. Musculoskeletal: Negative for myalgias. Skin: Negative for itching and rash. Neurological: Negative for dizziness and headaches. Objective Physical Exam Constitutional: General: She is not in acute distress. Appearance: She is not diaphoretic. HENT: Head: Normocephalic. Jaw: No trismus, tenderness, swelling or pain on movement. Mouth/Throat: Mouth: Mucous membranes are moist. Pharynx: Oropharynx is clear. Uvula midline. Posterior oropharyngeal erythema present. No pharyngeal swelling, oropharyngeal exudate or uvula swelling. Eyes: Conjunctiva/sclera: Conjunctivae normal. Pupils: Pupils are equal, round, and reactive to light. Cardiovascular: Rate and Rhythm: Normal rate and regular rhythm. Heart sounds: Normal heart sounds. Pulmonary: Effort: Pulmonary effort is normal. No tachypnea, accessory muscle usage or respiratory distress. Breath sounds: Normal breath sounds. No stridor. No wheezing, rhonchi or rales. Abdominal: General: There is no distension. Palpations: Abdomen is soft. Tenderness: There is no abdominal tenderness. There is no guarding or rebound. Musculoskeletal: Cervical back: Normal range of motion and neck supple. No edema, erythema, rigidity or tenderness. No pain with movement. Normal range of motion. Lymphadenopathy: Cervical: No cervical adenopathy. Skin: General: Skin is warm and dry. Neurological: Mental Status: She is alert and oriented to person, place, and time. ASSESSMENT/PLAN: 1. Sore throat - ICD9: 462, ICD10: J02.9 (primary diagnosis) - STREP A MOLECULAR (POC) 2. Strep throat - ICD9: 034.0, ICD10: J02.0 Strep test positive. Placed on amoxicillin. Patient was educated on supportive therapies. Patient will follow up with primary care provider as needed. Patient was instructed to immediately proceed to emergency room for any new, worsening, or symptoms lasting longer than anticipated. The patient's clinical presentation is otherwise unremarkable at this time. Based on exam and clinical finding, the patient is stable for discharge. Plan of care was discussed with patient. Patient verbalizes understanding and agrees to plan of care. This note was generated using VaporWire software. It may contain errors in wording, punctuation, or spelling. Arvin Rendon APRN.[facility]07-02-2024 History of Present illness Narrative* Arvin Rendon APRN.[facility] - 02/03/2024 6:36 PM EDT Subjective HPI Nontoxic-appearing female presents urgent care chief complaint sore throat fever. Duration of symptoms 2 days. Associate symptoms listed above. States on Friday she did have nausea vomiting abdominalpain. This has subsided. Presents today with persistent sore throat. Concerned about possible strepthroat. History of strep throat in past. Did have tonsils and adenoids removed. No difficulty swelling and secretion decreased range of motion of neck. Denies any body aches chills productive cough chest pain shortness of breath pleuritic pain hemoptysis nausea vomiting abdominal pain change in bowel or bladder habits. Past medical history prescription medication use and allergies reviewed. BP 138/82 Pulse 86 Temp 37.3 C (99.2 F) Resp 16 Wt 78.4 kg (172 lb 13.5 oz) SpO2 97% .Patient presents with: Sore Throat: fever x 2 days, Friday vomiting and diarrhea all day No past medical history on file. No past surgical history on file. ALLERGIES Patient has no known allergies. MEDICATIONS No prescriptions on file. No family history on file. Review of Systems Constitutional: Positive for fever. Negative for chills and malaise/fatigue. HENT: Positive for sore throat. Negative for congestion, ear discharge, ear pain and sinus pain. Eyes: Negative for blurred vision, pain, discharge and redness. Respiratory: Negative for cough, hemoptysis, sputum production, shortness of breath, wheezing and stridor. Cardiovascular: Negative for chest pain. Gastrointestinal: Positive for diarrhea, nausea and vomiting. Negative for abdominal pain. Musculoskeletal: Negative for myalgias. Skin: Negative for itching and rash. Neurological: Negative for dizziness and headaches. Objective Physical Exam Constitutional: General: She is not in acute distress. Appearance: She is not diaphoretic. HENT: Head: Normocephalic. Jaw: No trismus, tenderness, swelling or pain on movement. Mouth/Throat: Mouth: Mucous membranes are moist. Pharynx: Oropharynx is clear. Uvula midline. Posterior oropharyngeal erythema present. No pharyngeal swelling, oropharyngeal exudate or uvula swelling. Eyes: Conjunctiva/sclera: Conjunctivae normal. Pupils: Pupils are equal, round, and reactive to light. Cardiovascular: Rate and Rhythm: Normal rate and regular rhythm. Heart sounds: Normal heart sounds. Pulmonary: Effort: Pulmonary effort is normal. No tachypnea, accessory muscle usage or respiratory distress. Breath sounds: Normal breath sounds. No stridor. No wheezing, rhonchi or rales. Abdominal: General: There is no distension. Palpations: Abdomen is soft. Tenderness: There is no abdominal tenderness. There is no guarding or rebound. Musculoskeletal: Cervical back: Normal range of motion and neck supple. No edema, erythema, rigidity or tenderness. No pain with movement. Normal range of motion. Lymphadenopathy: Cervical: No cervical adenopathy. Skin: General: Skin is warm and dry. Neurological: Mental Status: She is alert and oriented to person, place, and time. ASSESSMENT/PLAN: 1. Sore throat - ICD9: 462, ICD10: J02.9 (primary diagnosis) - STREP A MOLECULAR (POC) 2. Strep throat - ICD9: 034.0, ICD10: J02.0 Strep test positive. Placed on amoxicillin. Patient was educated on supportive therapies. Patient will follow up with primary care provider as needed. Patient was instructed to immediately proceed to emergency room for any new, worsening, or symptoms lasting longer than anticipated. The patient's clinical presentation is otherwise unremarkable at this time. Based on exam and clinical finding, the patient is stable for discharge. Plan of care was discussed with patient. Patient verbalizes understanding and agrees to plan of care. This note was generated using VaporWire software. It may contain errors in wording, punctuation, or spelling. Arvin Rendon APRN.[facility]23 Progress note Author Azucena Dwyer [facility] August 26, 2022 10:49am Note Date/Time August 26, 2022 1 0:49am [facility] Medical Records Department [address] [place] [address] Progress Note - OBGYN 08/26/22 1048 MR#: [id number] Acct: [id number] Name: JIHAN GUERRERO Rep #:[id number] : 1990 32 From: Azucena Dwyer CNM PCP: Dr. Alireza London MD Status:ADM IN Location: [id number] Subjective Subjective Patient doing well without complaints. Tolerating PO. Ambulating and voiding without difficulty. Feeding well. Denies chest pain, shortness of breath, calf pain/swelling, fevers, chills, lightheadedness. Objective Data Objective Data Vital Signs: Vital Signs Temp Pulse Resp BP Pulse Ox O2 Del Method 98 F 83 16 116/75 97 Room Air 08/26/22 09:00 08/26/22 09:00 08/26/22 09:00 08/26/22 09:00 08/26/22 04:10 08/26/22 04:10 Oxygen Delivery Method Room Air Weight: 198 lb 3.129 oz Body Mass Index (BMI) 33.0 Intake & Output: Intake and Output for Last 24 Hours 08/24/22 08/25/22 08/26/22 23:59 23:59 23:59 Intake Total 150.83 / 150.83 4250.00 / 4250.00 Output Total 300 / 300 4421 / 4421 Balance -149.17 / -149.17 -171.00 / -171.00 Lab / Micro Data Attestation: I reviewed the patient's lab results. Result Diagrams: 08/26/22 05:45 Labs: Laboratory Results - last 24 hr 08/24/22 19:50: Antibody Screen POSITIVE H, Antibody Identification ANTI-M 08/24/22 19:50: Antibody Screen Cancelled 08/24/22 19:50: Crossmatch See Detail 08/25/22 10:30: PT 12.6, INR 1.0, APTT 26.2 08/26/22 05:45: WBC 20.3 H, RBC 3.24 L, Hgb 9.3 L, Hct 27.2 L, MCV 84.0, MCH 28.7, MCHC 34.2, RDW Std Deviation 39.1, RDW Coeff of Warner 12.8, Plt Count 298, MPV 8.7 Assessment & Plan (1) hemorrhage: COMMENT: QBL 1321. s/p pitocin, methergine, cytotec. VSS, stable H&H (2) (spontaneous vaginal delivery): COMMENT: SROM at 39weeks. pit augment. PPH, avulsed cord/short cord. . boy: Joe. LC PLAN: Plan s/p PPD # 1 1. routine post delivery care 2. breast feeding- support given 3. rh positive 4. rubella immune 5. plan d/c home tomorrow 08/26/22 1049 <Electronically signed by Azucena Dwyer CNM> Cosigner Signature (if applicable): CC: ~ Signed [facility] Work Phone: 1(829) 958-663501-22-2023 Discharge summary Author Azucena Dwyer [facility] August 25, 2022 11:05am Note Date/Time August 25, 2022 1 1:05am [facility] Medical Records Department [address] [place] [address] Instructions for Home/Discharge Instructions 08/25/22 1104 MR#: [id number] Acct: [id number] Name: JIHAN GUERRERO Rep #:[id number] : 1990 32 From: Azucena Dwyer CNM PCP: Dr. Alireza London MD Status:ADM IN Discharge Instructions Diet Discharge Diet: No restrictions Activity Discharge Activity: May Not Drive and May Shower May resume sexual activity in: 6 weeks Weight Bearing Status: Full weight bearing Dressing / Incision Call your doctor if your incision/area has: Sudden Increased Bleeding, IncreasedPain/ Swelling and Foul Smelling Discharge Call your doctor if you observe: Fever of 101 or Higher, Numbness or Tingling, Change in Color, Inability to urinate, Inability to have a bowel movement, Usingmore than 1 pad per hour, Shortness of breath, Dizziness, Fainting spells, Chestpain, Calf discomfort and Uncontrolled pain Follow Up Care Please Follow Up With: Azucena Dwyer CNM When: 6 weeks , please call office to make an appointment. Congratulations on the of your baby! Test Results: Test results from this visit will be discussed in further detail at your follow- up appointment, if applicable. Discharge Plan Admission Admit Date/Time: 08/24/22 19:20 Attending Provider: Azucena Dwyer Primary Care Provider: Alireza London Discharge Orders/Prescriptions Prescriptions: No Action PNV #[id number] 30 mg iron-10 mg iron-1 mg capsule 1 cap PO DAILY Referrals / Follow Up: Alireza London MD [Primary Care Provider] - 08/25/22 1105<Electronically signed by Azucena Dwyer CNM>Azucena Dwyer CNM CC: Dr. Alireza London MD ~ Signed [facility] Work Phone: 1(693) 616-548101-22-2023 Procedure [facility] 08-25-2022 History and physical note Author Azucena Dwyer [facility] August 24, 2022 10:11pm Note Date/Time August 24, 2022 1 0:11pm [facility] Medical Records Department [address] [place] [address] H&P Exam - PATIENT SAFETY SITTER 08/24/22 2205 MR#: [id number] Acct: [id number] Name: JIHAN GUERRERO Rep #:[id number] : 1990 32 From: Azucena Dwyer CNM PCP: Dr. Alireza London MD Status:ADM IN Location: [id number] HPI - General General Date of Admission: 08/24/22 HPI Narrative JIHAN GUERRERO, is a 32 F who presents at 39+2 with LOF. occ ctx. no vb. goodfm. routine course only complicated by GBS colonization. 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 affecting Home Medications vitamin#30 30 mg iron-10 mg iron-folic acid 1 mg-omg3 capsule 1 cap PO DAILY 01/21/22 [History Last Taken 07/22/22 07:00 1] Allergy/AdvReac Type Severity Reaction Status Date / Time No Known Allergies Allergy Verified 08/24/22 19:04 Family History Father Alcoholism Grandmother Breast cancer Hypertension Aunt Breast cancer Mother Hyperlipemia Surgical History History of tonsillectomy Hx of wisdom tooth extraction Social History household members: spouse number of children: 0 current occupational status: employed current occupation: [employer] history of recent travel: No sexually active: Yes Smoking Status: Former smoker second hand exposure: No alcohol intake: former details: pre substance use type: does not use caffeine: Yes what type of physical activity do you participate in: yoga and aerobics frequency: 3-4 times per week seatbelt use: always do you feel safe at home: Yes additional social history: - 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) History 2 1 Elective abortions Hx Para 0 Spontaneous abortions Hx # Term Pregnancies Ectopic pregnancies Hx # Pregnancies Multiple births # of living children Visit Details Expected Delivery Route/Plan Labor Preferences- CB/BF classes: yes labor support person:Tashi labor intervention preferences:none pain management options preferred: epidural cut cord/dad catch: maybe : yes PP control planned: discussed discussed possible routes of delivery and associated risks: [] special requests: [] Plans Covid status: discussed Flu vaccine: given Tdap vaccine:given Rhogam: NA LARC form signed: yes movement and labor precautions reviewed. Problem list reviewed and updated with the most current plan of care details and appropriate orders placed. Relevant counseling for the gestational age provided. Continue routine care and follow up unless otherwise noted in visit notes/problem list details OB Flowsheet Initial Weight: 172 lb Date -?-?-?-?-?-?-?-?-?-?-?-?- EGA Weight BP Urine Prot -?-?-?-?-?-?-?-?-?-?-?-?- Glucose FHR FuHt Pres Dilation -?-?-?-?-?-?-?-?-?-?-?-?- Effaced St Visit Note 01/21/22 -?-?-?-?-?-?-?-?-?-?-?-?- 8w 4d 172 lb (+0 oz) 116/70 -?-?-?-?-?-?-?-?-?-?-?-?- 170 -?-?-?-?-?-?-?-?-?-?-?-?- SM- CRL cons wit h LMP 1.86cm 02/20/22 -?-?-?-?-?-?-?-?-?-?-?-?- 12w 6d 173 lb (+16 oz) 106/62 Negative -?-?-?-?-?-?-?-?-?-?-?-?- Negative 167 -?-?-?-?-?-?-?-?-?-?-?-?- JV- us machine n ot working to measure CRL, movement observed and heart tones picked up. Formal scan ordered with [facility]. 03/19/22 -?-?-?-?-?-?-?-?-?-?-?-?- 16w 5d 173 lb 4 oz (+1 lb 4 oz) 148/88 106/60 Negative -?-?-?-?-?-?-?-?-?-?-?-?- Negative 146 -?-?-?-?-?-?-?-?-?-?-?-?- MH-No VB or cram ping. Nausea improved. 04/16/22 -?-?-?-?-?-?-?-?-?-?-?-?- 20w 5d 175 lb 8 oz (+3 lb 8 oz) 118/66 Negative -?-?-?-?-?-?-?-?-?-?-?-?- Negative 140 -?-?-?-?-?-?-?-?-?-?-?-?- SM- no vb crampi ng co back pain 05/16/22 -?-?-?-?-?-?-?-?-?-?-?-?- 25w 0d 177 lb 6 oz (+5 lb 6 oz) 121/77 Negative -?-?-?-?-?-?-?-?-?-?-?-?- Negative 145 26 Cephalic -?-?-?-?-?-?-?-?-?-?-?-?- JV- no lof, vagi nal bleeding, or dec fm. flu shot today. 06/04/22 -?-?-?-?-?-?-?-?-?-?-?-?- 27w 5d 183 lb (+11 lb) 130/74 Negative -?-?-?-?-?-?-?-?-?-?-?-?- Negative 146 27 -?-?-?-?-?-?-?-?-?-?-?-?- MH-No VB, LOF. G ood FM. 28 wk labs, lar. 06/20/22 -?-?-?-?-?-?-?-?-?-?-?-?- 30w 0d 186 lb 2 oz (+14 lb 2 oz) 119/74 Negative -?-?-?-?-?-?-?-?-?-?-?-?- Negative 144 30 -?-?-?-?-?-?-?-?-?-?-?-?- JV- no lof, vagi nal bleeding, or dec fm. no complaints. 07/15/22 -?-?-?-?-?-?-?-?-?-?-?-?- 33w 4d 189 lb (+17 lb) 111/73 Negative -?-?-?-?-?-?-?-?-?-?-?-?- Negative 140 33 -?-?-?-?-?-?-?-?-?-?-?-?- SM- no vb lof go od fm no regular ctx 08/01/22 -?-?-?-?-?-?-?-?-?-?-?-?- 36w 0d 193 lb 2 oz (+21 lb 2 oz) 126/84 Negative -?-?-?-?-?-?-?-?-?-?-?-?- Negative 140 36 Cephalic 1 -?-?-?-?-?-?-?-?-?-?-?-?- 20 -3 SM- no vb lof good fm no regular ctx.occsl RUQ inconsistent, reviewed PEC precautions. 08/09/22 -?-?-?-?-?-?-?-?-?-?-?-?- 37w 1d 196 lb 4 oz (+24 lb 4 oz) 120/78 Negative -?-?-?-?-?-?-?-?-?-?-?-?- Negative 140 37 Cephalic 1 -?-?-?-?-?-?-?-?-?-?-?-?- SM- no vb lof go od fm n oreuglar ctx 08/15/22 -?-?-?-?-?-?-?-?-?-?-?-?- 38w 0d 198 lb 2 oz (+26 lb 2 oz) 130/84 Negative -?-?-?-?-?-?-?-?-?-?-?-?- Negative 150 37 Cephalic 1 -?-?-?-?-?-?-?-?-?-?-?-?- 50 -2 JV- no lof , vaginal bleeding, or dec fm. 08/23/22 -?-?-?-?-?-?-?-?-?-?-?-?- 39w 1d 199 lb 8 oz (+27 lb 8 oz) 128/81 Negative -?-?-?-?-?-?-?-?-?-?-?-?- Negative 130 39 Cephalic 1 -?-?-?-?-?-?-?-?-?-?-?-?- 50 -2 SM- no vb lof good fm no regular ctx NST FHR Rate Baby A Baseline: 130 Variability:: Moderate Accelerations:: 15 x 15 Decelerations:: None NST Reactive:: Yes FHR Category:: Category I Uterine Activity:: q5-7 minutes ROS Cardiovascular Cardiovascular: Denies abdominal pain, chest pain, diaphoresis, dyspnea, edema or fatigue Respiratory/Chest Respiratory/Chest: Denies change in mental status, chest congestion, chest tightness or cough Gastrointestinal Gastrointestinal: Denies diarrhea, hemorrhoids, nausea, vomiting or weight changes Genitourinary Genitourinary: Denies abdominal discomfort, burning urination, change in libido, change in urinary stream, contractions, difficulty urinating, dysuria, movement, low back pain, urinary frequency, urinary hesitancy, urinary incontinence or urinary urgency Musculoskeletal Musculoskeletal: Reports none Integumentary Integumentary: Reports none Neurologic Neurologic: Reports none Psychiatric Psychiatric: Reports none Endocrine Endocrinology: Reports none Hematologic/Lymphatic Hematologic/Lymphatic: Reports none Allergic/Immunologic Allergic/Immunologic: Reports none Vital Signs Vital Signs Vital Signs: 08/24/22 18:41 08/24/22 18:41 08/24/22 18:42 Temperature Temperature Source Pulse Rate 93 Blood Pressure 150/101 H 148/87 H BP Systolic 150 148 BP Diastolic 101 87 Pulse Ox 08/24/22 18:42 08/24/22 18:40 08/24/22 18:40 Temperature Temperature Source Temporal Pulse Rate 67 Blood Pressure BP Systolic BP Diastolic Pulse Ox 98 08/24/22 18:40 08/24/22 20:21 08/24/22 20:21 Temperature 97.5 F L Temperature Source Pulse Rate 82 Blood Pressure 139/84 H BP Systolic 139 BP Diastolic 84 Pulse Ox 08/24/22 20:21 08/24/22 20:21 08/24/22 20:21 Temperature 98.1 F Temperature Source Temporal Pulse Rate Blood Pressure BP Systolic BP Diastolic Pulse Ox 99 Weight Weight: 198 lb 3.129 oz Body Mass Index (BMI) 33.0 Physical Exam Const alert, oriented x3 and no apparent distress General Appearance: cooperative, comfortable and well kempt; Negative for in distress Orientation / Consciousness: awake and oriented to person Exam Limitations: no limitations HEENT normocephalic Mouth: oral and palatal mucosa normal Neck full ROM and thyroid normal Chest inspection of chest normal Resp normal respiratory effort Effort and Inspection: able to speak in complete sentences and symmetric chest movement Cardio regular rate Peripheral Pulses: pulses 2+ throughout GI normal to inspection, nondistended, normoactive bowel sounds Inspection: gravid no CVA tenderness and appearance of the vagina normal External Female Exam: normal appearance of the urethra; Negative for external lesion OB / External & Speculum: external exam normal Manual OB Exam: estimated gestational size appropriate and presentation cephalic Uterus Palpation: Negative for uterus tender Extremity normal to inspection Skin no rashes or lesions noted Psych Activity / Motor Behavior: appropriate eye contact Speech: normal speech Labs Labs Labs: Blood Type A POSITIVE Antibody Screen NEGATIVE Hct 37.5 % (37-47) Hgb 12.6 g/dL (12.0-15.0) Syphilis Total Ab Non-reactive Rubella IgG Antibody Reactive (Nonreactive) Hep Bs Antigen Non-Reactive (Nonreactive) Chlamydia DNA (VENU) Negative (Negative) Neisseria gonorrhoeae DNA (VENU) Negative (Negative) HIV 1&2 Antibody Non-Reactive (Nonreactive) Glucose 1 Hr 50 gm 93 mg/dL (70-140) Assessment & Plan (1) Spontaneous rupture of amniotic membranes: (2) : QUALIFIERS: Weeks of gestation: 39 weeks Qualified Code(s): Z3A.39 - 39 weeks gestation of COMMENT: anatomy nl, repeat US @ 28 wks of kidney(06/06/22) resolved, genetic and carrier declined, afp declined. (3) Supervision of normal : COMMENT: PRR ALFRED 08/29/22 boy Joe Tashi (4) 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 affecting : COMMENT: treat now and in labor PLAN: Plan Patient presents SROM Pain management: plans epidural. GBS positive plan IV PCN. Management of any complications: GBS I have reviewed the [facility] and made any clinically relevant updates. -routine L&D admission orders -PCN for GBS -will add pitocin augmentation if no cervical change x6 hours from admission Dr. Joaquin updated on admission, POC and concurs with primary midwifery management. is avaiable. 08/24/222210 <Electronically signed by Azucena Dwyer CNM> Cosigner Signature (if applicable): CC: DENG Dwyer; Dr. Alireza London MD~ Signed [facility] Work Phone: Evaluation note* Diagnosis Onset Date Resolution Status Encounter for routine gynecological examination noneactive acute Supervision of normal acute [facility] Work Phone: evaluation note* Diagnosis Onset Date Resolution Status acute Supervision of normal acute Urinary tract colonization b y group B Streptococcus affecting acute acute Supervision of normal acute Urinary tract colonization b y group B Streptococcus affecting acute acute Supervision of normal acute Urinary tract colonization b y group B Streptococcus affecting acute acute Supervision of normal acute Urinary tract colonization b y group B Streptococcus affecting acute acute Supervision of normal acute Urinary tract colonization b y group B Streptococcus affecting acute [facility] Work Phone: evaluation note* Diagnosis Onset Date Resolution Status acute Supervision of normal acute Urinary tract colonization b y group B Streptococcus affecting acute acute Supervision of normal acute Urinary tract colonization b y group B Streptococcus affecting acute acute Supervision of normal acute Urinary tract colonization b y group B Streptococcus affecting acute acute Supervision of normal acute Urinary tract colonization b y group B Streptococcus affecting acute acute Supervision of normal acute Urinary tract colonization b y group B Streptococcus affecting acute acute Supervision of normal acute Urinary tract colonization b y group B Streptococcus affecting acute [facility] Work Phone: evaluation note* Diagnosis Onset Date Resolution Status Urinary tract colonization b y group B Streptococcus affecting acute resolved Supervision of normal resolved Urinary tract colonization b y group B Streptococcus affecting acute resolved Supervision of normal resolved Urinary tract colonization b y group B Streptococcus affecting acute resolved Supervision of normal resolved Urinary tract colonization b y group B Streptococcus affecting acute resolved Supervision of normal resolved Urinary tract colonization b y group B Streptococcus affecting acute resolved Supervision of normal resolved Urinary tract colonization b y group B Streptococcus affecting acute resolved Supervision of normal resolved Urinary tract colonization b y group B Streptococcus affecting acute resolved Supervision of normal resolved Urinary tract colonization b y group B Streptococcus affecting acute resolved Supervision of normal resolved hemorrhage acute Spontaneous rupture of amniotic membranes acute Urinary tract colonization b y group B Streptococcus affecting acute resolved Supervision of normal resolved (spontaneous vaginal delivery) resolved [facility] Work Phone: Evaluation note* Diagnosis Sore throat- Primary Acute pharyngitis Strep throat Streptococcal sore [facility] Additional Instructions avoid fatty foods keep appointment wi Dr Joaquin next week if epigastric pain increases, [facility] Work Phone: Progress note Author Elidia Joaquin [facility] Note Date/Time December 14, 2024 9:10a m [facility] [address], [address] [place] [address] OFFICE VISIT Date of Service: 12/14/24 MR#: [id number] Acct: [id number] Name: JIHAN GUERRERO Rep #: [id number] : 1990 Provider: Dr. Felipe Joaquin MD Age/Sex: 34/F Location: [facility] Status: Signed Intake Vital Signs 07/05/24 13:02 11/30/24 08:46 12/14/24 08:59 Height 5 ft 5 in 5 ft 5 in 5 ft 5 in Weight: 195 lb BMI 32.4 BP 124/75 H Intake Visit Reasons: 32 wk ob Bark Scaler Required: No Is patient in pain?: No Feel stressed/tense/nervous/anxious/difficulty sleeping: not at all Allergies No Known Allergies Allergy (Verified 12/14/24 08:59) Medications ?Medication ?Instructions ?Recorded ?Confirmed ?Type vitamin#30 30 mg iron-10 1 cap PO DAILY 01/2112/14/24 History mg iron-folic acid 1 mg-omg3 capsule acetaminophen 500 mg oral powder 1,000 mg PO .Q8hr PRN 06/24/24 12/14/24 History packet (Tylenol Extra Strength) doxylamine succinate 25 mg tablet 25 mg PO QHS PRN 12/14/24 History (Unisom (doxylamine)) pyridoxine (vitamin B6) 10 mg 10 mg PO QDAY PRN 12/14/24 History tablet ondansetron 4 mg disintegrating 4 mg PO Q6H PRN nausea and 07/05/24 12/14/24 Rx tablet vomiting #90 tabs Last Menstrual Period: 05/02/24 Zika: Zika virus screening: Negative : No PFSH PFSH Medical History hemorrhage Seasonal allergies Former cigarette smoker 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 affecting Family history of breast cancer Retrosternal pain Epigastric pain Surgical History Hx of wisdom tooth extraction History of tonsillectomy Family History Father Alcoholism Grandmother Breast cancer Hypertension Dementia, Onset Age: 90 Maternal Aunt Breast cancer Mother Hyperlipemia Social History adopted: No household members: spouse and children number of children: 1 current occupational status: employed current occupation: [employer] pets and animals: Yes pets and animals: dog(s) history of recent travel: Yes ([place]) out of state: Yes out of country: No sexually active: Yes Smoking Status: Former smoker quit date: 01/16/09 second hand exposure: No alcohol intake: current alcohol intake frequency: a few times a month details: Not while substance use type: does not use well-balanced diet: daily or most days caffeine: Yes Type: coffee Number of servings: 2 eating out: rarely or never during the past year weight has: remained stable what type of physical activity do you participate in: none frequency: 3-4 times per week galo/nondenominational: None seatbelt use: always do you feel safe at home: Yes additional social history: - 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 Date Name GA/Weeks Outcome Route Bth Weight Infant Gen Labor Lgth Anesthesia Del Locatn Provider FOB 08/25/22 Joe 39 live - full term 7#2OZ Male [facility] Reymundo Akins Delivery Date: 08/25/22 Last Updated by: Brigitte Washington SROM HPI 32 wk ob Details: JIHAN GUERRERO is a 34 year old who presents for routine OB visit. OB Visit ALFRED Calculator Estimated Delivery Date Method Current WG Current Estimate 02/06/25 LMP (Certain) 32w 2d Other Estimates 02/08/25 Ultrasound #1 32w 0d Expected Delivery Route/Plan Labor Preferences- CB/BF classes: [] labor support person: [] labor intervention preferences: [] pain management options preferred: [] cut cord/dad catch: [] : [] PP control planned: [] discussed possible routes of delivery and associated risks: [] special requests: [] Specific Issue/Plans Covid status: [] Flu vaccine: [] Tdap vaccine: [] Rhogam: NA LARC form signed: [] movement and labor precautions reviewed. Problem list reviewed and updated with the most current plan of care details andappropriate orders placed. Relevant counseling for the gestational age provided. Continue routine care and follow up unless otherwise noted in visit notes/problem list details Initial Weight: Not Recorded Date -?-?-?-?-?-?-?-?-?-?-?-?- EGA Weight BP Urine Prot -?-?-?-?-?-?-?-?-?-?-?-?- Glucose FHR FuHt Pres Dilation -?-?-?-?-?-?-?-?-?-?-?-?- Effaced St Visit Note 07/05/24 -?-?-?-?-?-?-?-?-?-?-?-?- 9w 1d 175 lb 130/67 -?-?-?-?-?-?-?-?-?-?-?-?- 171 -?-?-?-?-?-?-?-?-?-?-?-?- KW- CRL cons wit h dates. declines NIPT 08/10/24 -?-?-?-?-?-?-?-?-?-?-?-?- 14w 2d 173 lb 6 oz 124/79 Nega tive -?-?-?-?-?-?-?-?-?-?-?-?- Negative 166 -?-?-?-?-?-?-?-?-?-?-?-?- JV- no complaint s today. needs 2nd antibody titer today. declined nipt 09/07/24 -?-?-?-?-?-?-?-?-?-?-?-?- 18w 2d 180 lb 8 oz 118/72 Nega tive -?-?-?-?-?-?-?-?-?-?-?-?- Negative 148 -?-?-?-?-?-?-?-?-?-?-?-?- MH-no VB. Baljeetin g movement. Antibody titer today. Denies concerns 10/05/24 -?-?-?-?-?-?-?-?-?-?-?-?- 22w 2d 181 lb 6 oz 110/77 Nega tive -?-?-?-?-?-?-?-?-?-?-?-?- Negative 140 -?-?-?-?-?-?-?-?-?-?-?-?- JV- anatomy scan reviewed. hypercoiled, 2 vessel cord and marginal insertion. needs rpt anti -m antibody. was 1:2 last month. plan 39 week delivery. 11/02/24 -?-?-?-?-?-?-?-?-?-?-?-?- 26w 2d 189 lb 113/73 Negative -?-?-?-?-?-?-?-?-?-?-?-?- Negative 143 -?-?-?-?-?-?-?-?-?-?-?-?- JV- glucola done today. no lof, vaginal bleeding, kicks are less than they were last week. kick counts reviewed. 11/30/24 -?-?-?-?-?-?-?-?-?-?-?-?- 30w 2d 192 lb 6 oz 129/74 Nega tive -?-?-?-?-?-?-?-?-?-?-?-?- Negative 155 30 -?-?-?-?-?-?-?-?-?-?-?-?- kw- no vb/lof/ct x. good fm. Tdap and LARC today. kw- no vb/lof/ctx. good fm. Tdap and LARC today. titers drawn today. 12/14/24 -?-?-?-?-?-?-?-?-?-?-?-?- 32w 2d 195 lb 124/75 Negative -?-?-?-?-?-?-?-?-?-?-?-?- Negative 150 32 -?-?-?-?-?-?-?-?-?-?-?-?- SM- no vb lof go od fm no regular ctx ACOG First Trimester First Trimester: Discussed Second Trimester Second Trimester: Signs and Symptoms of Labor, Selecting a care provider, Reproductive Life Planning & Contreception, Care Planning, Depression/Anxiety and Intimate Partner Violence; Discussed Tobacco Cessation Third Trimester Third Trimester: Pain Management Plans, Labor support person(s), Immediate Larc, Circumcision preference, Signs and Symptoms of Preeclampsia, Feeding No , Education and Family Medical Leave or Disability Forms Results POC Urinalysis 2 Dip (Clinic) Office Urine Glucose Negative Last Edit by Alesha Mccloud on 12/14/24 09:04 Office Urine Protein Negative Last Edit by Alesha Mccloud on 12/14/24 09:04 Coding Level of Care Code OB Routine Diagnoses Abnormal umbilical cord P02.60 Two vessel cord Q27.0 Abnormal antibody titer R76.0 Hx of hemorrhage, currently O09.299 Supervision of high risk in second trimester O09.92 Trimester: second trimester 32 weeks gestation of Z3A.32 Weeks of gestation: 32 weeks Assessment and Plan Assessment and Plan (1) Abnormal umbilical cord: Status: Acute Comment: borderline per MFM. Recheck and growth US Q4 wk (2) Two vessel cord: Status: Acute Comment: Growth US Q4 wk and wkly NST at 36 wk deliver 39 weeks (3) Abnormal antibody titer: Status: Acute Comment: Anti M. too weak to titer in first trimester, second draw increased to 2, stableon 11/30-redraw q 4 weeks (4) Hx of hemorrhage, currently : Status: Acute (5) Supervision of high-risk : Status: Acute Qualifiers: Trimester: second trimester Qualified Code(s): O09.92 - Supervision of high risk , unspecified, second trimester Comment: PRR,, ALFRED 02/06/25, PC Joe, Tashi (6) : Status: Acute Qualifiers: Weeks of gestation: 32 weeks Qualified Code(s): Z3A.32 - 32 weeks gestation of Comment: declined NIPT & Carrier testing, nl anatomy Orders: Orders POC Urinalysis 2 Dip (Clinic) Today 12/14/24910 <Electronically signed by Elidia costa MD> Date _ Elidia Joaquin MD Cosigner Signature: Date (if applicable) CC: ~ [facility] Work Phone: Progress note Author Carol Barrera [facility] Note Date/Time December 28, 2024 9:13a [facility] [address] [place] [address], [address] [place] [address] OFFICE VISIT Date of Service: 12/28/24 MR#: [id number] Acct: [id number] Name: JIHAN GUERRERO Rep #: [id number] : 1990 Provider: DENG Barrera Age/Sex: 34/F Location: [facility] Status: Signed Intake Vital Signs 07/05/24 13:02 11/30/24 08:46 12/14/24 08:59 12/28/24 09:00 Height 5 ft 5 in 5 ft 5 in 5 ft 5 in 5 ft 5 in Weight: 195 lb 199 lb 2 oz BMI 32.4 33.1 BP 124/75 H 135/80 H Intake Visit Reasons: 34 wk ob Chief Complaint: 34wk OB Bark Scaler Required: No Is patient in pain?: No Allergies No Known Allergies Allergy (Verified 12/28/24 08:56) Medications ?Medication ?Instructions ?Recorded ?Confirmed ?Type vitamin#30 30 mg iron-10 1 cap PO DAILY 01/2112/28/24 History mg iron-folic acid 1 mg-omg3 capsule acetaminophen 500 mg oral powder 1,000 mg PO .Q8hr PRN 06/24/24 12/28/24 History packet (Tylenol Extra Strength) doxylamine succinate 25 mg tablet 25 mg PO QHS PRN 12/28/24 History (Unisom (doxylamine)) pyridoxine (vitamin B6) 10 mg 10 mg PO QDAY PRN 12/28/24 History tablet ondansetron 4 mg disintegrating 4 mg PO Q6H PRN nausea and 07/05/24 12/28/24 Rx tablet vomiting #90 tabs Last Menstrual Period: 05/02/24 : No PFSH PFSH Medical History hemorrhage Seasonal allergies Former cigarette smoker 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 affecting Family history of breast cancer Retrosternal pain Epigastric pain Surgical History Hx of wisdom tooth extraction History of tonsillectomy Family History Father Alcoholism Grandmother Breast cancer Hypertension Dementia, Onset Age: 90 Maternal Aunt Breast cancer Mother Hyperlipemia Social History adopted: No household members: spouse and children number of children: 1 current occupational status: employed current occupation: [employer] pets and animals: Yes pets and animals: dog(s) history of recent travel: Yes ([place]) out of state: Yes out of country: No sexually active: Yes Smoking Status: Former smoker quit date: 01/16/09 second hand exposure: No alcohol intake: current alcohol intake frequency: a few times a month details: Not while substance use type: does not use well-balanced diet: daily or most days caffeine: Yes Type: coffee Number of servings: 2 eating out: rarely or never during the past year weight has: remained stable what type of physical activity do you participate in: none frequency: 3-4 times per week galo/nondenominational: None seatbelt use: always do you feel safe at home: Yes additional social history: - 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 Date Name GA/Weeks Outcome Route Bth Weight Infant Gen Labor Lgth Anesthesia Del Locatn Provider FOB 08/25/22 Joe 39 live - full term 7#2OZ Male [facility] Delivery Date: 08/25/22 Last Updated by: Brigitte Washington SROM HPI 34 wk ob Details: JIHAN GUERRERO is a 34 year old who presents for routine OB visit. OB Visit ALFRED Calculator Estimated Delivery Date Method Current WG Current Estimate 02/06/25 LMP (Certain) 34w 2d Other Estimates 02/08/25 Ultrasound #1 34w 0d Expected Delivery Route/Plan Labor Preferences- CB/BF classes: [] labor support person: [] labor intervention preferences: [] pain management options preferred: [] cut cord/dad catch: [] : [] PP control planned: [] discussed possible routes of delivery and associated risks: [] special requests: [] Specific Issue/Plans Covid status: [] Flu vaccine: [] Tdap vaccine: [] Rhogam: NA LARC form signed: [] movement and labor precautions reviewed. Problem list reviewed and updated with the most current plan of care details and appropriate orders placed. Relevant counseling for the gestational age provided. Continue routine care and follow up unless otherwise noted in visit notes/problem list details Initial Weight: Not Recorded Date -?-?-?-?-?-?-?-?-?-?--?-?- EGA Weight BP Urine Prot -?-?-?-?-?-?-?-?-?-?-?-?- Glucose FHR FuHt Pres Dilation -?-?-?-?-?-?-?-?-?-?-?-?- Effaced St Visit Note 07/05/24 -?-?-?-?-?-?-?-?-?-?-?-?- 9w 1d 175 lb 130/67 -?-?-?-?-?-?-?-?-?-?-?-?- 171 -?-?-?-?-?-?-?-?-?-?-?-?- KW- CRL cons wit h dates. declines NIPT 08/10/24 -?-?-?-?-?-?-?-?-?-?-?-?- 14w 2d 173 lb 6 oz 124/79 Nega tive -?-?-?-?-?-?-?-?-?-?-?-?- Negative 166 -?-?-?-?-?-?-?-?-?-?-?-?- JV- no complaint s today. needs 2nd antibody titer today. declined nipt 09/07/24 -?-?-?-?-?-?-?-?-?-?-?-?- 18w 2d 180 lb 8 oz 118/72 Nega tive -?-?-?-?-?-?-?-?-?-?-?-?- Negative 148 -?-?-?-?-?-?-?-?-?-?-?-?- MH-no VB. Feelin g movement. Antibody titer today. Denies concerns 10/05/24 -?-?-?-?-?-?-?-?-?-?-?-?- 22w 2d 181 lb 6 oz 110/77 Nega tive -?-?-?-?-?-?-?-?-?-?-?-?- Negative 140 -?-?-?-?-?-?-?-?-?-?-?-?- JV- anatomy scan reviewed. hypercoiled, 2 vessel cord and marginal insertion. needs rpt anti -m antibody. was 1:2 last month. plan 39 week delivery. 11/02/24 -?-?-?-?-?-?-?-?-?-?-?-?- 26w 2d 189 lb 113/73 Negative -?-?-?-?-?-?-?-?-?-?-?-?- Negative 143 -?-?-?-?-?-?-?-?-?-?-?-?- JV- glucola done today. no lof, vaginal bleeding, kicks are less than they were last week. kick counts reviewed. 11/30/24 -?-?-?-?-?-?-?-?-?-?-?-?- 30w 2d 192 lb 6 oz 129/74 Nega tive -?-?-?-?-?-?-?-?-?-?-?-?- Negative 155 30 -?-?-?-?-?-?-?-?-?-?-?-?- kw- no vb/lof/ct x. good fm. Tdap and LARC today. kw- no vb/lof/ctx. good fm. Tdap and LARC today. titers drawn today. 12/14/24 -?-?-?-?-?-?-?-?-?-?-?-?- 32w 2d 195 lb 124/75 Negative -?-?-?-?-?-?-?-?-?-?-?-?- Negative 150 32 -?-?-?-?-?-?-?-?-?-?-?-?- SM- no vb lof go od fm no regular ctx 12/28/24 -?-?-?-?-?-?-?-?-?-?-?-?- 34w 2d 199 lb 2 oz 135/80 Nega tive -?-?-?-?-?-?-?-?-?-?-?-?- Negative 158 34 -?-?-?-?-?-?-?-?-?-?-?-?- KW- no vb/lof. n oticed some BH contractions over the weekend-now resolved. Anti M titers today and US scheduled for next week. ACOG First Trimester First Trimester: Discussed Second Trimester Second Trimester: Signs and Symptoms of Labor, Selecting a care provider, Reproductive Life Planning & Contreception, Care Planning, Depression/Anxiety and Intimate Partner Violence; Discussed Tobacco Cessation Third Trimester Third Trimester: Pain Management Plans, Labor support person(s), Immediate Larc, Circumcision preference, Signs and Symptoms of Preeclampsia, Infant Feeding No , Education and Family Medical Leave or Disability Forms ROS Const Reports system reviewed and no additional complaints, except as documented Eyes Reports system reviewed and no additional complaints, except as documented ENT Reports system reviewed and no additional complaints, except as documented Card Reports system reviewed and no additional complaints, except as documented Resp Reports system reviewed and no additional complaints, except as documented GI Reports system reviewed and no additional complaints, except as documented, Denies nausea and Denies vomiting Reports system reviewed and no additional complaints, except as documented Musc Reports system reviewed and no additional complaints, except as documented Skin/Breast Reports system reviewed and no additional complaints, except as documented Neuro Yes system reviewed and no additional complaints, except as documented Psych Reports system reviewed and no additional complaints, except as documented Endo Reports system reviewed and no additional complaints, except as documented Aguila/Lymph Reports system reviewed and no additional complaints, except as documented Aller/Immun Reports system reviewed and no additional complaints, except as documented Exam Const General: cooperative, healthy appearing and no acute distress Orientation: alert, awake and oriented x3 Neck Neck: normal visual inspection and full ROM Resp Effort & Inspection: normal respiratory effort, able to speak in complete sentences and symmetric chest movement GI Inspection: normal to inspection Palpation: soft and other Other: gravid Skin General: no rashes or lesions noted Neuro General: patient alert, patient awake and patient oriented x3 Cognition: normal cognition Speech: speech normal Gait: normal gait Motor: muscle tone normal throughout Extrem General: normal to inspection and full ROM Psych Appearance: grossly normal Mental Status: mental status grossly normal Mood: congruent mood Affect: normal affect Speech and Movement: speech and movement normal Attitude: cooperative Thought Process: normal Thought Content: normal Judgment: judgment good Results POC Urinalysis 2 Dip (Clinic) Office Urine Glucose Negative Last Edit by America Jones on 12/28/24 09:04 Office Urine Protein Negative Last Edit by America Jones on 12/28/24 09:04 Coding Level of Care Code OB Routine Diagnoses Abnormal umbilical cord P02.60 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 Recheck and growth US Q4 wk (2) Two vessel cord: Status: Acute Comment: Growth US Q4 wk and wkly NST at 36 wk deliver 39 weeks (3) Abnormal antibody titer: Status: Acute Comment: Anti M. too weak to titer in first trimester, second draw increased to 2, stable on 11/30-redraw q 4 weeks (4) Hx of hemorrhage, currently : Status: Acute (5) : Status: Acute Qualifiers: Weeks of gestation: 34 weeks Qualified Code(s): Z3A.34 - 34 weeks gestation of Comment: declined NIPT & Carrier testing, nl anatomy (6) Supervision of high-risk : Status: Acute Qualifiers: Trimester: second trimester Qualified Code(s): O09.92 - Supervision of high risk , unspecified, second trimester Comment: PRR,, ALFRED 02/06/25, PC Joe, Tashi Orders: Orders POC Urinalysis 2 Dip (Clinic) Today Misc Procedure Today R76.0 - Raised antibody titer Plan Details Additional Comments: ACOG trimester education reviewed and updated. see problem list details for updated plan management information and see below for orders placed at this visit. GA appropriate handout given. 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 Reason for Visit Encounter for routin e gynecological examination Supervision of normal Chief Complaint 12 WK OB 16 WK OB 21 WK OB 25 WK OB 28 WK OB/GLUCOSE Reason for Visit Supervision of normal 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 affecting Supervision of normal 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 affecting Supervision of normal 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 affecting Supervision of normal 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 affecting Supervision of normal 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 affecting Chief Complaint 21 WK OB 25 WK OB 28 WK OB/GLUCOSE 30 WK OB 32 WK OB 34 WK OB DECREASED MOVEMEMNT Reason for Visit Supervision of normal 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 affecting Supervision of normal 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 affecting Supervision of normal 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 affecting Supervision of normal 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 affecting Supervision of normal 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 affecting Supervision of normal 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 affecting Chief Complaint 25 WK OB 28 WK OB/GLUCOSE 30 WK OB 32 WK OB 34 WK OB DECREASED MOVEMEMNT DECREASED MOVEMEMNT 36 WK OB 37 WK OB 38 WK OB 39 WK OB VAGINAL DELIVERY LABOR VAGINAL DELIVERY VAGINAL DELIVERY Reason for Visit Urinary tract coloni zation by group B Streptococcus affecting Supervision of normal 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 affecting Supervision of normal 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 affecting Supervision of normal 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 affecting Supervision of normal 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 affecting Supervision of normal 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 affecting Supervision of normal 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 affecting Supervision of normal 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 affecting Supervision of normal hemorrhage Spontaneous rupture of amniotic membranes 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 affecting Supervision of normal (spontaneous vaginal delivery) Chief Complaint Admit Date LMP 05/02July 05, 2024 1 2:58pm 14wk OB August 10, 2024 2: 56pm 18 wk ob September 07, 2024 8 :26am 22 wk ob October 05, 2024 8:48 am Reason for Visit Admit Date Hx of hemorrhage, currently p regnant July 05, 2024 12:58pm July 05, 2024 1 2:58pm Supervision of high-risk Decem 2023 12:58pm Abnormal antibody titer August 10 2:56pm Hx of hemorrhage, currently p regnant August 10, 2024 2:56pm August 10, 2024 2: 56pm Supervision of high-risk Janua 2024 2:56pm Abnormal antibody titer September 07 8:26am Hx of hemorrhage, currently p regnant September 07, 2024 8:26am September 07, 2024 8 :26am Supervision of high-risk Febru [email or web address] 8:26am Abnormal antibody titer October 05, 2024 8:48am Abnormal umbilical cord October 05, 2024 8:48am Hx of hemorrhage, currently p regnant October 05, 2024 8:48am October 05, 2024 8:48 am Supervision of high-risk October 05, 2024 8:48am Two vessel cord October 05, 2024 8:48 am Chief Complaint Admit Date 14wk OB August 10, 2024 2: 56pm 18 wk ob September 07, 2024 8 :26am 22 wk ob October 05, 2024 8:48 am 26 wk ob/glucose November 02, 2024 8:42 am Reason for Visit Admit Date Abnormal antibody titer August 10 2:56pm Hx of hemorrhage, currently p regnant August 10, 2024 2:56pm August 10, 2024 2: 56pm Supervision of high-risk Janua ry 2024 2:56pm Abnormal antibody titer September 07 8:26am Hx of hemorrhage, currently p regnant September 07, 2024 8:26am September 07, 2024 8 :26am Supervision of high-risk Febru [email or web address] 8:26am Abnormal antibody titer October 05, 2024 8:48am Abnormal umbilical cord October 05, 2024 8:48am Hx of hemorrhage, currently p regnant October 05, 2024 8:48am October 05, 2024 8:48 am Supervision of high-risk October 05, 2024 8:48am Two vessel cord October 05, 2024 8:48 am Abnormal antibody titer November 02, 2024 8:42am Abnormal umbilical cord November 02, 2024 8:42am Hx of hemorrhage, currently p regnant November 02, 2024 8:42am November 02, 2024 8:42 am Supervision of high-risk November 02, 2024 8:42am Two vessel cord November 02, 2024 8:42 am Chief Complaint Admit Date 18 wk ob September 07, 2024 8 :26am 22 wk ob October 05, 2024 8:48 am 26 wk ob/glucose November 02, 2024 8:42 am 30 wk ob November 30, 2024 8:4 1am EORDER TODAY PER PATIENT November 30 9:11am 32 wk ob December 14, 2024 8:56a m Reason for Visit Admit Date Abnormal antibody titer September 07 8:26am Hx of hemorrhage, currently p regnant September 07, 2024 8:26am September 07, 2024 8 :26am Supervision of high-risk Febru [email or web address] 8:26am Abnormal antibody titer October 05, 2024 8:48am Abnormal umbilical cord October 05, 2024 8:48am Hx of hemorrhage, currently p regnant October 05, 2024 8:48am October 05, 2024 8:48 am Supervision of high-risk October 05, 2024 8:48am Two vessel cord October 05, 2024 8:48 am Abnormal antibody titer November 02, 2024 8:42am Abnormal umbilical cord November 02, 2024 8:42am Hx of hemorrhage, currently p regnant November 02, 2024 8:42am November 02, 2024 8:42 am Supervision of high-risk November 02, 2024 8:42am Two vessel cord November 02, 2024 8:42 am Abnormal antibody titer November 30, 2024 8:41am Abnormal umbilical cord November 30, 2024 8:41am Hx of hemorrhage, currently p regnant November 30, 2024 8:41am November 30, 2024 8:4 1am Supervision of high-risk November 30, 2024 8:41am Two vessel cord November 30, 2024 8:4 1am Abnormal antibody titer December 14, 2024 8 :56am Abnormal umbilical cord December 14, 2024 8 :56am Hx of hemorrhage, currently p regnant December 14, 2024 8:56am December 14, 2024 8:56a m Supervision of high-risk December 022024 8:56am Two vessel cord December 14, 2024 8:56a m Chief Complaint Admit Date 18 wk ob September 07, 2024 8 :26am 22 wk ob October 05, 2024 8:48 am 26 wk ob/glucose November 02, 2024 8:42 am 30 wk ob November 30, 2024 8:4 1am EORDER TODAY PER PATIENT November 30 9:11am 32 wk ob December 14, 2024 8:56a m 34 wk ob December 28, 2024 8:54a m Reason for Visit Admit Date Abnormal antibody titer September 07 8:26am Hx of hemorrhage, currently p regnant September 07, 2024 8:26am September 07, 2024 8 :26am Supervision of high-risk Febru [email or web address] 8:26am Abnormal antibody titer October 05, 2024 8:48am Abnormal umbilical cord October 05, 2024 8:48am Hx of hemorrhage, currently p regnant October 05, 2024 8:48am October 05, 2024 8:48 am Supervision of high-risk October 05, 2024 8:48am Two vessel cord October 05, 2024 8:48 am Abnormal antibody titer November 02, 2024 8:42am Abnormal umbilical cord November 02, 2024 8:42am Hx of hemorrhage, currently p regnant November 02, 2024 8:42am November 02, 2024 8:42 am Supervision of high-risk November 02, 2024 8:42am Two vessel cord November 02, 2024 8:42 am Abnormal antibody titer November 30, 2024 8:41am Abnormal umbilical cord November 30, 2024 8:41am Hx of hemorrhage, currently p regnant November 30, 2024 8:41am November 30, 2024 8:4 1am Supervision of high-risk November 30, 2024 8:41am Two vessel cord November 30, 2024 8:4 1am Abnormal antibody titer December 14, 2024 8 :56am Abnormal umbilical cord December 14, 2024 8 :56am Hx of hemorrhage, currently p regnant December 14, 2024 8:56am December 14, 2024 8:56a m Supervision of high-risk December 022024 8:56am Two vessel cord December 14, 2024 8:56a m Abnormal antibody titer December 28, 2024 8 :54am Abnormal umbilical cord December 28, 2024 8 :54am Hx of hemorrhage, currently p regnant December 28, 2024 8:54am December 28, 2024 8:54a m Supervision of high-risk December 032024 8:54am Two vessel cord December 28, 2024 8:54a m Chief Complaint Admit Date 22 wk ob October 05, 2024 8:48 am 26 wk ob/glucose November 02, 2024 8:42 am 30 wk ob November 30, 2024 8:4 1am EORDER TODAY PER PATIENT November 30 9:11am 32 wk ob December 14, 2024 8:56a m 34 wk ob December 28, 2024 8:54a m 36wk ob January 11, 2025 3:12 pm Reason for Visit Admit Date Abnormal antibody titer October 05, 2024 8:48am Hx of hemorrhage, currently p regnant October 05, 2024 8:48am October 05, 2024 8:48 am Supervision of high-risk October 05, 2024 8:48am Two vessel cord October 05, 2024 8:48 am Abnormal umbilical cord October 05, 2024 8:48am Abnormal antibody titer November 02, 2024 8:42am Hx of hemorrhage, currently p regnant November 02, 2024 8:42am November 02, 2024 8:42 am Supervision of high-risk November 02, 2024 8:42am Two vessel cord November 02, 2024 8:42 am Abnormal umbilical cord November 02, 2024 8:42am Abnormal antibody titer November 30, 2024 8:41am Hx of hemorrhage, currently p regnant November 30, 2024 8:41am November 30, 2024 8:4 1am Supervision of high-risk November 30, 2024 8:41am Two vessel cord November 30, 2024 8:4 1am Abnormal umbilical cord November 30, 2024 8:41am Abnormal antibody titer December 14, 2024 8 :56am Hx of hemorrhage, currently p regnant December 14, 2024 8:56am December 14, 2024 8:56a m Supervision of high-risk December 022024 8:56am Two vessel cord December 14, 2024 8:56a m Abnormal umbilical cord December 14, 2024 8 :56am Abnormal antibody titer December 28, 2024 8 :54am Hx of hemorrhage, currently p regnant December 28, 2024 8:54am December 28, 2024 8:54a m Supervision of high-risk December 032024 8:54am Two vessel cord December 28, 2024 8:54a m Abnormal umbilical cord December 28, 2024 8 :54am Abnormal antibody titer January 11, 2025 3:12pm Hx of hemorrhage, currently p regnant January 11, 2025 3:12pm January 11, 2025 3:12 pm Supervision of high-risk January 11, 2025 3:12pm Two vessel cord January 11, 2025 3:12 pm Chief Complaint Admit Date 22 wk ob October 05, 2024 8:48 am 26 wk ob/glucose November 02, 2024 8:42 am 30 wk ob November 30, 2024 8:4 1am EORDER TODAY PER PATIENT November 30 9:11am 32 wk ob December 14, 2024 8:56a m 34 wk ob December 28, 2024 8:54a m 36wk ob January 11, 2025 3:12 pm 37 wk ob January 18, 2025 12:2 1pm Reason for Visit Admit Date Abnormal antibody titer October 05, 2024 8:48am Hx of hemorrhage, currently p regnant October 05, 2024 8:48am October 05, 2024 8:48 am Supervision of high-risk October 05, 2024 8:48am Two vessel cord October 05, 2024 8:48 am Abnormal umbilical cord October 05, 2024 8:48am Abnormal antibody titer November 02, 2024 8:42am Hx of hemorrhage, currently p regnant November 02, 2024 8:42am November 02, 2024 8:42 am Supervision of high-risk November 02, 2024 8:42am Two vessel cord November 02, 2024 8:42 am Abnormal umbilical cord November 02, 2024 8:42am Abnormal antibody titer November 30, 2024 8:41am Hx of hemorrhage, currently p regnant November 30, 2024 8:41am November 30, 2024 8:4 1am Supervision of high-risk November 30, 2024 8:41am Two vessel cord November 30, 2024 8:4 1am Abnormal umbilical cord November 30, 2024 8:41am Abnormal antibody titer December 14, 2024 8 :56am Hx of hemorrhage, currently p regnant December 14, 2024 8:56am December 14, 2024 8:56a m Supervision of high-risk December 022024 8:56am Two vessel cord December 14, 2024 8:56a m Abnormal umbilical cord December 14, 2024 8 :56am Abnormal antibody titer December 28, 2024 8 :54am Hx of hemorrhage, currently p regnant December 28, 2024 8:54am December 28, 2024 8:54a m Supervision of high-risk December 032024 8:54am Two vessel cord December 28, 2024 8:54a m Abnormal umbilical cord December 28, 2024 8 :54am Abnormal antibody titer January 11, 2025 3:12pm Hx of hemorrhage, currently p regnant January 11, 2025 3:12pm January 11, 2025 3:12 pm Supervision of high-risk January 11, 2025 3:12pm Two vessel cord January 11, 2025 3:12 pm Abnormal antibody titer January 18, 2025 12:21pm Hx of hemorrhage, currently p regnant January 18, 2025 12:21pm Positive GBS test January 18, 2025 12:2 1pm January 18, 2025 12:2 1pm Supervision of high-risk January 18, 2025 12:21pm Two vessel cord January 18, 2025 12:2 1pm Chief Complaint Admit Date 22 wk ob October 05, 2024 8:48 am 26 wk ob/glucose November 02, 2024 8:42 am 30 wk ob November 30, 2024 8:4 1am EORDER TODAY PER PATIENT November 30 9:11am 32 wk ob December 14, 2024 8:56a m 34 wk ob December 28, 2024 8:54a m 36wk ob January 11, 2025 3:12 pm 37 wk ob January 18, 2025 12:2 1pm CHECK FLUID AND POSITION January 20, 2025 3:34pm 38 wk ob/nst January 24, 2025 8:06 am Reason for Visit Admit Date Abnormal antibody titer October 05, 2024 8:48am Hx of hemorrhage, currently p regnant October 05, 2024 8:48am October 05, 2024 8:48 am Supervision of high-risk October 05, 2024 8:48am Two vessel cord October 05, 2024 8:48 am Abnormal umbilical cord October 05, 2024 8:48am Abnormal antibody titer November 02, 2024 8:42am Hx of hemorrhage, currently p regnant November 02, 2024 8:42am November 02, 2024 8:42 am Supervision of high-risk November 02, 2024 8:42am Two vessel cord November 02, 2024 8:42 am Abnormal umbilical cord November 02, 2024 8:42am Abnormal antibody titer November 30, 2024 8:41am Hx of hemorrhage, currently p regnant November 30, 2024 8:41am November 30, 2024 8:4 1am Supervision of high-risk November 30, 2024 8:41am Two vessel cord November 30, 2024 8:4 1am Abnormal umbilical cord November 30, 2024 8:41am Abnormal antibody titer December 14, 2024 8 :56am Hx of hemorrhage, currently p regnant December 14, 2024 8:56am December 14, 2024 8:56a m Supervision of high-risk December 022024 8:56am Two vessel cord December 14, 2024 8:56a m Abnormal umbilical cord December 14, 2024 8 :56am Abnormal antibody titer December 28, 2024 8 :54am Hx of hemorrhage, currently p regnant December 28, 2024 8:54am December 28, 2024 8:54a m Supervision of high-risk December 032024 8:54am Two vessel cord December 28, 2024 8:54a m Abnormal umbilical cord December 28, 2024 8 :54am Abnormal antibody titer January 11, 2025 3:12pm Hx of hemorrhage, currently p regnant January 11, 2025 3:12pm January 11, 2025 3:12 pm Supervision of high-risk January 11, 2025 3:12pm Two vessel cord January 11, 2025 3:12 pm Abnormal antibody titer January 18, 2025 12:21pm Hx of hemorrhage, currently p regnant January 18, 2025 12:21pm Positive GBS test January 18, 2025 12:2 1pm January 18, 2025 12:2 1pm Supervision of high-risk January 18, 2025 12:21pm Two vessel cord January 18, 2025 12:2 1pm Abnormal antibody titer January 24, 2025 8:06am Hx of hemorrhage, currently p regnant January 24, 2025 8:06am Positive GBS test January 24, 2025 8:06 am January 24, 2025 8:06 am Small for gestational age fetus January 8:06am Supervision of high-risk January 24, 2025 8:06am Two vessel cord January 24, 2025 8:06 am Family History No Family History Records Found Relationship Condition Age at Onset Recorded Date/T kennedy father Alcoholism Unknown grandmother Malignant neoplasm of breast Unknown Hypertension Unknown aunt Malignant neoplasm of breast Unknown mother Hyperlipidemia Unknown Relationship Condition Age at Onset Recorded Date/T kennedy father Alcoholism Unknown grandmother Malignant neoplasm of breast Unknown Hypertension Unknown Dementia 90 aunt Malignant neoplasm of breast Unknown mother Hyperlipidemia Unknown Advance Directives No Advanced Directives Records Found Advance Directive Response Recorded Date/ Time Living Will No October 23, 2020 2:24pm Power of Silviculturist No October 23 2:24pm Advance Directive Response Recorded Date/ Time Living Will No October 23, 2020 1:24pm Power of Silviculturist No October 23 1:24pm Advance Directive Response Recorded Date/ Time Living Will No August 24 8:09pm Power of Silviculturist No August 24, 2022 8:09pm Advance Directive Response Recorded Date/ Time Living Will No December 27, 2022 4 :18am Power of Silviculturist No December 27, 2022 4:18am Advance Directive Response Recorded Date/ Time Living Will No December 27, 2022 4 :18am Do you have a Healthcare Power of Silviculturist? No December 27, 2022 4:18am Summary Purpose Additional Source Comments Goals (unrecognized section and content) Goals may be documented in a n alternate sectionGoals may be documented in an alternate sectionGoals may be documented in an alternate sectionGoals may be documented in an alternate sectionGoals may be documented in an alternate sectionGoals may be documented in an alternate sectionGoals may be documented in an alternate sectionGoals may be documented in an alternate sectionGoals may be documented in an alternate sectionGoals may be documented in an alternate sectionGoals may be documented in an alternate sectionGoals may be documented in an alternate sectionGoals may be documented in an alternate sectionGoals may be documented in an alternate section Care Teams (unrecognized sec tion and content) Team Status: Active Member Role Status Dates Dr. Alireza London MD Primary Care Provider Active Team Status: Inactive Member Role Status Dates Dr. Alireza London MD Primary Care Provider Active Start: October 05, 2024 End: October 05, 2024 Dr. Alireza London MD Referring Provider Active Start: October 05, 2024 End: October 05, 2024 Dr. Bhavani Wells DO Attending Provider Activ e Start: October 05, 2024 End: October 05, 2024 Team Status: Inactive Member Role Status Dates Dr. Alireza London MD Primary Care Provider Active Start: October 05, 2024 End: October 05, 2024 Dr. Bhavani Wells DO Attending Provider Activ e Start: October 05, 2024 End: October 05, 2024 Dr. Bhavani Wells DO Referring Provider Activ e Start: October 05, 2024 End: October 05, 2024 Team Status: Inactive Member Role Status Dates Dr. Alireza London MD Primary Care Provider Active Start: October 12, 2024 End: October 12, 2024 Dr. Bhavani Wells DO Attending Provider Activ e Start: October 12, 2024 End: October 12, 2024 Dr. Bhavani Wells DO Referring Provider Activ e Start: October 12, 2024 End: October 12, 2024 Team Status: Inactive Member Role Status Dates Dr. Alireza London MD Primary Care Provider Active Start: November 02, 2024 End: November 02, 2024 Dr. Alireza London MD Referring Provider Active Start: November 02, 2024 End: November 02, 2024 Dr. Bhavani Wells DO Attending Provider Activ e Start: November 02, 2024 End: November 02, 2024 Team Status: Inactive Member Role Status Dates Dr. Alireza London MD Primary Care Provider Active Start: November 02, 2024 End: November 02, 2024 Dr. Bhavani Wells DO Attending Provider Activ e Start: November 02, 2024 End: November 02, 2024 Dr. Bhavani Wells DO Referring Provider Activ e Start: November 02, 2024 End: November 02, 2024 Team Status: Inactive Member Role Status Dates Dr. Alireza Londno MD Primary Care Provider Active Start: November 30, 2024 End: November 30, 2024 Dr. Alireza London MD Referring Provider Active Start: November 30, 2024 End: November 30, 2024 Carol Barrera CNM Attending Provider Active S tart: November 30, 2024 End: November 30, 2024 Team Status: Inactive Member Role Status Dates Dr. Alireza London MD Primary Care Provider Active Start: November 30, 2024 End: November 30, 2024 Carol Barrera CNM Attending Provider Active S tart: November 30, 2024 End: November 30, 2024 Carol Barrera CNM Referring Provider Active S tart: November 30, 2024 End: November 30, 2024 Team Status: Inactive Member Role Status Dates Dr. Alireza London MD Primary Care Provider Active Start: December 14, 2024 End: December 14, 2024 Dr. Alireza London MD Referring Provider Active Start: December 14, 2024 End: December 14, 2024 Dr. Elidia Joaquin MD Attending Provider Active Start: December 14, 2024 End: December 14, 2024 Team Status: Inactive Member Role Status Dates Dr. Alireza London MD Primary Care Provider Active Start: December 28, 2024 End: December 28, 2024 Dr. Alireza London MD Referring Provider Active Start: December 28, 2024 End: December 28, 2024 Carol Barrera CNM Attending Provider Active S tart: December 28, 2024 End: December 28, 2024 Team Status: Inactive Member Role Status Dates Dr. Alireza London MD Primary Care Provider Active Start: December 28, 2024 End: December 28, 2024 Carol Barrera CNM Attending Provider Active S tart: December 28, 2024 End: December 28, 2024 Team Status: Inactive Member Role Status Dates Dr. Alireza London MD Primary Care Provider Active Start: January 11, 2025 End: January 11, 2025 Dr. Alireza London MD Referring Provider Active Start: January 11, 2025 End: January 11, 2025 Alesha To AFFILIATE MARKETING COORDINATOR, AFFILIATE MARKETING COORDINATOR-C Attending Provider Active Start: January 11, 2025 End: January 11, 2025 Team Status: Inactive Member Role Status Dates Dr. Alireza London MD Primary Care Provider Active Start: January 11, 2025 End: January 11, 2025 Alesha To AFFILIATE MARKETING COORDINATOR, AFFILIATE MARKETING COORDINATOR-C Attending Provider Active Start: January 11, 2025 End: January 11, 2025 Alesha To AFFILIATE MARKETING COORDINATOR, AFFILIATE MARKETING COORDINATOR-C Referring Provider Active Start: January 11, 2025 End: January 11, 2025 Team Status: Inactive Member Role Status Dates Dr. Alireza London MD Primary Care Provider Active Start: January 18, 2025 End: January 18, 2025 Dr. Alireza London MD Referring Provider Active Start: January 18, 2025 End: January 18, 2025 Dr. Bhavani Wells DO Attending Provider Activ e Start: January 18, 2025 End: January 18, 2025 Team Status: Active Member Role Status Dates Dr. Alireza London MD Primary Care Provider Active Start: January 20, 2025 Dr. Bhavani Wells DO Attending Provider Activ e Start: January 20, 2025 Dr. Bhavani Wells DO Referring Provider Activ e Start: January 20, 2025 Team Status: Inactive Member Role Status Dates Dr. Alireza London MD Primary Care Provider Active Start: January 24, 2025 End: January 24, 2025 Dr. Alireza London MD Referring Provider Active Start: January 24, 2025 End: January 24, 2025 Dr. Elidia Joaquin MD Attending Provider Active Start: January 24, 2025 End: January 24, 2025 Team Status: Active Member Role Status Dates No Primary Care Physician Family Provider Active Dr. Alireza London MD Primary Care Provider Active Team Status: Inactive Member Role Status Dates Dr. Alireza London MD Primary Care Provider, Referri ng Provider Active Dr. Bhavani Wells DO Attending Provider Activ e Team Status: Inactive Member Role Status Dates Dr. Alireza London MD Primary Care Provider, Referri ng Provider Active Alesha To AFFILIATE MARKETING COORDINATOR, AFFILIATE MARKETING COORDINATOR-C Attending Provider Active Team Status: Inactive Member Role Status Dates Dr. Alireza London MD Primary Care Provider, Referri ng Provider Active Dr. Elidia Joaquin MD Attending Provider Active Team Status: Active Member Role Status Dates Dr. Alireza London MD Primary Care Provider Active Dr. Bhavani Wells DO Attending Provider, Othe r Provider Active Team Status: Active Member Role Status Dates Dr. Alireza London MD Primary Care Provider Active Azucena Dwyer CNM Admit Provider, At tending Provider, Other Provider Active Team Status: Inactive Member Role Status Dates Dr. Alireza London MD Primary Care Provider Active Dr. Bhavani Wells DO Attending Provider, Refe rring Provider Active Team Status: Inactive Member Role Status Dates Dr. Alireza London MD Primary Care Provider Active Dr. Bhavani Wells DO Attending Provider Activ e Team Status: Inactive Member Role Status Dates Dr. Alireza London MD Primary Care Provider Active Azucena Dwyer CNM Admit Provider, Attending Provid er Active Team Status: Inactive Member Role Status Dates Dr. Alireza London MD Primary Care Provider Active Start: July 05, 2024 End: July 05, 2024 Dr. Alireza London MD Referring Provider Active Start: July 05, 2024 End: July 05, 2024 Carol Barrera CNM Attending Provider Active S tart: July 05, 2024 End: July 05, 2024 Team Status: Inactive Member Role Status Dates Dr. Alireza London MD Primary Care Provider Active Start: July 05, 2024 End: July 05, 2024 Carol Barrera CNM Attending Provider Active S tart: July 05, 2024 End: July 05, 2024 Carol Barrera CNM Referring Provider Active S tart: July 05, 2024 End: July 05, 2024 Team Status: Inactive Member Role Status Dates Dr. Alireza London MD Primary Care Provider Active Start: August 10, 2024 End: August 10, 2024 Dr. Alireza London MD Referring Provider Active Start: August 10, 2024 End: August 10, 2024 Dr. Bhavani Wells DO Attending Provider Activ e Start: August 10, 2024 End: August 10, 2024 Team Status: Inactive Member Role Status Dates Dr. Alireza London MD Primary Care Provider Active Start: August 10, 2024 End: August 10, 2024 Carol Barrera CNM Attending Provider Active S tart: August 10, 2024 End: August 10, 2024 Carol Barrera CNM Referring Provider Active S tart: August 10, 2024 End: August 10, 2024 Team Status: Inactive Member Role Status Dates Dr. Alireza London MD Primary Care Provider Active Start: September 07, 2024 End: September 07, 2024 Dr. Alireza London MD Referring Provider Active Start: September 07, 2024 End: September 07, 2024 Alesha To AFFILIATE MARKETING COORDINATOR, AFFILIATE MARKETING COORDINATOR-C Attending Provider Active Start: September 07, 2024 End: September 07, 2024 Team Status: Inactive Member Role Status Dates Dr. Alireza London MD Primary Care Provider Active Start: September 07, 2024 End: September 07, 2024 Alesha To AFFILIATE MARKETING COORDINATOR, AFFILIATE MARKETING COORDINATOR-C Attending Provider Active Start: September 07, 2024 End: September 07, 2024 Alesha To AFFILIATE MARKETING COORDINATOR, AFFILIATE MARKETING COORDINATOR-C Referring Provider Active Start: September 07, 2024 End: September 07, 2024 Team Status: Active Member Role Status Dates Dr. Alireza London MD Primary Care Provider Active Start: October 12, 2024 Dr. Bhavani Wells DO Attending Provider Activ e Start: October 12, 2024 Dr. Bhavani Wells DO Referring Provider Activ e Start: October 12, 2024 Team Status: Active Member Role Status Dates Dr. Alireza London MD Primary Care Provider Active Start: December 28, 2024 Carol Barrera CNM Attending Provider Active S tart: December 28, 2024 Team Status: Inactive Member Role Status Dates Dr. Alireza London MD Primary Care Provider Active Start: January 20, 2025 End: January 20, 2025 Dr. Bhavani Wells DO Attending Provider Activ e Start: January 20, 2025 End: January 20, 2025 Dr. Bhavani Wells DO Referring Provider Activ e Start: January 20, 2025 End: January 20, 2025 Source Comments (unrecognize d section and content) In the event this informatio n is protected by the Federal Confidentiality of Alcohol and Drug Abuse Patient Records regulations: The Federal rules restrict any use of the information to criminally investigate or prosecute any alcohol or drug abuse patient.[facility] Reason for Visit (unrecogniz ed section and content) Reason Comments Sore Throat fever x 2 days, Sund ay vomiting and diarrhea all day INFORMATION SOURCE (unrecogn ized section and content) DATE CREATED AUTHOR 02/05/2024 [facility] DATE CREATED AUTHOR AUTHOR'S ORGANIZ ATION 01/05/2025 [facility] DATE CREATED AUTHOR AUTHOR'S ORGANIZ ATION 01/27/2025 [facility] FOR RECORDS PERTAINING TO PATIENTS WHO ARE OR HAVE BEEN ENROLLED IN A CHEMICAL DEPENDENCY/SUBSTANCEABUSE PROGRAM, SOME INFORMATION MAY BE OMITTED. This clinical summary was aggregated from multiple sources. Caution should be exercised in using it in the provision of clinical care. This summary normalizes information from multiple sources, and as a consequence, information in this document may materially change the coding, format and clinical context of patient data. In addition, data may be omitted in some cases. CLINICAL DECISIONS SHOULD BE BASED ON THE PRIMARY CLINICAL RECORDS. [facility]. provides no warranty or guarantee of the accuracy or completeness of information in this document.
--- OUTSIDE RECORDS SUMMARY | 2025-01-30 19:06 | XMS RPT_ITS | CCD ---
Author Organization [facility] CliniSywy Care Team Providers Care Process Description Writer Name Role Phone Dr. Alireza London Primary Care Provider Dr. Alireza London Referring Provider 1(330) Yousuf ORNAMENTAL PLASTERER HELPER, ORNAMENTAL PLASTERER HELPER-C Alesha Attending Provider 1(330 ) Dr. Elidia Joaquin Attending Provider 1(330 ) Dr. Alireza London Primary Care Provider Dr. Alireza London Referring Provider 1(330) Dr. Bhavani Wells Attending Provider 1(3 30) Yousuf ORNAMENTAL PLASTERER HELPER, RAMIRO-C Alesha Attending Provider 1(330 ) Dr. Elidia Joaquin Attending Provider 1(330 ) Dr. Alireza London Primary Care Provider Dr. Alireza London Referring Provider 1(330) Dr. Bhavani Wells Attending Provider 1(3 30) Yousfu ORNAMENTAL PLASTERER HELPER, RAMIRO-C Alesha Attending Provider 1(330 ) Dr. [...] Corey DO, Dr. Beckham Attending Provider Yousuf ORNAMENTAL PLASTERER HELPER-C, Alesha Attending Provider [phone] [place] ORNAMENTAL PLASTERER HELPER-C, Alesha Referring Provider [phone] Kt Corey [...] Attending Provider BHAVANI SANCHEZ Referring Unavailab ALIREZA gAuayo Primary Care Unavailable BHAVANI SANCHEZ Attending Unavailab [...] Provider Sara RAMOS, Dr. Wolf Referring Provider [place] ORNAMENTAL PLASTERER HELPER-C, Alesha Attending Provider [place] ORNAMENTAL PLASTERER HELPER-C, Alesha Referring Provider Sara, Alireza Primary Care Unavailable Sara, Alireza Referring Unavailable Vande Velde, Bhavani Attending Unavailabl e Sara, Alireza Primary Care Unavailable Sara, Alireza Referring Unavailable Vande Velde, Bhavnai Attending Unavailabl e Sara, Alireza Primary Care Unavailable Sara, Alireza Referring Unavailable Carol Barrera Attending Unavailable Sara, Alireza Primary Care Unavailable Sara, Alireza Referring Unavailable Elidia Joaquin Attending Unavailable Sara, Alireza Primary Care Unavailable Vande Velde, Bhavani Referring Unavailabl e Vande Velde, Bhavani Attending Unavailabl e Yousuf ORNAMENTAL PLASTERER HELPER, Alesha Attending Unavailable Sara, Alireza Primary Care Unavailable [place] ORNAMENTAL PLASTERER HELPER, Alesha Referring Unavailable Vande Velde, Bhavani Attending [...] Unavailable Vande Velde, Bhavani Attending Unavailabl e [place] ORNAMENTAL PLASTERER HELPER, Alesha Attending Unavailable Sara, Alireza Referring Unavailable Sara, Alireza Primary Care Unavailable Sara, Alireza Referring Unavailable Yousuf ORNAMENTAL PLASTERER HELPER, Alesha Attending Unavailable Sara, Alireza Primary Care Unavailable Vande Velde, Bhavani Attending Unavailabl e Sara, Alireza Primary Care Unavailable Sara, Alireza Referring Unavailable Vande Velde, Bhavani Attending Unavailabl e Sara, Alireza Primary Care Unavailable Sara, Alireza Referring Unavailable Sara, Alireza Primary Care Unavailable Sara, Alireza Referring Unavailable Yousuf ORNAMENTAL PLASTERER HELPER, Alesha Attending Unavailable Sara, Alireza Primary Care [...] Care Unavailable Sara, Alireza Primary Care Unavailable Yousuf ORNAMENTAL PLASTERER HELPER, Alesha Attending Unavailable Yousuf ORNAMENTAL PLASTERER HELPER, Alesha Referring Unavailable Sara, Alireza Primary Care [...] and vomiting July 05, 2024 1:00am Pnv #92-Eyuv-Zvhxv Acid-Omega3 (4 sources) Start: 01-21-2022 take 1 capsule by mouth once daily Pnv #44-Lyct-Nzvsb Acid-Omega3 Active 1 CAP PO DAILY January 20, 2022 11:00pm Start: 01-21-2022 Pnv #30-Iron-F olic Acid-Omega3 Active CAP PO January 20, 2022 11:00pm Start: 01-21-2022 Pnv #30-Iron-F olic Acid-Omega3 Active CAP PO January 21, 2022 12:00am Pnv #40-Zkjl-Qeenr Acid-Omega3 30 mg iron-10 mg iron-1 mg [...] Test Name Value Interpretation Reference Range Facility Bail Agent Office Visit Reporton 01-24-2025 Bail Agent Office Visit Report [facility] [address], [address] [place] [address] OFFICE VISIT Date of Service: 01/24/25 MR#: [id number] Acct: [id number] Name: JIHAN GUERRERO Rep #: [id number] : 1990 Provider: Dr. 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 Date Name GA/Weeks Outcome Route Bth Weight Infant Gen Labor Lgth Anesthesia Del Locatn Provider FOB 08/25/22 Joe 39 live - full term 7#2OZ Male [facility] Colli ns Tashi Delivery Date: 08/25/22 Last [...] Dilation -???-???-???-??? (more content not included)... Normal [facility] OB Limited (No Biometrics)on 01-20-2025 OB Limited (No Biometrics) [facility] [address] [place] [address] OB Limited (No Biometrics) MR#: [id number] Acct: [id number] Name: JIHAN GUERRERO Rep #: [id number] : 1990 F 34 From: Sean Conde DO PCP: Dr. Alireza London MD Status: REG CLI Study: OB Limited (No Biometrics) Date of Exam: 01/20 Exam# [id number] Ordering Dr: Bhavani Wells DO PROCEDURE: OB [...] is not low-lying. Reading Location: [facility] CC: Dr. Bhavani Wells DO; Dr. 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 [place]erryboat Required: No Is patient in pain?: No [...] current occupational status: employed current occupation: [employer] pets and animals: Yes pets and animals: dog(s) history of recent travel: Yes ([place]) out of state: Yes out of country: [...] in: none frequency: 3-4 times per week galo/sabianist: None seatbelt use: always do you feel safe at home: Yes additional social history: - 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 Date Name GA/Weeks Outcome Route Bth Weight Infant Gen Labor Lgth Anesthesia Del Locatn Provider FOB 08/25/22 Joe 39 live - full term 7#2OZ Male [facility] Colli ns Tashi Delivery Date: 08/25/22 Last [...] FHR FuHt (more content not included)... Normal [facility] Rule out Beta Strep (Grp. B) on 01-15-2025 NICK Streptococcus agalac tiae (B) Amount Growth 3+ Streptococcus agalactiae (B): REACTION Ampicillin Islt ABRAHAN <=0.25 cefTRIAXone Islt ABRAHAN <=0.12 S Clindamycin Islt ABRAHAN <=0.25 S Clindamycin.induced Susc Islt NEG Linezolid Islt ABRAHAN <=2 S Vancomycin Islt ABRAHAN 0.5 S Normal [facility] Comment on above: Performed By: #### M 100.7256 #### [facility] Laboratory [facility] [place], [address] Laboratory - Chemistry and C hemistry - challengeOrdered By: Alesha To on 01-11-2025 Glucose Ql (U) Negative [facility] Laboratory - UrinalysisOrder ed By: Alesha To on 01-11-2025 Protein Ql (U) Negative [facility] Bail Agent Office Visit Reporton 01-11-2025 Bail Agent Office Visit Report [facility] [address], [address] [place] [address] OFFICE VISIT Date of Service: 01/11/25 MR#: [id number] Acct: [id number] Name: JIHAN GUERRERO Rep #: [id number] : 1990 Provider: ROMEO zamudio Age/Sex: 34/F Location: [facility] [place] Status: Signed Intake Vital Signs 12/28/24 09:00 01/11/25 15:16 Height 5 ft 5 in 5 ft 5 in Weight: 199 lb 2 oz 202 lb 8 oz BMI 33.1 33.7 BP 135/80 H 104/70 Intake Visit Reasons: 36wk ob Chief Complaint: 36 Week OB 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 Date Name GA/Weeks Outcome Route Bth Weight Gen Labor Lgth Anesthesia Del Locatn Provider FOB 08/25/22 Joe 39 live - full term 7#2OZ Male [facility] Colli ns Tashi Delivery Date: 08/25/22 Last [...] FuHt Pres (more content not included)... Normal [facility] Screening beta-hemolytic Str eptococcus cultureOrdered By: Alesha To on 01-11-2025 Beta-hemolytic Streptococcus culture Streptococcus agalactiae (B) Abnormal [facility] L3410.9992on 12-29-2024 [facility] Mis. COMMENT Normal . [facility] Comment on above: Order Comment: LAV/W [id number] M TITER Result Comment: Test Ordered: [id number] Antibody Identification Antibody Id. #1 Anti-M CB [...] reported as 2, 4, 8, etc. The [employer] has recommended this change in titer reporting formats to simply reflect the reciprocal value of the titer. Antibody Id. #2 ORNAMENTAL PLASTERER HELPER NOLAB Reference Range: . Dat Titer #2 ORNAMENTAL PLASTERER HELPER NOLAB Reference Range: . Performed at: - [facility] [address] [id number] Asthma Educator: Joey Mortensen PhD, Phone: [phone] Performed By: #### M 598.1357 #### [facility] [place], [address] Laboratory - Chemistry and C hemistry - challengeOrdered By: Carol Barrera on 12-28-2024 Glucose Ql (U) Negative [facility] Laboratory - UrinalysisOrder ed By: Carol Barrera on 12-28-2024 Protein Ql (U) Negative [facility] Bail Agent Office Visit Reporton 12-28-2024 Bail Agent Office Visit Report [facility] [address], [address] [place] [address] OFFICE VISIT Date of Service: 12/28/24 MR#: [id number] Acct: [id number] Name: JIHAN GUERRERO Rep #: [id number] : 1990 Provider: DENG White ams Age/Sex: 34/F [place] [facility] [place]: Signed Intake Vital Signs 07/05/24 13:02 11/30/24 08:46 12/14/24 08:59 12/28/24 09:00 Height 5 ft 5 in 5 ft 5 in 5 ft 5 in 5 ft 5 in Weight: 195 lb 199 lb 2 oz BMI 32.4 33.1 BP 124/75 H 135/80 H Intake Visit Reasons: 34 wk ob Chief Complaint: 34wk OB Ticket Taker [place]erry[place] Required: No Is patient in pain?: No [...] 1 current occupational status: employed current occupation: [employer] pets and animals: Yes pets and animals: dog(s) history of recent travel: Yes ([place]) out of state: Yes out of country: [...] in: none frequency: 3-4 times per week galo/sabianist: None seatbelt use: always do you feel safe at home: Yes additional social history: - 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 Date Name GA/Weeks Outcome Route Bth Weight Infant Gen Labor Lgth Anesthesia Del Locatn Provider FOB 08/25/22 Joe 39 live - full term 7#2OZ Male [facility] Colli ns Tashi Delivery Date: 08/25/22 Last [...] Dilation -???-???-? (more content not included)... Normal [facility] Laboratory - Chemistry and C hemistry - challengeOrdered By: Elidia Joaquin on 12-14-2024 Glucose Ql (U) Negative [facility] Laboratory - UrinalysisOrder ed By: Elidia Joaquin on 12-14-2024 Protein Ql (U) Negative [facility] Bail Agent Office Visit Reporton 12-14-2024 Bail Agent Office Visit Report [facility] [address], [address] [place] [address] OFFICE VISIT Date of Service: 12/14/24 MR#: [id number] Acct: [id number] Name: JIHAN GUERRERO Rep #: [id number] : 1990 Provider: Dr. 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 Date Name GA/Weeks Outcome Route Bth Weight Infant Gen Labor Lgth Anesthesia Del Locatn Provider FOB 08/25/22 Joe 39 live - full term 7#2OZ Male [facility] Colli ns Tashi Delivery Date: 08/25/22 Last [...] -???-???-???-???-???-??? -???-???-???-???-???-? (more content not included)... Normal [facility] . [facility] Comment on above: Order Comment: [id number] ANTI M TITER EDTA LAV WB Result Comment: Test Ordered: [id number] Antibody Identification Antibody Id. #1 Anti-M CB Reference Range: . Dat Titer #1 2 CB Reference Range: . If a numerical titer result has been reported, please note that this result is the reciprocal value of titer results formerly reported as 1:2,1:4, 1:8, etc. These results are now reported as 2, 4, 8, etc. The [employer] has recommended this change in titer reporting formats to simply reflect the reciprocal value of the titer. Antibody Id. #2 ORNAMENTAL PLASTERER HELPER NOLAB Reference Range: . Dat Titer #2 ORNAMENTAL PLASTERER HELPER NOLAB Reference Range: . Performed at: [address] [id number] Asthma Educator: Joey Mortensen PhD, Phone: [phone] Performed By: #### L 3150.9992 #### [facility] [address] [facility] [place], [address] HIVon 11-30-2024 HIV Non-Reactive Normal Nonreactive [facility] Comment on above: Result Comment: Non- Reactive Reactive Repeatedly reactive samples must be confirmed according to CDC recommended confirmatory algorithms. The subresults for either HIVAG or AHIV can be used as an aid in the selection of the confirmation algorithm for reactive samples. Send out specimens with Reactive results to [facility] for confirmation. Order the HIV antibody detection and differentiation: lc#[id number] Performed By: #### L 3890.6006 ####[facility] [id number] [facility] [place], [address] Laboratory - Chemistry and C hemistry - challengeOrdered By: Carol Barrera on 11-30-2024 Glucose Ql (U) Negative [facility] Laboratory - UrinalysisOrder ed By: Carol Barrera on 11-30-2024 Protein Ql (U) Negative [facility] No Panel InformationOrdered By: Carol Barrera on 11-30-2024 HIV (1&2) Antibody Non-Reactive Nonreactive [facility] Comment on above: Non-ReactiveReactive Repeatedly reactive samples must be confirmed according to CDC recommended confirmatory algorithms. The subresults for either HIVAG or AHIV can be used as an aid in the selection of the confirmation algorithm for reactive samples.Send out specimens with Reactive results to [facility] for confirmation.Order the HIV antibody detection and differentiation: #[id number] Bail Agent Office Visit Reporton 11-30-2024 Bail Agent Office Visit Report [facility] [address], [address] [place] [address] OFFICE VISIT Date of Service: 11/30/24 MR#: [id number] Acct: [id number] Name: JIHAN GUERRERO Rep #: [id number] : 1990 Provider: DENG White [facility] Age/Sex: 34/F [place] [facility] [place]: Signed Intake Vital Signs 07/05/24 13:02 11/02/24 08:46 11/30/24 08:45 11/30/24 08:46 Height 5 ft 5 in 5 ft 5 in 5 ft 5 in 5 ft 5 in Weight: 192 lb 6 oz BMI 32.0 BP 129/74 H Intake Visit Reasons: 30 wk ob Chief Complaint: 30wk OB 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 Taker [place] Required: No Is patient in pain?: No [...] 1 current occupational status: employed current occupation: [employer] pets and animals: Yes pets and animals: dog(s) history of recent travel: Yes ([place]) out of state: Yes out of country: [...] in: none frequency: 3-4 times per week galo/sabianist: None seatbelt use: always do you feel safe at home: Yes additional social history: - 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 Date Name GA/Weeks Outcome Route Bth Weight Gen Labor Lgth Anesthesia Del Locatn Provider FOB 08/25/22 Joe 39 live - full term 7#2OZ Male [facility] Colli sergio Akins Delivery Date: 08/25/22 Last [...] Note 12 (more content not included)... Normal [facility] Absolute lymphocyte countOrd ered By: Bhavani Corey on 11-02-2024 Lymphocytes Auto (Unsp spec) [#/Vol] 1.84 10*3/uL 0.83-4.51 [facility] Absolute neutrophil countOrd ered By: Bhavani Corey on 11-02-2024 Neutrophils (Bld) [#/Vol] 8.1 10*3/uL High 2.0-7.7 [facility] Automated lymphocyte count a s percentage of total leukocytesOrdered By: Bhavani Corey on 11-02-2024 Lymphocytes/100 WBC Auto (Unsp spec) 17.0 % Low 19-41 [facility] Basophil percentageOrdered B y: Bhavani Corey on 11-02-2024 Basophils/100 WBC (Bld) 0.3 % 0-1 [facility] CBC W/Diff, Automatedon -2024 Absolute Lymph 1.84 X10 3/uL Normal 0.83-4.51 [facility] Comment on above: Performed By: #### L 501.0250, L509.8002, L3890.6006, L100.0100 #### [facility] [address] [place], [address] Absolute Neut 8.1 X10 3/uL High 2.0-7.7 [facility] Comment on above: Performed By: #### L 501.0250, L509.8002, L3890.6006, L100.0100 #### [facility] [address] [place], [address] Basophils/100 WBC (Bld) 0.3 % Normal 0-1 [facility] Comment on above: Performed By: #### L 501.0250, L509.8002, L3890.6006, L100.0100 #### [facility] [address] [place], [address] Eosinophils/100 WBC (Bld) 0.5 % Normal 0-5 [facility] Comment on above: Performed By: #### L 501.0250, L509.8002, L3890.6006, L100.0100 #### [facility] [address] [place], [address] Erythrocyte distribution width (RBC) [Ratio] 12.8 % Normal 11.6-14.6 [facility] Comment on above: Performed By: #### L 501.0250, L509.8002, L3890.6006, L100.0100 #### [facility] [address] [place], [address] Hematocrit (Bld) [Volume fraction] 32.7 % Low 37-47 [facility] Comment on above: Performed By: #### L 501.0250, L509.8002, L3890.6006, L100.0100 #### [facility] [address] [place], [address] Hemoglobin (Bld) [Mass/Vol] 11.2 g/dL Low 12.0-15.0 [facility] Comment on above: Performed By: #### L 501.0250, L509.8002, L3890.6006, L100.0100 #### [facility] [address] [place], [address] IG% 0.900 Normal 0.0-0.9 [facility] Comment on above: Result Comment: IG% - Immature Granulocytes (promyelocytes, myelocytes and metamyelocytes) > 1% indicates that a LEFT SHIFT is Present. Performed By: #### L 501.0250, L509.8002, L3890.6006, L100.0100 #### [facility] [address] [place], [address] Lymphocytes/100 WBC (Bld) 17.0 % Low 19-41 [facility] Comment on above: Performed By: #### L 501.0250, L509.8002, L3890.6006, L100.0100 #### [facility] [address] [place], [address] MCH (RBC) [Entitic mass] 29.6 pg Normal 27.0-32.0 [facility] Comment on above: Performed By: #### L 501.0250, L509.8002, L3890.6006, L100.0100 #### [facility] [address] [place], [address] MCHC (RBC) [Mass/Vol] 34.3 g/dL Normal 32-36 [facility] Comment on above: Performed By: #### L 501.0250, L509.8002, L3890.6006, L100.0100 #### [facility] [address] [place], [address] MCV (RBC) [Entitic vol] 86.5 fL Normal 81-99 [facility] Comment on above: Performed By: #### L 501.0250, L509.8002, L3890.6006, L100.0100 #### [facility] [address] [place], [address] Monocytes/100 WBC (Bld) 6.5 % Normal 0-10 [facility] Comment on above: Performed By: #### L 501.0250, L509.8002, L3890.6006, L100.0100 #### [facility] [address] [place], [address] Neutrophils/100 WBC (Bld) 74.8 % High 47-70 [facility] Comment on above: Performed By: #### L 501.0250, L509.8002, L3890.6006, L100.0100 #### [facility] [address] [place], [address] Nucleated RBC (Bld) [#/Vol] 0 10*3/uL Normal 0-5 [facility] Comment on above: Performed By: #### L 501.0250, L509.8002, L3890.6006, L100.0100 #### [facility] [address] [place], [address] Platelet mean volume (Bld) [Entitic vol] 8.7 fL Normal 6.2-12.0 [facility] Comment on above: Performed By: #### L 501.0250, L509.8002, L3890.6006, L100.0100 #### [facility] [address] [place], [address] Platelets (Bld) [#/Vol] 348 10*3/uL Normal 150-450 [facility] Comment on above: Performed By: #### L 501.0250, L509.8002, L3890.6006, L100.0100 #### [facility] [address] [place], [address] RBC (Bld) [#/Vol] 3.78 10*6/uL Low 4.2-5.4 [facility] Comment on above: Performed By: #### L 501.0250, L509.8002, L3890.6006, L100.0100 #### [facility] [address] [place], [address] RDW SD 40.1 fl Normal 35.1-43.9 [facility] Comment on above: Performed By: #### L 501.0250, L509.8002, L3890.6006, L100.0100 #### [facility] [address] [place], [address] WBC (Bld) [#/Vol] 10.8 10*3/uL Normal 4.4-11.0 [facility] Comment on above: Performed By: #### L 501.0250, L509.8002, L3890.6006, L100.0100 #### [facility] [address] [place], [address] Eosinophil percentageOrdered By: Bhavani Corey on 11-02-2024 Eosinophils/100 WBC (Bld) 0.5 % 0-5 [facility] Erythrocyte distribution wid th (RBC) [Ratio]Ordered By: Bhavani Corey on 11-02-2024 Erythrocyte distribution width (RBC) [Entitic vol] 40.1 fL 35.1-43.9 [facility] Erythrocyte distribution wid th ratioOrdered By: Bhavani Corey on 11-02-2024 Erythrocyte distribution width (RBC) [Ratio] 12.8 % 11.6-14.6 [facility] Erythrocyte distribution wid th standard deviationOrdered By: Bhavani Corey on 11-02-2024 Erythrocyte distribution width (RBC) [Ratio] 40.1 fl 35.1-43.9 [facility] Glucose Challenge Gest 1H 50 patricia 11-02-2024 GLU GEST 50g 1H 95 mg/dL Normal 70-140 [facility] Comment on above: Performed By: #### L 501.0250, L509.8002, L3890.6006, L100.0100 #### [facility] [place], [address] Glucose measurement at 2 denilson rs post-dose gestational glucose tolerance testOrdered By: Bhavani Corey on 11-02-2024 Glucose [Mass/Vol] 95 mg/dL 70-140 [facility] Hematocrit Auto (Bld) [Volum e fraction]Ordered By: Bhavani Corey on 11-02-2024 Hematocrit (Bld) [Volume fraction] 32.7 % Low 37-47 [facility] Hemoglobin measurementOrdere d By: Bhavani Corey on 11-02-2024 Hemoglobin (Bld) [Mass/Vol] 11.2 g/dL Low 12.0-15.0 [facility] Immature granulocytes/100 WB C Auto (Bld)Ordered By: Bhavani Corey on 11-02-2024 Immature granulocytes/100 WBC (Bld) 0.900 % 0.0-0.9 [facility] Comment on above: IG% - Immature Granu locytes (promyelocytes, myelocytes and metamyelocytes) > 1% indicates that a LEFT SHIFT is Present. L3890.6006on 11-02-2024 HIV Non-Reactive Normal Nonreactive [facility] Comment on above: Result Comment: Non- Reactive Reactive Repeatedly reactive samples must be confirmed according to CDC recommended confirmatory algorithms. The subresults for either HIVAG or AHIV can be used as an aid in the selection of the confirmation algorithm for reactive samples. Send out specimens with Reactive results to [facility] for confirmation. Order the HIV antibody detection and differentiation: lc#[id number] Performed By: #### L 501.0250, L509.8002, L3890.6006, L100.0100 #### [facility] [address] [place], [address] L509.8002on 11-02-2024 Syphilis Abs Non-Reactive Normal Nonreactive [facility] Comment on above: Performed By: #### L 501.0250, L509.8002, L3890.6006, L100.0100 #### [facility] [address] [place], [address] Laboratory - Chemistry and C hemistry - challengeOrdered By: Bhavani Corey on 11-02-2024 Glucose Ql (U) Negative [facility] Laboratory - UrinalysisOrder ed By: Bhavani Corey on 11-02-2024 Protein Ql (U) Negative [facility] Lymphocytes Auto (Unsp spec) [#/Vol]Ordered By: Bhavani Corey on 11-02-2024 Lymphocytes (Bld) [#/Vol] 1.84 10*3/uL 0.83-4.51 [facility] Lymphocytes/100 WBC Auto (Un sp spec)Ordered By: Bhavani Corey on 11-02-2024 Lymphocytes/100 WBC (Bld) 17.0 % Low 19-41 [facility] MCV (mean corpuscular volume ) determinationOrdered By: Bhavani Corey on 11-02-2024 MCV (RBC) [Entitic vol] 86.5 fL 81-99 [facility] Mean corpuscular hemoglobin (MCH) determinationOrdered By: Bhavani Corey on 11-02-2024 MCH (RBC) [Entitic mass] 29.6 pg 27.0-32.0 [facility] Mean corpuscular hemoglobin concentration (MCHC) determinationOrdered By: Bhavani Corey on 11-02-2024 MCHC (RBC) [Mass/Vol] 34.3 g/dL 32-36 [facility] Mean platelet volume determi nationOrdered By: Bhavani Corey on 11-02-2024 Platelet mean volume (Bld) [Entitic vol] 8.7 fL 6.2-12.0 [facility] Monocyte percentageOrdered B y: Bhavani Corey on 11-02-2024 Monocytes/100 WBC (Bld) 6.5 % 0-10 [facility] Neutrophil percentageOrdered By: Bhavani Corey on 11-02-2024 Neutrophils/100 WBC (Bld) 74.8 % High 47-70 [facility] No Panel InformationOrdered By: Bhavani Corey on 11-02-2024 HIV (1&2) Antibody Non-Reactive Nonreactive [facility] Comment on above: Non-ReactiveReactive Repeatedly reactive samples must be confirmed according to CDC recommended confirmatory algorithms. The subresults for either HIVAG or AHIV can be used as an aid in the selection of the confirmation algorithm for reactive samples.Send out specimens with Reactive results to [facility] for confirmation.Order the HIV antibody detection and differentiation: #[id number] Nucleated red blood cell per centageOrdered By: Bhavani Corey on 11-02-2024 Nucleated RBC/100 WBC (Bld) [Ratio] 0 % 0-5 [facility] Bail Agent Office Visit Reporton 11-02-2024 Bail Agent Office Visit Report [facility]'s [address], [address] [place] [address] OFFICE VISIT Date of Service: 11/02/24 MR#: [id number] Acct: [id number] Name: LUDMILALUIS ENRIQUEJIHAN CALDERON Rep #: [id number] : 1990 Provider: Dr. 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 Date Name GA/Weeks Outcome Route Bth Weight Gen Labor Lgth Anesthesia Del Locatn Provider FOB 08/25/22 Joe 39 live - full term 7#2OZ Male [facility] Colli ns Tashi Delivery Date: 08/25/22 Last [...] -???-???-???-???-???-??? -???-???-?? (more content not included)... Normal [facility] Platelet countOrdered By: Charles wilburn Leora on 11-02-2024 Platelets (Bld) [#/Vol] 348 10*3/uL 150-450 [facility] RBC Auto (Bld) [#/Vol]Ordere d By: Bhavani Leora on 11-02-2024 RBC (Bld) [#/Vol] 3.78 10*6/uL Low 4.2-5.4 [facility] T. pallidum abOrdered By: Charles deandraar Leora on 11-02-2024 Syphilis Total Antibody Non-Reactive Nonreactive [facility] White blood cell (WBC) count Ordered By: Bhavani Leora on 11-02-2024 WBC (Bld) [#/Vol] 10.8 10*3/uL 4.4-11.0 [facility] L3410.9998on 10-13-2024 [facility]. COMMENT Normal . [facility] Comment on above: Order Comment: [id number] 3AB ID FRO TITERS WB RF Result Comment: Test Ordered: [id number] Antibody Identification Antibody Id. #1 Anti-M CB [...] reported as 2, 4, 8, etc. [employer] has recommended this change in titer reporting formats to simply reflect the reciprocal value of the titer. Antibody Id. #2 ORNAMENTAL PLASTERER HELPER NOLAB Reference Range: . Dat Titer #2 ORNAMENTAL PLASTERER HELPER NOLAB Reference Range: . Performed at: - [facility] [address] [id number] Asthma Educator: Joey Mortensen PhD, Phone: [phone] Performed By: #### L 3410.9998 ####[facility] [address] [place], [address] Laboratory - Chemistry and C hemistry - challengeOrdered By: Bhavani Corey on 10-05-2024 Glucose Ql (U) Negative [facility] Laboratory - UrinalysisOrder ed By: Bhavani Corey on 10-05-2024 Protein Ql (U) Negative [facility] Bail Agent Office Visit Reporton 10-05-2024 Bail Agent Office Visit Report [facility]'s [address], [address] [place] [address] OFFICE VISIT Date of Service: 10/05/24 MR#: [id number] Acct: [id number] Name: JIHAN GUERRERO Rep #: [id number] : 1990 Provider: Dr. Bhavani Tan DO Age/Sex: 34/F [place] [facility] [place]: Signed Intake Vital Signs 07/05/24 13:02 09/07/24 08:30 10/05/24 08:53 10/05/24 08:53 Height 5 ft 5 in 5 ft 5 in 5 ft 5 in 5 ft 5 in Weight: 180 lb 8 oz 181 lb 6 oz BMI 30.0 30.2 BP 118/72 110/77 Intake Visit Reasons: 22 wk ob Ticket Taker [place] Required: No Is patient in pain?: No [...] 1 current occupational status: employed current occupation: [employer] pets and animals: Yes pets and animals: dog(s) history of recent travel: Yes ([place]) out of state: Yes out of country: [...] in: none frequency: 3-4 times per week galo/sabianist: None seatbelt use: always do you feel safe at home: Yes 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 Date Name GA/Weeks Outcome Route Bth Weight Gen Labor Lgth Anesthesia Del Locatn Provider FOB 08/25/22 Joe 39 live - full term 7#2OZ Male [facility] Colli ns Tashi Delivery Date: 08/25/22 Last [...] Dilation -???-???-???-???-???-? (more content not included)... Normal [facility] L3410.9998on 09-08-2024 [facility] Misc. COMMENT Normal . [facility] Comment on above: Order Comment: [id number] 3 AB ID FOR TITERS LAV WB Result Comment: Test Ordered: [id number] Antibody Identification Antibody Id. #1 Anti-M CB Reference Range: . Dat Titer #1 2 CB Reference Range: . If a numerical titer result has been reported, please note that this result is the reciprocal value of titer results formerly reported as 1:2,1:4, 1:8, etc. These results are now reported as 2, 4, 8, etc. [employer] has recommended this change in titer reporting formats to simply reflect the reciprocal value of the titer. Antibody Id. #2 ORNAMENTAL PLASTERER HELPER NOLAB Reference Range: . Dat Titer #2 ORNAMENTAL PLASTERER HELPER NOLAB Reference Range: . Performed at: [facility] [address] [id number] Asthma Educator: Joey Mortensen PhD, Phone: [phone] Performed By: #### L 3410.9998 #### [facility] [address] [place], [address] Laboratory - Chemistry and C hemistry - challengeOrdered By: Alesha To on 09-07-2024 Glucose Ql (U) Negative [facility] Laboratory - UrinalysisOrder ed By: Alesha To on 09-07-2024 Protein Ql (U) Negative [facility] Bail Agent Office Visit Reporton 09-07-2024 Bail Agent Office Visit Report [facility]'s [address], [address] [place] [address] OFFICE VISIT Date of Service: 09/07/24 MR#: [id number] Acct: [id number] Name: JIHAN GUERRERO Rep #: [id number] : 1990 Provider: ROMEO zamudio Age/Sex: 34/F Location[place] [facility] Status: Signed Intake Vital Signs 07/05/24 13:02 08/10/24 15:03 09/07/24 08:30 Height 5 ft 5 in 5 ft 5 in 5 ft 5 in Weight: 180 lb 8 oz BMI 30.0 BP 118/72 Intake Visit Reasons: 18 wk ob Chief Complaint: 18 Week OB Ticket Taker [place] Required: No Is patient in pain?: No [...] current occupational status: employed current occupation: [employer] pets and animals: Yes pets and animals: dog(s) history of recent travel: Yes ([place]) out of state: Yes out of country: [...] in: none frequency: 3-4 times per week galo/sabianist: None seatbelt use: always do you feel safe at home: Yes 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 Date Name GA/Weeks Outcome Route Bth Weight Gen Labor Lgth Anesthesia Del Locatn Provider FOB 08/25/22 Joe 39 live - full term 7#2OZ Male [facility] Colli sergio Akins Delivery Date: 08/25/22 Last [...] -???-???-???-???-???-??? -???-???-???-???-???-??? (more content not included)... Normal [facility] Laboratory - Chemistry and C hemistry - challengeon 08-10-2024 Glucose Ql (U) Negative [facility] Laboratory - Urinalysison Protein Ql (U) Negative [facility] No Panel InformationOrdered By: Carol Barrera on 08-10-2024 Miscellaneous Test COMMENT . [facility] Comment on above: Test Ordered: [id number] Antibody IdentificationAntibody Id. #1 Anti-M CB Reference Range: .Dat Titer #1 2 CB Reference Range: .If a numerical titer result has been reported, please notethat this result is the reciprocal value of titer resultsformerly reported as 1:2,1:4, 1:8, etc. These results arenow reported as 2, 4, 8, etc. [employer] has recommended this change in titer reportingformats to simply reflect the reciprocal value of thetiter.Antibody Id. #2 ORNAMENTAL PLASTERER HELPER NOLAB Reference Range: .Dat Titer #2 ORNAMENTAL PLASTERER HELPER NOLAB Reference Range: .Performed at: - [facility] [id number] Director: Joey Mortensen PhD, Phone: [phone] Bail Agent Office Visit Reporton 08-10-2024 Bail Agent Office Visit Report [facility]'s [address], [address] [place] [address] OFFICE VISIT Date of Service: 08/10/24 MR#: [id number] Acct: [id number] Name: JIHAN GUERRERO Rep #: [id number] : 1990 Provider: Dr. 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 Normal [facility] Miscellaneous Lab Procedureo n 07-09-2024 [facility] LAB TEST Normal [facility] Comment on above: Order Comment: ADD O N [id number] AB Antibody ID [id number] LAV WB RF Result Comment: TEST RESULTS [...] reported as 2, 4, 8, etc. [employer] has recommended this change in titer reporting formats to simply reflect the reciprocal value of the titer. TESTING PERFORMED AT [facility]. ORIGINAL REPORT ON FILE IN LAB CONTAINS ADDITIONAL TEST SITE INFORMATION. Performed By: #### L 801.1541 #### [facility] [address] [place], [place], [address] Chlamydia/GC VENU aptimaon CHLAMY,NUC ACID Negative Normal Negative [facility] Comment on above: Performed By: #### M 100.3400 #### [facility] [address] [place], [place], [address] GC BY NUC ACID Negative Normal Negative [facility] Comment on above: Result Comment: Perf ormed at: =G - [facility] [place] [id number] Asthma Educator: Catalina Lord MD, Phone: [phone] Performed By: #### M 100.3400 #### [facility] [address] [place], [place], [address] Urine Cultureon 07-06-2024 [facility] Culture exhibits no growth. Normal [facility] Comment on above: Performed By: #### M 100.3400 #### [facility] [address] [place], [address] Absolute neutrophil countOrd ered By: Carol Barrera on 07-05-2024 Neutrophils (Bld) [#/Vol] 5.7 10*3/uL 2.0-7.7 [facility] [id number] 07-05-2024 ANTIBODY ID M Normal [facility] Comment on above: Order Comment: PN Performed By: #### L 509.4005, L100.0100, L3890.6005, L509.8000, L3890.6100, KBGQ1178, L3890.6300, BTS ####[facility] [address] [facility] [place], [address] Basophil percentageOrdered B y: Carol Barrera on 07-05-2024 Basophils/100 WBC (Bld) 0.4 % 0-1 [facility] C. trachomatis rRNA VENU+prob e Ql (Unsp spec)Ordered By: Carol Barrera on 07-05-2024 Chlamydia DNA (VENU) Negative Negative [facility] CBC W/Diff, Automatedon Absolute Lymph 2.82 X10 3/uL Normal 0.83-4.51 [facility] Comment on above: Performed By: #### L 509.4005, L100.0100, L3890.6005, L509.8000, L3890.6100, ZGEO7721, L3890.6300, BTS ####[facility] [address] [place], [address] Absolute Neut 5.7 X10 3/uL Normal 2.0-7.7 [facility] Comment on above: Performed By: #### L 509.4005, L100.0100, L3890.6005, L509.8000, L3890.6100, RSYP8744, L3890.6300, BTS ####[facility] [address] [place], [address] Basophils/100 WBC (Bld) 0.4 % Normal 0-1 [facility] Comment on above: Performed By: #### L 509.4005, L100.0100, L3890.6005, L509.8000, L3890.6100, UVVV4454, L3890.6300, BTS ####[facility] [address] [place], [address] Eosinophils/100 WBC (Bld) 0.5 % Normal 0-5 [facility] Comment on above: Performed By: #### L 509.4005, L100.0100, L3890.6005, L509.8000, L3890.6100, ISVG4735, L3890.6300, BTS ####[facility] [address] [place], [address] Erythrocyte distribution width (RBC) [Ratio] 12.4 % Normal 11.6-14.6 [facility] Comment on above: Performed By: #### L 509.4005, L100.0100, L3890.6005, L509.8000, L3890.6100, GIMP1960, L3890.6300, BTS ####[facility] [address] [place], [address] Hematocrit (Bld) [Volume fraction] 38.8 % Normal 37-47 [facility] Comment on above: Performed By: #### L 509.4005, L100.0100, L3890.6005, L509.8000, L3890.6100, BABE6364, L3890.6300, BTS ####[facility] [address] [place], [address] Hemoglobin (Bld) [Mass/Vol] 13.3 g/dL Normal 12.0-15.0 [facility] Comment on above: Performed By: #### L 509.4005, L100.0100, L3890.6005, L509.8000, L3890.6100, FYXZ3952, L3890.6300, BTS ####[facility] [address] [place], [address] IG% 0.300 Normal 0.0-0.9 [facility] Comment on above: Result Comment: IG% - Immature Granulocytes (promyelocytes, myelocytes and metamyelocytes) > 1% indicates that a LEFT SHIFT is Present. Performed By: #### L 509.4005, L100.0100, L3890.6005, L509.8000, L3890.6100, AVMC3374, L3890.6300, BTS ####[facility] [address] [place], [address] Lymphocytes/100 WBC (Bld) 29.9 % Normal 19-41 [facility] Comment on above: Performed By: #### L 509.4005, L100.0100, L3890.6005, L509.8000, L3890.6100, LUAM1109, L3890.6300, BTS ####[facility] [address] [place], [address] MCH (RBC) [Entitic mass] 29.4 pg Normal 27.0-32.0 [facility] Comment on above: Performed By: #### L 509.4005, L100.0100, L3890.6005, L509.8000, L3890.6100, XSUK3962, L3890.6300, BTS ####[facility] [address] [place], [address] MCHC (RBC) [Mass/Vol] 34.3 g/dL Normal 32-36 [facility] Comment on above: Performed By: #### L 509.4005, L100.0100, L3890.6005, L509.8000, L3890.6100, GVXM2156, L3890.6300, BTS ####[facility] [address] [place], [address] MCV (RBC) [Entitic vol] 85.8 fL Normal 81-99 [facility] Comment on above: Performed By: #### L 509.4005, L100.0100, L3890.6005, L509.8000, L3890.6100, OVPE0978, L3890.6300, BTS ####[facility] [address] [place], [address] Monocytes/100 WBC (Bld) 8.7 % Normal 0-10 [facility] Comment on above: Performed By: #### L 509.4005, L100.0100, L3890.6005, L509.8000, L3890.6100, NANF5400, L3890.6300, BTS ####[facility] [address] [place], [address] Neutrophils/100 WBC (Bld) 60.2 % Normal 47-70 [facility] Comment on above: Performed By: #### L 509.4005, L100.0100, L3890.6005, L509.8000, L3890.6100, AFUT1400, L3890.6300, BTS ####[facility] [address] [place], [address] Nucleated RBC (Bld) [#/Vol] 0 10*3/uL Normal 0-5 [facility] Comment on above: Performed By: #### L 509.4005, L100.0100, L3890.6005, L509.8000, L3890.6100, PUYO0788, L3890.6300, BTS ####[facility] [address] [place], [address] Platelet mean volume (Bld) [Entitic vol] 8.6 fL Normal 6.2-12.0 [facility] Comment on above: Performed By: #### L 509.4005, L100.0100, L3890.6005, L509.8000, L3890.6100, AFPO8355, L3890.6300, BTS ####[facility] [address] [place], [address] Platelets (Bld) [#/Vol] 410 10*3/uL Normal 150-450 [facility] Comment on above: Performed By: #### L 509.4005, L100.0100, L3890.6005, L509.8000, L3890.6100, LLWR1880, L3890.6300, BTS ####[facility] [address] [place], [address] RBC (Bld) [#/Vol] 4.52 10*6/uL Normal 4.2-5.4 [facility] Comment on above: Performed By: #### L 509.4005, L100.0100, L3890.6005, L509.8000, L3890.6100, YSWS9462, L3890.6300, BTS ####[facility] [address] [place], [address] RDW SD 38.6 fl Normal 35.1-43.9 [facility] Comment on above: Performed By: #### L 509.4005, L100.0100, L3890.6005, L509.8000, L3890.6100, AJAX3723, L3890.6300, BTS ####[facility] [address] [place], [address] WBC (Bld) [#/Vol] 9.4 10*3/uL Normal 4.4-11.0 [facility] Comment on above: Performed By: #### L 509.4005, L100.0100, L3890.6005, L509.8000, L3890.6100, QKJO2559, L3890.6300, BTS ####[facility] [address] [place], [address] Eosinophil percentageOrdered By: Carol Barrera on 07-05-2024 Eosinophils/100 WBC (Bld) 0.5 % 0-5 [facility] Erythrocyte distribution wid th ratioOrdered By: Carol Barrera on 07-05-2024 Erythrocyte distribution width (RBC) [Ratio] 12.4 % 11.6-14.6 [facility] Erythrocyte distribution wid th standard deviationOrdered By: Carol Barrera on 07-05-2024 Erythrocyte distribution width (RBC) [Entitic vol] 38.6 fL 35.1-43.9 [facility] HIV - WCHon 07-05-2024 HIV Non-Reactive Normal Nonreactive [facility] Comment on above: Order Comment: Reaso n for Exam: Performed By: #### L 509.4005, L100.0100, L3890.6005, L509.8000, L3890.6100, QFHQ0099, L3890.6300, BTS ####[facility] [address] [place], [place], [address] HIV 1+2 Ab+HIV1 p24 Ag IA Ql Ordered By: Carol Barrera on 07-05-2024 HIV (1&2) Antibody Non-Reactive Nonreactive [facility] Hematocrit Auto (Bld) [Volum e fraction]Ordered By: Carol Barrera on 07-05-2024 Hematocrit (Bld) [Volume fraction] 38.8 % 37-47 [facility] Hemoglobin measurementOrdere d By: Carol Barrera on 07-05-2024 Hemoglobin (Bld) [Mass/Vol] 13.3 g/dL 12.0-15.0 [facility] Hepatitis B Surface Antigeno n 07-05-2024 HEP B Surf Ag Non-Reactive Normal Nonreactive [facility] Comment on above: Order Comment: Reaso n for Exam: Performed By: #### L 509.4005, L100.0100, L3890.6005, L509.8000, L3890.6100, ZUVG3757, L3890.6300, BTS ####[facility] [address] [place], [address] Hepatitis B surface antigen detectionOrdered By: Carol Barrera on 07-05-2024 Hepatitis B Surface Antigen Non-Reactive Nonreactive [facility] Hepatitis C Antibodyon 07-05 Hepatitis C AB Non-Reactive Normal Nonreactive [facility] Comment on above: Order Comment: Reaso n for Exam: Result Comment: Non Reactive: < 0.8 Equivocal: >/= 0.8 to < 1.0 Reactive: >/= 1.0 The [facility] requires that a reactive/equivocal HCV antibody result be sent out for confirmation. HCV Quant by PCR testing. Performed By: #### L 509.4005, L100.0100, L3890.6005, L509.8000, L3890.6100, UGPQ1723, L3890.6300, BTS ####[facility] [address] [place], [place], [address] Hepatitis C virus antibody a ssayOrdered By: Carol Barrera on 07-05-2024 Hepatitis C Antibody Non-Reactive Nonreactive [facility] Comment on above: Non Reactive: < 0.8 Equivocal: >/= 0.8 to < 1.0 Reactive: >/= 1.0The CDC requires that a reactive/equivocal HCV antibody result be sent out for confirmation. HCV Quant by PCR testing. Immature granulocytes/100 WB C Auto (Bld)Ordered By: Carol Barrera on 07-05-2024 Immature granulocytes/100 WBC (Bld) 0.300 % 0.0-0.9 [facility] Comment on above: IG% - Immature Granu locytes (promyelocytes, myelocytes and metamyelocytes) > 1% indicates that a LEFT SHIFT is Present. L509.8000on 07-05-2024 Syphilis Abs Non-Reactive Normal [facility] Comment on above: Order Comment: Reaso n for Exam: Performed By: #### L 509.4005, L100.0100, L3890.6005, L509.8000, L3890.6100, [id number], L3890.6300, BTS ####[facility] [id number] [place], [address] Lymphocytes Auto (Unsp spec) [#/Vol]Ordered By: Carol Barrera on 07-05-2024 Lymphocytes (Bld) [#/Vol] 2.82 10*3/uL 0.83-4.51 [facility] Lymphocytes/100 WBC Auto (Un sp spec)Ordered By: Carol Barrera on 07-05-2024 Lymphocytes/100 WBC (Bld) 29.9 % 19-41 [facility] MCV (mean corpuscular volume ) determinationOrdered By: Carol Barrera on 07-05-2024 MCV (RBC) [Entitic vol] 85.8 fL 81-99 [facility] Mean corpuscular hemoglobin (MCH) determinationOrdered By: Carol Barrera on 07-05-2024 MCH (RBC) [Entitic mass] 29.4 pg 27.0-32.0 [facility] Mean corpuscular hemoglobin concentration (MCHC) determinationOrdered By: Carol Barrera on 07-05-2024 MCHC (RBC) [Mass/Vol] 34.3 g/dL 32-36 [facility] Mean platelet volume determi nationOrdered By: Carol Barrera on 07-05-2024 Platelet mean volume (Bld) [Entitic vol] 8.6 fL 6.2-12.0 [facility] Monocyte percentageOrdered B y: Carol Barrera on 07-05-2024 Monocytes/100 WBC (Bld) 8.7 % 0-10 [facility] Neisseria gonorrhoeae nuclei c acid detection by amplified probe techniqueOrdered By: Carol Barrera on 07-05-2024 N. gonorrhoeae DNA VENU+probe Ql (Unsp spec) Negative Negative [facility] Comment on above: Performed at: =[facility] [address] [id number] Director: Catalina Lord MD, Phone: [phone] Neutrophil percentageOrdered By: Carol Barrera on 07-05-2024 Neutrophils/100 WBC (Bld) 60.2 % 47-70 [facility] Nucleated red blood cell per centageOrdered By: Carol Barrera on 07-05-2024 Nucleated RBC/100 WBC (Bld) [Ratio] 0 % 0-5 [facility] Bail Agent Office Visit Reporton 07-05-2024 Bail Agent Office Visit Report [facility] [address], [address] [place] [address] OFFICE VISIT Date of Service: 07/05/24 MR#: [id number] Acct: [id number] Name: JIHAN GUERRERO Rep #: [id number] : 1990 Provider: DENG White ams Age/Sex: 34/F Location: [facility] Status: Signed Intake Vital Signs 12/27/22 04:16 07/05/24 13:02 07/05/24 13:02 Height 5 ft 5 in 5 ft 5 in 5 ft 5 in Weight: 175 lb BMI 29.1 BP 130/67 H Intake Visit Reasons: LMP 05/02 [employer] Required: No Is patient in pain?: No [...] 1 current occupational status: employed current occupation: [employer] pets and animals: Yes pets and animals: dog(s) history of recent travel: Yes ([place]) out of state: Yes out of country: [...] in: none frequency: 3-4 times per week galo/sabianist: None seatbelt use: always do you feel safe at home: Yes additional social history: - 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 Date Name GA/Weeks Outcome Route Bth Weight Gen Labor Lgth Anesthesia Del Locatn Provider FOB 08/25/22 Joe 39 live - full term [id number] Male [facility] Colli ns Tashi Delivery Date: 08/25/22 Last [...] Glucose FH (more content not included)... Normal [facility] Platelet countOrdered By: Yan Barrera on 07-05-2024 Platelets (Bld) [#/Vol] 410 10*3/uL 150-450 [facility] RBC Auto (Bld) [#/Vol]Ordere d By: Carol Barrera on 07-05-2024 RBC (Bld) [#/Vol] 4.52 10*6/uL 4.2-5.4 [facility] Rubella IgGon 07-05-2024 Rubella IgG Reactive Normal Nonreactive [facility] Comment on above: Order Comment: Reaso n for Exam: Result Comment: Anti body Results Interpretation of Immune Status Non Reactive Presumed Non-Immune Equivocal Equivocal Reactive Presumed Immune Performed By: #### L 509.4005, L100.0100, L3890.6005, L509.8000, L3890.6100, [id number], L3890.6300, BTS ####[facility] [id number] [place], [place], [id number] Rubella immune status IgGOrd ered By: Carol Barrera on 07-05-2024 Rubella IgG Antibody Reactive Nonreactive [facility] Comment on above: Antibody Results Int erpretation of Immune Status Non Reactive Presumed Non-Immune Equivocal Equivocal Reactive Presumed Immune Treponema sp Ab Ql (S)Ordere d By: Carol Barrera on 07-05-2024 Syphilis Total Antibody Non-Reactive [facility] Type AND Screenon 07-05-2024 Ab SCREEN GEL PENDING Normal [facility] Comment on above: Order Comment: PN Performed By: #### L 509.4005, L100.0100, L3890.6005, L509.8000, L3890.6100, [id number], L3890.6300, BTS ####[facility] [id number] [place], [place], [id number] ABO and Rh group Nom (Bld) Blood group A Rh(D) positive Normal [facility] Comment on above: Order Comment: PN Performed By: #### L 509.4005, L100.0100, L3890.6005, L509.8000, L3890.6100, [id number], L3890.6300, BTS ####[facility] [address] [place], [address] Urine cultureOrdered By: Shawn Barrera on 07-05-2024 Bacteria identified Cx Nom (U) Culture exhibits no growth. [facility] White blood cell (WBC) count Ordered By: Carol Barrera on 07-05-2024 WBC (Bld) [#/Vol] 9.4 10*3/uL 4.4-11.0 [facility] CNOVon 02-03-2024 CNOV Office Visit ([facility] ) -------- JIHAN GUERRERO ([id number]) 1990 F Date Time Provider Department 02/03/24 6:30 PM ARVIN RENDON [facility] During your visit today, we recorded the following information about you: Temperature Pulse Respiration Blood pressure 99.2 degrees 86/minute 16/minute 138/82 Weight 78.4 kg Arvin Rendon CHEMICAL SPRAYERDEDE 02/03/2024 6:50 PM Signed Subjective HPI Nontoxic-appearing [...] of care. This note was generated using [employer] software. It may contain errors in wording, punctuation, or spelling. Arvin Rendon APRN.CONVERSION MAN Allergies As of Date: 02/03/2024 (No Known Allergies) Date Reviewed: 02/03/2024 Reviewed by: Arvin Rendon APRN.CONVERSION MAN - Fully Assessed Reason for Visit: Sore Throat [200] Cmt: fever x 2 days, Friday vomiting and diarrhea all day Primary Visit Diagnosis:Sore throat [J02.9] Other Visit Diagnosis:Strep throat [J02.0] Order(s):STREP A MOLECULAR (POC) [3882515] Order #: [id number]. #:[id number] amoxicillin (AMOXIL) 500 mg capsuleTake 1 capsule by mouth two times a day for 10 days.Disp: 20 capsuleRfl: 0 Prescriptions (more content not included)... Normal [facility] STREP A MOLECULAR (POC)on Interpretation and review of laboratory results Abnormal [facility] Procedural Control Valid [facility] Strep A (POCT) Positive Abnormal Negative [facility] Basophil percentageOrdered B y: Azucena Dwyer on 08-26-2022 WBC (Bld) [#/Vol] 20.3 10*3/uL 4.4-11.0 [facility] Blood erythrocytes count (nu mber/volume)Ordered By: Azucena Dwyer on 08-26-2022 RBC (Bld) [#/Vol] 3.24 10*6/uL 4.2-5.4 [facility] Blood hemoglobin measurement (mass/volume)Ordered By: Azucena Dwyer on 08-26-2022 Hemoglobin (Bld) [Mass/Vol] 9.3 g/dL 12.0-15.0 [facility] Blood platelet mean volumeOr dered By: Azucena Dwyer on 08-26-2022 Platelet mean volume (Bld) [Entitic vol] 8.7 fL 6.2-12.0 [facility] Determination of erythrocyte mean corpuscular volume (MCV)Ordered By: Azucena Dwyer on 08-26-2022 MCV (RBC) [Entitic vol] 84.0 fL 81-99 [facility] Hematocrit Auto (Bld) [Volum e fraction]Ordered By: Azucena Dwyer on 08-26-2022 Hematocrit (Bld) [Volume fraction] 27.2 % 37-47 [facility] Laboratory - Hematology and Cell countsOrdered By: Azucena Dwyer on 08-26-2022 Erythrocyte distribution width (RBC) [Entitic vol] 39.1 fL 35.1-43.9 [facility] Erythrocyte distribution width (RBC) [Ratio] 12.8 % 11.6-14.6 [facility] MCH (RBC) [Entitic mass] 28.7 pg 27.0-32.0 [facility] MCHC Auto (RBC) [Mass/Vol]Or dered By: Azucena Dwyer on 08-26-2022 MCHC (RBC) [Mass/Vol] 34.2 g/dL 32-36 [facility] Platelets bldOrdered By: Sharona Dwyer on 08-26-2022 Platelets (Bld) [#/Vol] 298 10*3/uL 150-450 [facility] Absolute lymphocyte countOrd ered By: Azucena Dwyer on 08-25-2022 Lymphocytes Auto (Unsp spec) [#/Vol] 2.24 10*3/uL 0.83-4.51 [facility] Basophil percentageOrdered B y: Azucena Dwyer on 08-25-2022 Basophils/100 WBC (Bld) 0.2 % 0-1 [facility] Eosinophils/100 WBC (Bld) 0.1 % 0-5 [facility] Neutrophils (Bld) [#/Vol] 12.6 10*3/uL 2.0-7.7 [facility] Neutrophils/100 WBC (Bld) 78.5 % 47-70 [facility] Blood lymphocytes/100 leukoc ytesOrdered By: Azucena Dwyer on 08-25-2022 Lymphocytes/100 WBC (Bld) 14.0 % 19-41 [facility] Blood monocytes/100 leukocyt esOrdered By: Azucena Dwyer on 08-25-2022 Monocytes/100 WBC (Bld) 6.6 % 0-10 [facility] INR in Blood by Coagulation assayOrdered By: Azucena Dwyer on 08-25-2022 INR Coag (Bld) [Relative time] 1.0 {INR} [facility] Laboratory - CoagulationOrde red By: Azucena Dwyer on 08-25-2022 aPTT Coag (Bld) [Time] 26.2 s 24.1-36.2 [facility] PT Coag (PPP) [Time] 12.6 s 11.7-14.9 [facility] Laboratory - Hematology and Cell countsOrdered By: Azucena Dwyer on 08-25-2022 Immature granulocytes/100 WBC (Bld) 0.600 % 0.0-0.9 [facility] Comment on above: IG% - Immature Granu locytes (promyelocytes, myelocytes and metamyelocytes) > 1% indicates that a LEFT SHIFT is Present. Nucleated RBC/100 WBC (Bld) [Ratio] 0 % 0-5 [facility] No Panel InformationOrdered By: Azucena Dwyer on 08-24-2022 Vaginal Amniotic Fluid Detection Positive Negative [facility] Comment on above: Amniotic fluid prese nt indicates rupture of Membranes. RESULTS CALLED TO PREET WANG 08/24/22 Nirav9 Chrystal Zhang.REPORT READ BACK BY SAME . Laboratory - Chemistry and C hemistry - challengeon 08-23-2022 Glucose Ql (U) Negative [facility] Laboratory - Urinalysison Protein Ql (U) Negative [facility] Laboratory - Chemistry and C hemistry - challengeon 08-15-2022 Glucose Ql (U) Negative [facility] Laboratory - Urinalysison Protein Ql (U) Negative [facility] Laboratory - Chemistry and C hemistry - challengeon 08-09-2022 Glucose Ql (U) Negative [facility] Laboratory - Urinalysison Protein Ql (U) Negative [facility] Laboratory - Chemistry and C hemistry - challengeon 08-01-2022 Glucose Ql (U) Negative [facility] Laboratory - Urinalysison Protein Ql (U) Negative [facility] Laboratory - Chemistry and C hemistry - challengeon 07-15-2022 Glucose Ql (U) Negative [facility] Laboratory - Urinalysison Protein Ql (U) Negative [facility] Laboratory - Chemistry and C hemistry - challengeon 07-02-2022 Glucose Ql (U) Negative [facility] Laboratory - Urinalysison Protein Ql (U) Negative [facility] Laboratory - Chemistry and C hemistry - challengeon 06-20-2022 Glucose Ql (U) Negative [facility] Laboratory - Urinalysison Protein Ql (U) Negative [facility] Absolute lymphocyte countOrd ered By: Dr. Corey on 06-04-2022 Lymphocytes Auto (Unsp spec) [#/Vol] 2.08 10*3/uL 0.83-4.51 [facility] Basophil percentageOrdered B y: Dr. Corey on 06-04-2022 Basophils/100 WBC (Bld) 0.3 % 0-1 [facility] Eosinophils/100 WBC (Bld) 0.6 % 0-5 [facility] Neutrophils (Bld) [#/Vol] 8.4 10*3/uL 2.0-7.7 [facility] Neutrophils/100 WBC (Bld) 72.4 % 47-70 [facility] WBC (Bld) [#/Vol] 11.5 10*3/uL 4.4-11.0 [facility] Blood erythrocytes count (nu mber/volume)Ordered By: Dr. Corey on 06-04-2022 RBC (Bld) [#/Vol] 3.97 10*6/uL 4.2-5.4 [facility] Blood hemoglobin measurement (mass/volume)Ordered By: Dr. Corey on 06-04-2022 Hemoglobin (Bld) [Mass/Vol] 12.1 g/dL 12.0-15.0 [facility] Blood lymphocytes/100 leukoc ytesOrdered By: Dr. Corey on 06-04-2022 Lymphocytes/100 WBC (Bld) 18.0 % 19-41 [facility] Blood monocytes/100 leukocyt esOrdered By: Dr. Corey on 06-04-2022 Monocytes/100 WBC (Bld) 8.0 % 0-10 [facility] Blood platelet mean volumeOr dered By: Dr. Corey on 06-04-2022 Platelet mean volume (Bld) [Entitic vol] 8.2 fL 6.2-12.0 [facility] Determination of erythrocyte mean corpuscular volume (MCV)Ordered By: Dr. Corey on 06-04-2022 MCV (RBC) [Entitic vol] 86.1 fL 81-99 [facility] Gestational diabetes screen 1-hour screen with 50g oral glucose loadOrdered By: Dr. Corey on 06-04-2022 Glucose 1 Hr post 50 g glucose PO [Mass/Vol] 93 mg/dL 70-140 [facility] Hematocrit Auto (Bld) [Volum e fraction]Ordered By: Dr. Corey on 11-01-2022 Hematocrit (Bld) [Volume fraction] 34.2 % 37-47 [facility] Laboratory - Chemistry and C hemistry - challengeon 06-04-2022 Glucose Ql (U) Negative [facility] Laboratory - Hematology and Cell countsOrdered By: Dr. Corey on 06-04-2022 Erythrocyte distribution width (RBC) [Entitic vol] 38.8 fL 35.1-43.9 [facility] Erythrocyte distribution width (RBC) [Ratio] 12.4 % 11.6-14.6 [facility] Immature granulocytes/100 WBC (Bld) 0.700 % 0.0-0.9 [facility] Comment on above: IG% - Immature Granu locytes (promyelocytes, myelocytes and metamyelocytes) > 1% indicates that a LEFT SHIFT is Present. MCH (RBC) [Entitic mass] 30.5 pg 27.0-32.0 [facility] Nucleated RBC/100 WBC (Bld) [Ratio] 0 % 0-5 [facility] Laboratory - Urinalysison Protein Ql (U) Negative [facility] MCHC Auto (RBC) [Mass/Vol]Or dered By: Dr. Corey on 06-04-2022 MCHC (RBC) [Mass/Vol] 35.4 g/dL 32-36 [facility] Platelets bldOrdered By: Dr. Corey on 06-04-2022 Platelets (Bld) [#/Vol] 347 10*3/uL 150-450 [facility] Laboratory - Chemistry and C hemistry - challengeon 05-16-2022 Glucose Ql (U) Negative [facility] Laboratory - Urinalysison Protein Ql (U) Negative [facility] Laboratory - Chemistry and C hemistry - challengeon 04-16-2022 Glucose Ql (U) Negative [facility] Work Phone: Laboratory - Urinalysison Protein Ql (U) Negative [facility] Work Phone: Laboratory - Chemistry and C hemistry - challengeon 03-19-2022 Glucose Ql (U) Negative [facility] Work Phone: Laboratory - Urinalysison Protein Ql (U) Negative [facility] Work Phone: Laboratory - Chemistry and C hemistry - challengeon 02-20-2022 Glucose Ql (U) Negative [facility] Work Phone: Laboratory - Urinalysison Protein Ql (U) Negative [facility] Work Phone: Absolute lymphocyte counton 01-21-2022 Lymphocytes Auto (Unsp spec) [#/Vol] 2.04 10*3/uL 0.83-4.51 [facility] Work Phone: Basophil percentageon 2021 Basophils/100 WBC (Bld) 0.4 % 0-1 [facility] Work Phone: Eosinophils/100 WBC (Bld) 0.6 % 0-5 [facility] Work Phone: Neutrophils (Bld) [#/Vol] 5.5 10*3/uL 2.0-7.7 [facility] Work Phone: Neutrophils/100 WBC (Bld) 65.4 % 47-70 [facility] Work Phone: WBC (Bld) [#/Vol] 8.3 10*3/uL 4.4-11.0 [facility] Work Phone: Blood erythrocytes count (nu mber/volume)on 01-21-2022 RBC (Bld) [#/Vol] 4.17 10*6/uL 4.2-5.4 [facility] Work Phone: Blood hemoglobin measurement (mass/volume)on 01-21-2022 Hemoglobin (Bld) [Mass/Vol] 12.6 g/dL 12.0-15.0 [facility] Work Phone: Blood lymphocytes/100 leukoc yteson 01-21-2022 Lymphocytes/100 WBC (Bld) 24.5 % 19-41 [facility] Work Phone: Blood monocytes/100 leukocyt eson 06-20-2022 Monocytes/100 WBC (Bld) 8.6 % 0-10 [facility] Work Phone: Blood platelet mean volumeon 01-21-2022 Platelet mean volume (Bld) [Entitic vol] 8.4 fL 6.2-12.0 [facility] Work Phone: Chlamydia trachomatis rRNA d etection by probe and target amplification methodon 01-21-2022 C. trachomatis rRNA VENU+probe Ql (Unsp spec) Negative Negative [facility] Work Phone: Determination of erythrocyte mean corpuscular volume (MCV)on 01-21-2022 MCV (RBC) [Entitic vol] 86.3 fL 81-99 [facility] Work Phone: HIV 1 and HIV-2 antibody ass ay with HIV-1 p24 antigen detectionon 01-21-2022 HIV 1+2 Ab+HIV1 p24 Ag IA Ql Non-Reactive Nonreactive [facility] Work Phone: Hematocrit Auto (Bld) [Volum e fraction]on 01-21-2022 Hematocrit (Bld) [Volume fraction] 36.0 % 37-47 [facility] Work Phone: Laboratory - Drug toxicology on 01-21-2022 Amphetamines Ql (U) Negative <1000 ng/mL [facility] Work Phone: Benzodiazepines Ql (U) Negative < 200 ng/mL [facility] Work Phone: Cannabinoids Screen Ql (U) Negative < 50 ng/mL [facility] Work Phone: Cocaine Ql (U) Negative < 300 ng/mL [facility] Work Phone: Opiates Ql (U) Negative < 300 ng/mL [facility] Work Phone: Laboratory - Hematology and Cell countson 01-21-2022 Erythrocyte distribution width (RBC) [Entitic vol] 37.2 fL 35.1-43.9 [facility] Work Phone: Erythrocyte distribution width (RBC) [Ratio] 11.8 % 11.6-14.6 [facility] Work Phone: Immature granulocytes/100 WBC (Bld) 0.500 % 0.0-0.9 [facility] Work Phone: Comment on above: IG% - Immature Granu locytes (promyelocytes, myelocytes and metamyelocytes) > 1% indicates that a LEFT SHIFT is Present. MCH (RBC) [Entitic mass] 30.2 pg 27.0-32.0 [facility] Work Phone: Nucleated RBC/100 WBC (Bld) [Ratio] 0 % 0-5 [facility] Work Phone: Laboratory - Microbiology an d Antimicrobial susceptibilityon 01-21-2022 N. gonorrhoeae DNA VENU+probe Ql (Unsp spec) Negative Negative [facility] Work Phone: Comment on above: Performed at: =[address] [id number] Director: Catalina Lord MD, Phone: [phone] MCHC Auto (RBC) [Mass/Vol]on 01-21-2022 MCHC (RBC) [Mass/Vol] 35.0 g/dL 32-36 [facility] Work Phone: No Panel Informationon 01-21 MDMA (Ecstasy) Screen Negative < 500 ng/mL [facility] Work Phone: Urine Barbiturates Screen Negative < 200 ng/mL [facility] Work Phone: Urine Drug Screen Comment [facility] Work Phone: Comment on above: CONFIRMATORY [...] Urine Methadone Screen Negative < 300 ng/mL [facility] Work Phone: Hepatitis B Surface Antigen Non-Reactive Nonreactive [facility] Work Phone: Hepatitis C Antibody Non-Reactive Nonreactive [facility] Work Phone: Comment on above: Non Reactive: < 0.8 Equivocal: >/= 0.8 to < 1.0 Reactive: >/= 1.0The [facility] recommends that a reactive/equivocal HCV antibody result be followed up by the HCV Nucleic Acid Amplificationtest ([id number]) Rubella IgG Antibody Reactive Nonreactive [facility] Work Phone: Comment on above: Antibody Results Int erpretation of Immune Status Non Reactive Presumed Non-Immune Equivocal Equivocal Reactive Presumed Immune Platelets bldon 01-21-2022 Platelets (Bld) [#/Vol] 380 10*3/uL 150-450 [facility] Work Phone: Serum Treponema species anti body detectionon 01-21-2022 Treponema sp Ab Ql (S) Non-Reactive [facility] Work Phone: Urine phencyclidine (PCP) de tectionon 01-21-2022 Phencyclidine Ql (U) Negative < 25 ng/mL [facility] Work Phone: Vital Signs Date Time Vital Sign Value Performing Clinician Facility 01-24-2025 08:14-0400 Body height 165.[address] Alireza London MD Work Phone: [facility] 01-24-2025 08:14-0400 Body mass index (BMI) [Ratio] 33.4 kg/m2 Dr. Alireza London MD Work Phone: [facility] 01-24-2025 08:14-0400 Body weight 91.[address] Alireza London MD Work Phone: [facility] 01-24-2025 08:14-0400 Diastolic blood pressure 80 mm[Hg] Dr. Alireza London MD Work Phone: [facility] 01-24-2025 08:14-0400 Systolic blood pressure 125 mm[Hg] Dr. Alireza London MD Work Phone: [facility] 01-18-2025 12:23-0400 Body height 165.[address] Alireza London MD Work Phone: [facility] 01-18-2025 12:22-0400 Body mass index (BMI) [Ratio] 33.3 kg/m2 Dr. Alireza London MD Work Phone: [facility] 01-18-2025 12:22-0400 Body weight 90.[address] Alireza London MD Work Phone: [facility] 01-18-2025 12:22-0400 Diastolic blood pressure 78 mm[Hg] Dr. Alireza London MD Work Phone: [facility] 01-18-2025 12:22-0400 Systolic blood pressure 120 mm[Hg] Dr. Alireza London MD Work Phone: [facility] 01-11-2025 15:16-0400 Body height 165.[address] Alireza London MD Work Phone: [facility] 01-11-2025 15:16-0400 Body mass index (BMI) [Ratio] 33.7 kg/m2 Dr. Alireza London MD Work Phone: [facility] 01-11-2025 15:16-0400 Body weight 91.[address] Alireza London MD Work Phone: [facility] 01-11-2025 15:16-0400 Diastolic blood pressure 70 mm[Hg] Dr. Alireza London MD Work Phone: [facility] 01-11-2025 15:16-0400 Systolic blood pressure 104 mm[Hg] Dr. Alireza London MD Work Phone: [facility] 12-28-2024 09:00-0400 Body height 165.[address] Alireza London MD Work Phone: [facility] 12-28-2024 09:00-0400 Body mass index (BMI) [Ratio] 33.1 kg/m2 Dr. Alireza London MD Work Phone: [facility] 12-28-2024 09:00-0400 Body weight 90.[address] Alireza London MD Work Phone: [facility] 12-28-2024 09:00-0400 Diastolic blood pressure 80 mm[Hg] Dr. Alireza London MD Work Phone: [facility] 12-28-2024 09:00-0400 Systolic blood pressure 135 mm[Hg] Dr. Alireza London MD Work Phone: [facility] 12-14-2024 08:59-0400 Body height 165.[address] Alireza London MD Work Phone: [facility] 12-14-2024 08:59-0400 Body mass index (BMI) [Ratio] 32.4 kg/m2 Dr. Alireza London MD Work Phone: [facility] 12-14-2024 08:59-0400 Body weight 88.[address] Alireza London MD Work Phone: [facility] 12-14-2024 08:59-0400 Diastolic blood pressure 75 mm[Hg] Dr. Alireza London MD Work Phone: [facility] 12-14-2024 08:59-0400 Systolic blood pressure 124 mm[Hg] Dr. Alireza London MD Work Phone: [facility] 11-30-2024 08:45-0400 Body mass index (BMI) [Ratio] 32 kg/m2 Dr. Alireza London MD Work Phone: [facility] 11-30-2024 08:45-0400 Body weight 87.[address] Alireza London MD Work Phone: [facility] 11-30-2024 08:45-0400 Diastolic blood pressure 74 mm[Hg] Dr. Alireza London MD Work Phone: [facility] 11-30-2024 08:45-0400 Systolic blood pressure 129 mm[Hg] Dr. Alireza London MD Work Phone: [facility] 11-02-2024 08:46-0400 Body height 165.[address] Alireza London MD Work Phone: [facility] 11-02-2024 08:45-0400 Body mass index (BMI) [Ratio] 31.4 kg/m2 Dr. Alireza London MD Work Phone: [facility] 11-02-2024 08:45-0400 Body weight 85.[address] Alireza London MD Work Phone: [facility] 11-02-2024 08:45-0400 Diastolic blood pressure 73 mm[Hg] Dr. Alireza London MD Work Phone: [facility] 11-02-2024 08:45-0400 Systolic blood pressure 113 mm[Hg] Dr. Alireza London MD Work Phone: [facility] 10-05-2024 08:53-0500 Body height 165.[address] Alireza London MD Work Phone: [facility] 10-05-2024 08:53-0500 Body mass index (BMI) [Ratio] 30.2 kg/m2 Dr. Alireza London MD Work Phone: [facility] 10-05-2024 08:53-0500 Body weight 82.[address] Alireza London MD Work Phone: [facility] 10-05-2024 08:53-0500 Diastolic blood pressure 77 mm[Hg] Dr. Alireza London MD Work Phone: [facility] 10-05-2024 08:53-0500 Systolic blood pressure 110 mm[Hg] Dr. Alireza London MD Work Phone: [facility] 09-07-2024 08:30-0500 Body mass index (BMI) [Ratio] 30 kg/m2 Dr. Alireza London MD Work Phone: [facility] 09-07-2024 08:30-0500 Body weight 81.[address] Alireza London MD Work Phone: [facility] 09-07-2024 08:30-0500 Diastolic blood pressure 72 mm[Hg] Dr. Alireza London MD Work Phone: [facility] 09-07-2024 08:30-0500 Systolic blood pressure 118 mm[Hg] Dr. Alireza London MD Work Phone: [facility] 08-10-2024 15:03-0500 Body mass index (BMI) [Ratio] 28.8 kg/m2 Dr. Alireza London MD Work Phone: [facility] 08-10-2024 15:03-0500 Body weight 78.[address] Alireza London MD Work Phone: [phone] [place] [address] 08-10-2024 15:03-0500 Diastolic blood pressure 79 mm[Hg] Dr. Alireza London MD Work Phone: [facility] 08-10-2024 15:03-0500 Systolic blood pressure 124 mm[Hg] Dr. Alireza London MD Work Phone: [facility] 07-05-2024 13:02-0500 Body mass index (BMI) [Ratio] 29.1 kg/m2 Dr. Alireza London MD Work Phone: [facility] 07-05-2024 13:02-0500 Body weight 79.[address] Alireza London MD Work Phone: [facility] 07-05-2024 13:02-0500 Diastolic blood pressure 67 mm[Hg] Dr. Alireza London MD Work Phone: [facility] 07-05-2024 13:02-0500 Systolic blood pressure 130 mm[Hg] Dr. Alireza London MD Work Phone: [facility] 02-03-2024 18:35-0400 Body temperature 99.19 [degF] [facility] CHEMICAL SPRAYER.CONVERSION MAN Work Phone: [facility] 02-03-2024 18:35-0400 Body weight 78.4 kg [facility] CHEMICAL SPRAYER.CONVERSION MAN Work Phone: [facility] 02-03-2024 18:35-0400 Diastolic blood pressure 82 mm[Hg] [facility] CHEMICAL SPRAYER.CONVERSION MAN Work Phone: [facility] 02-03-2024 18:35-0400 Heart rate 86 /min [facility] CHEMICAL SPRAYER.CONVERSION MAN Work Phone: [facility] 02-03-2024 18:35-0400 Respiratory rate 16 /min [facility] CHEMICAL SPRAYER.CONVERSION MAN Work Phone: [facility] 02-03-2024 18:35-0400 SaO2% (BldA) [Mass fraction] 97 % [facility] CHEMICAL SPRAYER.CONVERSION MAN Work Phone: [facility] 02-03-2024 18:35-0400 Systolic blood pressure 138 mm[Hg] [facility] CHEMICAL SPRAYER.CONVERSION MAN Work Phone: [facility] 08-26-2022 09:00-0500 Body temperature 98 [degF] Dr. Alireza London Work Phone: [facility] 08-26-2022 09:00-0500 Diastolic blood pressure 75 mm[Hg] Dr. Alireza London Work Phone: [facility] 08-26-2022 09:00-0500 Heart rate 83 /min Dr. Alireza London Work Phone: [facility] 08-26-2022 09:00-0500 Respiratory rate 16 /min Dr. Alireza London Work Phone: [facility] 08-26-2022 09:00-0500 Systolic blood pressure 116 mm[Hg] Dr. Alireza London Work Phone: [facility] 08-26-2022 04:10-0500 SaO2% (BldA) [Mass fraction] 97 % Dr. Alireza London Work Phone: [facility] 08-24-2022 19:03-0500 Body height 165.[address] Alireza London Work Phone: [facility] 08-24-2022 19:03-0500 Body mass index (BMI) [Ratio] 33 kg/m2 Dr. Alireza London Work Phone: [facility] 08-24-2022 19:03-0500 Body weight 89.[address] Alireza London Work Phone: [facility] 08-23-2022 09:15-0500 Body mass index (BMI) [Ratio] 33.2 kg/m2 Dr. Alireza London Work Phone: [facility] 08-23-2022 09:15-0500 Body weight 90.[address] Alireza London Work Phone: [facility] 08-23-2022 09:15-0500 Diastolic blood pressure 81 mm[Hg] Dr. Alireza London Work Phone: [facility] 08-23-2022 09:15-0500 Systolic blood pressure 128 mm[Hg] Dr. Alireza London Work Phone: [facility] 08-15-2022 08:59-0500 Body mass index (BMI) [Ratio] 32.9 kg/m2 Dr. Alireza London Work Phone: [facility] 08-15-2022 08:59-0500 Body weight 89.[address] Alireza London Work Phone: [facility] 08-15-2022 08:59-0500 Diastolic blood pressure 84 mm[Hg] Dr. Alireza London Work Phone: [facility] 08-15-2022 08:59-0500 Systolic blood pressure 130 mm[Hg] Dr. Alireza London Work Phone: [facility] 08-09-2022 09:20-0500 Body mass index (BMI) [Ratio] 32.6 kg/m2 Dr. Alireza London Work Phone: [facility] 08-09-2022 09:20-0500 Body weight 89.[address] Alireza London Work Phone: [facility] 08-09-2022 09:20-0500 Diastolic blood pressure 78 mm[Hg] Dr. Alireza London Work Phone: [facility] 08-09-2022 09:20-0500 Systolic blood pressure 120 mm[Hg] Dr. Alireza London Work Phone: [facility] 08-01-2022 08:20-0500 Body mass index (BMI) [Ratio] 32.1 kg/m2 Dr. Alireza London Work Phone: [facility] 08-01-2022 08:20-0500 Body weight 87.[address] Alireza London Work Phone: [facility] 08-01-2022 08:20-0500 Diastolic blood pressure 84 mm[Hg] Dr. Alireza London Work Phone: [facility] 08-01-2022 08:20-0500 Systolic blood pressure 126 mm[Hg] Dr. Alireza London Work Phone: [facility] 07-23-2022 17:51-0500 Body temperature 97.7 [degF] Dr. Alireza London Work Phone: [facility] 07-23-2022 17:51-0500 Diastolic blood pressure 68 mm[Hg] Dr. Alireza London Work Phone: [facility] 07-23-2022 17:51-0500 Heart rate 85 /min Dr. Alireza London Work Phone: [facility] 07-23-2022 17:51-0500 SaO2% (BldA) [Mass fraction] 97 % Dr. Alireza London Work Phone: [facility] 07-23-2022 17:51-0500 Systolic blood pressure 119 mm[Hg] Dr. Alireza London Work Phone: [facility] 07-23-2022 17:44-0500 Body height 165.[address] Alireza London Work Phone: [facility] Work Phone: 07-23-2022 17:44-0500 Body mass index (BMI) [Ratio] 31.8 kg/m2 Dr. Alireza London Work Phone: [facility] 07-23-2022 17:44-0500 Body weight 86.[address] Alireza London Work Phone: [facility] 07-15-2022 08:37-0500 Body mass index (BMI) [Ratio] 31.4 kg/m2 Dr. Alireza London Work Phone: [facility] 07-15-2022 08:37-0500 Body weight 85.[address] Alireza London Work Phone: [facility] 07-15-2022 08:37-0500 Diastolic blood pressure 73 mm[Hg] Dr. Alireza London Work Phone: [facility] 07-15-2022 08:37-0500 Systolic blood pressure 111 mm[Hg] Dr. Alireza London Work Phone: [facility] 07-02-2022 08:54-0500 Body mass index (BMI) [Ratio] 31.1 kg/m2 Dr. Alireza London Work Phone: [facility] 07-02-2022 08:54-0500 Body weight 84.[address] Alireza London Work Phone: [facility] 07-02-2022 08:54-0500 Diastolic blood pressure 75 mm[Hg] Dr. Alireza London Work Phone: [facility] 07-02-2022 08:54-0500 Systolic blood pressure 124 mm[Hg] Dr. Alireza London Work Phone: [facility] 06-20-2022 13:27-0500 Body mass index (BMI) [Ratio] 30.9 kg/m2 Dr. Alireza London Work Phone: [facility] 06-20-2022 13:27-0500 Body weight 84.[address] Alireza London Work Phone: [facility] 06-20-2022 13:27-0500 Diastolic blood pressure 74 mm[Hg] Dr. Alireza London Work Phone: [facility] 06-20-2022 13:27-0500 Systolic blood pressure 119 mm[Hg] Dr. Alireza London Work Phone: [facility] 06-04-2022 09:26-0400 Body height 165.[address] Alireza London Work Phone: [facility] Work Phone: 06-04-2022 09:26-0400 Body mass index (BMI) [Ratio] 30.4 kg/m2 Dr. Alireza London Work Phone: [facility] 06-04-2022 09:26-0400 Body weight [address] Alireza London Work Phone: [facility] 06-04-2022 09:26-0400 Diastolic blood pressure 74 mm[Hg] Dr. Alireza London Work Phone: [facility] 06-04-2022 09:26-0400 Systolic blood pressure 130 mm[Hg] Dr. Alireza London Work Phone: [facility] 05-16-2022 08:53-0400 Body mass index (BMI) [Ratio] 29.5 kg/m2 Dr. Alireza London Work Phone: [facility] 05-16-2022 08:53-0400 Body weight 80.[address] Alireza London Work Phone: [facility] 05-16-2022 08:53-0400 Diastolic blood pressure 77 mm[Hg] Dr. Alireza London Work Phone: [facility] 05-16-2022 08:53-0400 Systolic blood pressure 121 mm[Hg] Dr. Alireza London Work Phone: [facility] 04-16-2022 08:33-0400 Body mass index (BMI) [Ratio] 29.2 kg/m2 Dr. Alireza London Work Phone: [facility] Work Phone: 04-16-2022 08:33-0400 Body weight 79.[address] Alireza London Work Phone: [facility] Work Phone: 04-16-2022 08:33-0400 Diastolic blood pressure 66 mm[Hg] Dr. Alireza London Work Phone: [facility] Work Phone: 04-16-2022 08:33-0400 Systolic blood pressure 118 mm[Hg] Dr. Alireza London Work Phone: [facility] Work Phone: 03-19-2022 08:56-0400 Diastolic blood pressure 60 mm[Hg] Dr. Alireza London Work Phone: [facility] Work Phone: 03-19-2022 08:56-0400 Systolic blood pressure 106 mm[Hg] Dr. Alireza London Work Phone: [facility] Work Phone: 03-19-2022 08:45-0400 Body mass index (BMI) [Ratio] 28.8 kg/m2 Dr. Alireza London Work Phone: [facility] Work Phone: 03-19-2022 08:45-0400 Body weight 78.[address] Alireza London Work Phone: [facility] Work Phone: 02-20-2022 08:30-0400 Body mass index (BMI) [Ratio] 28.8 kg/m2 Dr. Alireza London Work Phone: [facility] Work Phone: 02-20-2022 08:30-0400 Body weight 78.[address] Alireza London Work Phone: [facility] Work Phone: 02-20-2022 08:30-0400 Diastolic blood pressure 62 mm[Hg] Dr. Alireza London Work Phone: [facility] Work Phone: 02-20-2022 08:30-0400 Systolic blood pressure 106 mm[Hg] Dr. Alireza London Work Phone: [facility] Work Phone: 01-21-2022 09:12-0400 Body height 165.[address] Alireza London Work Phone: [facility] Work Phone: 01-21-2022 09:12-0400 Body mass index (BMI) [Ratio] 28.6 kg/m2 Dr. Alireza London Work Phone: [facility] Work Phone: 01-21-2022 09:12-0400 Body weight 78.[address] Alireza London Work Phone: [facility] Work Phone: 01-21-2022 09:12-0400 Diastolic blood pressure 70 mm[Hg] Dr. Alireza London Work Phone: [facility] Work Phone: 01-21-2022 09:12-0400 Systolic blood pressure 116 mm[Hg] Dr. Alireza London Work Phone: [facility] Work Phone: 11-27-2021 08:33-0400 Body mass index (BMI) [Ratio] 29.6 kg/m2 Dr. Alireza London Work Phone: [facility] Work Phone: 11-27-2021 08:33-0400 Body weight 80.[address] Alireza London Work Phone: [facility] Work Phone: 11-27-2021 08:33-0400 Diastolic blood pressure 84 mm[Hg] Dr. Alireza London Work Phone: [facility] Work Phone: 11-27-2021 08:33-0400 Systolic blood pressure 126 mm[Hg] Dr. Alireza London Work Phone: [facility] Work Phone: Encounters Encounter Date Encounter Type Care Provider Facility Start: 01-31-2025 ambulatory [facility] Facility :[facility] Start: 01-30-2025 ambulatory [facility] Facility :[facility] Start: 01-24-2025 End: 01-24-[address] Elidia Joaquin MD -[facility] Work Phone: Start: 01-24-2025 End: 01-24-[address] Alireza London MD Work Phone: [facility] Work Phone: Start: 01-20-2025 End: 01-20-[address] Alireza London MD Work Phone: [facility] Work Phone: Start: 01-20-2025 End: 01-20-[address] Bhavani Wells DO -[facility] Work Phone: Start: 01-20-2025 End: 01-20-2025 ambulatory Alireza London Facility:[facility] Start: 01-18-2025 End: 01-18-[address] Bhavani Wells DO -[facility] Work Phone: Start: 01-18-2025 End: 01-18-[address] Alireza London MD Work Phone: [facility] Work Phone: Start: 01-11-2025 End: 01-11-[address] Alireza London MD Work Phone: [facility] Work Phone: Start: 01-11-2025 End: 01-11-2025 Patient encounter procedure Alesha To ORNAMENTAL PLASTERER HELPER-C -[facility]imen Work Phone: Start: 01-11-2025 End: 01-11-2025 Patient encounter procedure Alesha Salem ORNAMENTAL PLASTERER HELPER-C -[facility] Work Phone: Start: 01-11-2025 End: 01-11-[address] Alireza London MD Work Phone: [facility] Work Phone: Start: 01-11-2025 End: 01-11-2025 ambulatory Alireza London Facility:[facility] Start: 01-04-2025 End: 01-04-2025 ambulatory ALIREZA LONDON [facility] Start: 12-28-2024 End: 12-28-2024 Patient encounter procedure Carol Barrera CNM -[facility] Work Phone: Start: 12-28-2024 End: 12-28-[address] Alireza London MD Work Phone: [facility] Work Phone: Start: 12-28-2024 End: 12-28-2024 ambulatory Alireza London Facility:[facility] Start: 12-14-2024 End: 12-14-[address] Elidia Joaquin MD -[facility] Work Phone: Start: 12-14-2024 End: 12-14-[address] Alireza London MD Work Phone: [facility] Work Phone: Start: 12-07-2024 End: 12-07-2024 ambulatory [facility] Start: 11-30-2024 End: 11-30-2024 Patient encounter procedure Carol COSTELLO -[facility] Work Phone: Start: 11-30-2024 End: 11-30-2024 ambulatory Alireza London Facility:[facility] Start: 11-30-2024 End: 11-30-2024 ambulatory Alireza London Facility:[facility] Start: 11-08-2024 End: 11-08-2024 ambulatory [facility] Start: 11-02-2024 End: 11-02-[address] Bhavani Wells DO [facility] Work Phone: Start: 11-02-2024 End: 11-02-[address] Alireza London MD Work Phone: [facility] Work Phone: Start: 11-02-2024 End: 11-02-2024 ambulatory Bhavani Wells Facility:[facility] Start: 10-21-2024 Encounter for genera l adult medical examination without abnormal findings Bhavani Wells [facility] Start: 10-12-2024 End: 10-12-[address] Bhavani Wells DO -[facility] Start: 10-12-2024 End: 10-12-[address] Alireza London MD Work Phone: [facility] Work Phone: Start: 10-12-2024 End: 10-12-2024 ambulatory Bhavani Wells Facility:[facility] Start: 10-05-2024 End: 10-05-[address] Bhavani Wells DO [facility] Work Phone: Start: 10-05-2024 End: 10-05-[address] Alireza London MD Work Phone: [facility] Work Phone: Start: 10-05-2024 End: 10-05-2024 ambulatory Bhavani Wells Facility:[facility] Start: 09-28-2024 End: 09-28-2024 ambulatory [facility] Start: 09-14-2024 End: 09-14-2024 ambulatory [facility] Start: 09-07-2024 End: 09-07-2024 Patient encounter procedure Alesha WALTERS -[facility] Work Phone: Start: 09-07-2024 End: 09-07-2024 ambulatory Alireza London Facility:[facility] Start: 09-07-2024 End: 09-07-2024 ambulatory Alesha To NP Facility:[facility] Start: 08-10-2024 End: 08-10-[address] Bhavani Wells DO [facility] Work Phone: Start: 08-10-2024 End: 08-10-2024 ambulatory Alireza London Facility:[facility] Start: 08-10-2024 End: 08-10-2024 ambulatory Alireza London Facility:[facility] Start: 07-05-2024 End: 07-05-2024 Patient encounter procedure Carol Barrera CNM -[facility] Work Phone: Start: 07-05-2024 End: 07-05-2024 ambulatory Alireza London Facility:[facility] Start: 07-05-2024 End: 07-05-2024 ambulatory Alirezawashington London Facility:[facility] Start: 02-03-2024 End: 02-03-2024 ambulatory Facility:[facility] Start: 02-03-2024 End: 02-03-2024 Office outpatient new 30 minutes Arvin Rendon APRN.CNP Work Phone: [facility] Comment on above: Sore throat (Primary Dx); Strep throat Start: 08-26-2022 Non-patient / Non-visit Dr. Cheryl London Work Phone: [facility] Start: 08-25-2022 Non-patient / Non-visit Dr. Cheryl London Work Phone: [facility] Start: 08-24-2022 Non-patient / Non-visit Dr. Cheryl London Work Phone: [facility] Start: 08-24-2022 End: 08-26-2022 Evaluation and management of inpatient Dr. Alireza London Work Phone: [facility] Start: 08-23-2022 End: 08-23-[address] Alireza London Work Phone: [facility] Start: 08-15-2022 End: 08-15-[address] Alireza London Work Phone: [facility] Start: 08-09-2022 End: 08-09-[address] Alireza London Work Phone: [facility] Start: 08-01-2022 End: 08-01-[address] Alireza London Work Phone: [facility] Start: 07-23-2022 Non-patient / Non-visit Dr. Cheryl London Work Phone: [facility] Start: 07-23-2022 End: 07-23-[address] Alireza London Work Phone: [facility] Work Phone: Start: 07-23-2022 End: 07-23-[address] [facility]ireza London [facility] Start: 07-15-2022 End: 07-15-[address] Alireza London Work Phone: [facility] Start: 07-02-2022 End: 07-02-[address] Alireza London Work Phone: [facility] Start: 06-20-2022 End: 06-20-[address] Alireza London Work Phone: [facility] Start: 06-04-2022 End: 06-04-[address] Alireza London Work Phone: [facility] Work Phone: Start: 06-04-2022 End: 06-04-[address] Alireza London Work Phone: [facility] Start: 05-16-2022 End: 05-16-[address] Alireza London Work Phone: [facility] Start: 04-16-2022 End: 04-16-[address] Ailreza London Work Phone: [facility] Start: 03-19-2022 End: 03-19-[address] Alireza London Work Phone: [facility] Start: 02-20-2022 End: 02-20-[address] Alireza London Work Phone: [facility] Start: 01-21-2022 End: 01-21-[address] Alireza London Work Phone: [facility] Start: 11-27-2021 End: 11-27-[address] Alireza London Work Phone: [facility] Procedures Date Procedure Procedure Detail Performing Clinician Start: 01-20-2025 Ultrasonography for antepartum monitoring of fetus Dr. Alireza London MD Work Phone: Start: 01-11-2025 Beta-hemolytic Streptococcus culture Dr. Alireza London MD Work Phone: Start: 12-28-[address] Alireza London MD Work Phone: Comment on above: Test Ordered: [id number] Antibody Identifica tionAntibody Id. #1 Anti-M CB Reference Range: .Dat Titer #1 Comment CB Reference Range: .The antibody is too weak to titer at this time.If a numerical titer result has been reported, please notethat this result is the reciprocal value of titer resultsformerly reported as 1:2,1:4, 1:8, etc. These results arenow reported as 2, 4, 8, etc. The [employer] has recommended this change in titer reportingformats to simply reflect the reciprocal value of thetiter.Antibody Id. #2 ORNAMENTAL PLASTERER HELPER [employer] Reference Range: .Dat Titer #2 ORNAMENTAL PLASTERER HELPER [employer] Reference Range: .Performed at: [address] [id number] Director: Joey Mortensen PhD, Phone: [phone] Start: 11-30-[address] Alireza London MD Work Phone: Comment on above: Test Ordered: [id number] Antibody Identifica tionAntibody Id. #1 Anti-M CB Reference Range: .Dat Titer #1 2 CB Reference Range: .If a numerical titer result has been reported, please notethat this result is the reciprocal value of titer resultsformerly reported as 1:2,1:4, 1:8, etc. These results arenow reported as 2, 4, 8, etc. [employer] has recommended this change in titer reportingformats to simply reflect the reciprocal value of thetiter.Antibody Id. #2 ORNAMENTAL PLASTERER HELPER [employer] Reference Range: .Dat Titer #2 ORNAMENTAL PLASTERER HELPER [employer] Reference Range: .Performed at: [place] [id number] Director: Joey Mortensen PhD, Phone: [phone] Start: 11-02-2024 Serologic test for syphilis Dr. Alireza taylor MD Work Phone: Start: 07-05-[address] Alireza London MD Work Phone: Start: 02-03-2024 STREP A MOLECULAR (POC) Arvin arreola CHEMICAL SPRAYER.CONVERSION MAN Work Phone: History of tonsillectomy History of tonsillectomy Dr. Alireza London Work Phone: Plan of Treatment Date Care Activity Detail Author Start: 06-20-2032 Urine microalbumin profile DTaP,Tdap,Td Vaccine (2 - Td or Tdap) [facility] Start: 12-28-2024 Procedure [facility] Start: 04-04-2024 Influenza [facility] Start: 08-04-2023 Behavioral Health Screening Behavioral Health Screening [facility] Start: 04-04-2023 Covid-19 Vaccine ( season) Covid-19 Vaccine ( season) [facility] Start: 08-26-2022 Patient discharge [facility] Start: 08-25-2022 Administration of medication [facility] Start: 08-25-2022 Application of ice collar, cap or bag [facility] Start: 08-25-2022 Catheterization of vein [facility] Start: 08-25-2022 Introduction of urinary catheter [facility] Start: 08-25-2022 Measuring intake and output [facility] Start: 08-25-2022 Notification of physician [facility] Start: 08-25-2022 Procedure discontinued [facility] Start: 08-25-2022 Provision of activity privileges [facility] Start: 08-25-2022 Vital signs measurements [facility] Start: 08-25-2022 [facility] Start: 08-25-2022 Leukocyte reduced red blood cells [facility] Start: 08-24-2022 Admission procedure [facility] Start: 07-23-2022 Nonstress test [facility] Start: 07-23-2022 Obstetric monitoring [facility] Start: 07-23-2022 Vital signs measurements [facility] Start: 07-23-2022 [facility] Start: 07-23-2022 Patient discharge [facility] Start: 01-21-2022 [facility] Work Phone: Start: 2013 Screening for malignant neoplasm of cervix Cervical Cancer Screening [facility] Start: 2011 Hepatitis B Vaccine (1 of 3 - 19+ 3-dose series) Hepatitis B Vaccine (1 of 3 - 19+ 3-dose series) [facility] Start: 2010 Hepatitis C screening Hepatitis C Screening [facility] Start: 2010 HIV screening HIV Screening [facility] Bacteria identified in Urine by Culture [facility] Work Phone: CBC W Auto Different ial panel - Blood [facility] Measurement of gluco se 2 hours after glucose challenge for glucose tolerance test [facility] Patient Education Kick Counts ED False Labor OB Triage: Return to Hospital or Notify Physician if you Experience: [facility] Work Phone: Patient referral [facility] Work Phone: Serologic test for syphilis [facility] Streptococcus agalac tiae [Presence] in Unspecified specimen by Organism specific culture [facility] Immunizations Immunization Date Immunization Notes Care Provider Haley seals 11-30-2024 tetanus toxoid, reduced diphtheria toxoid, and acellular pertussis vaccine, adsorbed Dr. Alireza London MD Work Phone: [facility] 06-20-2022 tetanus toxoid, reduced diphtheria toxoid, and acellular pertussis vaccine, adsorbed Dr. Alireza London Work Phone: [facility] 05-16-2022 influenza, injectabl e, quadrivalent, preservative free Dr. Alireza London MD Work Phone: [facility] 05-16-2022 influenza, seasonal, injectable Dr. Alireza London Work Phone: [facility] 05-16-2022 influenza virus vaccine, unspecified formulation Arvin Rendon APRN.CNP Work Phone: [facility] Payers Date Payer Category Payer Self-pay [id number] 2022 Unknown THERESA THOMAS ACCE SS PPO [id number] 2022-Present [phone] [address] [place] [address] PPO [id number] 2022 Unknown [id number] 1990 Unknown [id number] 2.840.1.566517.3.579.2 1992 Unknown [id number] 2.840.1.665933.3.579.2 1992 Unknown [id number] 2..840.1.891621.3.579.2 1992 Unknown [id number] 2..840.1.162557.3.579.2 1992 Unknown [id number] 2.16.840.1.342683.3.579.2. 479 1992 Unknown [id number] 2.16.840.1.553947.3.579.2. 479 Private Health Insurance [id number] Private Health Insurance [id number] Unknown [id number] 2.16840.1.749668.3.579.2. 462 Unknown [id number] 2.840.1.969962.3.579.2. 462 Unknown [id number] 2.840.1.799314.3.579.2. 462 Unknown [id number] 2.840.1.454922.3.579.2. 462 Unknown [id number] 2.840.1.048078.3.579.2. 462 Unknown [id number] 2.840.1.526667.3.579.2. 462 Unknown [id number] 2.840.1.759450.3.579.2. 462 Unknown [id number] 2.840.1.449529.3.579.2. 462 Unknown [id number] 2.840.1.095720.3.579.2. 462 Unknown [id number] 2.840.1.525947.3.579.2. 462 Unknown [id number] 2.16840.1.525065.3.579.2. 462 Unknown [id number] 2.16840.1.969715.3.579.2. 462 Unknown [id number] 2.840.1.234480.3.579.2. 462 Unknown [id number] 2.840.1.684542.3.579.2. 462 Unknown [id number] 2..840.1.049481.3.579.2. 462 Unknown [id number] 2.16.840.1.239014.3.579.2. 462 Unknown [id number] 2.16.840.1.934069.3.579.2. 462 Unknown [id number] 2.16.840.1.564781.3.579.2. 462 Unknown [id number] 2.16.840.1.198170.3.579.2. 462 Unknown [id number] 2.16.840.1.107644.3.579.2. 462 Unknown [id number] 2.16.840.1.745512.3.579.2. 462 Unknown [id number] 2.16.840.1.717038.3.579.2. 462 Unknown [id number] 2.16.840.1.139367.3.579.2. 462 Unknown [id number] 2.16.840.1.783531.3.579.2. 462 Social History Date Type Detail Facility Start: 01-21-2022 End: 08-24-2022 Tobacco smoking status NMIS Unknown if ever smoked [facility] Start: 10-23-2020 Non-smoker [facility] Start: 1990 Sex Assigned At Female [facility] Start: 02-03-2024 Gender identity Identifies as female gender (finding) [facility] Sexual orientation Not on file [facility] Start: 06-24-2024 Tobacco smoking stat us NMIS Ex-smoker (finding) [facility] Start: 10-15-2024 End: 11-08-2024 Sex Female (finding) [facility] Goals Date Patient Goal Desired Activity /State Clinical Notes 08-25-2022 to 01-20-2025 Note Date & Type Note Facility 01-20-2025 Radiology Diagnostic study note [facility] Imaging Services [address] [place], [place] [address] OB Limited (No Biometrics) MR#: [id number] Acct: [id number] Name: JIHAN GUERRERO Rep #: [id number] : 1990 F 34 From: Pet er Peer PCP: Dr. Alireza London MD Status: REG CLI Study:OB Limited (No Biometrics) Date of Exam : 01/20/25 Exam# [id number] Ordering Dr: Bhavani Gibson DO PROCEDURE: OB [...] is not low-lying. Reading Location: [facility] CC: Dr. Bhavani Wells DO; Dr. Alireza London MD ~ Fixture Repairer Fabricator: Signed [facility] 12-28-2024 Progress note [facility] 12-14-2024 Progress note [facility] 10-05-2024 Evaluation note Diagnosis Onset Date Resolution [...] 3:12pm Two vessel cord acute January 3:12pm [facility] Work Phone: 1(484) 738-686603-04-2025 Evaluation note* Diagnosis Onset Date Resolution Status [...] 12:21pm Two vessel cord acute January 12:21pm [facility] Work Phone: 1(660) 735-624403-04-2025 Evaluation note* Diagnosis Onset Date Resolution Status [...] 8:06am Two vessel cord acute January 8:06am [facility] Work Phone: 1(234) 897-501002-04-2025 Evaluation note* Diagnosis Onset Date Resolution Status [...] vessel cord acute December 14, 2024 8:56am [facility] Work Phone: 1(292) 274-408802-04-2025 Evaluation note* Diagnosis Onset Date Resolution Status [...] vessel cord acute December 28, 2024 8:54am [facility] Work Phone: 1(907) 616-567801-07-2025 Evaluation note* Diagnosis Onset Date Resolution Status [...] 8:42am Two vessel cord acute November 8:42am [facility] Work Phone: 1(995) 991-596412-02-2024 Evaluation note* Diagnosis Onset Date Resolution Status [...] 8:48am Two vessel cord acute October 8:48am [facility] Work Phone: 1(651) 310-720407-02-2024 NoteHNO ID: [id number] Author: ARVIN RENDON APRN.CONVERSION MAN Service: ? Author Type: Nurse Practitioner Type: [...] of care. This note was generated using [employer] software. It may contain errors in wording, punctuation, or spelling. Arvin Rendon APRN.[facility]07-02-2024 History of Present illness Narrative* Arvin Rendon APRN.[facility] - 02/03/2024 6:36 PM EDT Subjective HPI [...] of care. This note was generated using [employer] software. It may contain errors in wording, punctuation, or spelling. Arvin Rendon APRN.CONVERSION MAN [facility] Progress note Author Azucena Dwyer [facility] August 26, 2022 10:49am Note Date/Time August 26, 2022 1 0:49am [facility] Medical Records Department [address] [place] [address] Progress Note - OBGYN 08/26/22 1048 MR#: [id number] Acct: [id number] Name: JIHAN GUERRERO Rep #:[id number] : 1990 32 From: Azucena Dwyer CNM PCP: Dr. Alireza London MD Status:ADM IN Location: [id number] Subjective Subjective Patient doing well without complaints. [...] Cosigner Signature (if applicable): CC: ~ Signed [facility] Work Phone: 1(155) 960-911401-22-2023 Discharge summary Author Azucena Dwyer [facility] August 25, 2022 11:05am Note Date/Time August 25, 2022 1 1:05am [facility] Medical Records Department [address] [place] [address] Instructions for Home/Discharge Instructions 08/25/22 1104 MR#: [id number] Acct: [id number] Name: JIHAN GUERRERO Rep #:[id number] : 1990 32 From: Azucena Dwyer [...] London Discharge Orders/Prescriptions Prescriptions: No Action PNV #60-rrse-sfpoe acid-omega3 30 mg iron-10 mg iron-1 mg capsule 1 cap PO DAILY Referrals / Follow Up: Alireza London MD [Primary Care Provider] - 08/25/22 1105<Electronically signed by Azucena Dwyer CNM>Azucena Dwyer CNM CC: Dr. 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 Formal scan ordered with [facility]. 03/19/22 -?-?-?-?-?-?-?-?-?-?-?-?- 16w 5d 173 lb [...] any complications: GBS I have reviewed the [facility] and made any clinically relevant updates. -routine L&D admission orders -PCN for GBS -will add pitocin augmentation if no cervical change x6 hours from admission Dr. Joaquin updated on admission, POC and concurs with primary midwifery management. is avaiable. 08/24/222210 <Electronically signed by Azucena Dwyer CNM> Cosigner Signature (if applicable): CC: DENG Dwyer; Dr. Alireza London MD~ Signed [facility] Work Phone: Evaluation note* Diagnosis Onset Date Resolution Status Encounter for routine gynecological examination noneactive acute Supervision of normal acute [facility] Work Phone: evaluation note* Diagnosis Onset [...] b y group B Streptococcus affecting acute [facility] Work Phone: evaluation note* Diagnosis Onset [...] b y group B Streptococcus affecting acute [facility] Work Phone: evaluation note* Diagnosis Onset [...] of normal resolved (spontaneous vaginal delivery) resolved [facility] Work Phone: Evaluation note* Diagnosis Sore throat- Primary Acute pharyngitis Strep throat Streptococcal sore throat [facility] Additional Instructions avoid fatty foods keep appointment wi Dr Joaquin next week if epigastric pain increases, [facility] Progress note Author Elidia Joaquin [facility] Note Date/Time December 14, 2024 9:10a m [facility] [address], [address] [place] [address] OFFICE VISIT Date of Service: 12/14/24 MR#: [id number] Acct: [id number] Name: JIHAN GUERRERO Rep #: [id number] : 1990 Provider: Dr. Felipe Joaquin MD Age/Sex: 34/F [place] [facility] Status: Signed Intake Vital Signs 07/05/24 13:02 11/30/24 08:46 12/14/24 08:59 Height 5 ft 5 in 5 ft 5 in 5 ft 5 in Weight: 195 lb BMI 32.4 BP 124/75 H Intake Visit Reasons: 32 wk ob Ticket Taker Ferryboat Required: No Is patient in pain?: No [...] current occupational status: employed current occupation: [employer] pets and animals: Yes pets and animals: dog(s) history of recent travel: Yes ([place]) out of state: Yes out of country: [...] in: none frequency: 3-4 times per week galo/sabianist: None seatbelt use: always do you feel safe at home: Yes additional social history: - 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 Date Name GA/Weeks Outcome Route Bth Weight Infant Gen Labor Lgth Anesthesia Del Locatn Provider FOB 08/25/22 Joe 39 live - full term 7#2OZ Male [facility] Reymundo Akins Delivery Date: 08/25/22 Last Updated [...] Cosigner Signature: Date (if applicable) CC: ~ [facility] Work Phone: Progress note Author Carol Barrera [facility] Note Date/Time December 28, 2024 9:13a [facility] [address] [place] [address], [address] [place] [address] OFFICE VISIT Date of Service: 12/28/24 MR#: [id number] Acct: [id number] Name: JIHAN GUERRERO Rep #: [id number] : 1990 Provider: DENG Barrera Age/Sex: 34/F [place] [facility] Status: Signed Intake Vital Signs 07/05/24 13:02 11/30/24 08:46 12/14/24 08:59 12/28/24 09:00 Height 5 ft 5 in 5 ft 5 in 5 ft 5 in 5 ft 5 in Weight: 195 lb 199 lb 2 oz BMI 32.4 33.1 BP 124/75 H 135/80 H Intake Visit Reasons: 34 wk ob Chief Complaint: 34wk OB Ticket Taker Ferryboat Required: No Is patient in pain?: No [...] animals: dog(s) history of recent travel: Yes ([place]) out of state: Yes out of country: [...] in: none frequency: 3-4 times per week galo/sabianist: None seatbelt use: always do you feel safe at home: Yes additional social history: - 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 Date Name GA/Weeks Outcome Route Bth Weight Infant Gen Labor Lgth Anesthesia Del Locatn Provider FOB 08/25/22 Joe 39 live - full term 7#2OZ Male [facility] Delivery Date: 08/25/22 Last Updated by: Brigitte [...] this visit. GA appropriate handout given. 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 Reason for Visit Encounter [...] No October 23, 2020 2:24pm Power of Java Security Engineer No October 23 2:24pm Advance Directive Response Recorded Date/ Time Living Will No October 23, 2020 1:24pm Power of Java Security Engineer No October 23 1:24pm Advance Directive Response Recorded Date/ Time Living Will No August 24 8:09pm Power of Java Security Engineer No August 24, 2022 8:09pm Advance Directive Response Recorded Date/ Time Living Will No December 27, 2022 4 :18am Power of Java Security Engineer No December 27, 2022 4:18am Advance Directive Response Recorded Date/ Time Living Will No December 27, 2022 4 :18am Do you have a Healthcare Power of Java Security Engineer? No December 27, 2022 4:18am Summary Purpose [...] 2024 End: October 05, 2024 Dr. Bhavani Welsl DO Attending Provider Activ e Start: October [...] 2025 End: January 11, 2025 Alesha To ORNAMENTAL PLASTERER HELPER, ORNAMENTAL PLASTERER HELPER-C Attending Provider Active Start: January 11, 2025 End: January 11, 2025 Team Status: Inactive Member Role Status Dates Dr. Alireza London MD Primary Care Provider Active Start: January 11, 2025 End: January 11, 2025 Alesha To ORNAMENTAL PLASTERER HELPER, ORNAMENTAL PLASTERER HELPER-C Attending Provider Active Start: January 11, 2025 End: January 11, 2025 Alesha To ORNAMENTAL PLASTERER HELPER, ORNAMENTAL PLASTERER HELPER-C Referring Provider Active Start: January 11, 2025 [...] Inactive Member Role Status Dates Dr. Alireza oLndon MD Primary Care Provider Active Start: January [...] Provider, Referri ng Provider Active Alesha To ORNAMENTAL PLASTERER HELPER, ORNAMENTAL PLASTERER HELPER-C Attending Provider Active Team Status: Inactive Member [...] Status: Inactive Member Role Status Dates Dr. Alirzea London MD Primary Care Provider Active Start: [...] 2024 End: September 07, 2024 Alesha To ORNAMENTAL PLASTERER HELPER, ORNAMENTAL PLASTERER HELPER-C Attending Provider Active Start: September 07, 2024 End: September 07, 2024 Team Status: Inactive Member Role Status Dates Dr. Alireza London MD Primary Care Provider Active Start: September 07, 2024 End: September 07, 2024 Alesha To ORNAMENTAL PLASTERER HELPER, ORNAMENTAL PLASTERER HELPER-C Attending Provider Active Start: September 07, 2024 End: September 07, 2024 Alesha To ORNAMENTAL PLASTERER HELPER, ORNAMENTAL PLASTERER HELPER-C Referring Provider Active Start: September 07, 2024 [...] or prosecute any alcohol or drug abuse patient.[facility] Reason for Visit (unrecogniz ed section and content) Reason Comments Sore Throat fever x 2 days, Sund ay vomiting and diarrhea all day INFORMATION SOURCE (unrecogn ized section and content) DATE CREATED AUTHOR 02/05/2024 [facility] DATE CREATED AUTHOR AUTHOR'S ORGANIZ ATION 01/05/2025 [facility] DATE CREATED AUTHOR AUTHOR'S ORGANIZ ATION 01/27/2025 [facility] FOR RECORDS PERTAINING TO PATIENTS WHO [...] BE BASED ON THE PRIMARY CLINICAL RECORDS. [facility] enrich-in [facility]. provides no warranty or guarantee of the accuracy or completeness of information in this document.
[2025-01-30 19:12] VITALS: BMI 33.7
[2025-01-30 19:37] VITALS: BP 135/93; PULSE 102; RESP 16; TEMP 36.3
[2025-01-30 20:30] LABS: Hematocrit 30.6 % (37-47); Hemoglobin 10.7 g/dL (12.0-15.0); Immature Granulocytes Count 0.110 X10^3/uL (0.0-0.0); Mean Corp Hgb Conc 35.0 g/dL (32-36); Mean Corpuscular Volume 81.0 fL (81-99); Mean Platelet Vol. 9.0 fl (6.2-12.0); NRBC Flagged by Analyzer 0 % (0-5); Platelet Count 367 K/mm3 (150-450); RBC Distribution Width CV 12.7 % (11.6-14.6); RBC Distribution Width SD 36.7 fl (35.1-43.9); Red Blood Count 3.78 M/mm3 (4.2-5.4); White Blood Count 11.3 K/mm3 (4.4-11.0)
[2025-01-30 20:52] VITALS: BP 132/79; PULSE 82
[2025-01-30] MEDS: Lactated Ringers 1,000 ML 50 ML IV (21:00)
[2025-01-30 21:02] LABS: Syphilis Antibodies Nonreactive (Nonreactive)
[2025-01-30] MEDS: Penicillin G Pot 5,000,000 UNITS in 0.9% Normal Saline (100mL MB+) 100 ML 150 UNITS IV (21:02)
--- OUTSIDE RECORDS SUMMARY | 2025-01-30 21:29 | XMS RPT_ITS | CCD ---
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 Alireza London Primary Care Provider Dr. Alireza London Referring Provider [phone]) Yousuf CLINIC SPECIALIST, CLINIC SPECIALIST-C Alesha Attending Provider 1(330 ) Dr. Elidia Joaquin Attending Provider 1(330 ) Dr. Alireza London Primary Care Provider Dr. Alireza London Referring Provider 1(330) Dr. Bhavani Wells Attending Provider [phone] Yousuf RUBIO NP-C Alesha Attending Provider 1(330 ) Dr. Elidia Joaquin Attending Provider 1(330 ) Dr. Alireza London Primary Care Provider Dr. Alireza London Referring Provider 1(330) Dr. Bhavani Wells Attending Provider 1(3 30) Yousuf CLINIC SPECIALIST CLINIC SPECIALIST-C Alesha Attending Provider 1(330 ) Dr. Alireza London Primary Care Provider Dr. Alireza London Referring Provider 1(330) Dr. Elidia Joaquin Attending Provider 1(330 ) Dr. Bhavani Wells Other Provider DENG Dwyer Admit Provider [phone] DENG Dwyer Attending Provider [phone] DENG Dwyer Other Provider Unavailable Primary Care Provider Unavailcandice e Sara RAMOS, Dr. Wolf Primary Care Provider Sara RAMOS, Dr. Wolf Referring Provider Bruce VILCHIS, Carol Attending Provider [phone] Bruce COSTELLOM, Carol Referring Provider [phone] Kt Corey DO, Dr. Beckham Attending Provider Yousuf CLINIC SPECIALIST-C, Alesha Attending Provider [phone] Yousuf CLINIC SPECIALIST-C, Alesha Referring Provider Kt Corey DO, Dr. Beckham Referring Provider Sara RAMOS, Dr. Wolf Primary Care Provider [phone] Sara RAMOS, Dr. Wolf Referring Provider Bruce VILCHIS, Carol Attending Provider [phone] Bruce VILCHIS, Carol Referring Provider 1([phone] Sara RAMOS, Dr. Wolf Primary Care Provider Sara RAMOS, Dr. Wolf Referring Provider Kt Corey DO, Dr. Beckham Attending Provider Bruce VILCHIS, Carol Attending Provider [phone] Bruce VILCHIS, Carol Referring Provider [phone] Emani RAMOS, Dr. Brenner Attending Provider [phone] BHAVANI SANCHEZ Referring Unavailab ALIREZA Aguayo Primary [...] DENNY Attending Unavailable BHAVANI SANCHEZ Referring Unavailab ALIREZA Aguayo Primary Care Unavailable ANEL GURROLA Attending Unavailable BHAVANI SANCHEZ Referring Unavailab foreign London MD, Dr. Wolf Primary Care Provider Sara RAMOS, Dr. Wolf Referring Provider Yousuf CLINIC SPECIALIST-C, Alesha Attending Provider Yousuf CLINIC SPECIALIST-C, Laesha Referring Provider Sara, Alireza Primary Care Unavailable Sara, Alireza Referring Unavailable Vande VeldeBhavani Attending Unavailabl e Sara, Alireza Primary Care Unavailable Sara, Alireza Referring Unavailable Vande Velde, Bhavani Attending Unavailabl e Sara, Alireza Primary Care Unavailable Sara, Alireza Referring Unavailable Carol Barrera Attending Unavailable Sara, Alireza Primary Care Unavailable Elidia Joaquin Attending Unavailable Sara, Alireza Referring Unavailable Yousuf CLINIC SPECIALIST, Alesha Attending Unavailable Sara, Alireza Primary Care Unavailable Yousuf CLINIC SPECIALIST, Alesha Referring Unavailable Vande Bhavani Corey Attending Unavailabl e Vande Velde, Bhavani Referring Unavailabl e Sara, Alireza Primary Care Unavailable Vande VelBhavani kay Attending Unavailabl e Vande Velde, Bhavani Referring [...] Unavailabl e Sara, Alireza Primary Care Unavailable Yousuf CLINIC SPECIALIST, Alesha Attending Unavailable Sara, Alireza Referring Unavailable Sara, Alireza Referring Unavailable Sara, Alireza Primary Care Unavailable Yousuf CLINIC SPECIALIST, Alesha Attending Unavailable Vande Velde, Bhavani Attending Unavailabl e Sara, Alireza Primary Care Unavailable Sara, Alireza Referring Unavailable Vande Velde, Bhavani Attending Unavailabl e Sara, Alireza Primary Care Unavailable Sara, Alireza Referring Unavailable Sara, Alireza Primary Care Unavailable Sara, Alireza Referring Unavailable Yousuf CLINIC SPECIALIST, Alesha Attending Unavailable Sara, Alireza Primary Care Unavailable Carol Barrera Attending Unavailable Sara, Alireza Referring Unavailable Sara, Alireza Primary Care Unavailable Carol Barrera Attending Unavailable Carol Barrera Referring Unavailable Sara, Alireza Primary Care Unavailable Carol Barrera Referring Unavailable Carol Barrera Attending Unavailable Sara, Alireza Primary Care Unavailable Bhavani Wells Referring Unavailabl e Vande Leora, Bhavani Attending Unavailabl e Sara, Alireza Primary Care Unavailable Yousuf CLINIC SPECIALIST, Alesha Referring Unavailable Yousuf CLINIC SPECIALIST, Alesha Attending Unavailable Sara, Alireza Primary Care Unavailable Carol Barrera Attending Unavailable Sara, Alireza Primary Care Unavailable Bhavani Wells Attending Unavailabl e Vande Bhavani Corey Admitting Unavailabl e Vande Velde, Bhavani Referring Unavailabl [...] and vomiting July 05, 2024 1:00am Pnv #81-Crqz-Kvinz Acid-Omega3 (4 sources) Start: 01-21-2022 take 1 capsule by mouth once daily Pnv #80-Hfdz-Iuvaw Acid-Omega3 Active 1 CAP PO DAILY January 20, 2022 11:00pm Start: 01-21-2022 Pnv #30-Iron-F olic Acid-Omega3 Active CAP PO January 20, 2022 11:00pm Start: 01-21-2022 Pnv #30-Iron-F olic Acid-Omega3 Active CAP PO January 21, 2022 12:00am Pnv #53-Fmou-Zptdi Acid-Omega3 30 mg iron-10 mg iron-1 mg [...] conditions (20 sources) Abnormal umbilical cord; Translations: [[place] affected by unspecified conditions of umbilical cord] [...] above: PRR ALFRED 08/29/22 boy Joe Tashi MIRANDAOM at 39weeks. pit augment. PPH, avulsed cord/short [...] Test Name Value Interpretation Reference Range Facility CBC W/Diff, Automatedon - Absolute Lymph 2.34 X10 3/uL Normal 0.83-4.51 [facility] Comment on above: Performed By: #### L 801.1541 #### [facility] [address] [place], [address] Absolute Neut 8.0 X10 3/uL High 2.0-7.7 [facility] Comment on above: Performed By: #### L 801.1541 #### [facility] [address] [place], [address] Basophils/100 WBC (Bld) 0.3 % Normal 0-1 [facility] Comment on above: Performed By: #### L 801.1541 #### [facility] [address] [place], [address] Eosinophils/100 WBC (Bld) 0.5 % Normal 0-5 [facility] Comment on above: Performed By: #### L 801.1541 #### [facility] [address] [place], [address] Erythrocyte distribution width (RBC) [Ratio] 12.7 % Normal 11.6-14.6 [facility] Comment on above: Performed By: #### L 801.1541 #### [facility] [address] [place], [address] Hematocrit (Bld) [Volume fraction] 30.6 % Low 37-47 [facility] Comment on above: Performed By: #### L 801.1541 #### [facility] [address] [place], [address] Hemoglobin (Bld) [Mass/Vol] 10.7 g/dL Low 12.0-15.0 [facility] Comment on above: Performed By: #### L 801.1541 #### [facility] [address] [place], [address] IG% 1.000 High 0.0-0.9 [facility] Comment on above: Result Comment: IG% - Immature Granulocytes (promyelocytes, myelocytes and metamyelocytes) > 1% indicates that a LEFT SHIFT is Present. Performed By: #### L 801.1541 #### [facility] [address] [place], [address] Lymphocytes/100 WBC (Bld) 20.7 % Normal 19-41 [facility] Comment on above: Performed By: #### L 801.1541 #### [facility] [address] [place], [address] MCH (RBC) [Entitic mass] 28.3 pg Normal 27.0-32.0 [facility] Comment on above: Performed By: #### L 801.1541 #### [facility] [address] [place], [address] MCHC (RBC) [Mass/Vol] 35.0 g/dL Normal 32-36 [facility] Comment on above: Performed By: #### L 801.1541 #### [facility] [address] [place], [address] MCV (RBC) [Entitic vol] 81.0 fL Normal 81-99 [facility] Comment on above: Performed By: #### L 801.1541 #### [facility] [address] [place], [address] Monocytes/100 WBC (Bld) 7.0 % Normal 0-10 [facility] Comment on above: Performed By: #### L 801.1541 #### [facility] [address] [place], [address] Neutrophils/100 WBC (Bld) 70.5 % High 47-70 [facility] Comment on above: Performed By: #### L 801.1541 #### [facility] [address] [place], [address] Nucleated RBC (Bld) [#/Vol] 0 10*3/uL Normal 0-5 [facility] Comment on above: Performed By: #### L 801.1541 #### [facility] [address] [place], [address] Platelet mean volume (Bld) [Entitic vol] 9.0 fL Normal 6.2-12.0 [facility] Comment on above: Performed By: #### L 801.1541 #### [facility] [address] [place], [address] Platelets (Bld) [#/Vol] 367 10*3/uL Normal 150-450 [facility] Comment on above: Performed By: #### L 801.1541 #### [facility] [address] [place], [address] RBC (Bld) [#/Vol] 3.78 10*6/uL Low 4.2-5.4 [facility] Comment on above: Performed By: #### L 801.1541 #### [facility] [address] [place], [address] RDW SD 36.7 fl Normal 35.1-43.9 [facility] Comment on above: Performed By: #### L 801.1541 #### [facility] [address] [place], [address] WBC (Bld) [#/Vol] 11.3 10*3/uL High 4.4-11.0 [facility] Comment on above: Performed By: #### L 801.1541 #### [facility] [address] [place], [address] Syphilis Antibodieson 2024 Syphilis Abs Non-Reactive Normal Nonreactive [facility] Comment on above: Performed By: #### L 509.8002 #### [facility] [address] [place], [address] Line Mechanic Office Visit Reporton 01-24-2025 Line Mechanic Office Visit Report [facility] [address], [address] [place] [address] OFFICE VISIT Date of Service: 01/24/25 MR#: [id number] Acct: [id number] Name: JIHAN GUERRERO Rep #: [id number] : 1990 Provider: Dr. Elidia díaz MD Age/Sex: 34/F [place] [facility] [place]: Signed Intake Vital Signs 12/14/24 08:59 01/18/25 12:23 01/24/25 08:14 Height 5 ft 5 in 5 ft 5 in 5 ft 5 in Weight: 201 lb BMI 33.4 BP 125/80 H Intake Visit Reasons: 38 wk ob/nst Debeaker Required: No Is patient in pain?: No [...] current occupational status: employed current occupation: [email or web address] pets and animals: Yes pets and animals: dog(s) history of recent travel: Yes ([place]) out of state: Yes out of country: [...] in: none frequency: 3-4 times per week galo/mu-ism: None seatbelt use: always do you feel safe at home: Yes additional social history: - 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 Date Name GA/Weeks Outcome Route Bth Weight Infant Gen Labor Lgth Anesthesia Del Locatn Provider FOB 08/25/22 Joe 39 live - full term 7#2OZ Male [facility] Colli ns Tashi Delivery Date: 08/25/22 [...] Dilation -???-???-???-??? (more content not included)... Normal [facility] OB Limited (No Biometrics)on 01-20-2025 OB Limited (No Biometrics) [facility] [address] [place] [address] OB Limited (No Biometrics) MR#: [id number] Acct: [id number] Name: JIHAN GUERRERO Rep #: [id number] : 1990 F 34 From: Sean Conde DO PCP: Dr. Alireza London MD Status: REG CLI Study: OB Limited (No Biometrics) Date of Exam: 01/20 Exam# [id number] Ordering Dr: Bhavani Wells DO PROCEDURE: OB [...] posterior and is not low-lying. Reading Location: [facility] CC: Dr. Bhavani Wells DO; Dr. Alireza London MD Manufacturing Systems Engineer: Signed Normal [facility] Laboratory - Chemistry and C hemistry - challengeOrdered By: Bhavani Corey on 01-18-2025 Glucose Ql (U) Negative [facility] Laboratory - UrinalysisOrder ed By: Bhavani Corey on 01-18-2025 Protein Ql (U) Negative [facility] Line Mechanic Office Visit Reporton 01-18-2025 Line Mechanic Office Visit Report [facility] [address], [address] [place] [address] OFFICE VISIT Date of Service: 01/18/25 MR#: [id number] Acct: [id number] Name: JIHAN GUERRERO Rep #: [id number] : 1990 Provider: Dr. Bhavani Tan DO Age/Sex: 34/F [place] [facility] [place]: Signed Intake Vital Signs 12/14/24 08:59 01/11/25 15:16 01/18/25 12:22 01/18/25 12:23 Height 5 ft 5 in 5 ft 5 in 5 ft 5 in 5 ft 5 in Weight: 200 lb 4 oz BMI 33.3 BP 120/78 Intake Visit Reasons: 37 wk ob Debeaker Required: No Is patient in pain?: No [...] current occupational status: employed current occupation: [email or web address] pets and animals: Yes pets and animals: dog(s) history of recent travel: Yes ([place]) out of state: Yes out of country: [...] in: none frequency: 3-4 times per week galo/mu-ism: None seatbelt use: always do you feel safe at home: Yes additional social history: - 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 Date Name GA/Weeks Outcome Route Bth Weight Infant Gen Labor Lgth Anesthesia Del Locatn Provider FOB 08/25/22 Joe 39 live - full term 7#2OZ Male [facility] Colli ns Tashi Delivery Date: 08/25/22 [...] FHR FuHt (more content not included)... Normal [facility] Rule out Beta Strep (Grp. B) on 01-15-2025 NICK Streptococcus agalac tiae (B) Amount Growth 3+ Streptococcus agalactiae (B): REACTION Ampicillin Islt ABRAHAN <=0.25 cefTRIAXone Islt ABRAHAN <=0.12 S Clindamycin Islt ABRAHAN <=0.25 S Clindamycin.induced Susc Islt NEG Linezolid Islt ABRAHAN <=2 S Vancomycin Islt ABRAHAN 0.5 S Normal [facility] Comment on above: Performed By: #### M 100.4840 #### [facility] [address] [place], [address] Laboratory - Chemistry and C hemistry - challengeOrdered By: Alesha To on 01-11-2025 Glucose Ql (U) Negative [facility] Laboratory - UrinalysisOrder ed By: Alesha To on 01-11-2025 Protein Ql (U) Negative [facility] Line Mechanic Office Visit Reporton 01-11-2025 Line Mechanic Office Visit Report [facility] [address], [address] [place] [address] OFFICE VISIT Date of Service: 01/11/25 MR#: [id number] Acct: [id number] Name: JIHAN GUERRERO Rep #: [id number] : 1990 Provider: ROMEO zamudio Age/Sex: 34/F [place] [facility] [place] Status: Signed Intake Vital Signs 12/28/24 09:00 01/11/25 15:16 Height 5 ft 5 in 5 ft 5 in Weight: 199 lb 2 oz 202 lb 8 oz BMI 33.1 33.7 BP 135/80 H 104/70 Intake Visit Reasons: 36wk ob Chief Complaint: 36 Week OB Debeaker Required: No Is patient in pain?: No [...] current occupational status: employed current occupation: [employer] pets and animals: Yes pets and animals: dog(s) history of recent travel: Yes ([place]) out of state: Yes out of country: [...] in: none frequency: 3-4 times per week galo/mu-ism: None seatbelt use: always do you feel safe at home: Yes additional social history: - 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 Date Name GA/Weeks Outcome Route Bth Weight Infant Gen Labor Lgth Anesthesia Del Locatn Provider FOB 08/25/22 Joe 39 live - full term 7#2OZ Male [facility] Colli ns Tashi Delivery Date: 08/25/22 [...] FuHt Pres (more content not included)... Normal [facility] Screening beta-hemolytic Str eptococcus cultureOrdered By: Alesha To on 01-11-2025 Beta-hemolytic Streptococcus culture Streptococcus agalactiae (B) Abnormal [facility] L3410.9992on 12-29-2024 [facility] [place]. COMMENT Normal . [facility] Comment on above: Order Comment: LAV/W B/RF [id number] ANTI M TITER Result Comment: Test Ordered: [id number] Antibody Identification Antibody Id. #1 Anti-M CB Reference Range: . Dta Titer #1 Comment CB Reference Range: . The antibody is too weak to titer at this time. If a numerical titer result has been reported, please note that this result is the reciprocal value of titer results formerly reported as 1:2,1:4, 1:8, etc. These results are now reported as 2, 4, 8, etc. The [place] [employer] has recommended this change in titer reporting formats to simply reflect the reciprocal value of the titer. Antibody Id. #2 CLINIC SPECIALIST NOLAB Reference Range: . Dat Titer #2 CLINIC SPECIALIST NOLAB Reference Range: . Performed at: - [facility] [id number] Transit Mixer Operator: Joey Mortensen PhD, Phone: [phone] Performed By: #### L 3410.9992 #### [facility] Laboratory [facility] [place], [address] Laboratory - Chemistry and C hemistry - challengeOrdered By: Carol Barrera on 12-28-2024 Glucose Ql (U) Negative [facility] Laboratory - UrinalysisOrder ed By: Carol Barrera on 12-28-2024 Protein Ql (U) Negative [facility] Line Mechanic Office Visit Reporton 12-28-2024 Line Mechanic Office Visit Report [facility] [address], [address] [place] [address] OFFICE VISIT Date of Service: 12/28/24 MR#: [id number] Acct: [id number] Name: JIHAN GUERRERO Rep #: [id number] : 1990 Provider: DENG White ams Age/Sex: 34/F [place] [facility] [place]: Signed Intake Vital Signs 07/05/24 13:02 11/30/24 08:46 12/14/24 08:59 12/28/24 09:00 Height 5 ft 5 in 5 ft 5 in 5 ft 5 in 5 ft 5 in Weight: 195 lb 199 lb 2 oz BMI 32.4 33.1 BP 124/75 H 135/80 H Intake Visit Reasons: 34 wk ob Chief Complaint: 34wk OB Debeaker Required: No Is patient in pain?: No [...] 1 current occupational status: employed current occupation: [employer] pets and animals: Yes pets and animals: dog(s) history of recent travel: Yes ([place]) out of state: Yes out of country: [...] in: none frequency: 3-4 times per week galo/mu-ism: None seatbelt use: always do you feel safe at home: Yes additional social history: - 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 Date Name GA/Weeks Outcome Route Bth Weight Gen Labor Lgth Anesthesia Del Locatn Provider FOB 08/25/22 Joe 39 live - full term 7#2OZ Male [facility] Colli sergio Akins Delivery Date: 08/25/22 Last Updated by: Brigitte Washington SROM HPI 34 wk ob Details: JIHAN GUERRERO is a 34 year old who presents for routine OB visit. OB Visit ALFRED Calculator Estimated Delivery Date Method Current WG Current Estimate 07/06/25 LMP (Certain) 34w 2d Other Estimates 02/08/25 [...] Dilation -???-???-? (more content not included)... Normal [facility] Laboratory - Chemistry and C hemistry - challengeOrdered By: Elidia Joaquin on 12-14-2024 Glucose Ql (U) Negative [facility] Laboratory - UrinalysisOrder ed By: Elidia Joaquin on 12-14-2024 Protein Ql (U) Negative [facility] Line Mechanic Office Visit Reporton 12-14-2024 Line Mechanic Office Visit Report [facility] [address], [address] [place] [address] OFFICE VISIT Date of Service: 12/14/24 MR#: [id number] Acct: [id number] Name: JIHAN GUERRERO Rep #: [id number] : 1990 Provider: Dr. 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 Date Name GA/Weeks Outcome Route Bth Weight Infant Gen Labor Lgth Anesthesia Del Locatn Provider FOB 08/25/22 Joe 39 live - full term 7#2OZ Male [facility] Colli ns Tashi Delivery Date: 08/25/22 [...] -???-???-???-???-???-??? -???-???-???-???-???-? (more content not included)... Normal [facility] L3410.9992on 12-01-2024 [facility]. COMMENT Normal . [facility] Comment on above: Order Comment: [id number] ANTI M TITER EDTA LAV WB Result Comment: Test Ordered: [id number] Antibody Identification Antibody Id. #1 Anti-M CB Reference Range: . Dat Titer #1 2 CB Reference Range: . If a numerical titer result has been reported, please note that this result is the reciprocal value of titer results formerly reported as 1:2,1:4, 1:8, etc. These results are now reported as 2, 4, 8, etc. The [place] [employer] has recommended this change in titer reporting formats to simply reflect the reciprocal value of the titer. Antibody Id. #2 CLINIC SPECIALIST NOLAB Reference Range: . Dat Titer #2 CLINIC SPECIALIST NOLAB Reference Range: . Performed at: [address] [id number] Transit Mixer Operator: Joey Mortensen PhD, Phone: [phone] Performed By: #### L 3410.9992 #### [facility] [address] [place] [address]. [place], [address] HIVon 11-30-2024 HIV Non-Reactive Normal Nonreactive [facility] Comment on above: Result Comment: Non- Reactive Reactive Repeatedly reactive samples must be confirmed according to CDC recommended confirmatory algorithms. The subresults for either HIVAG or AHIV can be used as an aid in the selection of the confirmation algorithm for reactive samples. Send out specimens with Reactive results to [facility] for confirmation. Order the HIV antibody detection and differentiation: [id number] Performed By: #### L 3410.9992 #### [facility] [address] [place] [address]. [place], [address] Laboratory - Chemistry and C hemistry - challengeOrdered By: Carol Barrera on 11-30-2024 Glucose Ql (U) Negative [facility] Laboratory - UrinalysisOrder ed By: Carol Barrera on 11-30-2024 Protein Ql (U) Negative [facility] No Panel InformationOrdered By: Carol Barrera on 11-30-2024 HIV (1&2) Antibody Non-Reactive Nonreactive [facility] Comment on above: Non-ReactiveReactive Repeatedly reactive samples must be confirmed according to CDC recommended confirmatory algorithms. The subresults for either HIVAG or AHIV can be used as an aid in the selection of the confirmation algorithm for reactive samples.Send out specimens with Reactive results to [facility] for confirmation.Order the HIV antibody detection and differentiation: #[id number] [facility] Visit Reporton 11-30-2024 Line [facility]ic Office Visit Report [facility] [address], [address] [place] [address] OFFICE VISIT Date of Service: 11/30/24 MR#: [id number] Acct: [id number] Name: JIHAN GUERRERO Rep #: [id number] : 1990 Provider: DENG White ams Age/Sex: 34/F [place] [facility] [place]: Signed Intake Vital Signs 07/05/24 13:02 11/02/24 08:46 11/30/24 08:45 11/30/24 08:46 Height 5 ft 5 in 5 ft 5 in 5 ft 5 in 5 ft 5 in Weight: 192 lb 6 oz BMI 32.0 BP 129/74 H Intake Visit Reasons: 30 wk ob Chief Complaint: 30wk OB Debeaker Required: No Is patient in pain?: No [...] current occupational status: employed current occupation: [employer] pets and animals: Yes pets and animals: dog(s) history of recent travel: Yes ([place]) out of state: Yes out of country: [...] in: none frequency: 3-4 times per week aglo/mu-ism: None seatbelt use: always do you feel safe at home: Yes additional social history: - Tashiolivier 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 Date Name GA/Weeks Outcome Route Bth Weight Gen Labor Lgth Anesthesia Del Locatn Provider FOB 08/25/22 Joe 39 live - full term 7#2OZ Male [facility] Colli ns Tashi Delivery Date: 08/25/22 [...] Note 12 (more content not included)... Normal [facility] Absolute lymphocyte countOrd ered By: Bhavani Corey on 11-02-2024 Lymphocytes Auto (Unsp spec) [#/Vol] 1.84 10*3/uL 0.83-4.51 [facility] Absolute neutrophil countOrd ered By: Bhavani Corey on 11-02-2024 Neutrophils (Bld) [#/Vol] 8.1 10*3/uL High 2.0-7.7 [facility] Automated lymphocyte count a s percentage of total leukocytesOrdered By: Bhavani Corey on 11-02-2024 Lymphocytes/100 WBC Auto (Unsp spec) 17.0 % Low 19-41 [facility] Basophil percentageOrdered B y: Bhavani Corey on 11-02-2024 Basophils/100 WBC (Bld) 0.3 % 0-1 [facility] CBC W/Diff, Automatedon -2024 Absolute Lymph 1.84 X10 3/uL Normal 0.83-4.51 [facility] Comment on above: Performed By: #### L 501.0250, L509.8002, L3890.6006, L100.0100 #### [facility] [address] [place], [address] Absolute Neut 8.1 X10 3/uL High 2.0-7.7 [facility] Comment on above: Performed By: #### L 501.0250, L509.8002, L3890.6006, L100.0100 #### [facility] [address] [place], [address] Basophils/100 WBC (Bld) 0.3 % Normal 0-1 [facility] Comment on above: Performed By: #### L 501.0250, L509.8002, L3890.6006, L100.0100 #### [facility] [address] [place], [address] Eosinophils/100 WBC (Bld) 0.5 % Normal 0-5 [facility] Comment on above: Performed By: #### L 501.0250, L509.8002, L3890.6006, L100.0100 #### [facility] [address] [place], [address] Erythrocyte distribution width (RBC) [Ratio] 12.8 % Normal 11.6-14.6 [facility] Comment on above: Performed By: #### L 501.0250, L509.8002, L3890.6006, L100.0100 #### [facility] [address] [place], [address] Hematocrit (Bld) [Volume fraction] 32.7 % Low 37-47 [facility] Comment on above: Performed By: #### L 501.0250, L509.8002, L3890.6006, L100.0100 #### [facility] [address] [place], [address] Hemoglobin (Bld) [Mass/Vol] 11.2 g/dL Low 12.0-15.0 [facility] Comment on above: Performed By: #### L 501.0250, L509.8002, L3890.6006, L100.0100 #### [facility] [address] [place], [address] IG% 0.900 Normal 0.0-0.9 [facility] Comment on above: Result Comment: IG% - Immature Granulocytes (promyelocytes, myelocytes and metamyelocytes) > 1% indicates that a LEFT SHIFT is Present. Performed By: #### L 501.0250, L509.8002, L3890.6006, L100.0100 #### [facility] [address] [place], [address] Lymphocytes/100 WBC (Bld) 17.0 % Low 19-41 [facility] Comment on above: Performed By: #### L 501.0250, L509.8002, L3890.6006, L100.0100 #### [facility] [address] [place], [address] MCH (RBC) [Entitic mass] 29.6 pg Normal 27.0-32.0 [facility] Comment on above: Performed By: #### L 501.0250, L509.8002, L3890.6006, L100.0100 #### [facility] [address] [place], [address] MCHC (RBC) [Mass/Vol] 34.3 g/dL Normal 32-36 [facility] Comment on above: Performed By: #### L 501.0250, L509.8002, L3890.6006, L100.0100 #### [facility] [address] [place], [address] MCV (RBC) [Entitic vol] 86.5 fL Normal 81-99 [facility] Comment on above: Performed By: #### L 501.0250, L509.8002, L3890.6006, L100.0100 #### [facility] [address] [place], [address] Monocytes/100 WBC (Bld) 6.5 % Normal 0-10 [facility] Comment on above: Performed By: #### L 501.0250, L509.8002, L3890.6006, L100.0100 #### [facility] [address] [place], [address] Neutrophils/100 WBC (Bld) 74.8 % High 47-70 [facility] Comment on above: Performed By: #### L 501.0250, L509.8002, L3890.6006, L100.0100 #### [facility] [address] [place], [address] Nucleated RBC (Bld) [#/Vol] 0 10*3/uL Normal 0-5 [facility] Comment on above: Performed By: #### L 501.0250, L509.8002, L3890.6006, L100.0100 #### [facility] [address] [place], [address] Platelet mean volume (Bld) [Entitic vol] 8.7 fL Normal 6.2-12.0 [facility] Comment on above: Performed By: #### L 501.0250, L509.8002, L3890.6006, L100.0100 #### [facility] [address] [place], [address] Platelets (Bld) [#/Vol] 348 10*3/uL Normal 150-450 [facility] Comment on above: Performed By: #### L 501.0250, L509.8002, L3890.6006, L100.0100 #### [facility] [address] [place], [address] RBC (Bld) [#/Vol] 3.78 10*6/uL Low 4.2-5.4 [facility] Comment on above: Performed By: #### L 501.0250, L509.8002, L3890.6006, L100.0100 #### [facility] [address] [place], [address] RDW SD 40.1 fl Normal 35.1-43.9 [facility] Comment on above: Performed By: #### L 501.0250, L509.8002, L3890.6006, L100.0100 #### [facility] [address] [place], [address] WBC (Bld) [#/Vol] 10.8 10*3/uL Normal 4.4-11.0 [facility] Comment on above: Performed By: #### L 501.0250, L509.8002, L3890.6006, L100.0100 #### [facility] [address] [place], [address] Eosinophil percentageOrdered By: Bhavani Corey on 11-02-2024 Eosinophils/100 WBC (Bld) 0.5 % 0-5 [facility] Erythrocyte distribution wid th (RBC) [Ratio]Ordered By: Bhavani Corey on 11-02-2024 Erythrocyte distribution width (RBC) [Entitic vol] 40.1 fL 35.1-43.9 [facility] Erythrocyte distribution wid th ratioOrdered By: Bhavani Corey on 11-02-2024 Erythrocyte distribution width (RBC) [Ratio] 12.8 % 11.6-14.6 [facility] Erythrocyte distribution wid th standard deviationOrdered By: Bhavani Corey on 11-02-2024 Erythrocyte distribution width (RBC) [Ratio] 40.1 fl 35.1-43.9 [facility] Glucose Challenge Gest 1H 50 patricia 11-02-2024 GLU GEST 50g 1H 95 mg/dL Normal 70-140 [facility] Comment on above: Performed By: #### L 501.0250, L509.8002, L3890.6006, L100.0100 #### [facility] [address] [place] [address], [address] Glucose measurement at 2 denilson rs post-dose gestational glucose tolerance testOrdered By: Bhavani Corey on 11-02-2024 Glucose [Mass/Vol] 95 mg/dL 70-140 [facility] Hematocrit Auto (Bld) [Volum e fraction]Ordered By: Bhavani Corey on 11-02-2024 Hematocrit (Bld) [Volume fraction] 32.7 % Low 37-47 [facility] Hemoglobin measurementOrdere d By: Bhavani Corey on 11-02-2024 Hemoglobin (Bld) [Mass/Vol] 11.2 g/dL Low 12.0-15.0 [facility] Immature granulocytes/100 WB C Auto (Bld)Ordered By: Bhavani Corey on 11-02-2024 Immature granulocytes/100 WBC (Bld) 0.900 % 0.0-0.9 [facility] Comment on above: IG% - Immature Granu locytes (promyelocytes, myelocytes and metamyelocytes) > 1% indicates that a LEFT SHIFT is Present. L3890.6006on 04-01-2025 HIV Non-Reactive Normal Nonreactive [facility] Comment on above: Result Comment: Non- Reactive Reactive Repeatedly reactive samples must be confirmed according to CDC recommended confirmatory algorithms. The subresults for either HIVAG or AHIV can be used as an aid in the selection of the confirmation algorithm for reactive samples. Send out specimens with Reactive results to [facility] for confirmation. Order the HIV antibody detection and differentiation: lc#[id number] Performed By: #### L 501.0250, L509.8002, L3890.6006, L100.0100 #### [facility] [address] [place], [address] L509.8002on 11-02-2024 Syphilis Abs Non-Reactive Normal Nonreactive [facility] Comment on above: Performed By: #### L 501.0250, L509.8002, L3890.6006, L100.0100 #### [facility] [address] [facility] [place], [address] Laboratory - Chemistry and C hemistry - challengeOrdered By: Bhavani Corey on 11-02-2024 Glucose Ql (U) Negative [facility] Laboratory - UrinalysisOrder ed By: Bhavani Corey on 11-02-2024 Protein Ql (U) Negative [facility] Lymphocytes Auto (Unsp spec) [#/Vol]Ordered By: Bhavani Corey on 11-02-2024 Lymphocytes (Bld) [#/Vol] 1.84 10*3/uL 0.83-4.51 [facility] Lymphocytes/100 WBC Auto (Un sp spec)Ordered By: Bhavani Corey on 11-02-2024 Lymphocytes/100 WBC (Bld) 17.0 % Low 19-41 [facility] MCV (mean corpuscular volume ) determinationOrdered By: Bhavani Corey on 11-02-2024 MCV (RBC) [Entitic vol] 86.5 fL 81-99 [facility] Mean corpuscular hemoglobin (MCH) determinationOrdered By: Bhavani Corey on 11-02-2024 MCH (RBC) [Entitic mass] 29.6 pg 27.0-32.0 [facility] Mean corpuscular hemoglobin concentration (MCHC) determinationOrdered By: Bhavani Corey on 11-02-2024 MCHC (RBC) [Mass/Vol] 34.3 g/dL 32-36 [facility] Mean platelet volume determi nationOrdered By: Bhavani Corey on 11-02-2024 Platelet mean volume (Bld) [Entitic vol] 8.7 fL 6.2-12.0 [facility] Monocyte percentageOrdered B y: Bhavani Corey on 11-02-2024 Monocytes/100 WBC (Bld) 6.5 % 0-10 [facility] Neutrophil percentageOrdered By: Bhavani Corey on 11-02-2024 Neutrophils/100 WBC (Bld) 74.8 % High 47-70 [facility] No Panel InformationOrdered By: Bhavani Corey on 11-02-2024 HIV (1&2) Antibody Non-Reactive Nonreactive [facility] Comment on above: Non-ReactiveReactive Repeatedly reactive samples must be confirmed according to CDC recommended confirmatory algorithms. The subresults for either HIVAG or AHIV can be used as an aid in the selection of the confirmation algorithm for reactive samples.Send out specimens with Reactive results to [facility] for confirmation.Order the HIV antibody detection and differentiation: #[id number] Nucleated red blood cell per centageOrdered By: Bhavani Corey on 11-02-2024 Nucleated RBC/100 WBC (Bld) [Ratio] 0 % 0-5 [facility] Office Visit Reporton 11-02-2024 Line Mechanic Office Visit Report [facility] [address], [address] [place] [address] OFFICE VISIT Date of Service: 11/02/24 MR#: [id number] Acct: [id number] Name: JIHAN GUERRERO Rep #: [id number] : 1990 Provider: Dr. 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 Date Name GA/Weeks Outcome Route Bth Weight Gen Labor Lgth Anesthesia Del Locatn Provider FOB 08/25/22 Joe 39 live - full term 7#2OZ Male [facility] Colli ns Tashi Delivery Date: 08/25/22 [...] -???-???-???-???-???-??? -???-???-?? (more content not included)... Normal [facility] Platelet countOrdered By: Charles Corey on 11-02-2024 Platelets (Bld) [#/Vol] 348 10*3/uL 150-450 [facility] RBC Auto (Bld) [#/Vol]Ordere d By: Bhavani Corey on 11-02-2024 RBC (Bld) [#/Vol] 3.78 10*6/uL Low 4.2-5.4 [facility] T. pallidum abOrdered By: Charles Corey on 11-02-2024 Syphilis Total Antibody Non-Reactive Nonreactive [facility] White blood cell (WBC) count Ordered By: Bhavani Corey on 11-02-2024 WBC (Bld) [#/Vol] 10.8 10*3/uL 4.4-11.0 [facility] L3410.9998on 10-13-20[facility] Normal . [facility] Comment on above: Order Comment: LAV/W B/RF [id number] ANTI M TITER Result Comment: Test Ordered: [id number] Antibody Identification Antibody Id. #1 Anti-M CB [...] reported as 2, 4, 8, etc. The [employer] has recommended this change in titer reporting formats to simply reflect the reciprocal value of the titer. Antibody Id. #2 CLINIC SPECIALIST NOLAB Reference Range: . Dat Titer #2 CLINIC SPECIALIST NOLAB Reference Range: . Performed at: - [facility] [place] [id number] [employer] Operator: Joey Mortensen PhD, Phone: [phone] Performed By: #### L 3410.9992 #### [facility] [address] [place], [address] Laboratory - Chemistry and C hemistry - challengeOrdered By: Bhavani Corey on 10-05-2024 Glucose Ql (U) Negative [facility] Laboratory - UrinalysisOrder ed By: Bhavani Corey on 10-05-2024 Protein Ql (U) Negative [facility] Office Visit Reporton 10-05-2024 Line Mechanic Office Visit Report [facility], [address] [place] [address] OFFICE VISIT Date of Service: 10/05/24 MR#: [id number] Acct: [id number] Name: CESARJIHAN YUMIKO Rep #: [id number] : 1990 Provider: Dr. Bhavani Tan DO Age/Sex: 34/F [place] [facility] [place]: Signed Intake Vital Signs 07/05/24 13:02 09/07/24 08:30 10/05/24 08:53 10/05/24 08:53 Height 5 ft 5 in 5 ft 5 in 5 ft 5 in 5 ft 5 in Weight: 180 lb 8 oz 181 lb 6 oz BMI 30.0 30.2 BP 118/72 110/77 Intake Visit Reasons: 22 wk ob Debeaker Required: No Is patient in pain?: No [...] 1 current occupational status: employed current occupation: [employer] pets and animals: Yes pets and animals: dog(s) history of recent travel: Yes ([place]) out of state: Yes out of country: [...] in: none frequency: 3-4 times per week galo/mu-ism: None seatbelt use: always do you feel safe at home: Yes additional social history: - 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 Date Name GA/Weeks Outcome Route Bth Weight Infant Gen Labor Lgth Anesthesia Del Locatn Provider FOB 08/25/22 Joe 39 live - full term 7#2OZ Male [facility] Colli ns Tashi Delivery Date: 08/25/22 [...] Dilation -???-???-???-???-???-? (more content not included)... Normal [facility] L3410.9998on 09-08-2024 [facility] Misc. COMMENT Normal . [facility] Comment on above: Order Comment: [id number] AB ID FOR TITERS LAV WB Result Comment: Test Ordered: [id number] Antibody Identification Antibody Id. #1 Anti-M CB Reference Range: . Dat Titer #1 2 CB Reference Range: . If a numerical titer result has been reported, please note that this result is the reciprocal value of titer results formerly reported as 1:2,1:4, 1:8, etc. These results are now reported as 2, 4, 8, etc. The [employer] has recommended this change in titer reporting formats to simply reflect the reciprocal value of the titer. Antibody Id. #2 CLINIC SPECIALIST NOLAB Reference Range: . Dat Titer #2 CLINIC SPECIALIST NOLAB Reference Range: . Performed at: [facility] [id number] Transit [employer] Operator: Joey Mortensen PhD, Phone: [phone] Performed By: #### L 3410.9998 #### [facility] [address] [place], [address] Laboratory - Chemistry and C hemistry - challengeOrdered By: Alesha To on 09-07-2024 Glucose Ql (U) Negative [facility] Laboratory - UrinalysisOrder ed By: Alesha To on 09-07-2024 Protein Ql (U) Negative [facility] Office Visit Reporton 09-07-2024 Line Mechanic Office Visit Report [facility] [address], [address] [place] [address] OFFICE VISIT Date of Service: 09/07/24 MR#: [id number] Acct: [id number] Name: JIHAN GUERRERO Rep #: [id number] : 1990 Provider: ROMEO zamudio Age/Sex: 34/F [place] [facility] [place]: Signed Intake Vital Signs 07/05/24 13:02 08/10/24 15:03 09/07/24 08:30 Height 5 ft 5 in 5 ft 5 in 5 ft 5 in Weight: 180 lb 8 oz BMI 30.0 BP 118/72 Intake Visit Reasons: 18 wk ob Chief Complaint: 18 Week OB Debeaker Required: No Is patient in pain?: No [...] dog(s) history of recent travel: Yes ([place]) out of state: Yes out of country: [...] in: none frequency: 3-4 times per week galo/mu-ism: None seatbelt use: always do you feel safe at home: Yes additional social history: - 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 Date Name GA/Weeks Outcome Route Bth Weight Gen Labor Lgth Anesthesia Del Locatn Provider FOB 08/25/22 Joe 39 live - full term 7#2OZ Male [facility] Colli ns Tashi Delivery Date: 08/25/22 [...] -???-???-???-???-???-??? -???-???-???-???-???-??? (more content not included)... Normal [facility] Laboratory - Chemistry and C hemistry - challengeon 08-10-2024 Glucose Ql (U) Negative [facility] Laboratory - Urinalysison Protein Ql (U) Negative [facility] No Panel InformationOrdered By: Carol Barrera on 08-10-2024 Miscellaneous Test COMMENT . [facility] Comment on above: Test Ordered: [id number] Antibody IdentificationAntibody Id. #1 Anti-M CB Reference Range: .Dat Titer #1 2 CB Reference Range: .If a numerical titer result has been reported, please notethat this result is the reciprocal value of titer resultsformerly reported as 1:2,1:4, 1:8, etc. These results arenow reported as 2, 4, 8, etc. The [employer] has recommended this change in titer reportingformats to simply reflect the reciprocal value of thetiter.Antibody Id. #2 CLINIC SPECIALIST NOLAB Reference Range: .Dat Titer #2 CLINIC SPECIALIST NOLAB Reference Range: .Performed at: - [facility] [id number] Director: Joey Mortensen PhD, Phone: [phone] [employer] Office Visit Reporton 08-10-2024 Line Mechanic Office Visit Report [facility] [address], [address] [place] [address] OFFICE VISIT Date of Service: 08/10/24 MR#: [id number] Acct: [id number] Name: LUDMILALUIS ENRIQUEJIHANGUMARO CALDERON Rep #: [id number] : 1990 Provider: Dr. 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 Date Name GA/Weeks Outcome Route Bth Weight Gen Labor Lgth Anesthesia Del Locatn Provider FOB 08/25/22 Joe 39 live - full term 7#2OZ Male [facility] Colli ns Tashi Delivery Date: 08/25/22 [...] - Effaced (more content not included)... Normal [facility] Miscellaneous Lab Procedureo n 07-09-2024 MISC LAB TEST Normal [facility] Comment on above: Order Comment: ADD O N [id number] AB Antibody ID [id number] LAV WB RF Result Comment: TEST RESULTS [...] reported as 2, 4, 8, etc. The [employer] [place] has recommended this change in titer reporting formats to simply reflect the reciprocal value of the titer. TESTING PERFORMED AT [facility]. ORIGINAL REPORT ON FILE IN LAB CONTAINS ADDITIONAL TEST SITE INFORMATION. Performed By: #### L 801.1541 #### [facility] [address] [place], [place], [address] Chlamydia/GC VENU aptimaon CHLAMY,NUC ACID Negative Normal Negative [facility] Comment on above: Performed By: #### L 801.1541 #### [facility] [address] [place], [place], [address] GC BY NUC ACID Negative Normal Negative [facility] Comment on above: Result Comment: Perf ormed at: =G - [facility] [address] [place] [id number] Transit Mixer Operator: Catalina Lord MD, Phone: [phone] Performed By: #### L 801.1541 #### [facility] [address] [place], [address] Urine Cultureon 07-06-2024 URC Culture exhibits no growth. Normal [facility] Comment on above: Performed By: #### L 801.1541 #### [facility] [address] [place], [address] Absolute neutrophil countOrd ered By: Carol Barrera on 07-05-2024 Neutrophils (Bld) [#/Vol] 5.7 10*3/uL 2.0-7.7 [facility] [id number] 07-05-2024 ANTIBODY ID M Normal [facility] Comment on above: Order Comment: LAV/W B/RF [id number] ANTI M TITER Performed By: #### L 3410.9992 #### [facility] [address] [place], [address] Basophil percentageOrdered B y: Carol Barrera on 07-05-2024 Basophils/100 WBC (Bld) 0.4 % 0-1 [facility] C. trachomatis rRNA VENU+prob e Ql (Unsp spec)Ordered By: Carol Barrera on 07-05-2024 Chlamydia DNA (VENU) Negative Negative [facility] CBC W/Diff, Automatedon Absolute Lymph 2.82 X10 3/uL Normal 0.83-4.51 [facility] Comment on above: Performed By: #### L 3410.9992 #### [facility] [address] [place], [address] Absolute Neut 5.7 X10 3/uL Normal 2.0-7.7 [facility] Comment on above: Performed By: #### L 3410.9992 #### [facility] [address] [place], [address] Basophils/100 WBC (Bld) 0.4 % Normal 0-1 [facility] Comment on above: Performed By: #### L [id number] #### [facility] [address] [place], [address] Eosinophils/100 WBC (Bld) 0.5 % Normal 0-5 [facility] Comment on above: Performed By: #### L 3410.9992 #### [facility] [address] [place], [address] Erythrocyte distribution width (RBC) [Ratio] 12.4 % Normal 11.6-14.6 [facility] Comment on above: Performed By: #### L 3410.9992 #### [facility] [address] [place], [address] Hematocrit (Bld) [Volume fraction] 38.8 % Normal 37-47 [facility] Comment on above: Performed By: #### L 3410.9992 #### [facility] [address] [place], [address] Hemoglobin (Bld) [Mass/Vol] 13.3 g/dL Normal 12.0-15.0 [facility] Comment on above: Performed By: #### L 3410.9992 #### [facility] [address] [place], [address] IG% 0.300 Normal 0.0-0.9 [facility] Comment on above: Result Comment: IG% - Immature Granulocytes (promyelocytes, myelocytes and metamyelocytes) > 1% indicates that a LEFT SHIFT is Present. Performed By: #### L 3410.9992 #### [facility] [address] [place], [address] Lymphocytes/100 WBC (Bld) 29.9 % Normal 19-41 [facility] Comment on above: Performed By: #### L 3410.9992 #### [facility] [address] [place], [address] MCH (RBC) [Entitic mass] 29.4 pg Normal 27.0-32.0 [facility] Comment on above: Performed By: #### L 3410.9992 #### [facility] [address] [place], [address] MCHC (RBC) [Mass/Vol] 34.3 g/dL Normal 32-36 [facility] Comment on above: Performed By: #### L 3410.9992 #### [facility] [address] [place], [address] MCV (RBC) [Entitic vol] 85.8 fL Normal 81-99 [facility] Comment on above: Performed By: #### L 3410.9992 #### [facility] [address] [place], [address] Monocytes/100 WBC (Bld) 8.7 % Normal 0-10 [facility] Comment on above: Performed By: #### L [id number] #### [facility] [address] [place], [address] Neutrophils/100 WBC (Bld) 60.2 % Normal 47-70 [facility] Comment on above: Performed By: #### L 3410.9992 #### [facility] [address] [place], [address] Nucleated RBC (Bld) [#/Vol] 0 10*3/uL Normal 0-5 [facility] Comment on above: Performed By: #### L 3410.9992 #### [facility] [address] [place], [address] Platelet mean volume (Bld) [Entitic vol] 8.6 fL Normal 6.2-12.0 [facility] Comment on above: Performed By: #### L 3410.9992 #### [facility] [address] [place], [address] Platelets (Bld) [#/Vol] 410 10*3/uL Normal 150-450 [facility] Comment on above: Performed By: #### L 3410.9992 #### [facility] [address] [place], [address] RBC (Bld) [#/Vol] 4.52 10*6/uL Normal 4.2-5.4 [facility] Comment on above: Performed By: #### L 3410.9992 #### [facility] [address] [place], [address] RDW SD 38.6 fl Normal 35.1-43.9 [facility] Comment on above: Performed By: #### L 3410.9992 #### [facility] [address] [place], [address] WBC (Bld) [#/Vol] 9.4 10*3/uL Normal 4.4-11.0 [facility] Comment on above: Performed By: #### L 3410.9992 #### [facility] [address] [place], [address] Eosinophil percentageOrdered By: Carol Barrera on 07-05-2024 Eosinophils/100 WBC (Bld) 0.5 % 0-5 [facility] Erythrocyte distribution wid th ratioOrdered By: Carol Barrera on 07-05-2024 Erythrocyte distribution width (RBC) [Ratio] 12.4 % 11.6-14.6 [facility] Erythrocyte distribution wid th standard deviationOrdered By: Carol Barrera on 07-05-2024 Erythrocyte distribution width (RBC) [Entitic vol] 38.6 fL 35.1-43.9 [facility] HIV - WCHon 07-05-2024 HIV Non-Reactive Normal Nonreactive [facility] Comment on above: Order Comment: LAV/W B/RF [id number] ANTI M TITER Performed By: #### L 3410.9992 #### [facility] [address] [place], [address] HIV 1+2 Ab+HIV1 p24 Ag IA Ql Ordered By: Carol Barrera on 07-05-2024 HIV (1&2) Antibody Non-Reactive Nonreactive [facility] Hematocrit Auto (Bld) [Volum e fraction]Ordered By: Carol Barrera on 07-05-2024 Hematocrit (Bld) [Volume fraction] 38.8 % 37-47 [facility] Hemoglobin measurementOrdere d By: Carol Barrera on 07-05-2024 Hemoglobin (Bld) [Mass/Vol] 13.3 g/dL 12.0-15.0 [facility] Hepatitis B Surface Antigeno n 07-05-2024 HEP B Surf Ag Non-Reactive [facility] Comment on above: Order Comment: LAV/W B/RF [id number] ANTI M TITER Performed By: #### L 3410.9992 #### [facility] [address] [facility] [address] Hepatitis B surface antigen detectionOrdered By: Carol Barrera on 07-05-2024 Hepatitis B Surface Antigen Non-Reactive Nonreactive [facility] Hepatitis C Antibodyon 07-05 Hepatitis C AB Non-Reactive [facility] Comment on above: Order Comment: LAV/W B/RF [id number] ANTI M TITER Result Comment: Non Reactive: < 0.8 Equivocal: >/= 0.8 to < 1.0 Reactive: >/= 1.0 The [facility] requires that a reactive/equivocal HCV antibody result be sent out for confirmation. HCV Quant by PCR testing. Performed By: #### L 3410.9992 #### [facility] [address] [place], [address] Hepatitis C virus antibody a ssayOrdered By: Carol Barrera on 07-05-2024 Hepatitis C Antibody Non-Reactive Nonreactive [facility] Comment on above: Non Reactive: < 0.8 Equivocal: >/= 0.8 to < 1.0 Reactive: >/= 1.0The CDC requires that a reactive/equivocal HCV antibody result be sent out for confirmation. HCV Quant by PCR testing. Immature granulocytes/100 WB C Auto (Bld)Ordered By: Carol Barrera on 07-05-2024 Immature granulocytes/100 WBC (Bld) 0.300 % 0.0-0.9 [facility] Comment on above: IG% - Immature Granu locytes (promyelocytes, myelocytes and metamyelocytes) > 1% indicates that a LEFT SHIFT is Present. L509.8000on 07-05-2024 Syphilis Abs Non-Reactive Normal [facility] Comment on above: Order Comment: LAV/W B/RF [id number] ANTI M TITER Performed By: #### L 3410.9992 #### [facility] [address] [place], [address] Lymphocytes Auto (Unsp spec) [#/Vol]Ordered By: Carol Barrera on 07-05-2024 Lymphocytes (Bld) [#/Vol] 2.82 10*3/uL 0.83-4.51 [facility] Lymphocytes/100 WBC Auto (Un sp spec)Ordered By: Carol Barrera on 07-05-2024 Lymphocytes/100 WBC (Bld) 29.9 % 19-41 [facility] MCV (mean corpuscular volume ) determinationOrdered By: Carol Barrera on 07-05-2024 MCV (RBC) [Entitic vol] 85.8 fL 81-99 [facility] Mean corpuscular hemoglobin (MCH) determinationOrdered By: Carol Barrera on 07-05-2024 MCH (RBC) [Entitic mass] 29.4 pg 27.0-32.0 [facility] Mean corpuscular hemoglobin concentration (MCHC) determinationOrdered By: Carol Barrera on 07-05-2024 MCHC (RBC) [Mass/Vol] 34.3 g/dL 32-36 [facility] Mean platelet volume determi nationOrdered By: Carol Barrera on 07-05-2024 Platelet mean volume (Bld) [Entitic vol] 8.6 fL 6.2-12.0 [facility] Monocyte percentageOrdered B y: Carol Barrera on 07-05-2024 Monocytes/100 WBC (Bld) 8.7 % 0-10 [facility] Neisseria gonorrhoeae nuclei c acid detection by amplified probe techniqueOrdered By: Carol Barrera on 07-05-2024 N. gonorrhoeae DNA VENU+probe Ql (Unsp spec) Negative Negative [facility] Comment on above: Performed at: =G - L [address]May[address] [place] [id number] Director: Catalina Lord MD, Phone: [phone] Neutrophil percentageOrdered By: Carol Barrera on 07-05-2024 Neutrophils/100 WBC (Bld) 60.2 % 47-70 [facility] Nucleated red blood cell per centageOrdered By: Carol Barrera on 07-05-2024 Nucleated RBC/100 WBC (Bld) [Ratio] 0 % 0-5 [facility] Line Mechanic Office Visit Reporton 07-05-2024 Line Mechanic Office Visit Report [facility]'[address], [address] [place] [address] OFFICE VISIT Date of Service: 07/05/24 MR#: [id number] Acct: [id number] Name: JIHAN GUERRERO Rep #: [id number] : 1990 Provider: [facility] Age/Sex: 34/F Location[place] [facility] [place]: Signed Intake Vital Signs 12/27/22 04:16 07/05/24 13:02 07/05/24 13:02 Height 5 ft 5 in 5 ft 5 in 5 ft 5 in Weight: 175 lb BMI 29.1 BP 130/67 H Intake Visit Reasons: LMP 05/02 Debeaker Required: No Is patient in pain?: No [...] 1 current occupational status: employed current occupation: [employer] pets and animals: Yes pets and animals: dog(s) history of recent travel: Yes ([place]) out of state: Yes out of country: [...] in: none frequency: 3-4 times per week galo/mu-ism: None seatbelt use: always do you feel safe at home: Yes additional social history: - 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 Date Name GA/Weeks Outcome Route Bth Weight Infant Gen Labor Lgth Anesthesia Del Locatn Provider FOB 08/25/22 Joe 39 live - full term [id number] Male [facility] Colli ns Tashi Delivery Date: 08/25/22 Last Updated by: Brigitte Washington [facility] HPI LMP 9/29 Details: JIHAN GUERRERO is a 34 year [...] Glucose FH (more content not included)... Normal [facility] Platelet countOrdered By: Yan Barrera on 07-05-2024 Platelets (Bld) [#/Vol] 410 10*3/uL 150-450 [facility] RBC Auto (Bld) [#/Vol]Ordere d By: Carol Barrera on 07-05-2024 RBC (Bld) [#/Vol] 4.52 10*6/uL 4.2-5.4 [facility] Rubella IgGon 07-05-2024 Rubella IgG Reactive Normal Nonreactive [facility] Comment on above: Order Comment: LAV/W B/RF [id number] ANTI M TITER Result Comment: Anti body Results Interpretation of Immune Status Non Reactive Presumed Non-Immune Equivocal Equivocal Reactive Presumed Immune Performed By: #### L 3410.9992 #### [facility] [address] [place], [place], [id number] Rubella immune status IgGOrd ered By: Carol Barrera on 07-05-2024 Rubella IgG Antibody Reactive Nonreactive [facility] Comment on above: Antibody Results Int erpretation of Immune Status Non Reactive Presumed Non-Immune Equivocal Equivocal Reactive Presumed Immune Treponema sp Ab Ql (S)Ordere d By: Carol Barrera on 07-05-2024 Syphilis Total Antibody Non-Reactive [facility] Type AND Screenon 07-05-2024 Ab SCREEN GEL PENDING Normal [facility] Comment on above: Order Comment: LAV/W B/RF [id number] ANTI M TITER Performed By: #### L 3410.9992 #### [facility] [address] [place], [address] ABO and Rh group Nom (Bld) Blood group A Rh(D) positive Normal [facility] Comment on above: Order Comment: LAV/W B/RF [id number] ANTI M TITER Performed By: #### L 3410.9992 #### [facility] [address] [place], [place], [id number] Urine cultureOrdered By: Shawn Barrera on 07-05-2024 Bacteria identified Cx Nom (U) Culture exhibits no growth. [facility] White blood cell (WBC) count Ordered By: Carol Barrera on 07-05-2024 WBC (Bld) [#/Vol] 9.4 10*3/uL 4.4-11.0 [facility] CNOVon 02-03-2024 CNOV Office Visit (UCWSTR ) -------- JIHAN GUERRERO ([id number]) 1990 F Date Time Provider Department 02/03/24 6:30 PM [facility] During your visit today, we recorded the following information about you: Temperature Pulse Respiration Blood pressure 99.2 degrees 86/minute 16/minute 138/82 Weight 78.4 kg Julieta ArvinHELEN bales.[facility] 02/03/2024 6:50 PM Signed Subjective HPI Nontoxic-appearing [...] of care. This note was generated using HeadCount software. It may contain errors in wording, punctuation, or spelling. Arvin Rendon APRN.[employer] Allergies As of Date: 02/03/2024 (No Known Allergies) Date Reviewed: 02/03/2024 Reviewed by: Arvin Rendon APRN.[employer] - Fully Assessed Reason for Visit: Sore Throat [200] Cmt: fever x 2 days, Friday vomiting and diarrhea all day Primary Visit Diagnosis:Sore throat [J02.9] Other Visit Diagnosis:Strep throat [J02.0] Order(s):STREP A MOLECULAR (POC) [0540288] Order #: [id number]. #:[id number] 1-LAB amoxicillin (AMOXIL) 500 mg capsuleTake 1 capsule by mouth two times a day for 10 days.Disp: 20 capsuleRfl: 0 Prescriptions (more content not included)... Normal [facility] STREP A MOLECULAR (POC)on Interpretation and review of laboratory results Abnormal [facility] Procedural Control Valid [facility] Strep A (POCT) Positive Abnormal Negative [facility] Basophil percentageOrdered B y: Azucena Dwyer on 08-26-2022 WBC (Bld) [#/Vol] 20.3 10*3/uL 4.4-11.0 [facility] Blood erythrocytes count (nu mber/volume)Ordered By: Azucena Dwyer on 08-26-2022 RBC (Bld) [#/Vol] 3.24 10*6/uL 4.2-5.4 [facility] Blood hemoglobin measurement (mass/volume)Ordered By: Azucena Dwyer on 08-26-2022 Hemoglobin (Bld) [Mass/Vol] 9.3 g/dL 12.0-15.0 [facility] Blood platelet mean volumeOr dered By: Azucena Dwyer on 08-26-2022 Platelet mean volume (Bld) [Entitic vol] 8.7 fL 6.2-12.0 [facility] Determination of erythrocyte mean corpuscular volume (MCV)Ordered By: Azucena Dwyer on 08-26-2022 MCV (RBC) [Entitic vol] 84.0 fL 81-99 [facility] Hematocrit Auto (Bld) [Volum e fraction]Ordered By: Azucena Dwyer on 08-26-2022 Hematocrit (Bld) [Volume fraction] 27.2 % 37-47 [facility] - Hematology and Cell countsOrdered By: Azucena Dwyer on 08-26-2022 Erythrocyte distribution width (RBC) [Entitic vol] 39.1 fL 35.1-43.9 [facility] Erythrocyte distribution width (RBC) [Ratio] 12.8 % 11.6-14.6 [facility] MCH (RBC) [Entitic mass] 28.7 pg 27.0-32.0 [facility] MCHC Auto (RBC) [Mass/Vol]Or dered By: Azucena Dwyer on 08-26-2022 MCHC (RBC) [Mass/Vol] 34.2 g/dL 32-36 [facility] Platelets bldOrdered By: Sharona Dwyer on 08-26-2022 Platelets (Bld) [#/Vol] 298 10*3/uL 150-450 [facility] Absolute lymphocyte countOrd ered By: Azucena Dwyer on 08-25-2022 Lymphocytes Auto (Unsp spec) [#/Vol] 2.24 10*3/uL 0.83-4.51 [facility] Basophil percentageOrdered B y: Azucena Dwyer on 08-25-2022 Basophils/100 WBC (Bld) 0.2 % 0-1 [facility] Eosinophils/100 WBC (Bld) 0.1 % 0-5 [facility] Neutrophils (Bld) [#/Vol] 12.6 10*3/uL 2.0-7.7 [facility] Neutrophils/100 WBC (Bld) 78.5 % 47-70 [facility] Blood lymphocytes/100 leukoc ytesOrdered By: Azucena Dwyer on 08-25-2022 Lymphocytes/100 WBC (Bld) 14.0 % 19-41 [facility] Blood monocytes/100 leukocyt esOrdered By: Azucena Dwyer on 08-25-2022 Monocytes/100 WBC (Bld) 6.6 % 0-10 [facility] INR in Blood by Coagulation assayOrdered By: Azucena Dwyer on 08-25-2022 INR Coag (Bld) [Relative time] 1.0 {INR} [facility] Laboratory - CoagulationOrde red By: Azucena Dwyer on 08-25-2022 aPTT Coag (Bld) [Time] 26.2 s 24.1-36.2 [facility] PT Coag (PPP) [Time] 12.6 s 11.7-14.9 [facility] - Hematology and Cell countsOrdered By: Azucena Dwyer on 08-25-2022 Immature granulocytes/100 WBC (Bld) 0.600 % 0.0-0.9 [facility] Comment on above: IG% - Immature Granu locytes (promyelocytes, myelocytes and metamyelocytes) > 1% indicates that a LEFT SHIFT is Present. Nucleated RBC/100 WBC (Bld) [Ratio] 0 % 0-5 [facility] No Panel InformationOrdered By: Azucena Dwyer on 08-24-2022 Vaginal Amniotic Fluid Detection Positive Negative [facility] Comment on above: Amniotic fluid prese nt indicates rupture of Membranes. RESULTS CALLED TO PREET WANG 08/24/22 191 Chrystal Zhang.REPORT READ BACK BY SAME . Laboratory - Chemistry and C hemistry - challengeon 08-23-2022 Glucose Ql (U) Negative [facility] Laboratory - Urinalysison Protein Ql (U) Negative [facility] Laboratory - Chemistry and C hemistry - challengeon 08-15-2022 Glucose Ql (U) Negative [facility] Laboratory - Urinalysison Protein Ql (U) Negative [facility] Laboratory - Chemistry and C hemistry - challengeon 08-09-2022 Glucose Ql (U) Negative [facility] Laboratory - Urinalysison Protein Ql (U) Negative [facility] Laboratory - Chemistry and C hemistry - challengeon 08-01-2022 Glucose Ql (U) Negative [facility] Laboratory - Urinalysison Protein Ql (U) Negative [facility] Laboratory - Chemistry and C hemistry - challengeon 07-15-2022 Glucose Ql (U) Negative [facility] Laboratory - Urinalysison Protein Ql (U) Negative [facility] Laboratory - Chemistry and C hemistry - challengeon 07-02-2022 Glucose Ql (U) Negative [facility] Laboratory - Urinalysison Protein Ql (U) Negative [facility] Laboratory - Chemistry and C hemistry - challengeon 06-20-2022 Glucose Ql (U) Negative [facility] Laboratory - Urinalysison Protein Ql (U) Negative [facility] Absolute lymphocyte countOrd ered By: Dr. Corey on 06-04-2022 Lymphocytes Auto (Unsp spec) [#/Vol] 2.08 10*3/uL 0.83-4.51 [facility] Basophil percentageOrdered B y: Dr. Corey on 06-04-2022 Basophils/100 WBC (Bld) 0.3 % 0-1 [facility] Eosinophils/100 WBC (Bld) 0.6 % 0-5 [facility] Neutrophils (Bld) [#/Vol] 8.4 10*3/uL 2.0-7.7 [facility] Neutrophils/100 WBC (Bld) 72.4 % 47-70 [facility] WBC (Bld) [#/Vol] 11.5 10*3/uL 4.4-11.0 [facility] Blood erythrocytes count (nu mber/volume)Ordered By: Dr. Corey on 06-04-2022 RBC (Bld) [#/Vol] 3.97 10*6/uL 4.2-5.4 [facility] Blood hemoglobin measurement (mass/volume)Ordered By: Dr. Corey on 06-04-2022 Hemoglobin (Bld) [Mass/Vol] 12.1 g/dL 12.0-15.0 [facility] Blood lymphocytes/100 leukoc ytesOrdered By: Dr. Corey on 06-04-2022 Lymphocytes/100 WBC (Bld) 18.0 % 19-41 [facility] Blood monocytes/100 leukocyt esOrdered By: Dr. Corey on 06-04-2022 Monocytes/100 WBC (Bld) 8.0 % 0-10 [facility] Blood platelet mean volumeOr dered By: Dr. Corey on 06-04-2022 Platelet mean volume (Bld) [Entitic vol] 8.2 fL 6.2-12.0 [facility] Determination of erythrocyte mean corpuscular volume (MCV)Ordered By: Dr. Corey on 06-04-2022 MCV (RBC) [Entitic vol] 86.1 fL 81-99 [facility] Gestational diabetes screen 1-hour screen with 50g oral glucose loadOrdered By: Dr. Corey on 06-04-2022 Glucose 1 Hr post 50 g glucose PO [Mass/Vol] 93 mg/dL 70-140 [facility] Hematocrit Auto (Bld) [Volum e fraction]Ordered By: Dr. Corey on 06-04-2022 Hematocrit (Bld) [Volume fraction] 34.2 % 37-47 [facility] Laboratory - Chemistry and C hemistry - challengeon 06-04-2022 Glucose Ql (U) Negative [facility] Laboratory - Hematology and Cell countsOrdered By: Dr. Corey on 06-04-2022 Erythrocyte distribution width (RBC) [Entitic vol] 38.8 fL 35.1-43.9 [facility] Erythrocyte distribution width (RBC) [Ratio] 12.4 % 11.6-14.6 [facility] Immature granulocytes/100 WBC (Bld) 0.700 % 0.0-0.9 [facility] Comment on above: IG% - Immature Granu locytes (promyelocytes, myelocytes and metamyelocytes) > 1% indicates that a LEFT SHIFT is Present. MCH (RBC) [Entitic mass] 30.5 pg 27.0-32.0 [facility] Nucleated RBC/100 WBC (Bld) [Ratio] 0 % 0-5 [facility] Laboratory - Urinalysison Protein Ql (U) Negative [facility] MCHC Auto (RBC) [Mass/Vol]Or dered By: Dr. Corey on 06-04-2022 MCHC (RBC) [Mass/Vol] 35.4 g/dL 32-36 [facility] Platelets bldOrdered By: Dr. Corey on 06-04-2022 Platelets (Bld) [#/Vol] 347 10*3/uL 150-450 [facility] Laboratory - Chemistry and C hemistry - challengeon 05-16-2022 Glucose Ql (U) Negative [facility] Laboratory - Urinalysison Protein Ql (U) Negative [facility] Laboratory - Chemistry and C hemistry - challengeon 04-16-2022 Glucose Ql (U) Negative [facility] Work Phone: Laboratory - Urinalysison Protein Ql (U) Negative [facility] Work Phone: Laboratory - Chemistry and C hemistry - challengeon 03-19-2022 Glucose Ql (U) Negative [facility] Work Phone: Laboratory - Urinalysison Protein Ql (U) Negative [facility] Work Phone: Laboratory - Chemistry and C hemistry - challengeon 02-20-2022 Glucose Ql (U) Negative [facility] Work Phone: Laboratory - Urinalysison Protein Ql (U) Negative [facility] Work Phone: Absolute lymphocyte counton 01-21-2022 Lymphocytes Auto (Unsp spec) [#/Vol] 2.04 10*3/uL 0.83-4.51 [facility] Work Phone: Basophil percentageon 2021 Basophils/100 WBC (Bld) 0.4 % 0-1 [facility] Work Phone: [phone] Eosinophils/100 WBC (Bld) 0.6 % 0-5 [facility] Work Phone: [phone] Neutrophils (Bld) [#/Vol] 5.5 10*3/uL 2.0-7.7 [facility] Work Phone: [phone] Neutrophils/100 WBC (Bld) 65.4 % 47-70 [facility] Work Phone: [phone] WBC (Bld) [#/Vol] 8.3 10*3/uL 4.4-11.0 [facility] Work Phone: Blood erythrocytes count (nu mber/volume)on 01-21-2022 RBC (Bld) [#/Vol] 4.17 10*6/uL 4.2-5.4 [facility] Work Phone: [phone] Blood hemoglobin measurement (mass/volume)on 01-21-2022 Hemoglobin (Bld) [Mass/Vol] 12.6 g/dL 12.0-15.0 [facility] Work Phone: [phone] Blood lymphocytes/100 leukoc yteson 01-21-2022 Lymphocytes/100 WBC (Bld) 24.5 % 19-41 [facility] Work Phone: [phone] Blood monocytes/100 leukocyt eson 01-21-2022 Monocytes/100 WBC (Bld) 8.6 % 0-10 [facility] Work Phone: Blood platelet mean volumeon 01-21-2022 Platelet mean volume (Bld) [Entitic vol] 8.4 fL 6.2-12.0 [facility] Work Phone: Chlamydia trachomatis rRNA d etection by probe and target amplification methodon 01-21-2022 C. trachomatis rRNA VENU+probe Ql (Unsp spec) Negative Negative [facility] Work Phone: Determination of erythrocyte mean corpuscular volume (MCV)on 01-21-2022 MCV (RBC) [Entitic vol] 86.3 fL 81-99 [facility] Work Phone: HIV 1 and HIV-2 antibody ass ay with HIV-1 p24 antigen detectionon 01-21-2022 HIV 1+2 Ab+HIV1 p24 Ag IA Ql Non-Reactive Nonreactive [facility] Work Phone: Hematocrit Auto (Bld) [Volum e fraction]on 01-21-2022 Hematocrit (Bld) [Volume fraction] 36.0 % 37-47 [facility] Work Phone: Laboratory - Drug toxicology on 01-21-2022 Amphetamines Ql (U) Negative <1000 ng/mL [facility] Work Phone: Benzodiazepines Ql (U) Negative < 200 ng/mL [facility] Work Phone: Cannabinoids Screen Ql (U) Negative < 50 ng/mL [facility] Work Phone: Cocaine Ql (U) Negative < 300 ng/mL [facility] Work Phone: Opiates Ql (U) Negative < 300 ng/mL [facility] Work Phone: Laboratory - Hematology and Cell countson 01-21-2022 Erythrocyte distribution width (RBC) [Entitic vol] 37.2 fL 35.1-43.9 [facility] Work Phone: Erythrocyte distribution width (RBC) [Ratio] 11.8 % 11.6-14.6 [facility] Work Phone: Immature granulocytes/100 WBC (Bld) 0.500 % 0.0-0.9 [facility] Work Phone: Comment on above: IG% - Immature Granu locytes (promyelocytes, myelocytes and metamyelocytes) > 1% indicates that a LEFT SHIFT is Present. MCH (RBC) [Entitic mass] 30.2 pg 27.0-32.0 [facility] Work Phone: Nucleated RBC/100 WBC (Bld) [Ratio] 0 % 0-5 [facility] Work Phone: Laboratory - Microbiology an d Antimicrobial susceptibilityon 01-21-2022 N. gonorrhoeae DNA VENU+probe Ql (Unsp spec) Negative Negative [facility] Work Phone: Comment on above: Performed at: =[address] [id number] Director: Catalina Lord MD, Phone: [phone] MCHC Auto (RBC) [Mass/Vol]on 01-21-2022 MCHC (RBC) [Mass/Vol] 35.0 g/dL 32-36 [facility] Work Phone: No Panel Informationon 01-21 MDMA (Ecstasy) Screen Negative < 500 ng/mL [facility] Work Phone: Urine Barbiturates Screen Negative < 200 ng/mL [facility] Work Phone: Urine Drug Screen Comment [facility] Work Phone: Comment on above: CONFIRMATORY TESTING [...] Urine Methadone Screen Negative < 300 ng/mL [facility] Work Phone: Hepatitis B Surface Antigen Non-Reactive Nonreactive [facility] Work Phone: Hepatitis C Antibody Non-Reactive Nonreactive [facility] Work Phone: Comment on above: Non Reactive: < 0.8 Equivocal: >/= 0.8 to < 1.0 Reactive: >/= 1.0The [facility] recommends that a reactive/equivocal HCV antibody result be followed up by the HCV Nucleic Acid Amplificationtest (471611) Rubella IgG Antibody Reactive Nonreactive [facility] Work Phone: Comment on above: Antibody Results Int erpretation of Immune Status Non Reactive Presumed Non-Immune Equivocal Equivocal Reactive Presumed Immune Platelets bldon 01-21-2022 Platelets (Bld) [#/Vol] 380 10*3/uL 150-450 [facility] Work Phone: Serum Treponema species anti body detectionon 01-21-2022 Treponema sp Ab Ql (S) Non-Reactive [facility] Work Phone: Urine phencyclidine (PCP) de tectionon 01-21-2022 Phencyclidine Ql (U) Negative < 25 ng/mL [facility] Work Phone: Vital Signs Date Time Vital Sign Value Performing Clinician Facility 01-24-2025 08:14-0400 Body height 165.[address] Alireza London MD Work Phone: [facility] 01-24-2025 08:14-0400 Body mass index (BMI) [Ratio] 33.4 kg/m2 Dr. Alireza London MD Work Phone: [facility] 01-24-2025 08:14-0400 Body weight 91.[address] Alireza London MD Work Phone: [facility] 01-24-2025 08:14-0400 Diastolic blood pressure 80 mm[Hg] Dr. Alireza London MD Work Phone: [facility] 01-24-2025 08:14-0400 Systolic blood pressure 125 mm[Hg] Dr. Alireza London MD Work Phone: [facility] 01-18-2025 12:23-0400 Body height 165.[address] Alireza London MD Work Phone: [facility] 01-18-2025 12:22-0400 Body mass index (BMI) [Ratio] 33.3 kg/m2 Dr. Alireza London MD Work Phone: [facility] 01-18-2025 12:22-0400 Body weight 90.[address] Alireza London MD Work Phone: [facility] 01-18-2025 12:22-0400 Diastolic blood pressure 78 mm[Hg] Dr. Alireza London MD Work Phone: [facility] 01-18-2025 12:22-0400 Systolic blood pressure 120 mm[Hg] Dr. Alireza London MD Work Phone: [facility] 01-11-2025 15:16-0400 Body height 165.[address] Alireza London MD Work Phone: [facility] 01-11-2025 15:16-0400 Body mass index (BMI) [Ratio] 33.7 kg/m2 Dr. Alireza London MD Work Phone: [facility] 01-11-2025 15:16-0400 Body weight 91.[address] Alireza London MD Work Phone: [facility] 01-11-2025 15:16-0400 Diastolic blood pressure 70 mm[Hg] Dr. Alireza London MD Work Phone: [facility] 01-11-2025 15:16-0400 Systolic blood pressure 104 mm[Hg] Dr. Alireza London MD Work Phone: [facility] 12-28-2024 09:00-0400 Body height 165.[address] Alireza London MD Work Phone: [facility] 12-28-2024 09:00-0400 Body mass index (BMI) [Ratio] 33.1 kg/m2 Dr. Alireza London MD Work Phone: [facility] 12-28-2024 09:00-0400 Body weight 90.[address] Alireza London MD Work Phone: [facility] 12-28-2024 09:00-0400 Diastolic blood pressure 80 mm[Hg] Dr. Alireza London MD Work Phone: [facility] 12-28-2024 09:00-0400 Systolic blood pressure 135 mm[Hg] Dr. Alireza London MD Work Phone: [facility] 12-14-2024 08:59-0400 Body height 165.[address] Alireza London MD Work Phone: [facility] 12-14-2024 08:59-0400 Body mass index (BMI) [Ratio] 32.4 kg/m2 Dr. Alireza London MD Work Phone: [facility] 12-14-2024 08:59-0400 Body weight 88.[address] Alireza London MD Work Phone: [facility] 12-14-2024 08:59-0400 Diastolic blood pressure 75 mm[Hg] Dr. Alireza London MD Work Phone: [facility] 12-14-2024 08:59-0400 Systolic blood pressure 124 mm[Hg] Dr. Alireza London MD Work Phone: [facility] 11-30-2024 08:45-0400 Body mass index (BMI) [Ratio] 32 kg/m2 Dr. Alireza London MD Work Phone: [facility] 11-30-2024 08:45-0400 Body weight 87.[address] Alireza London MD Work Phone: [facility] 11-30-2024 08:45-0400 Diastolic blood pressure 74 mm[Hg] Dr. Alireza London MD Work Phone: [facility] 11-30-2024 08:45-0400 Systolic blood pressure 129 mm[Hg] Dr. Alireza London MD Work Phone: [facility] 11-02-2024 08:46-0400 Body height 165.[address] Alireza London MD Work Phone: [facility] 11-02-2024 08:45-0400 Body mass index (BMI) [Ratio] 31.4 kg/m2 Dr. Alireza London MD Work Phone: [facility] 11-02-2024 08:45-0400 Body weight 85.[address] Alireza London MD Work Phone: [facility] 11-02-2024 08:45-0400 Diastolic blood pressure 73 mm[Hg] Dr. Alireza London MD Work Phone: [facility] 11-02-2024 08:45-0400 Systolic blood pressure 113 mm[Hg] Dr. Alireza London MD Work Phone: [facility] 10-05-2024 08:53-0500 Body height 165.[address] Alireza London MD Work Phone: [facility] 10-05-2024 08:53-0500 Body mass index (BMI) [Ratio] 30.2 kg/m2 Dr. Alireza London MD Work Phone: [facility] 10-05-2024 08:53-0500 Body weight 82.[address] Alireza London MD Work Phone: [facility] 10-05-2024 08:53-0500 Diastolic blood pressure 77 mm[Hg] Dr. Alireza London MD Work Phone: [facility] 10-05-2024 08:53-0500 Systolic blood pressure 110 mm[Hg] Dr. Alireza London MD Work Phone: [facility] 09-07-2024 08:30-0500 Body mass index (BMI) [Ratio] 30 kg/m2 Dr. Alireza London MD Work Phone: [facility] 09-07-2024 08:30-0500 Body weight 81.[address] Alireza London MD Work Phone: [facility] 09-07-2024 08:30-0500 Diastolic blood pressure 72 mm[Hg] Dr. Alireza London MD Work Phone: [facility] 09-07-2024 08:30-0500 Systolic blood pressure 118 mm[Hg] Dr. Alireza London MD Work Phone: [facility] 08-10-2024 15:03-0500 Body mass index (BMI) [Ratio] 28.8 kg/m2 Dr. Alireza London MD Work Phone: [facility] 08-10-2024 15:03-0500 Body weight 78.[address] Alireza London MD Work Phone: [facility] 08-10-2024 15:03-0500 Diastolic blood pressure 79 mm[Hg] Dr. Alireza London MD Work Phone: [facility] 08-10-2024 15:03-0500 Systolic blood pressure 124 mm[Hg] Dr. Alireza London MD Work Phone: [facility] 07-05-2024 13:02-0500 Body mass index (BMI) [Ratio] 29.1 kg/m2 Dr. Alireza London MD Work Phone: [facility] 07-05-2024 13:02-0500 Body weight 79.[address] Alireza London MD Work Phone: [facility] 07-05-2024 13:02-0500 Diastolic blood pressure 67 mm[Hg] Dr. Alireza London MD Work Phone: [facility] 07-05-2024 13:02-0500 Systolic blood pressure 130 mm[Hg] Dr. Alireza London MD Work Phone: [facility] 02-03-2024 18:35-0400 Body temperature 99.19 [degF] [facility] ASS[employer]IATE VICE PRESIDENT[employer] Work Phone: [facility] 02-03-2024 18:35-0400 Body weight 78.4 kg [facility] ASSOCIATE VICE PRESIDENT.[employer] Work Phone: [facility] 02-03-2024 18:35-0400 Diastolic blood pressure 82 mm[Hg] [facility] ASSOCIATE VICE PRESIDENT.[employer] Work Phone: [facility] 02-03-2024 18:35-0400 Heart rate 86 /min [facility] ASSOCIATE VICE PRESIDENT.[employer] Work Phone: [facility] 02-03-2024 18:35-0400 Respiratory rate 16 /min [facility] ASSOCIATE VICE PRESIDENT.[employer] Work Phone: [facility] 02-03-2024 18:35-0400 SaO2% (BldA) [Mass fraction] 97 % [facility] ASSOCIATE VICE PRESIDENT.[employer] Work Phone: [facility] 02-03-2024 18:35-0400 Systolic blood pressure 138 mm[Hg] [facility] 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 Alireza London Work Phone: [facility] 08-26-2022 09:00-0500 Diastolic blood pressure 75 mm[Hg] Dr. Alireza London Work Phone: [facility] 08-26-2022 09:00-0500 Heart rate 83 /min Dr. Alireza London Work Phone: [facility] 08-26-2022 09:00-0500 Respiratory rate 16 /min Dr. Alireza London Work Phone: [facility] 08-26-2022 09:00-0500 Systolic blood pressure 116 mm[Hg] Dr. Alireza London Work Phone: [facility] 08-26-2022 04:10-0500 SaO2% (BldA) [Mass fraction] 97 % Dr. Alireza London Work Phone: [facility] 08-24-2022 19:03-0500 Body height 165.[address] Alireza London Work Phone: [facility] 08-24-2022 19:03-0500 Body mass index (BMI) [Ratio] 33 kg/m2 Dr. Alireza London Work Phone: [facility] 08-24-2022 19:03-0500 Body weight 89.[address] Alireza London Work Phone: [facility] 08-23-2022 09:15-0500 Body mass index (BMI) [Ratio] 33.2 kg/m2 Dr. Alireza London Work Phone: [facility] 08-23-2022 09:15-0500 Body weight 90.[address] Alireza London Work Phone: [facility] 08-23-2022 09:15-0500 Diastolic blood pressure 81 mm[Hg] Dr. Alireza London Work Phone: [facility] 08-23-2022 09:15-0500 Systolic blood pressure 128 mm[Hg] Dr. Alireza London Work Phone: [facility] 08-15-2022 08:59-0500 Body mass index (BMI) [Ratio] 32.9 kg/m2 Dr. Alireza London Work Phone: [facility] 08-15-2022 08:59-0500 Body weight 89.[address] Alireza London Work Phone: [facility] 08-15-2022 08:59-0500 Diastolic blood pressure 84 mm[Hg] Dr. Alireza London Work Phone: [facility] 08-15-2022 08:59-0500 Systolic blood pressure 130 mm[Hg] Dr. Alireza London Work Phone: [facility] 08-09-2022 09:20-0500 Body mass index (BMI) [Ratio] 32.6 kg/m2 Dr. Alireza London Work Phone: [facility] 08-09-2022 09:20-0500 Body weight 89.[address] Alireza London Work Phone: [facility] 08-09-2022 09:20-0500 Diastolic blood pressure 78 mm[Hg] Dr. Alireza London Work Phone: [facility] 08-09-2022 09:20-0500 Systolic blood pressure 120 mm[Hg] Dr. Alireza London Work Phone: [facility] 08-01-2022 08:20-0500 Body mass index (BMI) [Ratio] 32.1 kg/m2 Dr. Alireza London Work Phone: [facility] 08-01-2022 08:20-0500 Body weight 87.[address] Alireza London Work Phone: [facility] 08-01-2022 08:20-0500 Diastolic blood pressure 84 mm[Hg] Dr. Alireza London Work Phone: [facility] 08-01-2022 08:20-0500 Systolic blood pressure 126 mm[Hg] Dr. Alireza London Work Phone: [facility] 07-23-2022 17:51-0500 Body temperature 97.7 [degF] Dr. Alireza London Work Phone: [facility] 07-23-2022 17:51-0500 Diastolic blood pressure 68 mm[Hg] Dr. Alireza London Work Phone: [facility] 07-23-2022 17:51-0500 Heart rate 85 /min Dr. Alireza London Work Phone: [facility] 07-23-2022 17:51-0500 SaO2% (BldA) [Mass fraction] 97 % Dr. Alireza London Work Phone: [facility] 07-23-2022 17:51-0500 Systolic blood pressure 119 mm[Hg] Dr. Alireza London Work Phone: [facility] 07-23-2022 17:44-0500 Body height 165.[address] Alireza London Work Phone: [facility] Work Phone: 07-23-2022 17:44-0500 Body mass index (BMI) [Ratio] 31.8 kg/m2 Dr. Alireza London Work Phone: [facility] 07-23-2022 17:44-0500 Body weight 86.[address] Alireza London Work Phone: [facility] 07-15-2022 08:37-0500 Body mass index (BMI) [Ratio] 31.4 kg/m2 Dr. Alireza London Work Phone: [facility] 07-15-2022 08:37-0500 Body weight 85.[address] Alireza London Work Phone: [facility] 07-15-2022 08:37-0500 Diastolic blood pressure 73 mm[Hg] Dr. Alireza London Work Phone: [facility] 07-15-2022 08:37-0500 Systolic blood pressure 111 mm[Hg] Dr. Alireza London Work Phone: [facility] 07-02-2022 08:54-0500 Body mass index (BMI) [Ratio] 31.1 kg/m2 Dr. Alireza London Work Phone: [facility] 07-02-2022 08:54-0500 Body weight 84.[address] Alireza London Work Phone: [facility] 07-02-2022 08:54-0500 Diastolic blood pressure 75 mm[Hg] Dr. Alireza London Work Phone: [facility] 07-02-2022 08:54-0500 Systolic blood pressure 124 mm[Hg] Dr. Alireza London Work Phone: [facility] 06-20-2022 13:27-0500 Body mass index (BMI) [Ratio] 30.9 kg/m2 Dr. Alireza Lnodon Work Phone: [facility] 06-20-2022 13:27-0500 Body weight 84.[address] Alireza London Work Phone: [facility] 06-20-2022 13:27-0500 Diastolic blood pressure 74 mm[Hg] Dr. Alireza London Work Phone: [facility] 06-20-2022 13:27-0500 Systolic blood pressure 119 mm[Hg] Dr. Alireza London Work Phone: [facility] 06-04-2022 09:26-0400 Body height 165.[address] Alireza London Work Phone: [facility] Work Phone: 06-04-2022 09:26-0400 Body mass index (BMI) [Ratio] 30.4 kg/m2 Dr. Alireza London Work Phone: [facility] 06-04-2022 09:26-0400 Body weight [address] Alireza London Work Phone: [facility] 06-04-2022 09:26-0400 Diastolic blood pressure 74 mm[Hg] Dr. Alireza London Work Phone: [facility] 06-04-2022 09:26-0400 Systolic blood pressure 130 mm[Hg] Dr. Alireza London Work Phone: [facility] 05-16-2022 08:53-0400 Body mass index (BMI) [Ratio] 29.5 kg/m2 Dr. Alireza London Work Phone: [facility] 05-16-2022 08:53-0400 Body weight 80.[address] Alireza London Work Phone: [facility] 05-16-2022 08:53-0400 Diastolic blood pressure 77 mm[Hg] Dr. Alireza London Work Phone: [facility] 05-16-2022 08:53-0400 Systolic blood pressure 121 mm[Hg] Dr. Alireza London Work Phone: [facility] 04-16-2022 08:33-0400 Body mass index (BMI) [Ratio] 29.2 kg/m2 Dr. Alireza London Work Phone: [facility] Work Phone: 04-16-2022 08:33-0400 Body weight 79.[address] Alireza London Work Phone: [facility] Work Phone: 04-16-2022 08:33-0400 Diastolic blood pressure 66 mm[Hg] Dr. Alireza London Work Phone: [facility] Work Phone: 04-16-2022 08:33-0400 Systolic blood pressure 118 mm[Hg] Dr. Alireza London Work Phone: [facility] Work Phone: 03-19-2022 08:56-0400 Diastolic blood pressure 60 mm[Hg] Dr. Alireza London Work Phone: [facility] Work Phone: 03-19-2022 08:56-0400 Systolic blood pressure 106 mm[Hg] Dr. Alireza London Work Phone: [facility] Work Phone: 03-19-2022 08:45-0400 Body mass index (BMI) [Ratio] 28.8 kg/m2 Dr. Alireza London Work Phone: [facility] Work Phone: 03-19-2022 08:45-0400 Body weight 78.[address] Alireza London Work Phone: [facility] Work Phone: 02-20-2022 08:30-0400 Body mass index (BMI) [Ratio] 28.8 kg/m2 Dr. Alireza London Work Phone: [facility] Work Phone: 02-20-2022 08:30-0400 Body weight 78.[address] Alireza London Work Phone: [facility] Work Phone: 02-20-2022 08:30-0400 Diastolic blood pressure 62 mm[Hg] Dr. Alireza London Work Phone: [facility] Work Phone: 02-20-2022 08:30-0400 Systolic blood pressure 106 mm[Hg] Dr. Alireza London Work Phone: [facility] Work Phone: 01-21-2022 09:12-0400 Body height 165.[address] Alireza London Work Phone: [facility] Work Phone: 01-21-2022 09:12-0400 Body mass index (BMI) [Ratio] 28.6 kg/m2 Dr. Alireza London Work Phone: [facility] Work Phone: 01-21-2022 09:12-0400 Body weight 78.[address] Alireza London Work Phone: [facility] Work Phone: 01-21-2022 09:12-0400 Diastolic blood pressure 70 mm[Hg] Dr. Alireza London Work Phone: [facility] Work Phone: 01-21-2022 09:12-0400 Systolic blood pressure 116 mm[Hg] Dr. Alireza London Work Phone: [facility] Work Phone: 11-27-2021 08:33-0400 Body mass index (BMI) [Ratio] 29.6 kg/m2 Dr. Alireza London Work Phone: [facility] Work Phone: 11-27-2021 08:33-0400 Body weight 80.[address] Alireza London Work Phone: [facility] Work Phone: 11-27-2021 08:33-0400 Diastolic blood pressure 84 mm[Hg] Dr. Alireza London Work Phone: [facility] Work Phone: 11-27-2021 08:33-0400 Systolic blood pressure 126 mm[Hg] Dr. Alireza London Work Phone: [facility] Work Phone: Encounters Encounter Date Encounter Type Care Provider Facility Start: 01-31-2025 ambulatory [facility] Facility :[facility] [place] Start: 01-30-2025 Evaluation and management of inpatient [facility] Facility:[facility] Start: 01-24-2025 End: 01-24-[address] Elidia Joaquin MD -[facility] Work Phone: Start: 01-24-2025 End: 01-24-[address] Alireza London MD Work Phone: [facility] Work Phone: Start: 01-20-2025 End: 01-20-[address] Alireza London MD Work Phone: [facility] Work Phone: Start: 01-20-2025 End: 01-20-[address] Bhavani Wells DO -[facility] Work Phone: Start: 01-20-2025 End: 01-20-2025 ambulatory Alireza London Facility:[facility] Start: 01-18-2025 End: 01-18-[address] Bhavani Wells DO -[facility] Work Phone: Start: 01-18-2025 End: 01-18-[address] Alireza London MD Work Phone: [facility] Work Phone: Start: 01-11-2025 End: 01-11-[address] Alireza London MD Work Phone: [facility] Work Phone: Start: 01-11-2025 End: 01-11-2025 Patient encounter procedure Alesha To [facility] -Laboratory Specimen Work Phone: Start: 01-11-2025 End: 01-11-2025 Patient encounter procedure Alesha To [facility] -[facility] Work Phone: Start: 01-11-2025 End: 01-11-[address] Alireza London MD Work Phone: [facility] Work Phone: Start: 01-11-2025 End: 01-11-2025 ambulatory Alireza London Facility:[facility] Start: 01-04-2025 End: 01-04-2025 ambulatory ALIREZA LONDON [facility] Start: 12-28-2024 End: 12-28-2024 Patient encounter procedure Carol Barrera CNM -[facility] Work Phone: Start: 12-28-2024 End: 12-28-[address] Alireza London MD Work Phone: [facility] Work Phone: Start: 12-28-2024 End: 12-28-2024 ambulatory Alireza London Facility:[facility] Start: 12-14-2024 End: 12-14-[address] Elidia Joaquin MD -[facility] Work Phone: Start: 12-14-2024 End: 12-14-[address] Alireza London MD Work Phone: [facility] Work Phone: Start: 12-07-2024 End: 12-07-2024 ambulatory ALIREZA M [facility] Start: 11-30-2024 End: 11-30-2024 Patient encounter procedure Carol Barrera CNM -[facility] Work Phone: Start: 11-30-2024 End: 11-30-2024 ambulatory Alireza Smithner Facility[place] Start: 11-30-2024 End: 11-30-2024 ambulatory Alireza London Facility:[facility] Start: 11-08-2024 End: 11-08-[address] [facility] Start: 11-02-2024 End: 11-02-[address] Bhavani Wells DO [facility] Work Phone: Start: 11-02-2024 End: 11-02-[address] Alireza London MD Work Phone: [facility] Work Phone: Start: 11-02-2024 End: 11-02-2024 ambulatory Bhavani Wells Facility:[facility] Start: 10-21-2024 Encounter for genera l adult medical examination without abnormal findings Bhavani Wells [facility] Start: 10-12-2024 End: 10-12-[address] Bhavani Wells DO -[facility] Start: 10-12-2024 End: 10-12-[address] Alireza London MD Work Phone: [facility] Work Phone: Start: 10-12-2024 End: 10-12-2024 ambulatory Bhavani Wells Facility:[facility] Start: 10-05-2024 End: 10-05-[address] Bhavani Wells DO -[facility] Work Phone: Start: 10-05-2024 End: 10-05-[address] Alireza London MD Work Phone: [facility] Work Phone: Start: 10-05-2024 End: 10-05-2024 ambulatory Bhavani Wells Facility:[facility] Start: 09-28-2024 End: 09-28-2024 ambulatory [facility] Start: 09-14-2024 End: 09-14-2024 ambulatory [facility] Start: 09-07-2024 End: 09-07-2024 Patient encounter procedure Alesha To NP-Ralf -[facility] Work Phone: Start: 09-07-2024 End: 09-07-2024 ambulatory Alireza London Facility:[facility] Start: 09-07-2024 End: 09-07-2024 ambulatory Alesha To NP Facility:[facility] Start: 08-10-2024 End: 08-10-[address] Bhavani Wells DO -[facility] Work Phone: Start: 08-10-2024 End: 08-10-2024 ambulatory Alireza London Facility:[facility] Start: 08-10-2024 End: 08-10-2024 ambulatory Alireza London Facility:[facility] Start: 07-05-2024 End: 07-05-2024 Patient encounter procedure Carol Barrera CNM -[facility] Work Phone: Start: 07-05-2024 End: 07-05-2024 ambulatory Alireza London Facility[facility] Start: 07-05-2024 End: 07-05-2024 ambulatory Alireza London Facility:[facility] Start: 02-03-2024 End: 02-03-2024 ambulatory Facility:[facility] Start: 02-03-2024 End: 02-03-2024 Office outpatient new 30 minutes Arvin Rendon APRN.CNP Work Phone: [facility] Comment on above: Sore throat (Primary Dx); [...] of inpatient Dr. Alireza London Work Phone: [facility] Start: 08-23-2022 End: 08-23-[address] Alireza London Work Phone: [facility] Start: 08-15-2022 End: 08-15-[address] Alireza London Work Phone: [facility] Start: 08-09-2022 End: 08-09-[address] Alireza London Work Phone: [facility] Start: 08-01-2022 End: 08-01-[address] Alireza London Work Phone: [facility] Start: 07-23-2022 Non-patient / Non-visit Dr. Cheryl London Work Phone: [facility] Start: 07-23-2022 End: 07-23-[address] Alireza London Work Phone: [facility] Work Phone: Start: 07-23-2022 End: 07-23-[address] Alireza London Work Phone: [facility] Start: 07-15-2022 End: 07-15-[address] Alireza London Work Phone: [facility] Start: 07-02-2022 End: 07-02-[address] Alireza London Work Phone: [facility] Start: 06-20-2022 End: 06-20-[address] Alireza London Work Phone: [facility] Start: 06-04-2022 End: 06-04-[address] Alireza London Work Phone: [facility] Work Phone: Start: 06-04-2022 End: 06-04-[address] Alireza London Work Phone: [facility] Start: 05-16-2022 End: 05-16-[address] Alireza London Work Phone: [facility] Start: 04-16-2022 End: 04-16-[address] Alireza London Work Phone: [facility] Start: 03-19-2022 End: 03-19-[address] Alireza London Work Phone: [facility] Start: 02-20-2022 End: 02-20-[address] Alireza London Work Phone: [facility] Start: 01-21-2022 End: 01-21-[address] Alireza London Work Phone: [facility] Start: 11-27-2021 End: 11-27-[address] Alireza London Work Phone: [facility] Procedures Date Procedure Procedure Detail Performing Clinician Start: 01-20-2025 Ultrasonography for antepartum monitoring of fetus Dr. Alireza London MD Work Phone: Start: 01-11-2025 Beta-hemolytic Streptococcus culture Dr. Alireza Lodnon MD Work Phone: Start: 12-28-[address] Alireza London MD Work Phone: Comment on above: Test Ordered: [id number] Antibody Identifica tionAntibody Id. #1 Anti-M CB Reference Range: .Dat Titer #1 Comment CB Reference Range: .The antibody is too weak to titer at this time.If a numerical titer result has been reported, please notethat this result is the reciprocal value of titer resultsformerly reported as 1:2,1:4, 1:8, etc. These results arenow reported as 2, 4, 8, etc. The [place] [employer] has recommended this change in titer reportingformats to simply reflect the reciprocal value of thetiter.Antibody Id. #2 CLINIC SPECIALIST NOLAB Reference Range: .Dat Titer #2 CLINIC SPECIALIST [facility]OL[place] Reference Range: .Performed at: [address] [id number] Director: Joey Mortensen PhD, Phone: [phone] Start: 11-30-[address] Alireza London MD Work Phone: Comment on above: Test Ordered: [id number] Antibody Identifica tionAntibody Id. #1 Anti-M CB Reference Range: .Dat Titer #1 2 CB Reference Range: .If a numerical titer result has been reported, please notethat this result is the reciprocal value of titer resultsformerly reported as 1:2,1:4, 1:8, etc. These results arenow reported as 2, 4, 8, etc. The [place] [employer] has recommended this change in titer reportingformats to simply reflect the reciprocal value of thetiter.Antibody Id. #2 CLINIC SPECIALIST NOLAB Reference Range: .Dat Titer #2 CLINIC SPECIALIST NOLAB Reference Range: .Performed at: [facility] [employer] [id number] Director: Joey Mortensen PhD, Phone: [phone] Start: 11-02-2024 Serologic test for syphilis Dr. Alireza taylor MD Work Phone: Start: 07-05-[address] Alireza London MD Work Phone: Start: 02-03-2024 STREP A MOLECULAR (POC) Arvin arreola APRN.[facility] Work Phone: History of tonsillectomy History of tonsillectomy Dr. Alireza London Work Phone: Plan of Treatment Date Care Activity Detail Author Start: 06-20-2032 Urine microalbumin profile DTaP,Tdap,Td Vaccine (2 - Td or Tdap) [facility] Start: 12-28-2024 Procedure [facility] Start: 04-04-2024 Influenza vaccination [facility] Start: 08-04-2023 Behavioral Health Screening Behavioral Health Screening [facility] Start: 04-04-2023 Covid-19 Vaccine ( season) Covid-19 Vaccine ( season) [facility] Start: 08-26-2022 Patient discharge [facility] Start: 08-25-2022 Administration of medication [facility] Start: 08-25-2022 Application of ice collar, cap or bag [facility] Start: 08-25-2022 Catheterization of vein [facility] Start: 08-25-2022 Introduction of urinary catheter [facility] Start: 08-25-2022 Measuring intake and output [facility] Start: 08-25-2022 Notification of physician [facility] Start: 08-25-2022 Procedure discontinued [facility] Start: 08-25-2022 Provision of activity privileges [facility] Start: 08-25-2022 Vital signs measurements [facility] Start: 08-25-2022 [facility] Start: 08-25-2022 Leukocyte reduced red blood cells [facility] Start: 08-24-2022 Admission procedure [facility] Start: 07-23-2022 Nonstress test [facility] Start: 07-23-2022 Obstetric monitoring [facility] Start: 07-23-2022 Vital signs measurements [facility] Start: 07-23-2022 [facility] Start: 07-23-2022 Patient discharge [facility] Start: 01-21-2022 [facility] Work Phone: Start: 2013 Screening for malignant neoplasm of cervix Cervical Cancer Screening [facility] Start: 2011 Hepatitis B Vaccine (1 of 3 - 19+ 3-dose series) Hepatitis B Vaccine (1 of 3 - 19+ 3-dose series) [facility] Start: 2010 Hepatitis C screening Hepatitis C Screening [facility] Start: 2010 HIV screening HIV Screening [facility] Bacteria identified in Urine by Culture [facility] Work Phone: CBC W Auto Different ial panel - Blood [facility] Measurement of gluco se 2 hours after glucose challenge for glucose tolerance test [facility] Patient Education Kick Counts ED False Labor OB Triage: Return to Hospital or Notify Physician if you Experience: [facility] Work Phone: Patient referral [facility] Work Phone: Serologic test for syphilis [facility] Streptococcus agalac tiae [Presence] in Unspecified specimen by Organism specific culture [facility] Immunizations Immunization Date Immunization Notes Care Provider Fa bozena 11-30-2024 tetanus toxoid, reduced diphtheria toxoid, and acellular pertussis vaccine, adsorbed Dr. Alireza London MD Work Phone: [facility] 06-20-2022 tetanus toxoid, reduced diphtheria toxoid, and acellular pertussis vaccine, adsorbed Dr. Alireza London Work Phone: [facility] 05-16-2022 influenza, injectabl e, quadrivalent, preservative free Dr. Alireza London MD Work Phone: [facility] 05-16-2022 influenza, seasonal, injectable Dr. Alireza London Work Phone: [facility] 05-16-2022 influenza virus vaccine, unspecified formulation Arvin Rendon APRN.CNP Work Phone: [facility] Payers Date Payer Category Payer Self-pay [id number] [address] PPO [id number] 2022-Present [phone] [address] [place] [address] PPO [id number] 2022 Unknown [id number] 1990 Unknown [id number] 2..840.1.707745.3.579.2. 479 1992 Unknown [id number] 2.840.1.911426.3.579.2 479 1992 Unknown [id number] 2..840.1.246647.3.579.2. 479 1992 Unknown [id number] 2.16.840.1.531609.3.579.2. 479 1992 Unknown [id number] .840.1.009695.3.579.2. 479 1992 Unknown [id number] 2.840.1.866473.3.579.2. 479 Private Health Insurance [id number] Private Health Insurance [id number] Unknown [id number] .840.1.169136.3.579.2. 462 Unknown [id number] .840.1.606042.3.579.2. 462 Unknown [id number] 2.840.1.192105.3.579.2. 462 Unknown [id number] .840.1.511317.3.579.2. 462 Unknown [id number] .840.1.236252.3.579.2. 462 Unknown [id number] 2.840.1.279492.3.579.2. 462 Unknown [id number] 2.840.1.418116.3.579.2. 462 Unknown [id number] 2.840.1.118206.3.579.2. 462 Unknown [id number] .840.1.525570.3.579.2. 462 Unknown [id number] 840.1.000081.3.579.2. 462 Unknown [id number] 2.840.1.739360.3.579.2. 462 Unknown [id number] 2.840.1.786507.3.579.2. 462 Unknown [id number] 2.840.1.714110.3.579.2. 462 Unknown [id number] 2.16.840.1.419118.3.579.2. 462 Unknown [id number] 2.16.840.1.154613.3.579.2. 462 Unknown [id number] 2.16.840.1.546606.3.579.2. 462 Unknown [id number] 2.16.840.1.244047.3.579.2. 462 Unknown [id number] 2.16.840.1.114071.3.579.2. 462 Unknown [id number] 2.16.840.1.988695.3.579.2. 462 Unknown [id number] 2.16.840.1.920344.3.579.2. 462 Unknown [id number] 2.16.840.1.681501.3.579.2. 462 Unknown [id number] 2.16.840.1.081826.3.579.2. 462 Unknown [id number] 2.16.840.1.148235.3.579.2. 462 Unknown [id number] 2.16.840.1.851859.3.579.2. 462 Social History Date Type Detail Facility Start: 01-21-2022 End: 08-24-2022 Tobacco smoking status INIS Unknown if ever smoked [facility] Start: 10-23-2020 Non-smoker [facility] Start: 1990 Sex Assigned At Female [facility] Start: 02-03-2024 Gender identity Identifies as female gender (finding) [facility] Sexual orientation Not on file [facility] Start: 06-24-2024 Tobacco smoking stat us INIS Ex-smoker (finding) [facility] Start: 10-15-2024 End: 11-08-2024 Sex Female (finding) [facility] Goals Date Patient Goal Desired Activity /State Clinical Notes 08-25-2022 to 01-20-2025 Note Date & Type Note Facility 01-20-2025 Radiology Diagnostic study note [facility] [address] [place], [place] [address] OB Limited (No Biometrics) MR#: [id number] Acct: [id number] Name: JIHAN GUERRERO Rep #: [id number] : 1990 F 34 From: Pet er [place] BUCIO PCP: Dr. Alireza London MD Status: REG CLI Study:OB Limited (No Biometrics) Date of Exam : 01/20/25 Exam# [id number] Ordering Dr: Bhavani Gibson DO PROCEDURE: OB [...] posterior and is not low-lying. Reading Location: [facility] CC: Dr. Bhavani Wells DO; Dr. 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: Signed [facility] 12-28-2024 Progress note [facility] 12-14-2024 Progress note [facility] 10-05-2024 Evaluation note Diagnosis Onset Date Resolution Abnormal antibody titer acute M arch 2024 8:48am Hx of hemorrhage, currently acute October 05, 2024 8:48am acute October 05 8:48am Supervision of high-risk acute October 05, 025 8:48am Two vessel cord acute October 8:48am Abnormal umbilical cord deleted M 2024 8:48am Abnormal antibody titer acute A [...] 3:12pm Two vessel cord acute January 3:12pm [facility] Work Phone: 1(388) 614-971403-04-2025 Evaluation note* Diagnosis Onset Date Resolution Status [...] 12:21pm Two vessel cord acute January 12:21pm [facility] Work Phone: 1(728) 970-257403-04-2025 Evaluation note* Diagnosis Onset Date Resolution Status [...] 8:06am Two vessel cord acute January 8:06am [facility] Work Phone: 1(187) 102-663802-04-2025 Evaluation note* Diagnosis Onset Date Resolution Status [...] vessel cord acute December 14, 2024 8:56am [facility] Work Phone: 1(417) 560-797002-04-2025 Evaluation note* Diagnosis Onset Date Resolution Status [...] vessel cord acute December 28, 2024 8:54am [facility] Work Phone: 1(649) 223-168201-07-2025 Evaluation note* Diagnosis Onset Date Resolution Status Admit Date Abnormal antibody titer acute J an2024 2:56pm Hx of hemorrhage, currently acute August 10, 2024 2:56pm acute August 10, 2 025 2:56pm Supervision of high-risk acute August [...] 8:42am Two vessel cord acute November 8:42am [facility] Work Phone: 1(678) 111-716212-02-2024 Evaluation note* Diagnosis Onset Date Resolution Status Admit Date Hx of hemorrhage, currently acute July 05, 2024 12:58pm acute July 05, 2024 12:58pm Supervision of high-risk acute July 05 12:58pm Abnormal antibody titer acute J an2024 2:56pm Hx of hemorrhage, currently acute August [...] 8:48am Two vessel cord acute October 8:48am [facility] Work Phone: 1(185) 763-584907-02-2024 NoteHNO ID: [id number] Author: ARVIN RENDON APRN.[facility] Service: ? Author Type: Nurse Practitioner Type: [...] of care. This note was generated using HeadCount software. It may contain errors in wording, punctuation, or spelling. Arvin Rendon APRN.[facility]07-02-2024 History of Present illness Narrative* Arvin Rendon APRN.[facility] - 02/03/2024 6:36 PM EDT Subjective [...] of care. This note was generated using HeadCount software. It may contain errors in wording, punctuation, or spelling. Arvin Rendon APRN.[facility] Progress note Author Azucena Dwyer [facility] August 26, 2022 10:49am Note Date/Time August 26, 2022 1 0:49am [facility] Medical Records Department [address] [place] [address] Progress Note - OBGYN 08/26/22 1048 MR#: [id number] Acct: [id number] Name: JIHAN GUERRERO Rep #:[id number] : 1990 32 From: Azucena Dwyer CNM PCP: Dr. Alireza London MD Status:ADM IN Location: [place] [address] Subjective Subjective Patient doing well without complaints. [...] Cosigner Signature (if applicable): CC: ~ Signed [facility] Work Phone: 1(532) 489-832201-22-2023 Discharge summary Author Azucena Dwyer [facility] August 25, 2022 11:05am Note Date/Time August 25, 2022 1 1:05am [facility] Medical Records Department [address] [place] [address] [place] [address] Instructions for Home/Discharge Instructions 08/25/22 1104 MR#: [id number] Acct: [id number] Name: JIHAN GUERRERO Rep #:[id number] : 1990 32 From: Azucena Dwyer [...] London Discharge Orders/Prescriptions Prescriptions: No Action PNV #[id number] 30 mg iron-10 mg iron-1 mg capsule 1 cap PO DAILY Referrals / Follow Up: Alireza London MD [Primary Care Provider] - 08/25/22 1105<Electronically signed by Azucena Dwyer CNM>Azucena Dwyer CNM CC: Dr. 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 Formal scan ordered with MFM. 03/19/22 -?-?-?-?-?-?-?-?-?-?-?-?- 16w 5d 173 lb 4 oz (+1 lb 4 oz) 148/88 106/60 Negative -?-?-?-?-?-?-?-?-?-?-?-?- Negative 146 -?-?-?-?-?-?-?-?-?-?-?-?- MH-No VB or cram ping. Nausea improved. 04/16/22 -?-?-?-?-?-?-?-?-?-?-?-?- 20w 5d 175 lb 8 oz (+3 lb 8 oz) 118/66 Negative -?-?-?-?-?-?-?-?-?-?-?-?- Negative 140 -?-?-?-?-?-?-?-?-?-?-?-?- - no vb crampi ng co back pain 05/16/22 -?-?-?-?-?-?-?-?-?-?-?-?- 25w 0d 177 lb 6 oz (+5 lb 6 oz) 121/77 Negative -?-?-?-?-?-?-?-?-?-?-?-?- Negative 145 26 Cephalic -?-?-?-?-?-?-?-?-?-?-?-?- JV- no lof, vagi nal bleeding, or dec fm. flu shot today. 06/04/22 -?-?-?-?-?-?-?-?-?-?-?-?- 27w 5d 183 lb (+11 lb) 130/74 Negative -?-?-?-?-?-?-?-?-?-?-?-?- Negative 146 27 -?-?-?-?-?-?-?-?-?-?-?-?- MH-No VB, LOF. G ood FM. 28 wk labs, [facility]. 06/20/22 -?-?-?-?-?-?-?-?-?-?-?-?- 30w 0d 186 lb 2 [...] any complications: GBS I have reviewed the [facility] and made any clinically relevant updates. -routine L&D admission orders -PCN for GBS -will add pitocin augmentation if no cervical change x6 hours from admission Dr. Joaquin updated on admission, POC and concurs with primary midwifery management. is avaiable. 08/24/222210 <Electronically signed by Azucena Dwyer CNM> Cosigner Signature (if applicable): CC: DENG Dwyer; Dr. Alireza London MD~ Signed [facility] Work Phone: Evaluation note* Diagnosis Onset Date Resolution Status Encounter for routine gynecological examination noneactive acute Supervision of normal acute [facility] Work Phone: evaluation note* Diagnosis Onset Date [...] b y group B Streptococcus affecting acute [facility] Work Phone: evaluation note* Diagnosis Onset Date [...] b y group B Streptococcus affecting acute [facility] Work Phone: evaluation note* Diagnosis Onset Date [...] of normal resolved (spontaneous vaginal delivery) resolved [facility] Work Phone: Evaluation note* Diagnosis Sore throat- Primary Acute pharyngitis Strep throat Streptococcal sore throat documented in this encounter [facility] Discharge instructions Additional Instructions avoid fatty foods keep appointment wi Dr Joaquin next week if epigastric pain increases, [facility] Work Phone: Progress note Author Elidia Joaquin [facility] Note Date/Time December 14, 2024 9:10a m [facility] [address], [address] [place] [address] OFFICE VISIT Date of Service: 12/14/24 MR#: [id number] Acct: [id number] Name: JIHAN GUERRERO Rep #: [id number] : 1990 Provider: Dr. 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 Date Name GA/Weeks Outcome Route Bth Weight Infant Gen Labor Lgth Anesthesia Del Locatn Provider FOB 08/25/22 Joe 39 live - full term [id number] Male [facility] Reymundo Akins Delivery Date: 08/25/22 Last [...] Orders POC Urinalysis 2 Dip (Clinic) Today 12/14/24 0911 <Electronically signed by Elidia costa MD> Date _ Elidia Joaquin MD Cosigner Signature: Date (if applicable) CC: ~ [facility] Work Phone: Progress note Author aCrol Barrera [facility] Note Date/Time December 28, 2024 9:13a [facility] [address] [place] [address], [address] [place] [address] OFFICE VISIT Date of Service: 12/28/24 MR#: [id number] Acct: [id number] Name: JIHAN GUERRERO Rep #: [id number] : 1990 Provider: DENG Barrera Age/Sex: 34/F [place] [facility] [place]: Signed Intake Vital Signs 07/05/24 13:02 11/30/24 08:46 12/14/24 08:59 12/28/24 09:00 Height 5 ft 5 in 5 ft 5 in 5 ft 5 in 5 ft 5 in Weight: 195 lb 199 lb 2 oz BMI 32.4 33.1 BP 124/75 H 135/80 H Intake Visit Reasons: 34 wk ob Chief Complaint: 34wk OB Debeaker Required: No Is patient in pain?: No [...] dog(s) history of recent travel: Yes ([place]) out of state: Yes out of country: [...] in: none frequency: 3-4 times per week galo/mu-ism: None seatbelt use: always do you feel safe at home: Yes additional social history: - 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 Date Name GA/Weeks Outcome Route Bth Weight Infant Gen Labor Lgth Anesthesia Del Locatn Provider FOB 08/25/22 Joe 39 live - full term [id number] Male [facility] Reymundo Akins Delivery Date: 08/25/22 Last [...] and Symptoms of Preeclampsia, Feeding No , [place] Education and Family Medical Leave or Disability [...] this visit. [place] appropriate handout given. 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 Reason for Visit Encounter [...] No October 23, 2020 2:24pm Power of Denture Contour Wire Specialist No October 23 2:24pm Advance Directive Response Recorded Date/ Time Living Will No October 23, 2020 1:24pm Power of Denture Contour Wire Specialist No October 23 1:24pm Advance Directive Response Recorded Date/ Time Living Will No August 24 8:09pm Power of Denture Contour Wire Specialist No August 24, 2022 8:09pm Advance Directive Response Recorded Date/ Time Living Will No December 27, 2022 4 :18am Power of Denture Contour Wire Specialist No December 27, 2022 4:18am Advance Directive Response Recorded Date/ Time Living Will No December 27, 2022 4 :18am Do you have a Healthcare Power of Denture Contour Wire Specialist? No December 27, 2022 4:18am Summary Purpose [...] 2025 End: January 11, 2025 Alesha To CLINIC SPECIALIST, CLINIC SPECIALIST-C Attending Provider Active Start: January 11, 2025 End: January 11, 2025 Team Status: Inactive Member Role Status Dates Dr. Alireza London MD Primary Care Provider Active Start: January 11, 2025 End: January 11, 2025 Alesha To CLINIC SPECIALIST, CLINIC SPECIALIST-C Attending Provider Active Start: January 11, 2025 End: January 11, 2025 Alesha To CLINIC SPECIALIST, CLINIC SPECIALIST-C Referring Provider Active Start: January 11, 2025 [...] Provider, Referri ng Provider Active Alesha To CLINIC SPECIALIST, CLINIC SPECIALIST-C Attending Provider Active Team Status: Inactive Member [...] 2024 End: September 07, 2024 Alesha To CLINIC SPECIALIST, CLINIC SPECIALIST-C Attending Provider Active Start: September 07, 2024 End: September 07, 2024 Team Status: Inactive Member Role Status Dates Dr. Alireza London MD Primary Care Provider Active Start: September 07, 2024 End: September 07, 2024 Alesha To CLINIC SPECIALIST, CLINIC SPECIALIST-C Attending Provider Active Start: September 07, 2024 End: September 07, 2024 Alesha To CLINIC SPECIALIST, CLINIC SPECIALIST-C Referring Provider Active Start: September 07, 2024 [...] any alcohol or drug abuse patient.[facility] Reason for Visit (unrecogniz ed section and content) Reason Comments Sore Throat fever x 2 days, Sund ay vomiting and diarrhea all day INFORMATION SOURCE (unrecogn ized section and content) DATE CREATED AUTHOR 02/05/2024 [facility] DATE CREATED AUTHOR AUTHOR'S ORGANIZ ATION 01/05/2025 [facility] DATE CREATED AUTHOR AUTHOR'S ORGANIZ ATION 01/30/2025 [facility] FOR RECORDS PERTAINING TO PATIENTS WHO ARE [...] BE BASED ON THE PRIMARY CLINICAL RECORDS. [facility]. provides no warranty or guarantee of the accuracy or completeness of information in this document.
--- OUTSIDE RECORDS SUMMARY | 2025-01-30 21:29 | XMS RPT_ITS | CCD ---
Author Organization [facility] Care Team Providers Care Wirer Helper Name Role Phone Dr. lAireza London Primary Care Provider Dr. Alireza London Referring Provider [phone] Yousuf SENIOR INSTRUMENTATION ENGINEER, SENIOR INSTRUMENTATION ENGINEER-C Alesha Attending Provider [phone] Dr. Elidia [...] Bhavani Wells Attending Provider [phone] Yousuf SENIOR INSTRUMENTATION ENGINEER SENIOR INSTRUMENTATION ENGINEER-C Alesha Attending Provider [phone] Dr. Alireza [...] Corey DO, Dr. Beckham Attending Provider Yousuf SENIOR INSTRUMENTATION ENGINEER-C, Alesha Attending Provider [phone] Yousuf SENIOR INSTRUMENTATION ENGINEER-C, Alesha Referring Provider Kt Corey DO, Dr. Beckham Referring Provider Sara RAMOS, Dr. Wolf Primary Care Provider [phone] Sara RAMOS, Dr. Wolf Referring Provider Bruce VILCHIS, Carol Attending Provider [phone] Bruce VILCHIS, Carol Referring Provider [phone] Sara RAMOS, Dr. Wolf Primary Care Provider Sara RAMOS, Dr. Wolf Referring Provider Kt Corey DO, Dr. Beckham Attending Provider Bruce VILCHIS, Carol Attending Provider [phone] Bruce VILCHIS, Carol Referring Provider [phone] Emani RAMOS, Dr. Brenner Attending Provider BHAVANI [...] Sara RAMOS, Dr. Wolf Referring Provider Yousuf SENIOR INSTRUMENTATION ENGINEER-C, Alesha Attending Provider Yousuf SENIOR INSTRUMENTATION ENGINEER-C, Alesha Referring Provider Sara, Alirzea Primary Care Unavailable Sara, Alireza Referring Unavailable Vande VeldeBhavani Attending Unavailabl e Sara, Alireza Primary Care Unavailable Sara, Alireza Referring Unavailable Vande Velde, Bhavani Attending Unavailabl e Sara, Alireza Primary Care Unavailable Sara, Alireza Referring Unavailable Carol Barrera Attending Unavailable Sara, Alireza Primary Care Unavailable Elidia Joaquin Attending Unavailable Sara, Alireza Referring Unavailable Yousuf SENIOR INSTRUMENTATION ENGINEER, Alesha Attending Unavailable Sara, Alireza Primary Care Unavailable Yousuf SENIOR INSTRUMENTATION ENGINEER, Alesha Referring Unavailable Vande Bhavani Corey Attending Unavailabl e Vande Velde, Bhavani Referring Unavailabl e Sara, Alireza Primary Care Unavailable Vande VelBhavani kay Attending Unavailabl e Vande Velde, Bhavani Referring Unavailabl e Sara, Alireza Primary Care Unavailable Vande Velde, Bhavani Attending Unavailabl e Vande Velde, Bhavani Referring Unavailabl e Sraa, Alireza Primary Care Unavailable Sara, Alireza Primary Care Unavailable Carol Barrera Attending Unavailable Carol Barrera Referring Unavailable Sara, Alireza Primary Care Unavailable Sara, Alireza Referring Unavailable Elidia Joaquin Attending Unavailable Sara, Alireza Primary Care Unavailable Sara, Alireza Referring Unavailable Vande Velde, Bhavani Attending Unavailabl e Sara, Alireza Primary Care Unavailable Yousuf SENIOR INSTRUMENTATION ENGINEER, Alesha Attending Unavailable Sara, Alireza Referring Unavailable Sara, Alireza Referring Unavailable Sara, Alireza Primary Care Unavailable Yousuf SENIOR INSTRUMENTATION ENGINEER, Alesha Attending Unavailable Vande Velde, Bhavani Attending Unavailabl e Sara, Alireza Primary Care Unavailable Sara, Alireza Referring Unavailable Vande Velde, Bhavani Attending Unavailabl e Sara, Alireza Primary Care Unavailable Sara, Alireza Referring Unavailable Sara, Alireza Primary Care Unavailable Sara, Alireza Referring Unavailable Yousuf SENIOR INSTRUMENTATION ENGINEER, Alesha Attending Unavailable Sara, Alireza Primary Care [...] e Sara, Alireza Primary Care Unavailable Yousuf SENIOR INSTRUMENTATION ENGINEER, Alesha Referring Unavailable Yousuf SENIOR INSTRUMENTATION ENGINEER, Alesha Attending Unavailable Sara, Alireza Primary Care [...] and vomiting July 05, 2024 1:00am Pnv #69-Nvkm-Zpntn Acid-Omega3 (4 sources) Start: 01-21-2022 take 1 capsule by mouth once daily Pnv #35-Icos-Bpzss Acid-Omega3 Active 1 CAP PO DAILY January 20, 2022 11:00pm Start: 01-21-2022 Pnv #30-Iron-F olic Acid-Omega3 Active CAP PO January 20, 2022 11:00pm Start: 01-21-2022 Pnv #30-Iron-F olic Acid-Omega3 Active CAP PO January 21, 2022 12:00am Pnv #42-Gibv-Irwsl Acid-Omega3 30 mg iron-10 mg iron-1 mg [...] conditions (20 sources) Abnormal umbilical cord; Translations: [[place] affected by unspecified conditions of umbilical cord] [...] Absolute Lymph 2.34 X10 3/uL Normal 0.83-4.51 [facility] Comment on above: Performed By: #### L 801.1541 #### [facility] [address] [place], [address] Absolute Neut 8.0 X10 3/uL High 2.0-7.7 [facility] Comment on above: Performed By: #### L 801.1541 #### [facility] [address] [place], [address] Basophils/100 WBC (Bld) 0.3 % Normal 0-1 [facility] Comment on above: Performed By: #### L 801.1541 #### [facility] [address] [place], [address] Eosinophils/100 WBC (Bld) 0.5 % Normal 0-5 [facility] Comment on above: Performed By: #### L 801.1541 #### [facility] [address] [place], [address] Erythrocyte distribution width (RBC) [Ratio] 12.7 % Normal 11.6-14.6 [facility] Comment on above: Performed By: #### L 801.1541 #### [facility] [address] [place], [address] Hematocrit (Bld) [Volume fraction] 30.6 % Low 37-47 [facility] Comment on above: Performed By: #### L 801.1541 #### [facility] [address] [place], [address] Hemoglobin (Bld) [Mass/Vol] 10.7 g/dL Low 12.0-15.0 [facility] Comment on above: Performed By: #### L 801.1541 #### [facility] [address] [place], [address] IG% 1.000 High 0.0-0.9 [facility] Comment on above: Result Comment: IG% - Immature Granulocytes (promyelocytes, myelocytes and metamyelocytes) > 1% indicates that a LEFT SHIFT is Present. Performed By: #### L 801.1541 #### [facility] [address] [place], [address] Lymphocytes/100 WBC (Bld) 20.7 % Normal 19-41 [facility] Comment on above: Performed By: #### L 801.1541 #### [facility] [address] [place], [address] MCH (RBC) [Entitic mass] 28.3 pg Normal 27.0-32.0 [facility] Comment on above: Performed By: #### L 801.1541 #### [facility] [address] [place], [address] MCHC (RBC) [Mass/Vol] 35.0 g/dL Normal 32-36 [facility] Comment on above: Performed By: #### L 801.1541 #### [facility] [address] [place], [address] MCV (RBC) [Entitic vol] 81.0 fL Normal 81-99 [facility] Comment on above: Performed By: #### L 801.1541 #### [facility] [address] [place], [address] Monocytes/100 WBC (Bld) 7.0 % Normal 0-10 [facility] Comment on above: Performed By: #### L 801.1541 #### [facility] [address] [place], [address] Neutrophils/100 WBC (Bld) 70.5 % High 47-70 [facility] Comment on above: Performed By: #### L 801.1541 #### [facility] [address] [place], [address] Nucleated RBC (Bld) [#/Vol] 0 10*3/uL Normal 0-5 [facility] Comment on above: Performed By: #### L 801.1541 #### [facility] [address] [place], [address] Platelet mean volume (Bld) [Entitic vol] 9.0 fL Normal 6.2-12.0 [facility] Comment on above: Performed By: #### L 801.1541 #### [facility] [address] [place], [address] Platelets (Bld) [#/Vol] 367 10*3/uL Normal 150-450 [facility] Comment on above: Performed By: #### L 801.1541 #### [facility] [address] [place], [address] RBC (Bld) [#/Vol] 3.78 10*6/uL Low 4.2-5.4 [facility] Comment on above: Performed By: #### L 801.1541 #### [facility] [address] [place], [address] RDW SD 36.7 fl Normal 35.1-43.9 [facility] Comment on above: Performed By: #### L 801.1541 #### [facility] [address] [place], [address] WBC (Bld) [#/Vol] 11.3 10*3/uL High 4.4-11.0 [facility] Comment on above: Performed By: #### L 801.1541 #### [facility] [address] [place], [address] Syphilis Antibodieson 2024 Syphilis Abs Non-Reactive Normal Nonreactive [facility] Comment on above: Performed By: #### L 509.8002 #### [facility] [address] [place], [address] Rn International Office Visit Reporton 01-24-2025 Rn International Office Visit Report [facility]'s [address], [address] [place] [address] OFFICE VISIT Date of Service: 01/24/25 MR#: [id number] Acct: [id number] Name: JIHAN GUERRERO Rep #: [id number] : 1990 Provider: Dr. Elidia díaz MD Age/Sex: 34/F Location: [facility] Status: Signed Intake Vital Signs 12/14/24 08:59 01/18/25 12:23 01/24/25 08:14 Height 5 ft 5 in 5 ft 5 in 5 ft 5 in Weight: 201 lb BMI 33.4 BP 125/80 H Intake Visit Reasons: 38 wk ob/nst 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 Is patient in pain?: No [...] current occupational status: employed current occupation: [employer] pets and animals: Yes pets and animals: dog(s) history of recent travel: Yes ([place]) out of state: Yes out of country: [...] in: none frequency: 3-4 times per week galo/religious: None seatbelt use: always do you feel safe at home: Yes additional social history: - 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 Date Name GA/Weeks Outcome Route Bth Weight Infant Gen Labor Lgth Anesthesia Del Locatn Provider FOB 08/25/22 Joe 39 live - full term 7#2OZ Male [facility] Colli ns Tashi Delivery Date: 08/25/22 Last [...] Dilation -???-???-???-??? (more content not included)... Normal [facility] OB Limited (No Biometrics)on 01-20-2025 OB Limited (No Biometrics) [facility] Imaging Services [address] [place] [address] OB Limited (No Biometrics) MR#: [id number] Acct: [id number] Name: JIHAN GUERRERO Rep #: [id number] : 1990 F 34 From: Sean Conde DO PCP: Dr. Alireza London MD Status: REG CLI Study: OB Limited (No Biometrics) Date of Exam: 01/20 Exam# [id number] Ordering Dr: Bhavani Wells DO PROCEDURE: OB [...] posterior and is not low-lying. Reading Location: [facility] CC: Dr. Bhavani Wells DO; Dr. Alireza London MD Metal Bed Assembler: Signed Normal [facility] Laboratory - Chemistry and C hemistry - challengeOrdered By: Bhavani Corey on 01-18-2025 Glucose Ql (U) Negative [facility] Laboratory - UrinalysisOrder ed By: Bhavani Corey on 01-18-2025 Protein Ql (U) Negative [facility] Rn International Office Visit Reporton 01-18-2025 Rn International Office Visit Report [facility]'s [address], [address] [place] [address] OFFICE VISIT Date of Service: 01/18/25 MR#: [id number] Acct: [id number] Name: JIHAN GUERRERO Rep #: [id number] : 1990 Provider: Dr. Bhavani Tan DO Age/Sex: 34/F Location: [facility] Status: Signed Intake Vital Signs 12/14/24 08:59 01/11/25 15:16 01/18/25 12:22 01/18/25 12:23 Height 5 ft 5 in 5 ft 5 in 5 ft 5 in 5 ft 5 in Weight: 200 lb 4 oz BMI 33.3 BP 120/78 Intake Visit Reasons: 37 wk ob 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 Is patient in pain?: No [...] current occupational status: employed current occupation: [employer] pets and animals: Yes pets and animals: dog(s) history of recent travel: Yes ([place]) out of state: Yes out of country: [...] in: none frequency: 3-4 times per week galo/religious: None seatbelt use: always do you feel safe at home: Yes 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 Date Name GA/Weeks Outcome Route Bth Weight Infant Gen Labor Lgth Anesthesia Del Locatn Provider FOB 08/25/22 Joe 39 live - full term 7#2OZ Male [facility] Colli ns Tashi Delivery Date: 08/25/22 Last [...] FHR FuHt (more content not included)... Normal [facility] Rule out Beta Strep (Grp. B) on 01-15-2025 NICK Streptococcus agalac tiae (B) Amount Growth 3+ Streptococcus agalactiae (B): REACTION Ampicillin Islt ABRAHAN <=0.25 cefTRIAXone Islt ABRAHAN <=0.12 S Clindamycin Islt ABRAHAN <=0.25 S Clindamycin.induced Susc Islt NEG Linezolid Islt ABRAHAN <=2 S Vancomycin Islt ABRAHAN 0.5 S Normal [facility] Comment on above: Performed By: #### M 100.9096 #### [facility] [address] [place], [address] Laboratory - Chemistry and C hemistry - challengeOrdered By: Alesha To on 01-11-2025 Glucose Ql (U) Negative [facility] Laboratory - UrinalysisOrder ed By: Alesha To on 01-11-2025 Protein Ql (U) Negative [facility] Rn International Office Visit Reporton 01-11-2025 Rn International Office Visit Report [facility]'s [address], [address] [place] [address] OFFICE VISIT Date of Service: 01/11/25 MR#: [id number] Acct: [id number] Name: JIHAN GUERRERO Rep #: [id number] : 1990 Provider: ROMEO zamudio Age/Sex: 34/F Location: [facility] Status: Signed Intake Vital Signs 12/28/24 09:00 01/11/25 15:16 Height 5 ft 5 in 5 ft 5 in Weight: 199 lb 2 oz 202 lb 8 oz BMI 33.1 33.7 BP 135/80 H 104/70 Intake Visit Reasons: 36wk ob Chief Complaint: 36 Week OB 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 Is patient in pain?: No [...] current occupational status: employed current occupation: [employer] pets and animals: Yes pets and animals: dog(s) history of recent travel: Yes ([place]) out of state: Yes out of country: [...] in: none frequency: 3-4 times per week galo/religious: None seatbelt use: always do you feel safe at home: Yes additional social history: - 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 Date Name GA/Weeks Outcome Route Bth Weight Infant Gen Labor Lgth Anesthesia Del Locatn Provider FOB 08/25/22 Joe 39 live - full term 7#2OZ Male [facility] Colli ns Tashi Delivery Date: 08/25/22 Last [...] FuHt Pres (more content not included)... Normal [facility] Screening beta-hemolytic Str eptococcus cultureOrdered By: Alesha To on 01-11-2025 Beta-hemolytic Streptococcus culture Streptococcus agalactiae (B) Abnormal [facility] L3410.9992on 12-29-2024 [facility]. COMMENT Normal . [facility] Comment on above: Order Comment: LAV/W B/RF [id number] ANTI M TITER Result Comment: Test Ordered: [id number] Antibody Identification Antibody Id. #1 Anti-M CB [...] reported as 2, 4, 8, etc. [employer] has recommended this change in titer reporting formats to simply reflect the reciprocal value of the titer. Antibody Id. #2 SENIOR INSTRUMENTATION ENGINEER NOLAB Reference Range: . Dat Titer #2 SENIOR INSTRUMENTATION ENGINEER NOLAB Reference Range: . Performed at: - [facility] [id number] Quantitative Software Engineer: Joey Mortensen PhD, Phone: [phone] Performed By: #### L 3410.9992 #### [facility] [place], [address] Laboratory - Chemistry and C hemistry - challengeOrdered By: Carol Barrera on 12-28-2024 Glucose Ql (U) Negative [facility] Laboratory - UrinalysisOrder ed By: Carol Barrera on 12-28-2024 Protein Ql (U) Negative [facility] Rn International Office Visit Reporton 12-28-2024 Rn International Office Visit Report [facility] [address], [address] [place] [address] OFFICE VISIT Date of Service: 12/28/24 MR#: [id number] Acct: [id number] Name: JIHAN GUERRERO Rep #: [id number] : 1990 Provider: DENG White ams Age/Sex: 34/F Location: [facility] Status: Signed Intake Vital Signs 07/05/24 13:02 11/30/24 08:46 12/14/24 08:59 12/28/24 09:00 Height 5 ft 5 in 5 ft 5 in 5 ft 5 in 5 ft 5 in Weight: 195 lb 199 lb 2 oz BMI 32.4 33.1 BP 124/75 H 135/80 H Intake Visit Reasons: 34 wk ob Chief Complaint: 34wk OB 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 Is patient in pain?: No [...] 1 current occupational status: employed current occupation: [employer] pets and animals: Yes pets and animals: dog(s) history of recent travel: Yes ([place]) out of state: Yes out of country: [...] in: none frequency: 3-4 times per week galo/religious: None seatbelt use: always do you feel safe at home: Yes 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 Date Name GA/Weeks Outcome Route Bth Weight Gen Labor Lgth Anesthesia Del Locatn Provider FOB 08/25/22 Joe 39 live - full term 7#2OZ Male [facility] Colli sergio Akins Delivery Date: 08/25/22 Last [...] Dilation -???-???-? (more content not included)... Normal [facility] Laboratory - Chemistry and C hemistry - challengeOrdered By: Elidia Joaquin on 12-14-2024 Glucose Ql (U) Negative [facility] Laboratory - UrinalysisOrder ed By: Elidia Joaquin on 12-14-2024 Protein Ql (U) Negative [facility] Rn International Office Visit Reporton 12-14-2024 Rn International Office Visit Report [facility] [address], [address] [place] [address] OFFICE VISIT Date of Service: 12/14/24 MR#: [id number] Acct: [id number] Name: JIHAN UGERRERO Rep #: [id number] : 1990 Provider: Dr. 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 Date Name GA/Weeks Outcome Route Bth Weight Infant Gen Labor Lgth Anesthesia Del Locatn Provider FOB 08/25/22 Joe 39 live - full term 7#2OZ Male [facility] Colli ns Tashi Delivery Date: 08/25/22 Last [...] -???-???-???-???-???-??? -???-???-???-???-???-? (more content not included)... Normal [facility] L3410.9992on 12-01-2024 [facility]. COMMENT Normal . [facility] Comment on above: Order Comment: [id number] ANTI M TITER EDTA LAV WB Result Comment: Test Ordered: [id number] Antibody Identification Antibody Id. #1 Anti-M CB Reference Range: . Dat Titer #1 2 CB Reference Range: . If a numerical titer result has been reported, please note that this result is the reciprocal value of titer results formerly reported as 1:2,1:4, 1:8, etc. These results are now reported as 2, 4, 8, etc. The [employer] has recommended this change in titer reporting formats to simply reflect the reciprocal value of the titer. Antibody Id. #2 SENIOR INSTRUMENTATION ENGINEER NOLAB Reference Range: . Dat Titer #2 SENIOR INSTRUMENTATION ENGINEER NOLAB Reference Range: . Performed at: [address] [id number] Quantitative Software Engineer: Joey Mortensen PhD, Phone: [phone] Performed By: #### L 3410.9992 #### [facility] [address] [place] [address]. [place], [address] HIVon 11-30-2024 HIV Non-Reactive Normal Nonreactive [facility] Comment on above: Result Comment: Non- Reactive Reactive Repeatedly reactive samples must be confirmed according to CDC recommended confirmatory algorithms. The subresults for either HIVAG or AHIV can be used as an aid in the selection of the confirmation algorithm for reactive samples. Send out specimens with Reactive results to [facility] for confirmation. Order the HIV antibody detection and differentiation: [id number] Performed By: #### L 3410.9992 #### [facility] [address] [place] [address]. [place], [address] Laboratory - Chemistry and C hemistry - challengeOrdered By: Carol Barrera on 11-30-2024 Glucose Ql (U) Negative [facility] Laboratory - UrinalysisOrder ed By: Carol Barrera on 11-30-2024 Protein Ql (U) Negative [facility] No Panel InformationOrdered By: Carol Barrera on 11-30-2024 HIV (1&2) Antibody Non-Reactive Nonreactive [facility] Comment on above: Non-ReactiveReactive Repeatedly reactive samples must be confirmed according to CDC recommended confirmatory algorithms. The subresults for either HIVAG or AHIV can be used as an aid in the selection of the confirmation algorithm for reactive samples.Send out specimens with Reactive results to [facility] for confirmation.Order the HIV antibody detection and differentiation: #[id number] Rn International Office Visit Reporton 11-30-2024 Rn International Office Visit Report [facility] [address], [address] [place] [address] OFFICE VISIT Date of Service: 11/30/24 MR#: [id number] Acct: [id number] Name: JIHAN GUERRERO Rep #: [id number] : 1990 Provider: DENG White ams Age/Sex: 34/F Location: [facility] Status: Signed Intake Vital Signs 07/05/24 13:02 11/02/24 08:46 11/30/24 08:45 11/30/24 08:46 Height 5 ft 5 in 5 ft 5 in 5 ft 5 in 5 ft 5 in Weight: 192 lb 6 oz BMI 32.0 BP 129/74 H Intake Visit Reasons: 30 wk ob Chief Complaint: 30wk OB 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 Is patient in pain?: No [...] current occupational status: employed current occupation: [employer] pets and animals: Yes pets and animals: dog(s) history of recent travel: Yes ([place]) out of state: Yes out of country: [...] in: none frequency: 3-4 times per week galo/religious: None seatbelt use: always do you feel safe at home: Yes additional social history: - Tashiolivier 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 Date Name GA/Weeks Outcome Route Bth Weight Gen Labor Lgth Anesthesia Del Locatn Provider FOB 08/25/22 Joe 41 live - full term 7#2OZ Male [facility] Colli ns Tashi Delivery Date: 08/25/22 Last [...] Note 12 (more content not included)... Normal [facility] Absolute lymphocyte countOrd ered By: Bhavani Corey on 11-02-2024 Lymphocytes Auto (Unsp spec) [#/Vol] 1.84 10*3/uL 0.83-4.51 [facility] Absolute neutrophil countOrd ered By: Bhavani Corey on 11-02-2024 Neutrophils (Bld) [#/Vol] 8.1 10*3/uL High 2.0-7.7 [facility] Automated lymphocyte count a s percentage of total leukocytesOrdered By: Bhavani Corey on 11-02-2024 Lymphocytes/100 WBC Auto (Unsp spec) 17.0 % Low 19-41 [facility] Basophil percentageOrdered B y: Bhavani Corey on 11-02-2024 Basophils/100 WBC (Bld) 0.3 % 0-1 [facility] CBC W/Diff, Automatedon -2024 Absolute Lymph 1.84 X10 3/uL Normal 0.83-4.51 [facility] Comment on above: Performed By: #### L 501.0250, L509.8002, L3890.6006, L100.0100 #### [facility] [address] [place], [address] Absolute Neut 8.1 X10 3/uL High 2.0-7.7 [facility] Comment on above: Performed By: #### L 501.0250, L509.8002, L3890.6006, L100.0100 #### [facility] [address] [place], [address] Basophils/100 WBC (Bld) 0.3 % Normal 0-1 [facility] Comment on above: Performed By: #### L 501.0250, L509.8002, L3890.6006, L100.0100 #### [facility] [address] [place], [address] Eosinophils/100 WBC (Bld) 0.5 % Normal 0-5 [facility] Comment on above: Performed By: #### L 501.0250, L509.8002, L3890.6006, L100.0100 #### [facility] [address] [place], [address] Erythrocyte distribution width (RBC) [Ratio] 12.8 % Normal 11.6-14.6 [facility] Comment on above: Performed By: #### L 501.0250, L509.8002, L3890.6006, L100.0100 #### [facility] [address] [place], [address] Hematocrit (Bld) [Volume fraction] 32.7 % Low 37-47 [facility] Comment on above: Performed By: #### L 501.0250, L509.8002, L3890.6006, L100.0100 #### [facility] [address] [place], [address] Hemoglobin (Bld) [Mass/Vol] 11.2 g/dL Low 12.0-15.0 [facility] Comment on above: Performed By: #### L 501.0250, L509.8002, L3890.6006, L100.0100 #### [facility] [address] [place], [address] IG% 0.900 Normal 0.0-0.9 [facility] Comment on above: Result Comment: IG% - Immature Granulocytes (promyelocytes, myelocytes and metamyelocytes) > 1% indicates that a LEFT SHIFT is Present. Performed By: #### L 501.0250, L509.8002, L3890.6006, L100.0100 #### [facility] [address] [place], [address] Lymphocytes/100 WBC (Bld) 17.0 % Low 19-41 [facility] Comment on above: Performed By: #### L 501.0250, L509.8002, L3890.6006, L100.0100 #### [facility] [address] [place], [address] MCH (RBC) [Entitic mass] 29.6 pg Normal 27.0-32.0 [facility] Comment on above: Performed By: #### L 501.0250, L509.8002, L3890.6006, L100.0100 #### [facility] [address] [place], [address] MCHC (RBC) [Mass/Vol] 34.3 g/dL Normal 32-36 [facility] Comment on above: Performed By: #### L 501.0250, L509.8002, L3890.6006, L100.0100 #### [facility] [address] [place], [address] MCV (RBC) [Entitic vol] 86.5 fL Normal 81-99 [facility] Comment on above: Performed By: #### L 501.0250, L509.8002, L3890.6006, L100.0100 #### [facility] [address] [place], [address] Monocytes/100 WBC (Bld) 6.5 % Normal 0-10 [facility] Comment on above: Performed By: #### L 501.0250, L509.8002, L3890.6006, L100.0100 #### [facility] [address] [place], [address] Neutrophils/100 WBC (Bld) 74.8 % High 47-70 [facility] Comment on above: Performed By: #### L 501.0250, L509.8002, L3890.6006, L100.0100 #### [facility] [address] [place], [address] Nucleated RBC (Bld) [#/Vol] 0 10*3/uL Normal 0-5 [facility] Comment on above: Performed By: #### L 501.0250, L509.8002, L3890.6006, L100.0100 #### [facility] [address] [place], [address] Platelet mean volume (Bld) [Entitic vol] 8.7 fL Normal 6.2-12.0 [facility] Comment on above: Performed By: #### L 501.0250, L509.8002, L3890.6006, L100.0100 #### [facility] [address] [place], [address] Platelets (Bld) [#/Vol] 348 10*3/uL Normal 150-450 [facility] Comment on above: Performed By: #### L 501.0250, L509.8002, L3890.6006, L100.0100 #### [facility] [address] [place], [address] RBC (Bld) [#/Vol] 3.78 10*6/uL Low 4.2-5.4 [facility] Comment on above: Performed By: #### L 501.0250, L509.8002, L3890.6006, L100.0100 #### [facility] [address] [place], [address] RDW SD 40.1 fl Normal 35.1-43.9 [facility] Comment on above: Performed By: #### L 501.0250, L509.8002, L3890.6006, L100.0100 #### [facility] [address] [place], [address] WBC (Bld) [#/Vol] 10.8 10*3/uL Normal 4.4-11.0 [facility] Comment on above: Performed By: #### L 501.0250, L509.8002, L3890.6006, L100.0100 #### [facility] [address] [place], [address] Eosinophil percentageOrdered By: Bhavani Corey on 11-02-2024 Eosinophils/100 WBC (Bld) 0.5 % 0-5 [facility] Erythrocyte distribution wid th (RBC) [Ratio]Ordered By: Bhavani Corey on 11-02-2024 Erythrocyte distribution width (RBC) [Entitic vol] 40.1 fL 35.1-43.9 [facility] Erythrocyte distribution wid th ratioOrdered By: Bhavani Corey on 11-02-2024 Erythrocyte distribution width (RBC) [Ratio] 12.8 % 11.6-14.6 [facility] Erythrocyte distribution wid th standard deviationOrdered By: Bhavani Corey on 11-02-2024 Erythrocyte distribution width (RBC) [Ratio] 40.1 fl 35.1-43.9 [facility] Glucose Challenge Gest 1H 50 patricia 11-02-2024 GLU GEST 50g 1H 95 mg/dL Normal 70-140 [facility] Comment on above: Performed By: #### L 501.0250, L509.8002, L3890.6006, L100.0100 #### [facility] [address] [place] [address], [address] Glucose measurement at 2 denilson rs post-dose gestational glucose tolerance testOrdered By: Bhavani Corey on 11-02-2024 Glucose [Mass/Vol] 95 mg/dL 70-140 [facility] Hematocrit Auto (Bld) [Volum e fraction]Ordered By: Bhavani Corey on 11-02-2024 Hematocrit (Bld) [Volume fraction] 32.7 % Low 37-47 [facility] Hemoglobin measurementOrdere d By: Bhavani Corey on 11-02-2024 Hemoglobin (Bld) [Mass/Vol] 11.2 g/dL Low 12.0-15.0 [facility] Immature granulocytes/100 WB C Auto (Bld)Ordered By: Bhavani Corey on 11-02-2024 Immature granulocytes/100 WBC (Bld) 0.900 % 0.0-0.9 [facility] Comment on above: IG% - Immature Granu locytes (promyelocytes, myelocytes and metamyelocytes) > 1% indicates that a LEFT SHIFT is Present. L3890.6006on 04-01-2025 HIV Non-Reactive Normal Nonreactive [facility] Comment on above: Result Comment: Non- Reactive Reactive Repeatedly reactive samples must be confirmed according to CDC recommended confirmatory algorithms. The subresults for either HIVAG or AHIV can be used as an aid in the selection of the confirmation algorithm for reactive samples. Send out specimens with Reactive results to [facility] for confirmation. Order the HIV antibody detection and differentiation: lc#[id number] Performed By: #### L 501.0250, L509.8002, L3890.6006, L100.0100 #### [facility] [address] [place], [address] L509.8002on 11-02-2024 Syphilis Abs Non-Reactive Normal Nonreactive [facility] Comment on above: Performed By: #### L 501.0250, L509.8002, L3890.6006, L100.0100 #### [facility] [address] [facility] [place], [address] Laboratory - Chemistry and C hemistry - challengeOrdered By: Bhavani Corey on 11-02-2024 Glucose Ql (U) Negative [facility] Laboratory - UrinalysisOrder ed By: Bhavani Corey on 11-02-2024 Protein Ql (U) Negative [facility] Lymphocytes Auto (Unsp spec) [#/Vol]Ordered By: Bhavani Corey on 11-02-2024 Lymphocytes (Bld) [#/Vol] 1.84 10*3/uL 0.83-4.51 [facility] Lymphocytes/100 WBC Auto (Un sp spec)Ordered By: Bhavani Corey on 11-02-2024 Lymphocytes/100 WBC (Bld) 17.0 % Low 19-41 [facility] MCV (mean corpuscular volume ) determinationOrdered By: Bhavani Corey on 11-02-2024 MCV (RBC) [Entitic vol] 86.5 fL 81-99 [facility] Mean corpuscular hemoglobin (MCH) determinationOrdered By: Bhavani Corey on 11-02-2024 MCH (RBC) [Entitic mass] 29.6 pg 27.0-32.0 [facility] Mean corpuscular hemoglobin concentration (MCHC) determinationOrdered By: Bhavani Corey on 11-02-2024 MCHC (RBC) [Mass/Vol] 34.3 g/dL 32-36 [facility] Mean platelet volume determi nationOrdered By: Bhavani Corey on 11-02-2024 Platelet mean volume (Bld) [Entitic vol] 8.7 fL 6.2-12.0 [facility] Monocyte percentageOrdered B y: Bhavani Corey on 11-02-2024 Monocytes/100 WBC (Bld) 6.5 % 0-10 [facility] Neutrophil percentageOrdered By: Bhavani Corey on 11-02-2024 Neutrophils/100 WBC (Bld) 74.8 % High 47-70 [facility] No Panel InformationOrdered By: Bhavani Corey on 11-02-2024 HIV (1&2) Antibody Non-Reactive Nonreactive [facility] Comment on above: Non-ReactiveReactive Repeatedly reactive samples must be confirmed according to CDC recommended confirmatory algorithms. The subresults for either HIVAG or AHIV can be used as an aid in the selection of the confirmation algorithm for reactive samples.Send out specimens with Reactive results to [facility] for confirmation.Order the HIV antibody detection and differentiation: #[id number] Nucleated red blood cell per centageOrdered By: Bhavani Corey on 11-02-2024 Nucleated RBC/100 WBC (Bld) [Ratio] 0 % 0-5 [facility] Rn International Office Visit Reporton 11-02-2024 Rn International Office Visit Report [facility] [address], [address] [place] [address] OFFICE VISIT Date of Service: 11/02/24 MR#: [id number] Acct: [id number] Name: JIHAN GUERRERO Rep #: [id number] : 1990 Provider: Dr. Bhavani Tan DO Age/Sex: 34/F Location: [facility] Status: Signed Intake Vital Signs 07/05/24 13:02 10/05/24 08:53 11/02/24 08:45 11/02/24 08:46 Height 5 ft 5 in 5 ft 5 in 5 ft 5 in 5 ft 5 in Weight: 189 lb BMI 31.4 BP 113/73 Intake Visit Reasons: 26 wk ob/glucose 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 Is patient in pain?: No [...] animals: dog(s) history of recent travel: Yes ([place]) out of state: Yes out of country: [...] in: none frequency: 3-4 times per week galo/religious: None seatbelt use: always do you feel safe at home: Yes additional social history: - 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 Date Name GA/Weeks Outcome Route Bth Weight Gen Labor Lgth Anesthesia Del Locatn Provider FOB 08/25/22 Joe 39 live - full term 7#2OZ Male [facility] Colli ns Tashi Delivery Date: 08/25/22 Last [...] -???-???-???-???-???-??? -???-???-?? (more content not included)... Normal [facility] Platelet countOrdered By: Charles Corey on 11-02-2024 Platelets (Bld) [#/Vol] 348 10*3/uL 150-450 [facility] RBC Auto (Bld) [#/Vol]Ordere d By: Bhavani Corey on 11-02-2024 RBC (Bld) [#/Vol] 3.78 10*6/uL Low 4.2-5.4 [facility] T. pallidum abOrdered By: Charles Corey on 11-02-2024 Syphilis Total Antibody Non-Reactive Nonreactive [facility] White blood cell (WBC) count Ordered By: Bhavani Corey on 11-02-2024 WBC (Bld) [#/Vol] 10.8 10*3/uL 4.4-11.0 [facility] L3410.9998on 10-13-2024 [facility] COM[facility] Normal . [facility] Comment on above: Order Comment: LAV/W B/RF [id number] ANTI M TITER Result Comment: Test Ordered: [id number] Antibody Identification Antibody Id. #1 Anti-M CB [...] reported as 2, 4, 8, etc. [employer] has recommended this change in titer reporting formats to simply reflect the reciprocal value of the titer. Antibody Id. #2 SENIOR INSTRUMENTATION ENGINEER NOLAB Reference Range: . Dat Titer #2 SENIOR INSTRUMENTATION ENGINEER NOLAB Reference Range: . Performed at: - [facility] [place] [id number] Quantitative Software Engineer: Joey Mortensen PhD, Phone: [phone] Performed By: #### L 3410.9992 #### [facility] [address] [place], [address] Laboratory - Chemistry and C hemistry - challengeOrdered By: Bhavani Corey on 10-05-2024 Glucose Ql (U) Negative [facility] Laboratory - UrinalysisOrder ed By: Bhavani Corey on 10-05-2024 Protein Ql (U) Negative [facility] Rn International Office Visit Reporton 10-05-2024 Rn International Office Visit Report [facility]'[address], [address] [place] [address] OFFICE VISIT Date of Service: 10/05/24 MR#: [id number] Acct: [id number] Name: CESARJIHAN YUMIKO Rep #: [id number] : 1990 Provider: Dr. Bhavani Tan DO Age/Sex: 34/F Location: [facility] Status: Signed Intake Vital Signs 07/05/24 13:02 09/07/24 08:30 10/05/24 08:53 10/05/24 08:53 Height 5 ft 5 in 5 ft 5 in 5 ft 5 in 5 ft 5 in Weight: 180 lb 8 oz 181 lb 6 oz BMI 30.0 30.2 BP 118/72 110/77 Intake Visit Reasons: 22 wk ob 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 Is patient in pain?: No [...] 1 current occupational status: employed current occupation: [employer] pets and animals: Yes pets and animals: dog(s) history of recent travel: Yes ([place]) out of state: Yes out of country: [...] in: none frequency: 3-4 times per week galo/religious: None seatbelt use: always do you feel safe at home: Yes additional social history: - 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 Date Name GA/Weeks Outcome Route Bth Weight Infant Gen Labor Lgth Anesthesia Del Locatn Provider FOB 08/25/22 Joe 39 live - full term 7#2OZ Male [facility] Colli ns Tashi Delivery Date: 08/25/22 Last [...] Dilation -???-???-???-???-???-? (more content not included)... Normal [facility] L3410.9998on 09-08-2024 [facility] Misc. COMMENT Normal . [facility] Comment on above: Order Comment: [id number] AB ID FOR TITERS LAV WB Result Comment: Test Ordered: [id number] Antibody Identification Antibody Id. #1 Anti-M CB Reference Range: . Dat Titer #1 2 CB Reference Range: . If a numerical titer result has been reported, please note that this result is the reciprocal value of titer results formerly reported as 1:2,1:4, 1:8, etc. These results are now reported as 2, 4, 8, etc. [employer] has recommended this change in titer reporting formats to simply reflect the reciprocal value of the titer. Antibody Id. #2 SENIOR INSTRUMENTATION ENGINEER NOLAB Reference Range: . Dat Titer #2 SENIOR INSTRUMENTATION ENGINEER NOLAB Reference Range: . Performed at: [facility] [address] [id number] Quantitative Software Engineer: Joey Mortensen PhD, Phone: [phone] Performed By: #### L 3410.9998 #### [facility] [address] [place], [address] Laboratory - Chemistry and C hemistry - challengeOrdered By: Alesha To on 09-07-2024 Glucose Ql (U) Negative [facility] Laboratory - UrinalysisOrder ed By: Alesha To on 09-07-2024 Protein Ql (U) Negative [facility] Rn International Office Visit Reporton 09-07-2024 Rn International Office Visit Report [facility] [address], [address] [place] [address] OFFICE VISIT Date of Service: 09/07/24 MR#: [id number] Acct: [id number] Name: JIHAN GUERRERO Rep #: [id number] : 1990 Provider: ROMEO zamudio Age/Sex: 34/F Location: [facility] Status: Signed Intake Vital Signs 07/05/24 13:02 08/10/24 15:03 09/07/24 08:30 Height 5 ft 5 in 5 ft 5 in 5 ft 5 in Weight: 180 lb 8 oz BMI 30.0 BP 118/72 Intake Visit Reasons: 18 wk ob Chief Complaint: 18 Week OB 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 Is patient in pain?: No [...] animals: dog(s) history of recent travel: Yes ([place]) out of state: Yes out of country: [...] in: none frequency: 3-4 times per week galo/religious: None seatbelt use: always do you feel safe at home: Yes additional social history: - 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 Date Name GA/Weeks Outcome Route Bth Weight Gen Labor Lgth Anesthesia Del Locatn Provider FOB 08/25/22 Joe 39 live - full term 7#2OZ Male [facility] Colli ns Tashi Delivery Date: 08/25/22 Last [...] -???-???-???-???-???-??? -???-???-???-???-???-??? (more content not included)... Normal [facility] Laboratory - Chemistry and C hemistry - challengeon 08-10-2024 Glucose Ql (U) Negative [facility] Laboratory - Urinalysison Protein Ql (U) Negative [facility] No Panel InformationOrdered By: Carol Barrera on 08-10-2024 Miscellaneous Test COMMENT . [facility] Comment on above: Test Ordered: [id number] Antibody IdentificationAntibody Id. #1 Anti-M CB Reference Range: .Dat Titer #1 2 CB Reference Range: .If a numerical titer result has been reported, please notethat this result is the reciprocal value of titer resultsformerly reported as 1:2,1:4, 1:8, etc. These results arenow reported as 2, 4, 8, etc. [employer] has recommended this change in titer reportingformats to simply reflect the reciprocal value of thetiter.Antibody Id. #2 SENIOR INSTRUMENTATION ENGINEER NOLAB Reference Range: .Dat Titer #2 SENIOR INSTRUMENTATION ENGINEER NOLAB Reference Range: .Performed at: - [facility] [id number] Director: Joey Mortensen PhD, Phone: [phone] Rn International Office Visit Reporton 08-10-2024 Rn International Office Visit Report [facility]'s [address], [address] [place] [address] OFFICE VISIT Date of Service: 08/10/24 MR#: [id number] Acct: [id number] Name: LUDMILALUIS ENRIQUEJIHANGUMARO CALDERON Rep #: [id number] : 1990 Provider: Dr. 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 Date Name GA/Weeks Outcome Route Bth Weight Gen Labor Lgth Anesthesia Del Locatn Provider FOB 08/25/22 Joe 39 live - full term 7#2OZ Male [facility] Colli ns Tashi Delivery Date: 08/25/22 Last [...] - Effaced (more content not included)... Normal [facility] Miscellaneous Lab Procedureo n 07-09-2024 MISC LAB TEST Normal [facility] Comment on above: Order Comment: ADD O N [id number] AB Antibody ID [id number] LAV WB RF Result Comment: TEST RESULTS [...] reported as 2, 4, 8, etc. [employer] has recommended this change in titer reporting formats to simply reflect the reciprocal value of the titer. TESTING PERFORMED AT [facility]. ORIGINAL REPORT ON FILE IN LAB CONTAINS ADDITIONAL TEST SITE INFORMATION. Performed By: #### L 801.1541 #### [facility] [address] [place], [place], [address] Chlamydia/GC VENU aptimaon CHLAMY,NUC ACID Negative Normal Negative [facility] Comment on above: Performed By: #### L 801.1541 #### [facility] [address] [place], [place], [address] GC BY NUC ACID Negative Normal Negative [facility] Comment on above: Result Comment: Perf ormed at: =G - [facility] [address] [place] [id number] Quantitative Software Engineer: Catalina Lord MD, Phone: [phone] Performed By: #### L 801.1541 #### [facility] [address] [place], [address] Urine Cultureon 07-06-2024 [facility] Culture exhibits no growth. Normal [facility] Comment on above: Performed By: #### L 801.1541 #### [facility] [address] [place], [address] Absolute neutrophil countOrd ered By: Carol Barrera on 07-05-2024 Neutrophils (Bld) [#/Vol] 5.7 10*3/uL 2.0-7.7 [facility] [id number] 07-05-2024 ANTIBODY ID M Normal [facility] Comment on above: Order Comment: LAV/W B/RF [id number] ANTI M TITER Performed By: #### L 3410.9992 #### [facility] [address] [place], [address] Basophil percentageOrdered B y: Carol Barrera on 07-05-2024 Basophils/100 WBC (Bld) 0.4 % 0-1 [facility] C. trachomatis rRNA VENU+prob e Ql (Unsp spec)Ordered By: Carol Barrera on 07-05-2024 Chlamydia DNA (VENU) Negative Negative [facility] CBC W/Diff, Automatedon Absolute Lymph 2.82 X10 3/uL Normal 0.83-4.51 [facility] Comment on above: Performed By: #### L 3410.9992 #### [facility] [address] [place], [address] Absolute Neut 5.7 X10 3/uL Normal 2.0-7.7 [facility] Comment on above: Performed By: #### L 3410.9992 #### [facility] [address] [place], [address] Basophils/100 WBC (Bld) 0.4 % Normal 0-1 [facility] Comment on above: Performed By: #### L 3410.9992 #### [facility] [address] [place], [address] Eosinophils/100 WBC (Bld) 0.5 % Normal 0-5 [facility] Comment on above: Performed By: #### L 3410.9992 #### [facility] [address] [place], [address] Erythrocyte distribution width (RBC) [Ratio] 12.4 % Normal 11.6-14.6 [facility] Comment on above: Performed By: #### L 3410.9992 #### [facility] [address] [place], [address] Hematocrit (Bld) [Volume fraction] 38.8 % Normal 37-47 [facility] Comment on above: Performed By: #### L 3410.9992 #### [facility] [address] [place], [address] Hemoglobin (Bld) [Mass/Vol] 13.3 g/dL Normal 12.0-15.0 [facility] Comment on above: Performed By: #### L 3410.9992 #### [facility] [address] [place], [address] IG% 0.300 Normal 0.0-0.9 [facility] Comment on above: Result Comment: IG% - Immature Granulocytes (promyelocytes, myelocytes and metamyelocytes) > 1% indicates that a LEFT SHIFT is Present. Performed By: #### L 3410.9992 #### [facility] [address] [place], [address] Lymphocytes/100 WBC (Bld) 29.9 % Normal 19-41 [facility] Comment on above: Performed By: #### L 3410.9992 #### [facility] [address] [place], [address] MCH (RBC) [Entitic mass] 29.4 pg Normal 27.0-32.0 [facility] Comment on above: Performed By: #### L 3410.9992 #### [facility] [address] [place], [address] MCHC (RBC) [Mass/Vol] 34.3 g/dL Normal 32-36 [facility] Comment on above: Performed By: #### L 3410.9992 #### [facility] [address] [place], [address] MCV (RBC) [Entitic vol] 85.8 fL Normal 81-99 [facility] Comment on above: Performed By: #### L 3410.9992 #### [facility] [address] [place], [address] Monocytes/100 WBC (Bld) 8.7 % Normal 0-10 [facility] Comment on above: Performed By: #### L 3410.9992 #### [facility] [address] [place], [address] Neutrophils/100 WBC (Bld) 60.2 % Normal 47-70 [facility] Comment on above: Performed By: #### L 3410.9992 #### [facility] [address] [place], [address] Nucleated RBC (Bld) [#/Vol] 0 10*3/uL Normal 0-5 [facility] Comment on above: Performed By: #### L 3410.9992 #### [facility] [address] [place], [address] Platelet mean volume (Bld) [Entitic vol] 8.6 fL Normal 6.2-12.0 [facility] Comment on above: Performed By: #### L 3410.9992 #### [facility] [address] [place], [address] Platelets (Bld) [#/Vol] 410 10*3/uL Normal 150-450 [facility] Comment on above: Performed By: #### L 3410.9992 #### [facility] [address] [place], [address] RBC (Bld) [#/Vol] 4.52 10*6/uL Normal 4.2-5.4 [facility] Comment on above: Performed By: #### L 3410.9992 #### [facility] [address] [place], [address] RDW SD 38.6 fl Normal 35.1-43.9 [facility] Comment on above: Performed By: #### L 3410.9992 #### [facility] [address] [place], [address] WBC (Bld) [#/Vol] 9.4 10*3/uL Normal 4.4-11.0 [facility] Comment on above: Performed By: #### L 3410.9992 #### [facility] [address] [place], [address] Eosinophil percentageOrdered By: Carol Barrera on 07-05-2024 Eosinophils/100 WBC (Bld) 0.5 % 0-5 [facility] Erythrocyte distribution wid th ratioOrdered By: Carol Barrera on 07-05-2024 Erythrocyte distribution width (RBC) [Ratio] 12.4 % 11.6-14.6 [facility] Erythrocyte distribution wid th standard deviationOrdered By: Carol Barrera on 07-05-2024 Erythrocyte distribution width (RBC) [Entitic vol] 38.6 fL 35.1-43.9 [facility] HIV - WCHon 07-05-2024 HIV Non-Reactive Normal Nonreactive [facility] Comment on above: Order Comment: LAV/W B/RF [id number] ANTI M TITER Performed By: #### L 3410.9992 #### [facility] [address] [place], [address] HIV 1+2 Ab+HIV1 p24 Ag IA Ql Ordered By: Carol Barrera on 07-05-2024 HIV (1&2) Antibody Non-Reactive Nonreactive [facility] Hematocrit Auto (Bld) [Volum e fraction]Ordered By: Carol Barrera on 07-05-2024 Hematocrit (Bld) [Volume fraction] 38.8 % 37-47 [facility] Hemoglobin measurementOrdere d By: Carol Barrera on 07-05-2024 Hemoglobin (Bld) [Mass/Vol] 13.3 g/dL 12.0-15.0 [facility] Hepatitis B Surface Antigeno n 07-05-2024 HEP B Surf Ag Non-Reactive [facility] Comment on above: Order Comment: LAV/W B/RF [id number] ANTI M TITER Performed By: #### L 3410.9992 #### [facility] [address] [facility] [address] Hepatitis B surface antigen detectionOrdered By: Carol Barrera on 07-05-2024 Hepatitis B Surface Antigen Non-Reactive Nonreactive [facility] Hepatitis C Antibodyon 07-05 Hepatitis C AB Non-Reactive Normal [facility] Comment on above: Order Comment: LAV/W B/RF [id number] ANTI M TITER Result Comment: Non Reactive: < 0.8 Equivocal: >/= 0.8 to < 1.0 Reactive: >/= 1.0 The [facility] requires that a reactive/equivocal HCV antibody result be sent out for confirmation. HCV Quant by PCR testing. Performed By: #### L 3410.9992 #### [facility] [address] [place], [address] Hepatitis C virus antibody a ssayOrdered By: Carol Barrera on 07-05-2024 Hepatitis C Antibody Non-Reactive Nonreactive [facility] Comment on above: Non Reactive: < 0.8 Equivocal: >/= 0.8 to < 1.0 Reactive: >/= 1.0The CDC requires that a reactive/equivocal HCV antibody result be sent out for confirmation. HCV Quant by PCR testing. Immature granulocytes/100 WB C Auto (Bld)Ordered By: Carol Barrera on 07-05-2024 Immature granulocytes/100 WBC (Bld) 0.300 % 0.0-0.9 [facility] Comment on above: IG% - Immature Granu locytes (promyelocytes, myelocytes and metamyelocytes) > 1% indicates that a LEFT SHIFT is Present. L509.8000on 07-05-2024 Syphilis Abs Non-Reactive Normal [facility] Comment on above: Order Comment: LAV/W B/RF [id number] ANTI M TITER Performed By: #### L 3410.9992 #### [facility] [address] [place], [address] Lymphocytes Auto (Unsp spec) [#/Vol]Ordered By: Carol Barrera on 07-05-2024 Lymphocytes (Bld) [#/Vol] 2.82 10*3/uL 0.83-4.51 [facility] Lymphocytes/100 WBC Auto (Un sp spec)Ordered By: Carol Barrera on 07-05-2024 Lymphocytes/100 WBC (Bld) 29.9 % 19-41 [facility] MCV (mean corpuscular volume ) determinationOrdered By: Carol Barrera on 07-05-2024 MCV (RBC) [Entitic vol] 85.8 fL 81-99 [facility] Mean corpuscular hemoglobin (MCH) determinationOrdered By: Carol Barrera on 07-05-2024 MCH (RBC) [Entitic mass] 29.4 pg 27.0-32.0 [facility] Mean corpuscular hemoglobin concentration (MCHC) determinationOrdered By: Carol Barrera on 07-05-2024 MCHC (RBC) [Mass/Vol] 34.3 g/dL 32-36 [facility] Mean platelet volume determi nationOrdered By: Carol Barrera on 07-05-2024 Platelet mean volume (Bld) [Entitic vol] 8.6 fL 6.2-12.0 [facility] Monocyte percentageOrdered B y: Carol Barrera on 07-05-2024 Monocytes/100 WBC (Bld) 8.7 % 0-10 [facility] Neisseria gonorrhoeae nuclei c acid detection by amplified probe techniqueOrdered By: Carol Barrera on 07-05-2024 N. gonorrhoeae DNA VENU+probe Ql (Unsp spec) Negative Negative [facility] Comment on above: Performed at: =G - L [address] [place] [id number] Director: Catalina Lord MD, Phone: [phone] Neutrophil percentageOrdered By: Carol Barrera on 07-05-2024 Neutrophils/100 WBC (Bld) 60.2 % 47-70 [facility] Nucleated red blood cell per centageOrdered By: Carol Barrera on 07-05-2024 Nucleated RBC/100 WBC (Bld) [Ratio] 0 % 0-5 [facility] Rn International Office Visit Reporton 07-05-2024 Rn International Office Visit Report [facility]'[address], [address] [place] [address] OFFICE VISIT Date of Service: 07/05/24 MR#: [id number] Acct: [id number] Name: JIHAN GUERRERO Rep #: [id number] : 1990 Provider: DENG [facility] Age/Sex: 34/F Location: [facility] Status: Signed Intake Vital Signs 12/27/22 04:16 07/05/24 13:02 07/05/24 13:02 Height 5 ft 5 in 5 ft 5 in 5 ft 5 in Weight: 175 lb BMI 29.1 BP 130/67 H Intake Visit Reasons: LMP 05/02 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 Is patient in pain?: No [...] 1 current occupational status: employed current occupation: [employer] pets and animals: Yes pets and animals: dog(s) history of recent travel: Yes ([place]) out of state: Yes out of country: [...] in: none frequency: 3-4 times per week galo/religious: None seatbelt use: always do you feel safe at home: Yes additional social history: - 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 Date Name GA/Weeks Outcome Route Bth Weight Infant Gen Labor Lgth Anesthesia Del Locatn Provider FOB 08/25/22 Joe 39 live - full term [id number] Male [facility] Colli ns Tashi Delivery Date: 08/25/22 Last [...] Glucose FH (more content not included)... Normal [facility] Platelet countOrdered By: Yan Barrera on 07-05-2024 Platelets (Bld) [#/Vol] 410 10*3/uL 150-450 [facility] RBC Auto (Bld) [#/Vol]Ordere d By: Carol Barrera on 07-05-2024 RBC (Bld) [#/Vol] 4.52 10*6/uL 4.2-5.4 [facility] Rubella IgGon 07-05-2024 Rubella IgG Reactive Normal Nonreactive [facility] Comment on above: Order Comment: LAV/W B/RF [id number] ANTI M TITER Result Comment: Anti body Results Interpretation of Immune Status Non Reactive Presumed Non-Immune Equivocal Equivocal Reactive Presumed Immune Performed By: #### L 3410.9992 #### [facility] [address] [place], [place], [address] Rubella immune status IgGOrd ered By: Carol Barrera on 07-05-2024 Rubella IgG Antibody Reactive Nonreactive [facility] Comment on above: Antibody Results Int erpretation of Immune Status Non Reactive Presumed Non-Immune Equivocal Equivocal Reactive Presumed Immune Treponema sp Ab Ql (S)Ordere d By: Carol Barrera on 07-05-2024 Syphilis Total Antibody Non-Reactive [facility] Type AND Screenon 07-05-2024 Ab SCREEN GEL PENDING Normal [facility] Comment on above: Order Comment: LAV/W B/RF [id number] ANTI M TITER Performed By: #### L 3410.9992 #### [facility] [address] [place], [address] ABO and Rh group Nom (Bld) Blood group A Rh(D) positive Normal [facility] Comment on above: Order Comment: LAV/W B/RF [id number] ANTI M TITER Performed By: #### L 3410.9992 #### [facility] [address] [place], [place], [address] Urine cultureOrdered By: Shawn Barrera on 07-05-2024 Bacteria identified Cx Nom (U) Culture exhibits no growth. [facility] White blood cell (WBC) count Ordered By: Carol Barrera on 07-05-2024 WBC (Bld) [#/Vol] 9.4 10*3/uL 4.4-11.0 [facility] CNOVon 02-03-2024 CNOV Office Visit (UCWSTR ) -------- JIHAN GUERRERO ([id number]) 1990 F Date Time Provider Department 02/03/24 6[facility] we recorded the following information about you: Temperature Pulse Respiration Blood pressure 99.2 degrees 86/minute 16/minute 138/82 Weight 78.4 kg Julieta ArvinHELEN bales.[facility] 02/03/2024 6:50 PM Signed Subjective HPI [...] of care. This note was generated using Fastgen software. It may contain errors in wording, punctuation, or spelling. Arvin Rendon APRN.[employer] Allergies As of Date: 02/03/2024 (No Known Allergies) Date Reviewed: 02/03/2024 Reviewed by: Arvin Rendon APRN.LINER ASSEMBLER - Fully Assessed Reason for Visit: Sore Throat [200] Cmt: fever x 2 days, Friday vomiting and diarrhea all day Primary Visit Diagnosis:Sore throat [J02.9] Other Visit Diagnosis:Strep throat [J02.0] Order(s):STREP A MOLECULAR (POC) [7719036] Order #: [id number]. #:[id number] 1-LAB amoxicillin (AMOXIL) 500 mg capsuleTake 1 capsule by mouth two times a day for 10 days.Disp: 20 capsuleRfl: 0 Prescriptions (more content not included)... Normal [facility] STREP A MOLECULAR (POC)on Interpretation and review of laboratory results Abnormal [facility] Procedural Control Valid [facility] Strep A (POCT) Positive Abnormal Negative [facility] Basophil percentageOrdered B y: Azucena Dwyer on 08-26-2022 WBC (Bld) [#/Vol] 20.3 10*3/uL 4.4-11.0 [facility] Blood erythrocytes count (nu mber/volume)Ordered By: Azucena Dwyer on 08-26-2022 RBC (Bld) [#/Vol] 3.24 10*6/uL 4.2-5.4 [facility] Blood hemoglobin measurement (mass/volume)Ordered By: Azucena Dwyer on 08-26-2022 Hemoglobin (Bld) [Mass/Vol] 9.3 g/dL 12.0-15.0 [facility] Blood platelet mean volumeOr dered By: Azucena Dwyer on 08-26-2022 Platelet mean volume (Bld) [Entitic vol] 8.7 fL 6.2-12.0 [facility] Determination of erythrocyte mean corpuscular volume (MCV)Ordered By: Azucena Dwyer on 08-26-2022 MCV (RBC) [Entitic vol] 84.0 fL 81-99 [facility] Hematocrit Auto (Bld) [Volum e fraction]Ordered By: Azucena Dwyer on 08-26-2022 Hematocrit (Bld) [Volume fraction] 27.2 % 37-47 [facility] - Hematology and Cell countsOrdered By: Azucena Dwyer on 08-26-2022 Erythrocyte distribution width (RBC) [Entitic vol] 39.1 fL 35.1-43.9 [facility] Erythrocyte distribution width (RBC) [Ratio] 12.8 % 11.6-14.6 [facility] MCH (RBC) [Entitic mass] 28.7 pg 27.0-32.0 [facility] MCHC Auto (RBC) [Mass/Vol]Or dered By: Azucena Dwyer on 08-26-2022 MCHC (RBC) [Mass/Vol] 34.2 g/dL 32-36 [facility] Platelets bldOrdered By: Sharona Dwyer on 08-26-2022 Platelets (Bld) [#/Vol] 298 10*3/uL 150-450 [facility] Absolute lymphocyte countOrd ered By: Azucena Dwyer on 08-25-2022 Lymphocytes Auto (Unsp spec) [#/Vol] 2.24 10*3/uL 0.83-4.51 [facility] Basophil percentageOrdered B y: Azucena Dwyer on 08-25-2022 Basophils/100 WBC (Bld) 0.2 % 0-1 [facility] Eosinophils/100 WBC (Bld) 0.1 % 0-5 [facility] Neutrophils (Bld) [#/Vol] 12.6 10*3/uL 2.0-7.7 [facility] Neutrophils/100 WBC (Bld) 78.5 % 47-70 [facility] Blood lymphocytes/100 leukoc ytesOrdered By: Azucena Dwyer on 08-25-2022 Lymphocytes/100 WBC (Bld) 14.0 % 19-41 [facility] Blood monocytes/100 leukocyt esOrdered By: Azucena Dwyer on 08-25-2022 Monocytes/100 WBC (Bld) 6.6 % 0-10 [facility] INR in Blood by Coagulation assayOrdered By: Azucena Dwyer on 08-25-2022 INR Coag (Bld) [Relative time] 1.0 {INR} [facility] - CoagulationOrde red By: Azucena Dwyer on 08-25-2022 aPTT Coag (Bld) [Time] 26.2 s 24.1-36.2 [facility] PT Coag (PPP) [Time] 12.6 s 11.7-14.9 [facility] Laboratory - Hematology and Cell countsOrdered By: Azucena Dwyer on 08-25-2022 Immature granulocytes/100 WBC (Bld) 0.600 % 0.0-0.9 [facility] Comment on above: IG% - Immature Granu locytes (promyelocytes, myelocytes and metamyelocytes) > 1% indicates that a LEFT SHIFT is Present. Nucleated RBC/100 WBC (Bld) [Ratio] 0 % 0-5 [facility] No Panel InformationOrdered By: Azucena Dwyer on 08-24-2022 Vaginal Amniotic Fluid Detection Positive Negative [facility] Comment on above: Amniotic fluid prese nt indicates rupture of Membranes. RESULTS CALLED TO PREET WANG 08/24/22 191 Chrystal Zhang.REPORT READ BACK BY SAME . Laboratory - Chemistry and C hemistry - challengeon 08-23-2022 Glucose Ql (U) Negative [facility] - Urinalysison Protein Ql (U) Negative [facility] Laboratory - Chemistry and C hemistry - challengeon 08-15-2022 Glucose Ql (U) Negative [facility] - Urinalysison Protein Ql (U) Negative [facility] - Chemistry and C hemistry - challengeon 08-09-2022 Glucose Ql (U) Negative [facility] Laboratory - Urinalysison Protein Ql (U) Negative [facility] Laboratory - Chemistry and C hemistry - challengeon 08-01-2022 Glucose Ql (U) Negative [facility] Laboratory - Urinalysison Protein Ql (U) Negative [facility] Laboratory - Chemistry and C hemistry - challengeon 07-15-2022 Glucose Ql (U) Negative [facility] - Urinalysison Protein Ql (U) Negative [facility] - Chemistry and C hemistry - challengeon 07-02-2022 Glucose Ql (U) Negative [facility] Laboratory - Urinalysison Protein Ql (U) Negative [facility] Laboratory - Chemistry and C hemistry - challengeon 06-20-2022 Glucose Ql (U) Negative [facility] - Urinalysison Protein Ql (U) Negative [facility] Absolute lymphocyte countOrd ered By: Dr. Corey on 06-04-2022 Lymphocytes Auto (Unsp spec) [#/Vol] 2.08 10*3/uL 0.83-4.51 [facility] Basophil percentageOrdered B y: Dr. Corey on 06-04-2022 Basophils/100 WBC (Bld) 0.3 % 0-1 [facility] Eosinophils/100 WBC (Bld) 0.6 % 0-5 [facility] Neutrophils (Bld) [#/Vol] 8.4 10*3/uL 2.0-7.7 [facility] Neutrophils/100 WBC (Bld) 72.4 % 47-70 [facility] WBC (Bld) [#/Vol] 11.5 10*3/uL 4.4-11.0 [facility] Blood erythrocytes count (nu mber/volume)Ordered By: Dr. Corey on 06-04-2022 RBC (Bld) [#/Vol] 3.97 10*6/uL 4.2-5.4 [facility] Blood hemoglobin measurement (mass/volume)Ordered By: Dr. Corey on 06-04-2022 Hemoglobin (Bld) [Mass/Vol] 12.1 g/dL 12.0-15.0 [facility] Blood lymphocytes/100 leukoc ytesOrdered By: Dr. Corey on 06-04-2022 Lymphocytes/100 WBC (Bld) 18.0 % 19-41 [facility] Blood monocytes/100 leukocyt esOrdered By: Dr. Corey on 06-04-2022 Monocytes/100 WBC (Bld) 8.0 % 0-10 [facility] Blood platelet mean volumeOr dered By: Dr. Corey on 06-04-2022 Platelet mean volume (Bld) [Entitic vol] 8.2 fL 6.2-12.0 [facility] Determination of erythrocyte mean corpuscular volume (MCV)Ordered By: Dr. Corey on 06-04-2022 MCV (RBC) [Entitic vol] 86.1 fL 81-99 [facility] Gestational diabetes screen 1-hour screen with 50g oral glucose loadOrdered By: Dr. Corey on 06-04-2022 Glucose 1 Hr post 50 g glucose PO [Mass/Vol] 93 mg/dL 70-140 [facility] Hematocrit Auto (Bld) [Volum e fraction]Ordered By: Dr. Corey on 06-04-2022 Hematocrit (Bld) [Volume fraction] 34.2 % 37-47 [facility] Laboratory - Chemistry and C hemistry - challengeon 06-04-2022 Glucose Ql (U) Negative [facility] - Hematology and Cell countsOrdered By: Dr. Corey on 06-04-2022 Erythrocyte distribution width (RBC) [Entitic vol] 38.8 fL 35.1-43.9 [facility] Erythrocyte distribution width (RBC) [Ratio] 12.4 % 11.6-14.6 [facility] Immature granulocytes/100 WBC (Bld) 0.700 % 0.0-0.9 [facility] Comment on above: IG% - Immature Granu locytes (promyelocytes, myelocytes and metamyelocytes) > 1% indicates that a LEFT SHIFT is Present. MCH (RBC) [Entitic mass] 30.5 pg 27.0-32.0 [facility] Nucleated RBC/100 WBC (Bld) [Ratio] 0 % 0-5 [facility] Laboratory - Urinalysison Protein Ql (U) Negative [facility] MCHC Auto (RBC) [Mass/Vol]Or dered By: Dr. Corey on 06-04-2022 MCHC (RBC) [Mass/Vol] 35.4 g/dL 32-36 [facility] Platelets bldOrdered By: Dr. Corey on 06-04-2022 Platelets (Bld) [#/Vol] 347 10*3/uL 150-450 [facility] Laboratory - Chemistry and C hemistry - challengeon 05-16-2022 Glucose Ql (U) Negative [facility] Laboratory - Urinalysison Protein Ql (U) Negative [facility] Laboratory - Chemistry and C hemistry - challengeon 04-16-2022 Glucose Ql (U) Negative [facility] Work Phone: Laboratory - Urinalysison Protein Ql (U) Negative [facility] Work Phone: Laboratory - Chemistry and C hemistry - challengeon 03-19-2022 Glucose Ql (U) Negative [facility] Work Phone: Laboratory - Urinalysison Protein Ql (U) Negative [facility] Work Phone: Laboratory - Chemistry and C hemistry - challengeon 02-20-2022 Glucose Ql (U) Negative [facility] Work Phone: Laboratory - Urinalysison Protein Ql (U) Negative [facility] Work Phone: Absolute lymphocyte counton 01-21-2022 Lymphocytes Auto (Unsp spec) [#/Vol] 2.04 10*3/uL 0.83-4.51 [facility] Work Phone: Basophil percentageon 2021 Basophils/100 WBC (Bld) 0.4 % 0-1 [facility] Work Phone: [phone] Eosinophils/100 WBC (Bld) 0.6 % 0-5 [facility] Work Phone: Neutrophils (Bld) [#/Vol] 5.5 10*3/uL 2.0-7.7 [facility] Work Phone: [phone] Neutrophils/100 WBC (Bld) 65.4 % 47-70 [facility] Work Phone: [phone] WBC (Bld) [#/Vol] 8.3 10*3/uL 4.4-11.0 [facility] Work Phone: Blood erythrocytes count (nu mber/volume)on 01-21-2022 RBC (Bld) [#/Vol] 4.17 10*6/uL 4.2-5.4 [facility] Work Phone: [phone] Blood hemoglobin measurement (mass/volume)on 01-21-2022 Hemoglobin (Bld) [Mass/Vol] 12.6 g/dL 12.0-15.0 [facility] Work Phone: [phone] Blood lymphocytes/100 leukoc yteson 01-21-2022 Lymphocytes/100 WBC (Bld) 24.5 % 19-41 [facility] Work Phone: [phone] Blood monocytes/100 leukocyt eson 01-21-2022 Monocytes/100 WBC (Bld) 8.6 % 0-10 [facility] Work Phone: Blood platelet mean volumeon 01-21-2022 Platelet mean volume (Bld) [Entitic vol] 8.4 fL 6.2-12.0 [facility] Work Phone: Chlamydia trachomatis rRNA d etection by probe and target amplification methodon 01-21-2022 C. trachomatis rRNA VENU+probe Ql (Unsp spec) Negative Negative [facility] Work Phone: Determination of erythrocyte mean corpuscular volume (MCV)on 01-21-2022 MCV (RBC) [Entitic vol] 86.3 fL 81-99 [facility] Work Phone: HIV 1 and HIV-2 antibody ass ay with HIV-1 p24 antigen detectionon 01-21-2022 HIV 1+2 Ab+HIV1 p24 Ag IA Ql Non-Reactive Nonreactive [facility] Work Phone: Hematocrit Auto (Bld) [Volum e fraction]on 01-21-2022 Hematocrit (Bld) [Volume fraction] 36.0 % 37-47 [facility] Work Phone: Laboratory - Drug toxicology on 01-21-2022 Amphetamines Ql (U) Negative <1000 ng/mL [facility] Work Phone: Benzodiazepines Ql (U) Negative < 200 ng/mL [facility] Work Phone: Cannabinoids Screen Ql (U) Negative < 50 ng/mL [facility] Work Phone: Cocaine Ql (U) Negative < 300 ng/mL [facility] Work Phone: Opiates Ql (U) Negative < 300 ng/mL [facility] Work Phone: Laboratory - Hematology and Cell countson 01-21-2022 Erythrocyte distribution width (RBC) [Entitic vol] 37.2 fL 35.1-43.9 [facility] Work Phone: Erythrocyte distribution width (RBC) [Ratio] 11.8 % 11.6-14.6 [facility] Work Phone: Immature granulocytes/100 WBC (Bld) 0.500 % 0.0-0.9 [facility] Work Phone: Comment on above: IG% - Immature Granu locytes (promyelocytes, myelocytes and metamyelocytes) > 1% indicates that a LEFT SHIFT is Present. MCH (RBC) [Entitic mass] 30.2 pg 27.0-32.0 [facility] Work Phone: Nucleated RBC/100 WBC (Bld) [Ratio] 0 % 0-5 [facility] Work Phone: Laboratory - Microbiology an d Antimicrobial susceptibilityon 01-21-2022 N. gonorrhoeae DNA VENU+probe Ql (Unsp spec) Negative Negative [facility] Work Phone: Comment on above: Performed at: =[address] [id number] Director: Catalina Lord MD, Phone: [phone] MCHC Auto (RBC) [Mass/Vol]on 01-21-2022 MCHC (RBC) [Mass/Vol] 35.0 g/dL 32-36 [facility] Work Phone: No Panel Informationon 01-21 MDMA (Ecstasy) Screen Negative < 500 ng/mL [facility] Work Phone: Urine Barbiturates Screen Negative < 200 ng/mL [facility] Work Phone: Urine Drug Screen Comment [facility] Work Phone: Comment on above: CONFIRMATORY TESTING [...] Urine Methadone Screen Negative < 300 ng/mL [facility] Work Phone: Hepatitis B Surface Antigen Non-Reactive Nonreactive [facility] Work Phone: Hepatitis C Antibody Non-Reactive Nonreactive [facility] Work Phone: Comment on above: Non Reactive: < 0.8 Equivocal: >/= 0.8 to < 1.0 Reactive: >/= 1.0The [facility] recommends that a reactive/equivocal HCV antibody result be followed up by the HCV Nucleic Acid Amplificationtest (178526) Rubella IgG Antibody Reactive Nonreactive [facility] Work Phone: Comment on above: Antibody Results Int erpretation of Immune Status Non Reactive Presumed Non-Immune Equivocal Equivocal Reactive Presumed Immune Platelets bldon 01-21-2022 Platelets (Bld) [#/Vol] 380 10*3/uL 150-450 [facility] Work Phone: Serum Treponema species anti body detectionon 01-21-2022 Treponema sp Ab Ql (S) Non-Reactive [facility] Work Phone: Urine phencyclidine (PCP) de tectionon 01-21-2022 Phencyclidine Ql (U) Negative < 25 ng/mL [facility] Work Phone: Vital Signs Date Time Vital Sign Value Performing Clinician Facility 01-24-2025 08:14-0400 Body height 165.[address] Alireza London MD Work Phone: [facility] 01-24-2025 08:14-0400 Body mass index (BMI) [Ratio] 33.4 kg/m2 Dr. Alireza London MD Work Phone: [facility] 01-24-2025 08:14-0400 Body weight 91.[address] Alireza London MD Work Phone: [facility] 01-24-2025 08:14-0400 Diastolic blood pressure 80 mm[Hg] Dr. Alireza London MD Work Phone: [facility] 01-24-2025 08:14-0400 Systolic blood pressure 125 mm[Hg] Dr. Alireza London MD Work Phone: [facility] 01-18-2025 12:23-0400 Body height 165.[address] Alireza London MD Work Phone: [facility] 01-18-2025 12:22-0400 Body mass index (BMI) [Ratio] 33.3 kg/m2 Dr. Alireza London MD Work Phone: [facility] 01-18-2025 12:22-0400 Body weight 90.[address] Alireza London MD Work Phone: [facility] 01-18-2025 12:22-0400 Diastolic blood pressure 78 mm[Hg] Dr. Alireza London MD Work Phone: [facility] 01-18-2025 12:22-0400 Systolic blood pressure 120 mm[Hg] Dr. Alireza London MD Work Phone: [facility] 01-11-2025 15:16-0400 Body height 165.[address] Alireza London MD Work Phone: [facility] 01-11-2025 15:16-0400 Body mass index (BMI) [Ratio] 33.7 kg/m2 Dr. Alireza London MD Work Phone: [facility] 01-11-2025 15:16-0400 Body weight 91.[address] Alireza London MD Work Phone: [facility] 01-11-2025 15:16-0400 Diastolic blood pressure 70 mm[Hg] Dr. Alireza London MD Work Phone: [facility] 01-11-2025 15:16-0400 Systolic blood pressure 104 mm[Hg] Dr. Alireza London MD Work Phone: [facility] 12-28-2024 09:00-0400 Body height 165.[address] Alireza London MD Work Phone: [facility] 12-28-2024 09:00-0400 Body mass index (BMI) [Ratio] 33.1 kg/m2 Dr. Alireza London MD Work Phone: [facility] 12-28-2024 09:00-0400 Body weight 90.[address] Alireza London MD Work Phone: [facility] 12-28-2024 09:00-0400 Diastolic blood pressure 80 mm[Hg] Dr. Alireza London MD Work Phone: [facility] 12-28-2024 09:00-0400 Systolic blood pressure 135 mm[Hg] Dr. Alireza London MD Work Phone: [facility] 12-14-2024 08:59-0400 Body height 165.[address] Alireza London MD Work Phone: [facility] 12-14-2024 08:59-0400 Body mass index (BMI) [Ratio] 32.4 kg/m2 Dr. Alireza London MD Work Phone: [facility] 12-14-2024 08:59-0400 Body weight 88.[address] Alireza London MD Work Phone: [facility] 12-14-2024 08:59-0400 Diastolic blood pressure 75 mm[Hg] Dr. Alireza London MD Work Phone: [facility] 12-14-2024 08:59-0400 Systolic blood pressure 124 mm[Hg] Dr. Alireza London MD Work Phone: [facility] 11-30-2024 08:45-0400 Body mass index (BMI) [Ratio] 32 kg/m2 Dr. Alireza London MD Work Phone: [facility] 11-30-2024 08:45-0400 Body weight 87.[address] Alireza London MD Work Phone: [facility] 11-30-2024 08:45-0400 Diastolic blood pressure 74 mm[Hg] Dr. Alireza London MD Work Phone: [facility] 11-30-2024 08:45-0400 Systolic blood pressure 129 mm[Hg] Dr. Alireza London MD Work Phone: [facility] 11-02-2024 08:46-0400 Body height 165.[address] Alireza London MD Work Phone: [facility] 11-02-2024 08:45-0400 Body mass index (BMI) [Ratio] 31.4 kg/m2 Dr. Alireza London MD Work Phone: [facility] 11-02-2024 08:45-0400 Body weight 85.[address] Alireza London MD Work Phone: [facility] 11-02-2024 08:45-0400 Diastolic blood pressure 73 mm[Hg] Dr. Alireza London MD Work Phone: [facility] 11-02-2024 08:45-0400 Systolic blood pressure 113 mm[Hg] Dr. Alireza London MD Work Phone: [facility] 10-05-2024 08:53-0500 Body height 165.[address] Alireza London MD Work Phone: [facility] 10-05-2024 08:53-0500 Body mass index (BMI) [Ratio] 30.2 kg/m2 Dr. Alireza London MD Work Phone: [facility] 10-05-2024 08:53-0500 Body weight 82.[address] Alireza London MD Work Phone: [facility] 10-05-2024 08:53-0500 Diastolic blood pressure 77 mm[Hg] Dr. Alireza London MD Work Phone: [facility] 10-05-2024 08:53-0500 Systolic blood pressure 110 mm[Hg] Dr. Alireza London MD Work Phone: [facility] 09-07-2024 08:30-0500 Body mass index (BMI) [Ratio] 30 kg/m2 Dr. Alireza London MD Work Phone: [facility] 09-07-2024 08:30-0500 Body weight 81.[address] Alireza London MD Work Phone: [facility] 09-07-2024 08:30-0500 Diastolic blood pressure 72 mm[Hg] Dr. Alireza London MD Work Phone: [facility] 09-07-2024 08:30-0500 Systolic blood pressure 118 mm[Hg] Dr. Alireza London MD Work Phone: [facility] 08-10-2024 15:03-0500 Body mass index (BMI) [Ratio] 28.8 kg/m2 Dr. Alireza London MD Work Phone: [facility] 08-10-2024 15:03-0500 Body weight 78.[address] Alireza London MD Work Phone: [facility] 08-10-2024 15:03-0500 Diastolic blood pressure 79 mm[Hg] Dr. Alireza London MD Work Phone: [facility] 08-10-2024 15:03-0500 Systolic blood pressure 124 mm[Hg] Dr. Alireza London MD Work Phone: [facility] 07-05-2024 13:02-0500 Body mass index (BMI) [Ratio] 29.1 kg/m2 Dr. Alireza London MD Work Phone: [facility] 07-05-2024 13:02-0500 Body weight 79.[address] Alireza London MD Work Phone: [facility] 07-05-2024 13:02-0500 Diastolic blood pressure 67 mm[Hg] Dr. Alireza London MD Work Phone: [facility] 07-05-2024 13:02-0500 Systolic blood pressure 130 mm[Hg] Dr. Alireza London MD Work Phone: [facility] 02-03-2024 18:35-0400 Body temperature 99.19 [degF] [facility] [employer] Work Phone: [facility] 02-03-2024 18:35-0400 Body weight 78.4 kg [facility] [employer]PER[employer] Work Phone: [facility] 02-03-2024 18:35-0400 Diastolic blood pressure 82 mm[Hg] [facility] [employer] SUPER[employer] Work Phone: [facility] 02-03-2024 18:35-0400 Heart rate 86 /min [facility] [employer] SUPER[employer] Work Phone: [facility] 02-03-2024 18:35-0400 Respiratory rate 16 /min [facility] [employer] SUPER[employer] Work Phone: [facility] 02-03-2024 18:35-0400 SaO2% (BldA) [Mass fraction] 97 % [facility] [employer] SUPER[employer] Work Phone: [facility] 02-03-2024 18:35-0400 Systolic blood pressure 138 mm[Hg] [facility] [employer] SUPER[employer] Work Phone: [facility] 08-26-2022 09:00-0500 Body temperature 98 [degF] Dr. Alireza London Work Phone: [facility] 08-26-2022 09:00-0500 Diastolic blood pressure 75 mm[Hg] Dr. Alireza London Work Phone: [facility] 08-26-2022 09:00-0500 Heart rate 83 /min Dr. Alireza London Work Phone: [facility] 08-26-2022 09:00-0500 Respiratory rate 16 /min Dr. Alireza London Work Phone: [facility] 08-26-2022 09:00-0500 Systolic blood pressure 116 mm[Hg] Dr. Alireza London Work Phone: [facility] 08-26-2022 04:10-0500 SaO2% (BldA) [Mass fraction] 97 % Dr. Alireza London Work Phone: [facility] 08-24-2022 19:03-0500 Body height 165.[address] Alireza London Work Phone: [facility] 08-24-2022 19:03-0500 Body mass index (BMI) [Ratio] 33 kg/m2 Dr. Alireza London Work Phone: [facility] 08-24-2022 19:03-0500 Body weight 89.[address] Alireza London Work Phone: [facility] 08-23-2022 09:15-0500 Body mass index (BMI) [Ratio] 33.2 kg/m2 Dr. Alireza London Work Phone: [facility] 08-23-2022 09:15-0500 Body weight 90.[address] Alireza London Work Phone: [facility] 08-23-2022 09:15-0500 Diastolic blood pressure 81 mm[Hg] Dr. Alireza London Work Phone: [facility] 08-23-2022 09:15-0500 Systolic blood pressure 128 mm[Hg] Dr. Alireza London Work Phone: [facility] 08-15-2022 08:59-0500 Body mass index (BMI) [Ratio] 32.9 kg/m2 Dr. Alireza London Work Phone: [facility] 08-15-2022 08:59-0500 Body weight 89.[address] Alireza London Work Phone: [facility] 08-15-2022 08:59-0500 Diastolic blood pressure 84 mm[Hg] Dr. Alireza London Work Phone: [facility] 08-15-2022 08:59-0500 Systolic blood pressure 130 mm[Hg] Dr. Alireza London Work Phone: [facility] 08-09-2022 09:20-0500 Body mass index (BMI) [Ratio] 32.6 kg/m2 Dr. Alireza London Work Phone: [facility] 08-09-2022 09:20-0500 Body weight 89.[address] Alireza London Work Phone: [facility] 08-09-2022 09:20-0500 Diastolic blood pressure 78 mm[Hg] Dr. Alireza London Work Phone: [facility] 08-09-2022 09:20-0500 Systolic blood pressure 120 mm[Hg] Dr. Alireza London Work Phone: [facility] 08-01-2022 08:20-0500 Body mass index (BMI) [Ratio] 32.1 kg/m2 Dr. Alireza London Work Phone: [facility] 08-01-2022 08:20-0500 Body weight 87.[address] Alireza London Work Phone: [facility] 08-01-2022 08:20-0500 Diastolic blood pressure 84 mm[Hg] Dr. Alireza London Work Phone: [facility] 08-01-2022 08:20-0500 Systolic blood pressure 126 mm[Hg] Dr. Alireza London Work Phone: [facility] 07-23-2022 17:51-0500 Body temperature 97.7 [degF] Dr. Alireza London Work Phone: [facility] 07-23-2022 17:51-0500 Diastolic blood pressure 68 mm[Hg] Dr. Alireza London Work Phone: [facility] 07-23-2022 17:51-0500 Heart rate 85 /min Dr. Alireza London Work Phone: [facility] 07-23-2022 17:51-0500 SaO2% (BldA) [Mass fraction] 97 % Dr. Alireza London Work Phone: [facility] 07-23-2022 17:51-0500 Systolic blood pressure 119 mm[Hg] Dr. Alireza London Work Phone: [facility] 07-23-2022 17:44-0500 Body height 165.[address] Alireza London Work Phone: [facility] Work Phone: 07-23-2022 17:44-0500 Body mass index (BMI) [Ratio] 31.8 kg/m2 Dr. Alireza London Work Phone: [facility] 07-23-2022 17:44-0500 Body weight 86.[address] Alireza London Work Phone: [facility] 07-15-2022 08:37-0500 Body mass index (BMI) [Ratio] 31.4 kg/m2 Dr. Alireza London Work Phone: [facility] 07-15-2022 08:37-0500 Body weight 85.[address] Alireza London Work Phone: [facility] 07-15-2022 08:37-0500 Diastolic blood pressure 73 mm[Hg] Dr. Alireza London Work Phone: [facility] 07-15-2022 08:37-0500 Systolic blood pressure 111 mm[Hg] Dr. Alireza London Work Phone: [facility] 07-02-2022 08:54-0500 Body mass index (BMI) [Ratio] 31.1 kg/m2 Dr. Alireza London Work Phone: [facility] 07-02-2022 08:54-0500 Body weight 84.[address] Alireza London Work Phone: [facility] 07-02-2022 08:54-0500 Diastolic blood pressure 75 mm[Hg] Dr. Alireza London Work Phone: [facility] 07-02-2022 08:54-0500 Systolic blood pressure 124 mm[Hg] Dr. Alireza London Work Phone: [facility] 06-20-2022 13:27-0500 Body mass index (BMI) [Ratio] 30.9 kg/m2 Dr. Alireza London Work Phone: [facility] 06-20-2022 13:27-0500 Body weight 84.[address] Alireza London Work Phone: [facility] 06-20-2022 13:27-0500 Diastolic blood pressure 74 mm[Hg] Dr. Alireza London Work Phone: [facility] 06-20-2022 13:27-0500 Systolic blood pressure 119 mm[Hg] Dr. Alireza London Work Phone: [facility] 06-04-2022 09:26-0400 Body height 165.[address] Alireza London Work Phone: [facility] Work Phone: 06-04-2022 09:26-0400 Body mass index (BMI) [Ratio] 30.4 kg/m2 Dr. Alireza London Work Phone: [facility] 06-04-2022 09:26-0400 Body weight [address] Alireza London Work Phone: [facility] 06-04-2022 09:26-0400 Diastolic blood pressure 74 mm[Hg] Dr. Alireza London Work Phone: [facility] 06-04-2022 09:26-0400 Systolic blood pressure 130 mm[Hg] Dr. Alireza London Work Phone: [facility] 05-16-2022 08:53-0400 Body mass index (BMI) [Ratio] 29.5 kg/m2 Dr. Alireza London Work Phone: [facility] 05-16-2022 08:53-0400 Body weight 80.[address] Alireza London Work Phone: [facility] 05-16-2022 08:53-0400 Diastolic blood pressure 77 mm[Hg] Dr. Alireza London Work Phone: [facility] 05-16-2022 08:53-0400 Systolic blood pressure 121 mm[Hg] Dr. Alireza London Work Phone: [facility] 04-16-2022 08:33-0400 Body mass index (BMI) [Ratio] 29.2 kg/m2 Dr. Alireza London Work Phone: [facility] Work Phone: 04-16-2022 08:33-0400 Body weight 79.[address] Alireza London Work Phone: [facility] Work Phone: 04-16-2022 08:33-0400 Diastolic blood pressure 66 mm[Hg] Dr. Alireza London Work Phone: [facility] Work Phone: 04-16-2022 08:33-0400 Systolic blood pressure 118 mm[Hg] Dr. Alireza London Work Phone: [facility] Work Phone: 03-19-2022 08:56-0400 Diastolic blood pressure 60 mm[Hg] Dr. Alireza London Work Phone: [facility] Work Phone: 03-19-2022 08:56-0400 Systolic blood pressure 106 mm[Hg] Dr. Alireza London Work Phone: [facility] Work Phone: 03-19-2022 08:45-0400 Body mass index (BMI) [Ratio] 28.8 kg/m2 Dr. Alireza London Work Phone: [facility] Work Phone: 03-19-2022 08:45-0400 Body weight 78.[address] Alireza London Work Phone: [facility] Work Phone: 02-20-2022 08:30-0400 Body mass index (BMI) [Ratio] 28.8 kg/m2 Dr. Alireza London Work Phone: [facility] Work Phone: 02-20-2022 08:30-0400 Body weight 78.[address] Alireza London Work Phone: [facility] Work Phone: 02-20-2022 08:30-0400 Diastolic blood pressure 62 mm[Hg] Dr. Alireza London Work Phone: [facility] Work Phone: 02-20-2022 08:30-0400 Systolic blood pressure 106 mm[Hg] Dr. Alireza London Work Phone: [facility] Work Phone: 01-21-2022 09:12-0400 Body height 165.[address] Alireza London Work Phone: [facility] Work Phone: 01-21-2022 09:12-0400 Body mass index (BMI) [Ratio] 28.6 kg/m2 Dr. Alireza London Work Phone: [facility] Work Phone: 01-21-2022 09:12-0400 Body weight 78.[address] Alireza London Work Phone: [facility] Work Phone: 01-21-2022 09:12-0400 Diastolic blood pressure 70 mm[Hg] Dr. Alireza London Work Phone: [facility] Work Phone: 01-21-2022 09:12-0400 Systolic blood pressure 116 mm[Hg] Dr. Alireza London Work Phone: [facility] Work Phone: 11-27-2021 08:33-0400 Body mass index (BMI) [Ratio] 29.6 kg/m2 Dr. Alireza London Work Phone: [facility] Work Phone: 11-27-2021 08:33-0400 Body weight 80.[address] Alireza London Work Phone: [facility] Work Phone: 11-27-2021 08:33-0400 Diastolic blood pressure 84 mm[Hg] Dr. Alireza London Work Phone: [facility] Work Phone: 11-27-2021 08:33-0400 Systolic blood pressure 126 mm[Hg] Dr. Alireza London Work Phone: [facility] Work Phone: Encounters Encounter Date Encounter Type Care Provider Facility Start: 01-31-2025 ambulatory [facility] Facility :[facility] Start: 01-30-2025 Evaluation and management of inpatient [facility] Facility:[facility] Start: 01-24-2025 End: 01-24-[address] Elidia Joaquin MD -[facility] Work Phone: Start: 01-24-2025 End: 01-24-[address] Alireza London MD Work Phone: [facility] Work Phone: Start: 01-20-2025 End: 01-20-[address] Alireza London MD Work Phone: [facility] Work Phone: Start: 01-20-2025 End: 01-20-[address] Bhavani Wells DO -[facility] Work Phone: Start: 01-20-2025 End: 01-20-2025 ambulatory Alireza London Facility:[facility] Start: 01-18-2025 End: 01-18-[address] Bhavani Wells DO -[facility] Work Phone: Start: 01-18-2025 End: 01-18-[address] Alireza London MD Work Phone: [facility] Work Phone: Start: 01-11-2025 End: 01-11-[address] Alireza London MD Work Phone: [facility] Work Phone: Start: 01-11-2025 End: 01-11-2025 Patient encounter procedure Alesha To SENIOR INSTRUMENTATION ENGINEER-C -Laboratory Specimen Work Phone: Start: 01-11-2025 End: 01-11-2025 Patient encounter procedure Alesha To SENIOR INSTRUMENTATION ENGINEER-C -[facility] Work Phone: Start: 01-11-2025 End: 01-11-[address] Alireza London MD Work Phone: [facility] Work Phone: Start: 01-11-2025 End: 01-11-2025 ambulatory Alireza London Facility:[facility] Start: 01-04-2025 End: 01-04-2025 ambulatory ALIREZA LONDON [facility] Start: 12-28-2024 End: 12-28-2024 Patient encounter procedure Carol Barrera CNM -[facility] Work Phone: Start: 12-28-2024 End: 12-28-[address] Alireza London MD Work Phone: [facility] Work Phone: Start: 12-28-2024 End: 12-28-2024 ambulatory Alireza London Facility:[facility] Start: 12-14-2024 End: 12-14-[address] Elidia Joaquin MD -[facility] Work Phone: Start: 12-14-2024 End: 12-14-[address] Alireza London MD Work Phone: [facility] Work Phone: Start: 12-07-2024 End: 12-07-2024 ambulatory ALIREZA M [facility] Start: 11-30-2024 End: 11-30-2024 Patient encounter procedure Carol Barrera CNM -[facility] Work Phone: Start: 11-30-2024 End: 11-30-2024 ambulatory Alireza Smithner Facility:[facility] Start: 11-30-2024 End: 11-30-2024 ambulatory Alireza London Facility:[facility] Start: 11-08-2024 End: 11-08-[address] [facility] Start: 11-02-2024 End: 11-02-[address] Bhavani Wells DO [facility] Work Phone: Start: 11-02-2024 End: 11-02-[address] Alireza London MD Work Phone: [facility] Work Phone: Start: 11-02-2024 End: 11-02-2024 ambulatory Bhavani Wells Facility:[facility] Start: 10-21-2024 Encounter for genera l adult medical examination without abnormal findings Bhavani Wells [facility] Start: 10-12-2024 End: 10-12-[address] Bhavani Wells DO -[facility] Start: 10-12-2024 End: 10-12-[address] Alireza London MD Work Phone: [facility] Work Phone: Start: 10-12-2024 End: 10-12-2024 ambulatory Bhavani Wells Facility:[facility] Start: 10-05-2024 End: 10-05-[address] Bhavani Wells DO -[facility] Work Phone: Start: 10-05-2024 End: 10-05-[address] Alireza London MD Work Phone: [facility] Work Phone: Start: 10-05-2024 End: 10-05-2024 ambulatory Bhavani Wells Facility:[facility] Start: 09-28-2024 End: 09-28-2024 ambulatory [facility] Start: 09-14-2024 End: 09-14-2024 ambulatory [facility] Start: 09-07-2024 End: 09-07-2024 Patient encounter procedure Alesha To NP-Ralf -[facility] Work Phone: Start: 09-07-2024 End: 09-07-2024 ambulatory Alireza London Facility:[facility] Start: 09-07-2024 End: 09-07-2024 ambulatory Alesha To NP Facility:[facility] Start: 08-10-2024 End: 08-10-2024 Patient encounter procedure Dr. Bhavani Wells DO -[facility] Work Phone: Start: 08-10-2024 End: 08-10-2024 ambulatory Alireza London Facility:[facility] Start: 08-10-2024 End: 08-10-2024 ambulatory Alireza London Facility:[facility] Start: 07-05-2024 End: 07-05-2024 Patient encounter procedure Carol Barrera CNM -[facility] Work Phone: Start: 07-05-2024 End: 07-05-2024 ambulatory Alireza London Facility:[facility] Start: 07-05-2024 End: 07-05-2024 ambulatory Alireza London Facility:[facility] Start: 02-03-2024 End: 02-03-2024 ambulatory Facility:[facility] Start: 02-03-2024 End: 02-03-2024 Office outpatient new 30 minutes Arvin Rendon APRN.CNP Work Phone: [facility] Comment on above: Sore throat (Primary Dx); Strep throat Start: 08-26-2022 Non-patient / Non-visit Dr. Cheryl London Work Phone: [facility] Start: 08-25-2022 Non-patient / Non-visit Dr. Cheryl London Work Phone: [facility] Start: 08-24-2022 Non-patient / Non-visit Dr. Cheryl London Work Phone: [facility] Start: 08-24-2022 End: 08-26-2022 Evaluation and management of inpatient Dr. Alireza London Work Phone: [facility] Start: 08-23-2022 End: 08-23-[address] Alireza London Work Phone: [facility] Start: 08-15-2022 End: 08-15-[address] Alireza London Work Phone: [facility] Start: 08-09-2022 End: 08-09-[address] Alireza London Work Phone: [facility] Start: 08-01-2022 End: 08-01-[address] Alireza London Work Phone: [facility] Start: 07-23-2022 Non-patient / Non-visit Dr. Cheryl London Work Phone: [facility] Start: 07-23-2022 End: 07-23-[address] Alireza London Work Phone: [facility] Work Phone: Start: 07-23-2022 End: 07-23-[address] Alireza London Work Phone: [facility] Start: 07-15-2022 End: 07-15-[address] Alireza London Work Phone: [facility] Start: 07-02-2022 End: 07-02-[address] Alireza London Work Phone: [facility] Start: 06-20-2022 End: 06-20-[address] Alireza London Work Phone: [facility] Start: 06-04-2022 End: 06-04-[address] Alireza London Work Phone: [facility] Work Phone: Start: 06-04-2022 End: 06-04-[address] Alireza London Work Phone: [facility] Start: 05-16-2022 End: 05-16-[address] Alireza London Work Phone: [facility] Start: 04-16-2022 End: 04-16-[address] Alireza London Work Phone: [facility] Start: 03-19-2022 End: 03-19-[address] Alireza London Work Phone: [facility] Start: 02-20-2022 End: 02-20-[address] Alireza London Work Phone: [facility] Start: 01-21-2022 End: 01-21-[address] Alireza London Work Phone: [facility] Start: 11-27-2021 End: 11-27-[address] Alireza London Work Phone: [facility] Procedures Date Procedure Procedure Detail Performing Clinician Start: 01-20-2025 Ultrasonography for antepartum monitoring of fetus Dr. Alireza London MD Work Phone: Start: 01-11-2025 Beta-hemolytic Streptococcus culture Dr. Alireza London MD Work Phone: Start: 12-28-[address] Alireza London MD Work Phone: Comment on above: Test Ordered: [id number] Antibody Identifica tionAntibody Id. #1 Anti-M CB Reference Range: .Dat Titer #1 Comment CB Reference Range: .The antibody is too weak to titer at this time.If a numerical titer result has been reported, please notethat this result is the reciprocal value of titer resultsformerly reported as 1:2,1:4, 1:8, etc. These results arenow reported as 2, 4, 8, etc. The [employer] has recommended this change in titer reportingformats to simply reflect the reciprocal value of thetiter.Antibody Id. #2 SENIOR INSTRUMENTATION ENGINEER NOLAB Reference Range: .Dat Titer #2 SENIOR INSTRUMENTATION ENGINEER NOLAB Reference Range: .Performed at: [address] [id number] Director: Joey Mortensen PhD, Phone: [phone] Start: 11-30-[address] Alireza London MD Work Phone: Comment on above: Test Ordered: [id number] Antibody Identifica tionAntibody Id. #1 Anti-M CB Reference Range: .Dat Titer #1 2 CB Reference Range: .If a numerical titer result has been reported, please notethat this result is the reciprocal value of titer resultsformerly reported as 1:2,1:4, 1:8, etc. These results arenow reported as 2, 4, 8, etc. [employer] has recommended this change in titer reportingformats to simply reflect the reciprocal value of thetiter.Antibody Id. #2 SENIOR INSTRUMENTATION ENGINEER NOLAB Reference Range: .Dat Titer #2 SENIOR INSTRUMENTATION ENGINEER NOLAB Reference Range: .Performed at: [facility] [employer] [id number] Director: Joey Mortensen PhD, Phone: [phone] Start: 11-02-2024 Serologic test for syphilis Dr. Alireza taylor MD Work Phone: Start: 07-05-[address] Alireza London MD Work Phone: Start: 02-03-2024 STREP A MOLECULAR (POC) Arvin arreola APRN.LINER ASSEMBLER Work Phone: History of tonsillectomy History of tonsillectomy Dr. Alireza London Work Phone: Plan of Treatment Date Care Activity Detail Author Start: 06-20-2032 Urine microalbumin profile DTaP,Tdap,Td Vaccine (2 - Td or Tdap) [facility] Start: 12-28-2024 Procedure [facility] Start: 04-04-2024 Influenza vaccination Influenza Vaccine (#1) [facility] Start: 08-04-2023 Behavioral Health Screening Behavioral Health Screening [facility] Start: 04-04-2023 Covid-19 Vaccine ( season) Covid-19 Vaccine ( season) [facility] Start: 08-26-2022 Patient discharge [facility] Start: 08-25-2022 Administration of medication [facility] Start: 08-25-2022 Application of ice collar, cap or bag [facility] Start: 08-25-2022 Catheterization of vein [facility] Start: 08-25-2022 Introduction of urinary catheter [facility] Start: 08-25-2022 Measuring intake and output [facility] Start: 08-25-2022 Notification of physician [facility] Start: 08-25-2022 Procedure discontinued [facility] Start: 08-25-2022 Provision of activity privileges [facility] Start: 08-25-2022 Vital signs measurements [facility] Start: 08-25-2022 [facility] Start: 08-25-2022 Leukocyte reduced red blood cells [facility] Start: 08-24-2022 Admission procedure [facility] Start: 07-23-2022 Nonstress test [facility] Start: 07-23-2022 Obstetric monitoring [facility] Start: 07-23-2022 Vital signs measurements [facility] Start: 07-23-2022 [facility] Start: 07-23-2022 Patient discharge [facility] Start: 01-21-2022 [facility] Work Phone: Start: 2013 Screening for malignant neoplasm of cervix Cervical Cancer Screening [facility] Start: 2011 Hepatitis B Vaccine (1 of 3 - 19+ 3-dose series) Hepatitis B Vaccine (1 of 3 - 19+ 3-dose series) [facility] Start: 2010 Hepatitis C screening Hepatitis C Screening [facility] Start: 2010 HIV screening HIV Screening [facility] Bacteria identified in Urine by Culture [facility] Work Phone: CBC W Auto Different ial panel - Blood [facility] Measurement of gluco se 2 hours after glucose challenge for glucose tolerance test [facility] Patient Education Kick Counts ED False Labor OB Triage: Return to Hospital or Notify Physician if you Experience: [facility] Work Phone: Patient referral [facility] Work Phone: Serologic test for syphilis [facility] Streptococcus agalac tiae [Presence] in Unspecified specimen by Organism specific culture [facility] [place] Immunization Date Immunization Notes Care Provider Fa bozena 11-30-2024 tetanus toxoid, reduced diphtheria toxoid, and acellular pertussis vaccine, adsorbed Dr. Alireza London MD Work Phone: [facility] 06-20-2022 tetanus toxoid, reduced diphtheria toxoid, and acellular pertussis vaccine, adsorbed Dr. Alireza London Work Phone: [facility] 05-16-2022 influenza, injectabl e, quadrivalent, preservative free Dr. Alireza London MD Work Phone: [facility] 05-16-2022 influenza, seasonal, injectable Dr. Alireza London Work Phone: [facility] 05-16-2022 influenza virus vaccine, unspecified formulation Arvin Rendon APRN.CNP Work Phone: [facility] Payers Date Payer Category Payer Self-pay [id number] PPO [id number] 2022-Present [phone] [address] [place] [address] PPO [id number] 2022 Unknown [id number] 1990 Unknown [id number] 2..840.1.706907.3.579.2. 479 1992 Unknown [id number] 2.840.1.802112.3.579.2 479 1992 Unknown [id number] 2..840.1.923742.3.579.2. 479 1992 Unknown [id number] 2.16.840.1.331187.3.579.2. 479 1992 Unknown [id number] .840.1.653207.3.579.2. 479 1992 Unknown [id number] 2.840.1.481033.3.579.2. 479 Private Health Insurance [id number] Private Health Insurance [id number] Unknown [id number] .840.1.825410.3.579.2. 462 Unknown [id number] .840.1.353252.3.579.2. 462 Unknown [id number] 2.840.1.321371.3.579.2. 462 Unknown [id number] .840.1.464908.3.579.2. 462 Unknown [id number] .840.1.261723.3.579.2. 462 Unknown [id number] 2.840.1.229004.3.579.2. 462 Unknown [id number] 2.840.1.283261.3.579.2. 462 Unknown [id number] 2.840.1.120053.3.579.2. 462 Unknown [id number] .840.1.385266.3.579.2. 462 Unknown [id number] 840.1.411141.3.579.2. 462 Unknown [id number] 2.840.1.831121.3.579.2. 462 Unknown [id number] 2.840.1.543348.3.579.2. 462 Unknown [id number] 2.840.1.227384.3.579.2. 462 Unknown [id number] 2.16.840.1.647941.3.579.2. 462 Unknown [id number] 2.16.840.1.046386.3.579.2. 462 Unknown [id number] 2.16.840.1.116345.3.579.2. 462 Unknown [id number] 2.16.840.1.695805.3.579.2. 462 Unknown [id number] 2.16.840.1.643610.3.579.2. 462 Unknown [id number] 2.16.840.1.935378.3.579.2. 462 Unknown [id number] 2.16.840.1.262600.3.579.2. 462 Unknown [id number] 2.16.840.1.703492.3.579.2. 462 Unknown [id number] 2.16.840.1.823670.3.579.2. 462 Unknown [id number] 2.16.840.1.639383.3.579.2. 462 Unknown [id number] 2.16.840.1.920892.3.579.2. 462 Social History Date Type Detail Facility Start: 01-21-2022 End: 08-24-2022 Tobacco smoking status ILIS Unknown if ever smoked [facility] Start: 10-23-2020 Non-smoker [place] Start: 1990 Sex Assigned At Female [facility] Start: 02-03-2024 Gender identity Identifies as female gender (finding) [facility] Sexual orientation Not on file [facility] Start: 06-24-2024 Tobacco smoking stat us ILIS Ex-smoker (finding) [facility] Start: 10-15-2024 End: 11-08-2024 Sex Female (finding) [facility] Goals Date Patient Goal Desired Activity /State Clinical Notes 08-25-2022 to 01-20-2025 Note Date & Type Note Facility 01-20-2025 Radiology Diagnostic study note [facility] Imaging Services [address] [place], [place] [address] OB Limited (No Biometrics) MR#: [id number] Acct: [id number] Name: IJHAN GUERRERO Rep #: [id number] : 1990 F 34 From: Pet er Elton BUCOI PCP: Dr. Alireza London MD Status: REG CLI Study:OB Limited (No Biometrics) Date of Exam : 01/20/25 Exam# [id number] Ordering Dr: Bhavani Gibson DO PROCEDURE: OB [...] posterior and is not low-lying. Reading Location: [facility] CC: Dr. Bhavani Wells DO; Dr. Alireza London MD ~ Metal Bed Assembler: Signed [facility] 12-28-2024 Progress note [facility] 12-14-2024 Progress note [facility] 10-05-2024 Evaluation note Diagnosis Onset Date [...] 3:12pm Two vessel cord acute January 3:12pm [facility] Work Phone: 1(423) 313-524103-04-2025 Evaluation note* Diagnosis Onset Date Resolution Status [...] 12:21pm Two vessel cord acute January 12:21pm [facility] Work Phone: 1(817) 694-157403-04-2025 Evaluation note* Diagnosis Onset Date Resolution Status [...] 8:06am Two vessel cord acute January 8:06am [facility] Work Phone: 1(316) 728-461202-04-2025 Evaluation note* Diagnosis Onset Date Resolution Status [...] vessel cord acute December 14, 2024 8:56am [facility] Work Phone: 1(149) 681-965002-04-2025 Evaluation note* Diagnosis Onset Date Resolution Status [...] vessel cord acute December 28, 2024 8:54am [facility] Work Phone: 1(137) 548-412601-07-2025 Evaluation note* Diagnosis Onset Date Resolution Status [...] 8:42am Two vessel cord acute November 8:42am [facility] Work Phone: 1(755) 644-432712-02-2024 Evaluation note* Diagnosis Onset Date Resolution Status [...] 8:48am Two vessel cord acute October 8:48am [facility] Work Phone: 1(998) 990-604507-02-2024 NoteHNO ID: [id number] Author: ARVIN RENDON APRN.LINER ASSEMBLER Service: ? Author Type: Nurse Practitioner Type: [...] of care. This note was generated using Fastgen software. It may contain errors in wording, punctuation, or spelling. Arvni Rendon APRN.[facility]07-02-2024 History of Present illness Narrative* Arvin Rendon APRN.[facility] - 02/03/2024 6:36 PM EDT Subjective [...] of care. This note was generated using Fastgen software. It may contain errors in wording, punctuation, or spelling. Arvin Rendon APRN.LINER ASSEMBLER [facility] Progress note Author Azucena Dwyer [facility] August 26, 2022 10:49am Note Date/Time August 26, 2022 1 0:49am [facility] Medical Records Department [address] [place] [address] Progress Note - OBGYN 08/26/22 1048 MR#: [id number] Acct: [id number] Name: JIHAN GUERRERO Rep #:[id number] : 1990 32 From: Azucena Dwyer CNM PCP: Dr. Alireza London MD Status:ADM IN Location: [place] [address] Subjective Subjective Patient doing well without complaints. [...] Cosigner Signature (if applicable): CC: ~ Signed [facility] Work Phone: 1(340) 761-273101-22-2023 Discharge summary Author Azucena Dwyer [facility] August 25, 2022 11:05am Note Date/Time August 25, 2022 1 1:05am [facility] Medical Records Department [address] [place] [address] [place] [address] Instructions for Home/Discharge Instructions 08/25/22 1104 MR#: [id number] Acct: [id number] Name: JIHAN GUERRERO Rep #:[id number] : 1990 32 From: Azucena Dwyer [...] London Discharge Orders/Prescriptions Prescriptions: No Action PNV #[id number]-ryrvl acid-omega3 30 mg iron-10 mg iron-1 mg capsule 1 cap PO DAILY Referrals / Follow Up: Alireza London MD [Primary Care Provider] - 08/25/22 1105<Electronically signed by Azucena Dwyer CNM>Azucena Dwyer CNM CC: Dr. Alireza London MD ~ Signed [facility] Work Phone: 1(993) 117-264401-22-2023 Procedure [facility] 08-25-2022 History and physical note Author Azucena Dwyer [facility] August 24, 2022 10:11pm Note Date/Time August 24, 2022 1 0:11pm [facility] Medical Records Department [address] [place] [address] H&P Exam - SPINNING BATH PERSON 08/24/22 2205 MR#: [id number] Acct: [id number] Name: JIHAN GUERRERO Rep #:[id number] : 1990 32 From: Azucena Dwyer CNM PCP: Dr. 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 G ood FM. 28 wk labs, [facility]. 06/20/22 -?-?-?-?-?-?-?-?-?-?-?-?- 30w 0d 186 lb 2 [...] any complications: GBS I have reviewed the [facility] and made any clinically relevant updates. -routine L&D admission orders -PCN for GBS -will add pitocin augmentation if no cervical change x6 hours from admission Dr. Joaquin updated on admission, POC and concurs with primary midwifery management. is avaiable. 08/24/222210 <Electronically signed by Azucena Dwyer CNM> Cosigner Signature (if applicable): CC: DENG Dwyer; Dr. Alireza London MD~ Signed [facility] Work Phone: Evaluation note* Diagnosis Onset Date Resolution Status Encounter for routine gynecological examination noneactive acute Supervision of normal acute [facility] Work Phone: evaluation note* Diagnosis Onset Date [...] b y group B Streptococcus affecting acute [facility] Work Phone: evaluation note* Diagnosis Onset Date [...] b y group B Streptococcus affecting acute [facility] Work Phone: evaluation note* Diagnosis Onset Date [...] of normal resolved (spontaneous vaginal delivery) resolved [facility] Work Phone: Evaluation note* Diagnosis Sore throat- Primary Acute pharyngitis Strep throat Streptococcal sore throat documented in this encounter [facility] Discharge instructions Additional Instructions avoid fatty foods keep appointment wi Dr Joaquin next week if epigastric pain increases, [facility] Work Phone: Progress note Author Elidia Joaquin [facility] Note Date/Time December 14, 2024 9:10a m [facility] [address], [address] [place] [address] OFFICE VISIT Date of Service: 12/14/24 MR#: [id number] Acct: [id number] Name: JIHAN GUERRERO Rep #: [id number] : 1990 Provider: Dr. 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 Date Name GA/Weeks Outcome Route Bth Weight Infant Gen Labor Lgth Anesthesia Del Locatn Provider FOB 08/25/22 Joe 39 live - full term 7#2OZ Male [facility] Reymundo Akins Delivery Date: 08/25/22 Last Updated [...] Cosigner Signature: Date (if applicable) CC: ~ [facility] Work Phone: Progress note Author Carol Barrera [facility] Note Date/Time December 28, 2024 9:13a [facility] [address] [place] [address], [address] [place] [address] OFFICE VISIT Date of Service: 12/28/24 MR#: [id number] Acct: [id number] Name: JIHAN GUERRERO Rep #: [id number] : 1990 Provider: DENG Barrera Age/Sex: 34/F Location: [facility] Status: Signed Intake Vital Signs 07/05/24 13:02 11/30/24 08:46 12/14/24 08:59 12/28/24 09:00 Height 5 ft 5 in 5 ft 5 in 5 ft 5 in 5 ft 5 in Weight: 195 lb 199 lb 2 oz BMI 32.4 33.1 BP 124/75 H 135/80 H Intake Visit Reasons: 34 wk ob Chief Complaint: 34wk OB 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 Is patient in pain?: No [...] animals: dog(s) history of recent travel: Yes ([place]) out of state: Yes out of country: [...] in: none frequency: 3-4 times per week galo/religious: None seatbelt use: always do you feel safe at home: Yes additional social history: - 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 Date Name GA/Weeks Outcome Route Bth Weight Infant Gen Labor Lgth Anesthesia Del Locatn Provider FOB 08/25/22 Joe 39 live - full term 7#2OZ Male [facility] Reymundo Akins Delivery Date: 08/25/22 Last Updated [...] and Symptoms of Preeclampsia, Feeding No , [place] Education and Family Medical Leave or Disability [...] Cosigner Signature: Date (if applicable) CC: ~ [facility] Work Phone: Reason for referral (narrative)No reason for referral information availableW[facility] Work Phone: Chief Complaint and Reason for Visit Chief Complaint Annual (INNERSOLE FITTER) NOB LMP 11/22/21 Reason for Visit Encounter [...] No October 23, 2020 2:24pm Power of Sharepoint Developer No October 23 2:24pm Advance Directive Response Recorded Date/ Time Living Will No October 23, 2020 1:24pm Power of Sharepoint Developer No October 23 1:24pm Advance Directive Response Recorded Date/ Time Living Will No August 24 8:09pm Power of Sharepoint Developer No August 24, 2022 8:09pm Advance Directive Response Recorded Date/ Time Living Will No December 27, 2022 4 :18am Power of Sharepoint Developer No December 27, 2022 4:18am Advance Directive Response Recorded Date/ Time Living Will No December 27, 2022 4 :18am Do you have a Healthcare Power of Sharepoint Developer? No December 27, 2022 4:18am Summary Purpose [...] 2024 End: November 30, 2024 Dr. Alireza Londno MD Referring Provider Active Start: November 30, [...] 2025 End: January 11, 2025 Alesha To SENIOR INSTRUMENTATION ENGINEER, SENIOR INSTRUMENTATION ENGINEER-C Attending Provider Active Start: January 11, 2025 End: January 11, 2025 Team Status: Inactive Member Role Status Dates Dr. Alireza London MD Primary Care Provider Active Start: January 11, 2025 End: January 11, 2025 Alesha To SENIOR INSTRUMENTATION ENGINEER, SENIOR INSTRUMENTATION ENGINEER-C Attending Provider Active Start: January 11, 2025 End: January 11, 2025 Alesha To SENIOR INSTRUMENTATION ENGINEER, SENIOR INSTRUMENTATION ENGINEER-C Referring Provider Active Start: January 11, 2025 [...] Provider, Referri ng Provider Active Alesha To SENIOR INSTRUMENTATION ENGINEER, SENIOR INSTRUMENTATION ENGINEER-C Attending Provider Active Team Status: Inactive Member [...] 2024 End: September 07, 2024 Alesha To SENIOR INSTRUMENTATION ENGINEER, SENIOR INSTRUMENTATION ENGINEER-C Attending Provider Active Start: September 07, 2024 End: September 07, 2024 Team Status: Inactive Member Role Status Dates Dr. Alireza London MD Primary Care Provider Active Start: September 07, 2024 End: September 07, 2024 Alesha To SENIOR INSTRUMENTATION ENGINEER, SENIOR INSTRUMENTATION ENGINEER-C Attending Provider Active Start: September 07, 2024 End: September 07, 2024 Alesha To SENIOR INSTRUMENTATION ENGINEER, SENIOR INSTRUMENTATION ENGINEER-C Referring Provider Active Start: September 07, 2024 [...] or prosecute any alcohol or drug abuse patient.[facility] Reason for Visit (unrecogniz ed section and content) Reason Comments Sore Throat fever x 2 days, Sund ay vomiting and diarrhea all day INFORMATION SOURCE (unrecogn ized section and content) DATE CREATED AUTHOR 02/05/2024 [facility] DATE CREATED AUTHOR AUTHOR'S ORGANIZ ATION 01/05/2025 [facility] DATE CREATED AUTHOR AUTHOR'S ORGANIZ ATION 01/30/2025 [facility] FOR RECORDS PERTAINING TO PATIENTS WHO [...] BE BASED ON THE PRIMARY CLINICAL RECORDS. [facility] [employer] [facility]. provides no warranty or guarantee of the accuracy or completeness of information in this document.
[2025-01-31] VITALS (56 sets, daily range): BP systolic 107–155; BP diastolic 55–89; PULSE 67–118; RESP 16–18; TEMP 36.3–36.8; O2SAT 91–100
[2025-01-31] MEDS: Penicillin G 3,000,000 Units 50 ML 100 UNITS IV ×3 (01:00→09:41)
--- NOTE | 2025-01-31 08:16 | HP.PCM.OB_ITS ---
HPI - General General Date of Admission: 01/30/25 Date of Service: 01/31/25 HPI Narrative JIHAN CHAUHAN, is a 34 F 39.1 weeks who presents to unit for IOL for 2 vessel cord. 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 affecting Family history of breast cancer Retrosternal pain Epigastric pain Home Medications ?Medication ?Instructions ?Recorded ?Last Taken ?Type NK 01/30/25 Unknown History Allergy/AdvReac Type Severity Reaction Status Date / Time No Known Allergies Allergy Verified 01/24/25 08:13 Family History Father Alcoholism Grandmother Breast cancer Hypertension Dementia, Onset Age: 90 Maternal Aunt Breast cancer Mother Hyperlipemia Surgical History Hx of wisdom tooth extraction History of tonsillectomy Social History adopted: No household members: spouse and children number of children: 1 current occupational status: employed current occupation: [employer] pets and animals: Yes pets and animals: dog(s) history of recent travel: Yes ([place]) out of state: Yes out of country: No sexually active: Yes Smoking Status: Former smoker quit date: 01/16/09 second hand exposure: No alcohol intake: current alcohol intake frequency: a few times a month details: Not while substance use type: does not use well-balanced diet: daily or most days caffeine: Yes Type: coffee Number of servings: 2 eating out: rarely or never during the past year weight has: remained stable what type of physical activity do you participate in: none frequency: 3-4 times per week galo/mandaen: None seatbelt use: always do you feel safe at home: Yes additional social history: - 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 Date Name GA/Weeks Outcome Route Bth Weight Gen Labor Lgth Anesthesia Del Locatn Provider FOB 08/25/22 Joe 39 live - full term [id number] Male [facility] Reymundo Akins Delivery Date: 08/25/22 Last Updated by: Brigitte Washington SROM Visit Details Expected Delivery Route/Plan Labor Preferences- CB/BF classes: no labor support person: Tashi labor intervention preferences: [] pain management options preferred: [] cut cord/dad catch: cord : yes PP control planned: [] discussed possible routes of delivery and associated risks: [] special requests: [] Plans Covid status: [] Flu vaccine: [] Tdap vaccine: [] Rhogam: NA LARC form signed: yes movement and labor precautions reviewed. Problem list reviewed and updated with the most current plan of care details and appropriate orders placed. Relevant counseling for the gestational age provided. Continue routine care and follow up unless otherwise noted in visit notes/problem list details OB Flowsheet Initial Weight: Not Recorded Date -?-?-?-?-?-?-?-?-?-?-?-?- EGA Weight BP Urine Prot -?-?-?-?-?-?-?-?-?-?-?-?- Glucose FHR FuHt Pres Dilation -?-?-?-?-?-?-?-?-?-?-?-?- Effaced St Visit Note 07/05/24 -?-?-?-?-?-?-?-?-?-?-?-?- 9w 1d 175 lb 130/67 -?-?-?-?-?-?-?-?-?-?-?-?- 171 -?-?-?-?-?-?-?-?-?-?-?-?- KW- CRL cons wit h dates. declines NIPT 08/10/24 -?-?-?-?-?-?-?-?-?-?-?-?- 14w 2d 173 lb 6 oz 124/79 Nega tive -?-?-?-?-?-?-?-?-?-?-?-?- Negative 166 -?-?-?-?-?-?-?-?-?-?-?-?- JV- no complaint s today. needs 2nd antibody titer today. declined nipt 09/07/24 -?-?-?-?-?-?-?-?-?-?-?-?- 18w 2d 180 lb 8 oz 118/72 Nega tive -?-?-?-?-?-?-?-?-?-?-?-?- Negative 148 -?-?-?-?-?-?-?-?-?-?-?-?- MH-no VB. Feelin g movement. Antibody titer today. Denies concerns 10/05/24 -?-?-?-?-?-?-?-?-?-?-?-?- 22w 2d 181 lb 6 oz 110/77 Nega tive -?-?-?-?-?-?-?-?-?-?-?-?- Negative 140 -?-?-?-?-?-?-?-?-?-?-?-?- JV- anatomy scan reviewed. hypercoiled, 2 vessel cord and marginal insertion. needs rpt anti -m antibody. was 1:2 last month. plan 39 week delivery. 11/02/24 -?-?-?-?-?-?-?-?-?-?-?-?- 26w 2d 189 lb 113/73 Negative -?-?-?-?-?-?-?-?-?-?-?-?- Negative 143 -?-?-?-?-?-?-?-?-?-?-?-?- JV- glucola done today. no lof, vaginal bleeding, kicks are less than they were last week. kick counts reviewed. 11/30/24 -?-?-?-?-?-?-?-?-?-?-?-?- 30w 2d 192 lb 6 oz 129/74 Nega tive -?-?-?-?-?-?-?-?-?-?-?-?- Negative 155 30 -?-?-?-?-?-?-?-?-?-?-?-?- kw- no vb/lof/ct x. good fm. Tdap and LARC today. kw- no vb/lof/ctx. good fm. Tdap and LARC today. titers drawn today. 12/14/24 -?-?-?-?-?-?-?-?-?-?-?-?- 32w 2d 195 lb 124/75 Negative -?-?-?-?-?-?-?-?-?-?-?-?- Negative 150 32 -?-?-?-?-?-?-?-?-?-?-?-?- SM- no vb lof go od fm no regular ctx 12/28/24 -?-?-?-?-?-?-?-?-?-?-?-?- 34w 2d 199 lb 2 oz 135/80 Nega tive -?-?-?-?-?-?-?-?-?-?-?-?- Negative 158 34 -?-?-?-?-?-?-?-?-?-?-?-?- KW- no vb/lof. n oticed some BH contractions over the weekend-now resolved. Anti M titers today and US scheduled for next week. 01/11/25 -?-?-?-?-?-?-?-?-?-?-?-?- 36w 2d 202 lb 8 oz 104/70 Nega tive -?-?-?-?-?-?-?-?-?-?-?-?- Negative 145 36 Cephalic 0 -?-?-?-?-?-?-?-?-?--?-?-?- MH-No VB, LOF. G ood FM. Reactive NST 01/18/25 -?-?-?-?-?-?-?-?-?-?-?-?- 37w 2d 200 lb 4 oz 120/78 Nega tive -?-?-?-?-?-?-?-?-?-?-?-?- Negative 140 35 Cephalic -?-?-?-?-?-?-?-?-?-?-?-?- JV- reactive nst . last growth was normal but measuring small today. ordering ultrasound for fluid. 01/24/25 -?-?-?-?-?-?-?-?-?-?-?-?- 38w 1d 201 lb 125/80 Negative -?-?-?-?-?-?-?-?-?-?-?-?- Negative 130 37 Cephalic 1 -?-?-?-?-?-?-?-?-?-?-?-?- 20 -4 SM- no vb lof good fm no regular ctx plan IOL 39 9weeks NST FHR Rate Baby A Baseline: 135 Variability:: Moderate Accelerations:: 15 x 15 Decelerations:: None NST Reactive:: Yes FHR Category:: Category I Uterine Activity:: 2-4 minutes ROS Constitutional Constitutional: Denies change in weight, fatigue, fever(s), headache(s), poor appetite or weakness Eyes Eyes: Denies blurry vision, change in vision, floaters, seeing flashes or spots in vision ENT HEENT: Denies dizziness, headache(s), loss taste/smell or sore throat Cardiovascular Cardiovascular: Denies chest pain, dizziness, dyspnea, irregular heart rhythm, lightheadedness, palpitations or rapid heart rate Respiratory/Chest Respiratory/Chest: Denies change in mental status, chest tightness, cough, dyspnea or breast pain Gastrointestinal Gastrointestinal: Denies anorexia, chewing difficulty, constipation, diarrhea or weight changes Genitourinary Genitourinary: Denies difficulty urinating, dysuria, flank pain, genital pain, u rinary frequency or urinary urgency Musculoskeletal Musculoskeletal: Denies back pain, difficulty walking, extremity pain, joint pain, muscle cramps or muscle weakness Integumentary Integumentary: Denies lesions or unusual bruising Neurologic Neurologic: Denies abnormal movements, abnormal speech, dizziness, numbness, seizure-like activity, syncope or weakness Psychiatric Psychiatric: Denies behavioral changes, change in appetite, confusion, depression, homicidal ideation, suicidal ideation or suicidal thoughts Endocrine Endocrinology: Denies excessive sweating, polydipsia or polyuria Hematologic/Lymphatic Hematologic/Lymphatic: Denies anemia Allergic/Immunologic Allergic/Immunologic: Denies itchy eyes, lip swelling, throat swelling, tongue swelling or wheezing Vital Signs Vital Signs Vital Signs: 01/30/25 19:37 01/30/25 19:37 01/30/25 19:37 Temperature Temperature Source Temporal Pulse Rate 102 H Respiratory Rate Blood Pressure 135/93 H BP Systolic 135 BP Diastolic 93 Pulse Ox 01/30/25 19:37 01/30/25 19:37 01/30/25 20:52 Temperature 97.3 F L Temperature Source Pulse Rate Respiratory Rate 16 Blood Pressure 132/79 H BP Systolic 132 BP Diastolic 79 Pulse Ox 01/30/25 20:52 01/31/25 01:00 01/31/25 01:00 Temperature Temperature Source Pulse Rate 82 78 Respiratory Rate Blood Pressure 116/65 BP Systolic 116 BP Diastolic 65 Pulse Ox 01/31/25 01:00 01/31/25 01:00 01/31/25 01:00 Temperature 97.6 F L Temperature Source Temporal Pulse Rate Respiratory Rate 16 Blood Pressure BP Systolic BP Diastolic Pulse Ox 01/31/25 06:35 01/31/25 06:35 01/31/25 06:35 Temperature Temperature Source Temporal Pulse Rate 76 Respiratory Rate Blood Pressure 122/68 H BP Systolic 122 BP Diastolic 68 Pulse Ox 01/31/25 06:35 01/31/25 06:35 01/31/25 07:12 Temperature 97.9 F Temperature Source Pulse Rate Respiratory Rate 16 Blood Pressure 125/72 H BP Systolic 125 BP Diastolic 72 Pulse Ox 01/31/25 07:12 01/31/25 07:12 01/31/25 07:12 Temperature Temperature Source Temporal Pulse Rate 75 Respiratory Rate 17 Blood Pressure BP Systolic BP Diastolic Pulse Ox 01/31/25 07:12 01/31/25 07:12 Temperature 97.4 F L Temperature Source Pulse Rate Respiratory Rate Blood Pressure BP Systolic BP Diastolic Pulse Ox 96 Weight Weight: 202 lb 8 oz Body Mass Index (BMI) 33.7 Physical Exam Const alert, oriented x3 and no apparent distress General Appearance: cooperative Orientation / Consciousness: awake HEENT normocephalic Neck full ROM Lymph Lymphatic: no lymphadenopathy noted Chest inspection of chest normal Resp normal respiratory effort and normal air movement Effort and Inspection: able to speak in complete sentences and symmetric chest movement GI soft to palpation and non-tender Inspection: gravid Palpation: soft; Negative for tender external exam normal Back/Spine normal to inspection Extremity normal to inspection and full ROM Skin no rashes or lesions noted Psych mental status grossly normal Appearance: grossly normal Speech: normal speech Labs Labs Labs: Blood Type A POSITIVE Antibody Screen NEGATIVE Hct 30.6 % (37-47) L Hgb 10.7 g/dL (12.0-15.0) L Obstetrics Ultrasound Syphilis Total Ab Nonreactive (Nonreactive) Rubella IgG Antibody Reactive (Nonreactive) Hep Bs Antigen Non-Reactive (Nonreactive) Hepatitis C Antibody Non-Reactive (Nonreactive) Chlamydia DNA (VENU) Negative (Negative) N.gonorrhoeae DNA (VENU) Negative (Negative) HIV 1&2 Antibody Nonreactive (Nonreactive) Glucose 1 Hr 50 gm 95 mg/dL (70-140) Rhogam given: No Miscellaneous Test COMMENT (.) Assessment & Plan (1) Encounter for induction of labor: PLAN: Patient presents IOL, plan management for with cytotec/pitocin/AROM. Pain management: plans epidural. GBS positive. Management of any complications: see list I have reviewed the [facility] and made any clinically relevant updates. Dr Joaquin aware of assessment, plan and admission. agrees with above (2) Small for gestational age fetus: (3) Positive GBS test: (4) Two vessel cord: COMMENT: Growth US Q4 wk and wkly NST at 36 wk deliver 39 weeks (5) Abnormal antibody titer: COMMENT: Anti M. too weak to titer in first trimester, second draw increased to 2, stable on 11/30-redraw q 4 weeks 12/28 too weak to titer. Rpt 4 wk (6) Hx of hemorrhage, currently : (7) Supervision of high-risk : QUALIFIERS: Trimester: third trimester Qualified Code(s): O09.93 - Supervision of high risk , unspecified, third trimester COMMENT: PRR,, ALFRED 02/06/25, CAPO Diaz, Tashi (8) : QUALIFIERS: Weeks of gestation: 38 weeks Qualified Code(s): Z3A.38 - 38 weeks gestation of COMMENT: declined NIPT & Carrier testing, nl anatomy Charges/Coding Multi Select Codes Urinary/Genital Urinary/Genital CPT Codes: No Charge
[2025-01-31] MEDS: Lactated Ringers 1,000 ML 999 ML IV (08:38)
[2025-01-31] MEDS: fentaNYL-bupivacaine (epidural) 100 ML BAG EPIDURAL (09:32)
[2025-01-31] MEDS: Oxytocin 15 Units/NS 250ml 15 UNITS/250 ML IV.SOLN 2 UNITS IV (11:24)
--- NOTE | 2025-01-31 12:10 | PN_ITS ---
Progress Note comfortable with epidural current tracing: FHT: 130 Moderate variability reactive no decelerations category I tracing [place]: 1-4 Contractions Membranes: AROM clear at 0812. remains clear SVE: 7/80/-2 Pitocin :4mu A/P: Continue with position changes Titrate pitocin per protocol Epidural per anesthesia PCN for GBS prophylaxis Anticipate Dr Joaquin aware of above assessment and agrees with plan of care Assessment & Plan Assessment/Plan (1) Encounter for induction of labor: (2) Small for gestational age fetus: (3) Positive GBS test: (4) Two vessel cord: (5) Abnormal antibody titer: (6) Hx of hemorrhage, currently : (7) Supervision of high-risk : QUALIFIERS: Trimester: third trimester Qualified Code(s): O09.93 - Supervision of high risk , unspecified, third trimester (8) : QUALIFIERS: Weeks of gestation: 38 weeks Qualified Code(s): Z3A.38 - 38 weeks gestation of Multi Select Codes Urinary/Genital Urinary/Genital CPT Codes: No Charge
--- NOTE | 2025-01-31 13:27 | OB.VAGDELI_ITS ---
Assessment & Plan (1) Vaginal delivery: COMMENT: KW IOL 39.1 girl Cony (2) Encounter for induction of labor: (3) Small for gestational age fetus: (4) Positive GBS test: (5) Two vessel cord: COMMENT: Growth US Q4 wk and wkly NST at 36 wk deliver 39 weeks (6) Abnormal antibody titer: COMMENT: Anti M. too weak to titer in first trimester, second draw increased to 2, stable on 11/30-redraw q 4 weeks 12/28 too weak to titer. Rpt 4 wk (7) Hx of hemorrhage, currently : (8) Supervision of high-risk : QUALIFIERS: Trimester: third trimester Qualified Code(s): O09.93 - Supervision of high risk , unspecified, third trimester COMMENT: PRR,, ALFRED 02/06/25, CAPO Diaz, Tashi (9) : QUALIFIERS: Weeks of gestation: 38 weeks Qualified Code(s): Z3A.38 - 38 weeks gestation of COMMENT: declined NIPT & Carrier testing, nl anatomy Maternal Data Information ALFRED Calculator Estimated Delivery Date Method Current WG Current Estimate 02/06/25 LMP (Certain) 39w 1d Other Estimates 02/08/25 Ultrasound #1 38w 6d Final ALFRED: 01/31/25 Final ALFRED Source: US >20 weeks Gestational age: 39.1 Vaginal Delivery Maternal Presentation Maternal Presentation: Medically Indicated Induction Maternal Presentation: Presented to unit for induction of labor for 2VC Type of Induction: Pitocin and Cytotec Medical Reason for Induction: Other (2VC) Vaginal Delivery Information Procedure Performed: Spontaneous Vaginal Delivery Surgeon/Practitioner: Carol Barrera Date of Procedure: 01/31/25 Pre-Procedure Diagnosis: see problem list Post-Procedure Diagnosis: same Type of anesthesia: Epidural Estimated Blood Loss: 400 Time of Delivery: 13:13 Findings Description of procedure: Progressed well to 10cm dilated and made steady progress with effective maternal pushing. Delivered the head in CARIDAD presentation. The head was delivered atraumatically and no nuchal cord was identified. The anterior and posterior shoulders delivered without complication followed by the rest of the and the was placed on the maternal abdomen. Delayed cord clamping was employed for approximately 3 minutes. Cord was clamped and cut and gentle traction was applied to the cord and the placenta delivered spontaneously. Immediately following, it was noted to be intact with a 2 vessel cord. Uterine bleeding stable. The perineum and vagina were inspected and noted to have no laceration. EBL was 400cc. Patient and infant tolerated delivery well. Apgars 9/9. Dr Joaquin notified of vaginal delivery and orders reviewed. Physician agrees with current plan of care. Presentation: Vertex Amniotic Membrane Rupture Type: Artificial Amniotic Fluid Description: Clear Placental Delivery Description: Spontaneous Placenta Disposition: [facility] Specimen collected: No Cord Vessel Description: 2 Vessels Cord Entanglement: None (1 minute): 9 (5 minute): 9 Delayed Cord Clamping: Yes Radiotelegraph Operator Servicer aviation project manager: No Post Vaginal Deli Medications given after delivery: IM Pitocin Episiotomy Description: None Laceration: None Complication Complications: No Multi Select Codes Urinary/Genital Urinary/Genital CPT Codes: 25485 Vaginal Delivery [facility]
--- NOTE | 2025-01-31 13:29 | DCINST_ITS ---
Discharge Instructions Diet Discharge Diet: No restrictions DC O2, CPAP, BIPAP needs Home O2 Discharge instructions: No Dressing / Incision Discharge Activity: Return to Normal Activity May resume sexual activity in: 6-8 weeks Dressing / Incision Call your doctor if you observe: Fever of 101 or Higher, Coldness, Increased Pain, Numbness or Tingling, Change in Color, Inability to urinate, Inability to have a bowel movement, Using more than 1 pad per hour, Shortness of breath, Dizziness, Fainting spells, Swelling in the ankles, Chest pain, Increased p alpitations (irregular heartbeat), Calf discomfort and Uncontrolled pain Follow Up Care Please Follow Up With: Carol Barrera CNM When: Please call the office to schedule your follow up appointment in 6 weeks. If you had high blood pressure please call to schedule an appointment in 2 weeks. Test Results: Test results from this visit will be discussed in further detail at your follow- up appointment, if applicable. Discharge Plan Admission Admit Date/Time: 01/30/25 19:09 Attending Provider: Carol Barrera Primary Care Provider: Maryann Ruiz Consulting Providers: Bhavani Wells Discharge Orders/Prescriptions Prescriptions: No Action NK Referrals / Follow Up: Maryann Ruzi MD [Primary Care Provider] -
[2025-01-31] MEDS: Oxytocin 15 Units/NS 250ml 15 UNITS/250 ML IV.SOLN 83 UNITS IV (13:50)
[2025-02-01 00:40] VITALS: BP 117/71; PULSE 91; RESP 16; TEMP 36.7; O2SAT 16
[2025-02-01 04:00] VITALS: BP 127/72; PULSE 81; RESP 16; TEMP 36.1; O2SAT 97
--- NOTE | 2025-02-01 07:21 | PCM.PN.OB ---
Subjective Subjective Patient doing well without complaints. Tolerating PO. Ambulating and voiding without difficulty. feeding well. Denies chest pain, shortness of breath, calf pain/swelling, fevers, chills, lightheadedness. Objective Data Objective Data Vital Signs: Vital Signs Temp Pulse Resp BP Pulse Ox O2 Del Method 97 F L 81 16 127/72 H 97 Room Air 02/01/25 04:00 02/01/25 04:00 02/01/25 04:00 02/01/25 04:00 02/01/25 04:00 02/01/25 04:00 Oxygen Delivery Method Room Air Weight: 202 lb 8 oz Body Mass Index (BMI) 33.7 Intake & Output: Intake and Output for Last 24 Hours 01/30/25 01/31/25 02/01/25 23:59 23:59 23:59 Intake Total 100 / 100 1985. / Output Total 1999 Balance 100 / 100 -13.97 / -13.97 Lab / Micro Data 01/30/25 19:45 Labs: Laboratory Results - last 24 hr 01/30/25 19:45: Blood Type A POSITIVE, Antibody Screen NEGATIVE, Crossmatch See Detail ROS Constitutional Constitutional: Reports systems reviewed and no addt'l complaints, except as documented Cardiovascular Cardiovascular: Reports systems reviewed and no addt'l complaints, except as documented Respiratory/Chest Respiratory/Chest: Reports systems reviewed and no addt'l complaints, except as documented Gastrointestinal Gastrointestinal: Reports systems reviewed and no addt'l complaints, except as documented Physical Exam Const alert, oriented x3 and no apparent distress HEENT Head and Scalp: atraumatic Resp normal respiratory effort GI soft to palpation and non-tender Bimanual Exam - Vag & Uterus: uterus non-tender Uterus Palpation: uterus fundus firm (below Umbilicus) Assessment & Plan (1) Vaginal delivery: COMMENT: KW IOL 39.1 girl Cony PLAN: Plan s/p PPD # 1 1. routine post delivery care 2. breast feeding- support given 3. rh positive 4. rubella immune
[2025-02-01 08:00] VITALS: BP 120/73; PULSE 87; RESP 16; TEMP 36.3; O2SAT 97
[2025-02-01 13:41] VITALS: BP 129/71; PULSE 74; RESP 16; TEMP 36.6; O2SAT 100
== END 2025-02-01 14:50 | disposition home or self-care (01) | DRG 807 ==
PROVIDERS: Obstetrics & Gynecology; Admitting Provider Advanced Practice Midwife; PCP Internal Medicine; Referring Provider Advanced Practice Midwife; Visit Provider Advanced Practice Midwife
DX: O43.893 Other placental disorders, third trimester (principal); Z37.0 Single live birth; O36.5930 Maternal care for other known or suspected poor fetal growth, third trimester, not applicable or unspecified; O99.820 Streptococcus B carrier state complicating pregnancy; O99.892 Other specified diseases and conditions complicating childbirth; R76.0 Raised antibody titer; Z3A.39 39 weeks gestation of pregnancy; Z87.59 Personal history of other complications of pregnancy, childbirth and the puerperium; Z87.891 Personal history of nicotine dependence
CPT/HCPCS: 59025; 59050; 85025; 86780; 86850; 86900; 86901; 86902; 86920; 86921; 86922; 99221; G0378; J2405

== ENCOUNTER → 2025-03-14 | Outpatient (CLI) | payer BC, SELFPAY ==
[2025-03-17 15:08] LABS: HPV APTIMA, High Risk Negative (Negative)
== END | disposition home or self-care (01) ==
LOC: LABSPEC 15:28
PROVIDERS: PCP Internal Medicine; Visit Provider Nurse Practitioner Women's Health
DX: Z12.4 Encounter for screening for malignant neoplasm of cervix (principal)
CPT/HCPCS: 87624; 88175; G0145